=== PATIENT | female | born 1955 | race Caucasian/White ===

== ENCOUNTER 2022-12-17 10:10 | Outpatient (OUT) | payer MEDICARE, SELFPAY ==
--- NOTE | 2022-12-17 | XR_ITS ---
The [address] [address] Patient Name: KHURRAM DE LA O MRN: [id number] date: 1955 Sex: F Assigned Patient Location: [facility] Current Patient Location: RAD Accession/Order Number: [id number] Exam Date: 12/17/2022 10:30 Report Date: 12/17/2022 16:51 At the request of: JOELLEN BRIGHT Procedure: XR abdomen 1V PROCEDURE: XR abdomen 1V DATE: 12/17/2022 9:30 AM CDT COMPARISONS: CT abdomen pelvis 02/04/2022. KUB 02/17/2022 CLINICAL INDICATION: 67 years Female KIDNEY STONES FINDINGS: The bowel gas pattern is within normal limits. There is scattered mild to moderate stool and gas throughout the colon. Surgical clips overlie the right upper quadrant, stable. There may be a few calcifications overlying the right kidney and nonobstructing position, stable from CT of 02/04/2022. There are a few phleboliths of the pelvis. These are stable. The visualized osseous structures show no significant abnormalities. IMPRESSION: Few nonobstructing calculi of the right kidney. Calcifications of the abdomen and pelvis could be obscured by stool and gas Electronically authenticated by: JEB NEW Date: 12/17/2022 16:51
== END 2022-12-17 10:11 ==
LOC: RAD 10:10
PROVIDERS: PCP Family Medicine; Visit Provider Urology
DX: N20.0 Calculus of kidney (principal)
CPT/HCPCS: 74018

== ENCOUNTER 2023-04-21 09:35 | Outpatient (OUT) | payer MEDICARE, SELFPAY ==
--- NOTE | 2023-04-21 10:55 | CA_ITS ---
Patient: KHURRAM DE LA O Exam Date: 04/21/2023 : 1955 Gender:F Ordering : JANNIE PERKINS Admission #: [id number] Family : Order #: [id number] CLICK HERE TO VIEW EXAM ECHOCARDIOGRAM REPORT PROCEDURE: CA ECHO DOPPLER COMPLETE INDICATIONS: Ventricular tachycardia, AICD, hypertension COMPARISON: None. DESCRIPTION: COMPLETE ECHOCARDIOGRAM Real-time transthoracic echocardiography with 2D, M-mode, spectral and color flow Doppler performed. QUALITY: Technical quality was good. LEFT VENTRICLE: Normal chamber size. Normal left ventricular wall thickness. LV EF: Global left ventricular systolic function is normal; visually estimated ejection fraction is 55 to 60%. No obvious wall motion abnormalities. DIASTOLIC: Normal diastolic function. ATRIAL SEPTUM: Visually appears intact. LEFT ATRIUM: Normal chamber size. RIGHT ATRIUM: Normal chamber size. RIGHT VENTRICLE: Normal chamber size. Normal systolic function. Pacer wire present. TRICUSPID VALVE: Normal mobility and thickness. No stenosis with trivial regurgitation. Doppler studies reveal mildly (35-45) elevated right sided pressures. RVSP 37 mmHg MITRAL VALVE: Normal mobility and thickness. No evidence of mitral valve stenosis. Mild mitral annular calcification. Trivial mitral regurgitation. AORTIC VALVE: Normal trileaflet appearance. No visible sclerosis. Normal leaflet mobility. No evidence of aortic valve stenosis. Trivial aortic regurgitation. AORTIC ROOT: Normal diameter and appearance. PULMONIC VALVE: Normal thickness and mobility. No stenosis. No regurgitation. PERICARDIUM: No evidence of pericardial effusion. IVC: Collapses with inspirations. IVC is normal in size. CONCLUSION: 1. Global left ventricular systolic function is normal; visually estimated ejection fraction is 55 to 60% 2. Right ventricle is normal in size and systolic function 3. Normal diastolic function 4. Mildly elevated right ventricular systolic pressure; RVSP 37 mmHg 5. No significant valvular abnormalities Adult Echocardiography Procedure Report Left Ventricle LVEDD (3.7 - 5.6 cm): 5.36 cm LVESD (2.2 - 4.0 cm): 3.23 cm LVIVS thickness (0.6 - 1.2 cm): 0.92 cm LVPW thickness (0.5 - 1.0 cm): 0.98 cm e': 0.15 m/s E - e': 4.53 LVOT Max Gradient: 4.09 mm[Hg] LVOT Area (cm2): 1.01 m/s Peak Velocity (LVOT): 1.01 m/s LVOT Diameter 2.31 cm Left Atrium LA Volume Index (2D A2C): 32.69 ml/m2 Left Atrium Systolic Dimension: 2.95 cm Mitral Valve MV E to A Ratio: 1.52 Mitral Valve A-Wave Peak Velocity: 0.45 m/s Mitral Valve E-Wave Peak Velocity: 0.69 m/s Right Ventricle Aorta AO Root Diam: 2.99 cm Ascending Ao Diam: 2.89 cm Aortic Valve AoV Area (Peak Jones): 3.53 cm2, 3.53 cm2 Peak Velocity(Antegrade Flow): 1.20 m/s Peak Gradient(Antegrade Flow): 5.77 mm[Hg] Tricuspid Valve Peak Velocity (Regurgitant Flow): 2.93 m/s Pulmonic Valve Peak Velocity: 0.83 m/s Peak Gradient: 3.06 mm[Hg], 2.50 mm[Hg] Right Atrium Right Atrium Systolic Pressure: 40.12 ml, 40.12 ml Dictated by: Bambi Garay M.D. on 04/21/2023 at 12:33 Approved by: Babmi Garay M.D. on 04/21/2023 at 12:38
== END 2023-04-21 09:36 | disposition home or self-care (01) ==
LOC: CARD 09:37
PROVIDERS: PCP Family Medicine; Visit Provider Internal Medicine Cardiovascular Disease
DX: I47.20 Ventricular tachycardia, unspecified (principal); I47.29 Other ventricular tachycardia
CPT/HCPCS: 93306

== ENCOUNTER 2023-06-11 18:42 | Inpatient (IN) | payer MEDICARE, SELFPAY ==
[2023-06-11 18:42] VITALS: BP 167/93; PULSE 70; RESP 18; TEMP 36.8; O2SAT 98; BMI 45.2
--- NOTE | 2023-06-11 19:18 | ED.ABDPAIN1 ---
HPI - Abdominal Pain General Chief Complaint: Abdominal Pain Stated Complaint: Vomiting Time Seen by Provider: 06/11/23 18:46 Source: patient Mode of arrival: Wheelchair Limitations: no limitations History of Present Illness HPI narrative: This 67-year-old female with a history of diverticulosis and possibly irritable bowel syndrome presents for evaluation of nausea and vomiting. The patient states sshe last ate a ham sandwich with macaroni and cheese and green beans and started becoming nauseated and has been vomiting since that time. She states that she has been vomiting for the past 2 hours. She has a history of chronic diarrhea. She recently had an endoscopy and colonoscopy with Dr. Dukes at [facility]. The results of the endoscopy showed a normal esophagus with moderate erythema in the antrum with random biopsies being taken to rule out H. pylori. There are multiple inflammatory polyps in the antrum which are also biopsied. Normal duodenum was noted. The results of the colonoscopy was moderate internal hemorrhoids. Severe sigmoid diverticulosis. Random biopsies were taken from the colon to rule out microscopic colitis. There was a 4 mm sessile polyp in the cecum removal with cold snare completely and retrieved and a 7 mm sessile polyp in the hepatic flexure resected with cold snare completely and retrieved. There was a normal terminal ileum. Pathology reports are pending at this time. The patient's son is with her and states he ate the same food and did not get sick. She is status post colonoscopy several years ago at this facility. She denies any coffee-ground emesis or bloody diarrhea. She has not had a fever or chills. She denies any chest pain or shortness of breath.She has generalized abdominal pain and points to the entire abdomen as area of greatest pain. She states that she has chronic diarrhea which is why she had a colonoscopy done. This is unchanged today. Related Data Home Medications Medication Instructions Recorded Confirmed albuterol sulfate 90 mcg/actuation 2 puff inhalation Q8H PRN 06/11/23 06/11/23 aerosol inhaler shortness of breath or wheezing alendronate 70 mg tablet 70 mg PO .weekly 06/11/23 06/11/23 amlodipine 5 mg tablet 5 mg PO DAILY 06/11/23 06/11/23 aspirin 81 mg capsule 81 mg PO DAILY 06/11/23 06/11/23 calcium citrate 200 mg 1 tab PO DAILY 06/11/23 06/11/23 calcium-vitamin D3 3.125 mcg (125 unit) tablet herbal complex no.239 (Whole Body 3 cap PO DAILY 06/11/23 06/11/23 Joint Support capsule) levothyroxine 50 mcg tablet 50 mcg PO DAILY 06/11/23 06/11/23 lisinopril 10 mg tablet 10 mg PO DAILY 06/11/23 06/11/23 naproxen sodium 220 mg capsule 220 mg PO Q8H 06/11/23 06/11/23 (Aleve) potassium chloride 10 mEq 10 meq PO DAILY 06/11/23 06/11/23 tablet,extended release sotalol 80 mg tablet 80 mg PO Q12H 06/11/23 06/11/23 Allergies Allergy/AdvReac Type Severity Reaction Status Date / Time ceftriaxone [From Rocephin] Allergy Intermediate Verified 06/11/23 18:48 oxaprozin [From Daypro] Allergy Intermediate Verified 06/11/23 18:48 Review of Systems ROS Status of ROS 10 or more systems reviewed and unremarkable except as noted in history and below PFSH PFSH Family History (Updated 06/11/23 @ 23:32 by Sally Delacruz) Mother Family history of cancer Father Family history of cancer Aunt Family history of hypertension Social History (Updated 06/11/23 @ 23:33 by Sally Delacruz) Within the past year, how often did you have a drink containing alcohol: never Score interpretation: A score less than 3 is consistent with normal alcohol consumption. Smoking status: Never smoker Non-prescribed substance use: denies use Previous occupational history: retired Highest level of school completed/degree received: some college, no degree Are you now , , , , never or living with a partner: In a typical week, how many times do you talk on the telephone with family, friends, or neighbors: 3 or more times per week How often do you get together with friends or relatives: 3 or more times per week How often do you attend episcopalian or bahai services: never Do you belong to any clubs or organizations such as episcopalian groups unions, fraternal or athletic groups, or school groups: no Total score: 1 Score interpretation: A score of less than or equal to 1 indicates the most socially isolated. Little interest or pleasure in doing things: not at all Feeling down, depressed, or hopeless: not at all Feel stressed/tense/nervous/anxious/difficulty sleeping: not at all Due to disability, difficulty making decisions: No Do you think of yourself as: straight/heterosexual Exam Narrative Exam Narrative: Nurses note and vital signs reviewed and patient is not hypoxic. General: Alert, moderately overweight female resting comfortably on the stretcher, she has an emesis basin in her lap after an episode of emesis. No active bleeding noted Skin: Warm, dry, no pallor noted. There is no rash noted. Head: Normocephalic, atraumatic Eye: Normal conjunctiva, no drainage, EOMI. PERRL. No scleral icterus. Ears, Nose, Mouth, and Throat: oral mucosa is moist. Cardiovascular: Regular Rate and [id number], no murmurs, rubs or gallops, pulses are brisk and equal bilaterally Respiratory: Patient is in no distress, no accessory muscle use, lungs are clear to auscultation, no wheezing, rales or rhonchi Back: non-tender, no CVA tenderness bilaterally to percussion. GI: Obese, soft, diffusely tender, no rebound, guarding or rigidity, bowel sounds are mildly increased Musculoskeletal: The patient has no evidence of calf tenderness, no pitting edema, symmetrical pulses noted bilaterally Neurological: A&O x4, normal speech Psychiatric: Cooperative Constitutional Vital Signs, click to edit/add: Last Vital Signs Temp 98.2 F 06/11/23 23:32 Pulse 69 06/11/23 23:32 Resp 18 06/11/23 23:32 BP 122/69 06/11/23 23:32 Pulse Ox 95 06/11/23 23:32 O2 Del Method Room Air 06/11/23 23:32 Course Vital Signs Vital signs: Vital Signs Temperature 98.3 F 06/11/23 18:42 Pulse Rate 70 06/11/23 18:42 Respiratory Rate 18 06/11/23 18:42 Blood Pressure 167/93 H 06/11/23 18:42 Pulse Oximetry 98 06/11/23 18:42 Oxygen Delivery Method Room Air 06/11/23 18:42 Temperature 98.2 F 06/11/23 23:32 Pulse Rate 69 06/11/23 23:32 Respiratory Rate 18 06/11/23 23:32 Blood Pressure 122/69 06/11/23 23:32 Pulse Oximetry 95 06/11/23 23:32 Oxygen Delivery Method Room Air 06/11/23 23:32 MDM - Abdominal Pain MDM Narrative Medical decision making narrative: 67-year-old female with a history of irritable bowel syndrome, chronic diarrhea recently had an endoscopy and colonoscopy due to her diarrhea presents for evaluation of nausea vomiting and generalized abdominal pain that started almost immediately after having dinner. She had 2 hours of vomiting prior to arrival and was still having some mild vomiting and dry heaving after getting to the emergency department. She has not had a fever. She denies any chest pain or shortness of breath. An IV is placed and she was medicated with IV fluids, Zofran Pepcid and 2 mg of morphine. She has no elevated white count at 16. Hemoglobin is normal. Her electrolytes are normal with the exception of a potassium at 6 that was repeated. Repeat potassium is normal at 4.4. Lactic acid is normal at 1.1. She has a normal BUN/Cr. CT scan of the abdomen/pelvis was ordered and Shows a focal area of thickening with a masslike appearance of the gastric antrum which could reflect a mass or tumor with recommendation for direct visualization which she recently did have done during her endoscopy. It also shows dilation of the small bowel focal transition point in the mid abdomen which could be seen in early obstruction. The patient states her pain is under control that she is still having some mild nausea. She will be re-medicated with IV Reglan. The case was discussed with Dr. Meyer who is on-call for general surgery [facility] but states that he is going off service at 8 AM and will be unavailable to consult on her. He suggests admission to the hospitalist service with an x-ray in the morning to monitor the progression of the possible early small bowel obstruction. Case was discussed with the hospitalist and she is accepted for admission. On re-evaluation, she is persistantly nauseated and has had additional vomiting in the ER. She agreed to passage of an NG tube if I give her some mild sedation. She agreed to 2mg IV versed for placement of the tube and signed consent. NGT was placed after administration of 2mg IV Versed and connected to low wall suction with return of a large volume of yellow fluid. Pt tolerated procedure well. Follow up abdominal xray shows the tube in place in the stomach. Medical Records Medical records narrative: 67-year-old female with a history of irritable bowel syndrome, chronic diarrhea recently had an endoscopy and colonoscopy due to her diarrhea presents for evaluation of nausea vomiting and generalized abdominal pain that started almost immediately after having dinner. She had 2 hours of vomiting prior to arrival and was still having some mild vomiting and dry heaving after getting to the emergency department. She has not had a fever. She denies any chest pain or shortness of breath. An IV is placed and she was medicated with IV fluids, Zofran Pepcid and 2 mg of morphine. She has no elevated white count at 16. Hemoglobin is normal. Her electrolytes are normal with the exception of a potassium at 6 that was repeated. She has a normal BUN/Cr. CT scan of the abdomen/pelvis was ordered and The [address] [address] [address] Scan Report Signed Patient: KHURRAM DE LA O MR#: [id number] : 1955 Acct:[id number] Age/Sex: 67 / F ADM Date: 06/11/23 Loc: ER Attending Dr: Ordering Physician: Sophie Masters Date of Service: 06/11/23 Procedure(s): CT abdomen pelvis w con Accession Number(s): [id number] cc: ROSANGELA SAEZ ~ The [address] [address] Patient Name: KHURRAM DE LA O MRN: [id number] date: 1955 Sex: F Assigned Patient Location: ER Current Patient Location: ER Accession/Order Number: [id number] Exam Date: 06/11/2023 20:30 Report Date: 06/11/2023 21:05 At the request of: SOPHIE MASTERS Procedure: CT abdomen pelvis w con EXAM: CT abdomen pelvis w con HISTORY: vomiting, abd pain, hx diverticulosis COMPARISON: CT abdomen and pelvis 02/04/2022, outside study TECHNIQUE: Intravenous contrast-enhanced axial CT of the abdomen and pelvis was performed with coronal and sagittal reformats provided. FINDINGS: Lung bases: Atelectasis or scarring at the left lung base. Partially imaged solid nodule at the left lung base measures 6 mm. Cardiac defibrillator lead seen in the right ventricle. ABDOMEN: Liver: Normal. Gallbladder/biliary: Status post cholecystectomy. Pancreas: Normal. Spleen: Normal. Adrenals: Normal. Kidneys, ureters and urinary bladder: Multiple nonobstructing nephroliths of the right kidney measures 4 mm. Subcentimeter hypodensities of the kidneys are too small to further characterize but are favored to represent cysts. The ureters and urinary bladder are unremarkable. Pelvis: Status post hysterectomy. No adnexal masses. Vasculature: Minimal calcific atherosclerosis of the abdominal aorta which is normal caliber. Major venous structures of the abdomen are patent. Hollow viscera/retroperitoneum: Normal appearance of the gastroesophageal junction. There is thickening at the gastric antrum with focal nodular area which could reflect a mass axial image 38. Small bowel is fluid-filled and dilated to 3.4 cm in diameter. Focal transition point in the mid abdomen and axial image 75. The appendix is normal. No focal colonic wall thickening. Few colonic diverticula are incidentally noted. No mesenteric or pelvic lymphadenopathy. No intra-abdominal free fluid or free air. Musculoskeletal/soft tissues: Soft tissues are within normal limits. No acute or aggressive osseous abnormality. CT/CT abdomen pelvis w con IMPRESSION: Focal area of thickening with masslike appearance of the gastric antrum could reflect a mass or ulcer. Consider direct visualization. There is dilatation of the small bowel with focal transition point in the mid abdomen which could be seen with early obstruction. Colonic diverticulosis without evidence of acute diverticulitis. Nonobstructing nephrolithiasis of the right kidney. Electronically authenticated by: ARIA NICHOLAS Date: 06/11/2023 21:05 Lab Data Labs: Lab Results 06/11/23 06/11/23 Range/Units 18:50 20:53 WBC 16.7 H (4.0-11.0) 10^3/uL RBC 5.12 (4.20-5.40) 10^6/uL Hgb 16.5 H (12.0-16.0) g/dL Hct 51.2 H (36.0-48.0) % MCV 100.0 H (81.0-99.0) fL MCH 32.2 (26.7-34.0) pg MCHC 32.2 (29.9-35.2) g/dL RDW 14.0 (11.0-15.0) % Plt Count 254 (150-450) 10^3/uL MPV 12.0 (9.5-13.5) fL Neut % (Auto) 79.8 H (43.0-75.0) % Lymph % (Auto) 7.2 L (20.5-60.0) % [place] % (Auto) 10.6 (1.7-12.0) % Eos % (Auto) 1.6 (0.9-7.0) % Baso % (Auto) 0.4 (0.2-2.0) % Neut # (Auto) 13.4 H (1.4-6.5) 10^3/uL Lymph # (Auto) 1.2 (1.2-3.8) 10^3/uL [place] # (Auto) 1.8 H (0.3-0.8) 10^3/uL Eos # (Auto) 0.3 (0.0-0.7) 10^3/uL Baso # (Auto) 0.1 (0.0-0.1) 10^3/uL Abs Immat Gran (auto) 0.06 H (0.00-0.03) 10^3/uL Imm/Tot Granulo (auto) 0.4 (0.0-0.5) % Sodium 138 (136-145) mmol/L Potassium 6.0 H 4.4 (3.5-5.1) mmol/L Chloride 105 (98-107) mmol/L Carbon Dioxide 24.1 (21.0-32.0) mmol/L Anion Gap 14.9 BUN 17.0 (7.0-18.0) mg/dL Creatinine 0.79 (0.55-1.02) mg/dL Est GFR ( Amer) >60 (>=60) Est GFR (Non-Af Amer) >60 (>=60) BUN/Creatinine Ratio 21.5 Glucose 96 (74-106) mg/dL Lactate 1.1 (0.4-2.0) mmol/L Calcium 9.5 (8.5-10.1) mg/dL Total Bilirubin 1.1 H (0.2-1.0) mg/dL AST 56 H (15-37) U/L ALT 26 (14-59) U/L Alkaline Phosphatase 96 (46-116) U/L Total Protein 8.5 H (6.4-8.2) g/dL Albumin 3.9 (3.4-5.0) g/dL Globulin 4.6 g/dL Albumin/Globulin Ratio 0.8 Lipase 41.0 (16.0-77.0) U/L ECG Data Attestation: I personally reviewed and interpreted this ECG as follows: (Sinus rtythm at 69 beats for minute, normal axis, nonspecific ST changes, no acute ST segment elevation or T-wave inversion) Critical Care Time Critical Care Time Critical Care Time: Yes Total Critical Care Time: 35 Attestation: i was present for the procedural sedation and NG tube placement on this patient. Discharge Plan Discharge Chief Complaint: Abdominal Pain Clinical Impression: Small bowel obstruction Patient Disposition: Admitted as Observation Time of Disposition Decision: 21:45 Condition: Fair Discharge Date/Time: 06/11/23 23:17
[2023-06-11] MEDS: FAMOTIDINE/PF 20 MG/2 ML VIAL 40 MG IV (19:32)
[2023-06-11] MEDS: ONDANSETRON PF 4 MG/2 ML VIAL IV (19:32)
[2023-06-11] MEDS: 0.9 % SODIUM CHLORIDE 1,000 ML 1000 ML IV (19:32)
[2023-06-11 19:47] LABS: Basophils Absolute Auto 0.1 10^3/uL (0.0-0.1); Basophils Percent Auto 0.4 % (0.2-2.0); Eosinophils Absolute Auto 0.3 10^3/uL (0.0-0.7); Eosinophils Percent Auto 1.6 % (0.9-7.0); Hematocrit 51.2 % (36.0-48.0); Hemoglobin 16.5 g/dL (12.0-16.0); Immature Granulocytes Abs Auto 0.06 10^3/uL (0.00-0.03); Immature Granulocytes Pct Auto 0.4 % (0.0-0.5); Lymphocytes Absolute Auto 1.2 10^3/uL (1.2-3.8); Lymphocytes Percent Auto 7.2 % (20.5-60.0); Mean Corpuscular HGB Conc 32.2 g/dL (29.9-35.2); Mean Corpuscular Hemoglobin 32.2 pg (26.7-34.0); Monocytes Absolute Auto 1.8 10^3/uL (0.3-0.8); Monocytes Percent Auto 10.6 % (1.7-12.0); Neutrophils Absolute Auto 13.4 10^3/uL (1.4-6.5); Neutrophils Percent Auto 79.8 % (43.0-75.0); Platelet Count 254 10^3/uL (150-450); Red Blood Count 5.12 10^6/uL (4.20-5.40); White Blood Count 16.7 10^3/uL (4.0-11.0)
--- NOTE | 2023-06-11 19:49 | CT_ITS ---
[address] [address] Patient Name: KHURRAM DE LA O MRN: [id number] date: 1955 Sex: F Assigned Patient Location: ER Current Patient Location: ER Accession/Order Number: [id number] Exam Date: 06/11/2023 20:30 Report Date: 06/11/2023 21:05 At the request of: FELIX MARKER Procedure: CT abdomen pelvis w con EXAM: CT abdomen pelvis w con HISTORY: vomiting, abd pain, hx diverticulosis COMPARISON: CT abdomen and pelvis 02/04/2022, outside study TECHNIQUE: Intravenous contrast-enhanced axial CT of the abdomen and pelvis was performed with coronal and sagittal reformats provided. FINDINGS: Lung bases: Atelectasis or scarring at the left lung base. Partially imaged solid nodule at the left lung base measures 6 mm. Cardiac defibrillator lead seen in the right ventricle. ABDOMEN: Liver: Normal. Gallbladder/biliary: Status post cholecystectomy. Pancreas: Normal. Spleen: Normal. Adrenals: Normal. Kidneys, ureters and urinary bladder: Multiple nonobstructing nephroliths of the right kidney measures 4 mm. Subcentimeter hypodensities of the kidneys are too small to further characterize but are favored to represent cysts. The ureters and urinary bladder are unremarkable. Pelvis: Status post hysterectomy. No adnexal masses. Vasculature: Minimal calcific atherosclerosis of the abdominal aorta which is normal caliber. Major venous structures of the abdomen are patent. Hollow viscera/retroperitoneum: Normal appearance of the gastroesophageal junction. There is thickening at the gastric antrum with focal nodular area which could reflect a mass axial image 38. Small bowel is fluid-filled and dilated to 3.4 cm in diameter. Focal transition point in the mid abdomen and axial image 75. The appendix is normal. No focal colonic wall thickening. Few colonic diverticula are incidentally noted. No mesenteric or pelvic lymphadenopathy. No intra-abdominal free fluid or free air. Musculoskeletal/soft tissues: Soft tissues are within normal limits. No acute or aggressive osseous abnormality. CT/CT abdomen pelvis w con IMPRESSION: Focal area of thickening with masslike appearance of the gastric antrum could reflect a mass or ulcer. Consider direct visualization. There is dilatation of the small bowel with focal transition point in the mid abdomen which could be seen with early obstruction. Colonic diverticulosis without evidence of acute diverticulitis. Nonobstructing nephrolithiasis of the right kidney. Electronically authenticated by: ARIA NICHOLAS Date: 06/11/2023 21:05
[2023-06-11 19:59] LABS: Alanine Aminotransferase 26 U/L (14-59); Albumin Globulin Ratio 0.8; Albumin Level 3.9 g/dL (3.4-5.0); Alkaline Phosphatase 96 U/L (46-116); Anion Gap 14.9; Aspartate Amino Transferase 56 U/L (15-37); BUN Creatinine Ratio 21.5; Bilirubin Total 1.1 mg/dL (0.2-1.0); Calcium 9.5 mg/dL (8.5-10.1); Carbon Dioxide 24.1 mmol/L (21.0-32.0); Chloride 105 mmol/L (98-107); Estimated GFR (African America >60 (>=60); Estimated GFR (Non-African Ame >60 (>=60); Globulin 4.6 g/dL; Glucose 96 mg/dL (74-106); Sodium 138 mmol/L (136-145); Total Protein 8.5 g/dL (6.4-8.2)
[2023-06-11 20:03] VITALS: BP 126/84; PULSE 67; RESP 20; O2SAT 95
--- NOTE | 2023-06-11 21:42 | ECG_ITS ---
The [facility] Test Date: 2023-06-11 Pat Name: KHURRAM DE LA O Department: Room: - Gender: Female Rn Trauma: : 1955 Requested By: ROSANGELA SAEZ Order Number: [id number] Reading MD: CLARENCE MALDONADO Measurements Intervals [place] Rate: 69 P: 56 [place]: 138 QRS: 76 QRSD: 80 T: 61 QT: 390 QTc: 409 Interpretive Statements 1100 Sinus rhythm [address] depression 9130 borderline ECG No previous ECG available for comparison Electronically Signed On 06-12-2023 7:04:45 EST by CLARENCE MALDONADO
[2023-06-11] MEDS: METOCLOPRAMIDE HCL 10 MG/2 ML VIAL IVP (21:43)
[2023-06-11 21:45] LABS: Potassium 4.4 mmol/L (3.5-5.1)
[2023-06-11 22:14] VITALS: BP 112/84; PULSE 80; RESP 16; O2SAT 96
[2023-06-11 22:17] LABS: Lactate/Lactic Acid 1.1 mmol/L (0.4-2.0)
--- NOTE | 2023-06-11 22:35 | RESP.RT ---
RT called down for conscious sedation while nursing placed NG tube
[2023-06-11] MEDS: 0.9 % SODIUM CHLORIDE 1,000 ML 125 ML IV (22:47)
[2023-06-11] MEDS: MIDAZOLAM HCL 2 MG/2 ML VIAL IV (22:49)
--- NOTE | 2023-06-11 22:49 | XR_ITS ---
The [address] [address] Patient Name: KHURRAM DE LA O MRN: [id number] date: 1955 Sex: F Assigned Patient Location: ER Current Patient Location: MS Accession/Order Number: [id number] Exam Date: 06/11/2023 23:00 Report Date: 06/11/2023 23:28 At the request of: FELIX MARKER Procedure: XR abdomen 1V EXAM: XR abdomen 1V HISTORY: NGT placement COMPARISON: Abdominal series 12/17/2022 TECHNIQUE: Single AP radiograph of the abdomen FINDINGS: Endotracheal tube with tip and side-port project over expected location of the gastric fundus. Lung bases are clear. Contrast is seen within the renal collecting systems bilaterally. XR/XR abdomen 1V IMPRESSION: Endotracheal tube with tip and side-port projecting over expected location of the gastric fundus. Electronically authenticated by: ARIA NICHOLAS Date: 06/11/2023 23:28
--- NOTE | 2023-06-11 23:00 | PC.NURSE ---
2250 NG to left nare placed after 2mg of versed.
[2023-06-11 23:32] VITALS: BP 122/69; PULSE 69; RESP 18; TEMP 36.8; O2SAT 95; BMI 39.8
--- NOTE | 2023-06-12 01:17 | W.PM.TELEPN ---
Progress Note: Subjective Subjective Interval history: The patient is a 67-year-old female with a history of gastritis and diverticulosis as well as irritable bowel syndrome, who underwent an EGD and colonoscopy in May for chronic diarrhea. She had multiple biopsies taken at that time. Over the past 24 hours, the patient has had intractable nausea and biliary emesis. She denies any diarrhea, fevers or chills. She denies any new medications or any recent sick contacts. She denies any recent travel. She presented to the ED and was noted to have a early small bowel obstruction. NG tube was placed. She was started on IV fluids. She is being admitted for further evaluation. Exam Narrative Exam Narrative: General : Alert and oriented x3 HEENT : Extraocular movements intact, pupils equal round and reactive to light and accommodation Neck: Supple, no JVD Chest: Clear to auscultation bilaterally, no wheezes Heart: Regular rate and rhythm, S1 and S2 heard Abdomen: Soft nontender nondistended. Extremities: No clubbing cyanosis or edema Neurologically: Moving all 4 extremities Skin: No rashes Constitutional Vital Signs, click to edit/add: Last Vital Signs Temp 98.2 F 06/11/23 23:32 Pulse 69 06/11/23 23:32 Resp 18 06/11/23 23:32 BP 122/69 06/11/23 23:32 Pulse Ox 95 06/11/23 23:32 O2 Del Method Room Air 06/11/23 23:32 Progress Note: Objective Labs Labs: Short CBC 06/11/23 Range/Units 18:50 WBC 16.7 H (4.0-11.0) 10^3/uL Hgb 16.5 H (12.0-16.0) g/dL Hct 51.2 H (36.0-48.0) % Plt Count 254 (150-450) 10^3/uL BMP 06/11/23 06/11/23 18:50 20:53 Sodium 138 Potassium 6.0 H 4.4 Chloride 105 Carbon Dioxide 24.1 BUN 17.0 Creatinine 0.79 Glucose 96 Calcium 9.5 Liver Function 06/11/23 Range/Units 18:50 Total Bilirubin 1.1 H (0.2-1.0) mg/dL AST 56 H (15-37) U/L ALT 26 (14-59) U/L Alkaline Phosphatase 96 (46-116) U/L Albumin 3.9 (3.4-5.0) g/dL Progress Note: A&P Assessment and Plan (1) Small bowel obstruction: Plan The patient is a 67-year-old female with above medical problems, presenting with intractable nausea and vomiting, found to have small bowel obstruction. Small bowel obstruction -NG tube placed in ED -Approximately 600 mL output -Start IV fluids -Pain control - NPO -General surgery consult in a.m., Dr. Neely -IV PPI, antiemetics DVT Prophylaxis -Lovenox, SCDs Medication review -Medication reconciliation form completed Goals of care -Full code Communications -Discussed with the emergency room physician -Discussed with the bedside nurse -Patient updated of plan of care, all questions answered to their satisfaction Disposition -Home when medically stable Telemedicine clause -As the provider of this telehealth evaluation, requested by the patient's evaluating physician, I attest that I introduced myself to the patient, provided my credentials and determined that telemedicine via a real-time, two-way interactive audio and video platform is an appropriate and effective means of providing this service. -I reviewed the patient's chart and had a discussion with the member of the patient's treatment team. -The patient and I mutually agreed with continuation of this evaluation via telemedicine. The patient consented for the telemedicine evaluation. -This virtual encounter was taken place from [place], [place]. The encounter was approximately 35 minutes. The nurse was present during the entire time of the encounter and was able to remove the stethoscope and appropriate directions. The patient was evaluated at [facility] Telemedicine Attestation Telemedicine Attestation I conducted this encounter from [] via secure live, [id number] video conference with the patient, located at [facility] with []. Prior to the interview, the risks and benefits of telemedicine were discussed with the patient and verbal consent was obtained.
[2023-06-12] MEDS: SODIUM CHLORIDE 0.45 % 1,000 ML 75 ML IV ×2 (02:05→16:09)
[2023-06-12] MEDS: PANTOPRAZOLE SODIUM 40 MG VIAL IV ×2 (02:22→12:41)
[2023-06-12 03:56] VITALS: BP 125/79; PULSE 68; RESP 16; TEMP 37.3; O2SAT 92
[2023-06-12 07:57] VITALS: BP 115/60; PULSE 60; RESP 18; TEMP 36.9; O2SAT 96
[2023-06-12] MEDS: SOTALOL HCL 80 MG TABLET PO ×2 (08:47→22:04)
[2023-06-12] MEDS: AMLODIPINE BESYLATE 5 MG TABLET PO (08:47)
[2023-06-12] MEDS: LISINOPRIL 10 MG TABLET PO (08:47)
[2023-06-12] MEDS: ASPIRIN 81 MG TABLET.DR PO (08:48)
[2023-06-12] MEDS: ENOXAPARIN SODIUM 40 MG/0.4 ML SYRINGE SUBQ (08:48)
[2023-06-12] MEDS: LEVOTHYROXINE SODIUM 25 MCG TABLET 50 MCG PO (08:51)
--- NOTE | 2023-06-12 08:53 | PM.HP ---
H&P: HPI History of Present Illness Chief complaint: Vomiting SM BOWEL OBSTRUCTION Narrative: patient is a 67-year-old female with past medical history of hypertension, chronic diarrhea/irritable bowel syndrome,osteoporosis, chronic obstructive pulmonary disease, hypothyroidism. Patient presented to the Emergency Room last night after having some emesis after eating dinner. She also notes that she was having significant abdominal pain. She had a colonoscopy and EGD performed at [facility] on 05/24/[address] Dukes. The EGD showed inflammation possible H pylori and polyps. Colonoscopy was also positive for two positive polyps, diverticulosis in the sigmoid. She reports that she was also to be taking Flagyl which she has not taken that was prescribed by this gastrointestinal doctor. She was to have a follow-up with him this for reviewing biopsy results. She states since the colonoscopy she has been having some normal bowel movements and eating normally and it was not until yesterday when she developed this significant abdominal pain and vomiting. She denies having any other prior abdominal surgeries in the past and she denies having any small bowel obstructions in the past. This morning there is an NG tube in place and she reports she feels much better this morning after the NG. She has been passing some gas but no bowel movements yet. She denies any fevers chills nausea vomiting chest pain or shortness of breath. Review of Systems ROS Narrative ROS: a complete review of systems were reviewed with patient and are positive as below or listed in History of Chief Complaint. General: no fever, chills, night sweats Head: no headache, trauma, visual changes, nausea or vomiting Skin: no reported rashes, itching or sores Eyes: no blurriness of vision Ears: no reported hearing loss, vertigo, earache, or tinnitus Throat: no sore throat, hoarseness, swelling of neck, or tongue pain Heart: no chest pain Lungs: no shortness of breath or cough GI: diarrhea and vomiting/nausea Urinary: no urinary urgency, frequency or pain Neuro: no numbness or tingling HEM: no bleeding issues or bruising ENDO: thyroid problems Psych: no anxiety or depression [facility] Medical History (Updated 06/12/23 @ 14:20 by uSzie Bains DO) 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 - Other cardiomyopathies (ICD-10) High blood pressure ?I10 - Essential (primary) hypertension (ICD-10) Pacemaker ?Z95.0 - Presence of cardiac pacemaker (ICD-10) Kidney stones ?N20.0 - Calculus of kidney (ICD-10) Hip pain, right ?M25.551 - Pain in right hip (ICD-10) Lactose intolerance ?E73.9 - Lactose intolerance, unspecified (ICD-10) Acute hemorrhoid ?K64.9 - Unspecified hemorrhoids (ICD-10) Diarrhea ?R19.7 - Diarrhea, unspecified (ICD-10) Surgical History AICD (automatic cardioverter/defibrillator) present ?Z95.810 - Presence of automatic (implantable) cardiac defibrillator (ICD-10) H/O: hysterectomy ?Z90.710 - Acquired absence of both cervix and uterus (ICD-10) Abnormal colonoscopy ?R93.3 - Abnormal findings on diagnostic imaging of other parts of digestive tract (ICD-10) History of esophagogastroduodenoscopy (EGD) ?Z98.890 - Other specified postprocedural states (ICD-10) Family History Mother Family history of cancer Father Family history of cancer Aunt Family history of hypertension Social History Within the past year, how often did you have a drink containing alcohol: never Score interpretation: A score less than 3 is consistent with normal alcohol consumption. Smoking status: Never smoker Non-prescribed substance use: denies use Previous occupational history: retired Highest level of school completed/degree received: some college, no degree Are you now , , , , never or living with a partner: In a typical week, how many times do you talk on the telephone with family, friends, or neighbors: 3 or more times per week How often do you get together with friends or relatives: 3 or more times per week How often do you attend christianity or worship services: never Do you belong to any clubs or organizations such as christianity groups unions, [employer] or athletic groups, or school groups: no Total score: 1 Score interpretation: A score of less than or equal to 1 indicates the most socially isolated. Little interest or pleasure in doing things: not at all Feeling down, depressed, or hopeless: not at all Feel stressed/tense/nervous/anxious/difficulty sleeping: not at all Due to disability, difficulty making decisions: No Do you think of yourself as: straight/heterosexual Gender Identity: female Meds Home Medications and Allergies Home Medications Medication Instructions Recorded Confirmed Type albuterol sulfate 90 mcg/actuation 2 puff inhalation Q8H PRN 06/11/23 06/11/23 History aerosol inhaler shortness of breath or wheezing alendronate 70 mg tablet 70 mg PO .weekly 06/11/23 06/11/23 History amlodipine 5 mg tablet 5 mg PO DAILY 06/11/23 06/11/23 History aspirin 81 mg capsule 81 mg PO DAILY 06/11/23 06/11/23 History calcium citrate 200 mg 1 tab PO DAILY 06/11/23 06/11/23 History calcium-vitamin D3 3.125 mcg (125 unit) tablet herbal complex no.239 (Whole Body 3 cap PO DAILY 06/11/23 06/11/23 History Joint Support capsule) levothyroxine 50 mcg tablet 50 mcg PO DAILY 06/11/23 06/11/23 History lisinopril 10 mg tablet 10 mg PO BID 06/11/23 06/12/23 History naproxen sodium 220 mg capsule 220 mg PO Q8H 06/11/23 06/11/23 History (Aleve) potassium chloride 10 mEq 10 meq PO DAILY 06/11/23 06/11/23 History tablet,extended release sotalol 80 mg tablet 80 mg PO Q12H 06/11/23 06/11/23 History Allergies Allergy/AdvReac Type Severity Reaction Status Date / Time ceftriaxone [From Rocephin] Allergy Intermediate Verified 06/11/23 18:48 oxaprozin [From Daypro] Allergy Intermediate Verified 06/11/23 18:48 Exam Narrative Exam Narrative: General: Patient is alert, and oriented to person, place and time with normal affect, proper hygiene Skin: no visible rashes, or ulcers Head: atraumatic, acephalic Eyes: PERRLA, no nystagmus present, conjunctiva clear, no scleral icterus Ears: normal gross auditory acuity Nose: NG tube in place Heart: Normal rate and rhythm, no murmurs/rubs/gallops Lungs: no audible wheezes, crackles and normal breath sounds all lung montero Abdomen: no audible bowel sounds, mild distension, No palpable masses, no organomegaly, no rebound/guarding/ or rigidity Musculoskeletal: no swelling bilateral lower extremities Vascular: Normal carotid, radial, femoral, posterior tibial, and dorsalis pedis pulses Lymph: no supraclavicular, axillary, or anterior/posterior cervical adenopathy Neuro: CN II-X grossly intact, normal sensation upper and lower extremities Constitutional Vital Signs, click to edit/add: Last Vital Signs Temp 98.5 F 06/12/23 07:57 Pulse 60 06/12/23 07:57 Resp 18 06/12/23 07:57 BP 115/60 06/12/23 07:57 Pulse Ox 96 06/12/23 07:57 O2 Del Method Room Air 06/12/23 07:57 Results Labs Labs: Short CBC 06/11/23 Range/Units 18:50 WBC 16.7 H (4.0-11.0) 10^3/uL Hgb 16.5 H (12.0-16.0) g/dL Hct 51.2 H (36.0-48.0) % Plt Count 254 (150-450) 10^3/uL BMP 06/11/23 06/11/23 18:50 20:53 Sodium 138 Potassium 6.0 H 4.4 Chloride 105 Carbon Dioxide 24.1 BUN 17.0 Creatinine 0.79 Glucose 96 Calcium 9.5 Liver Function 06/11/23 Range/Units 18:50 Total Bilirubin 1.1 H (0.2-1.0) mg/dL AST 56 H (15-37) U/L ALT 26 (14-59) U/L Alkaline Phosphatase 96 (46-116) U/L Albumin 3.9 (3.4-5.0) g/dL Assessment and Plan Assessment and Plan (1) Small bowel obstruction: Assessment and Plan: Continue NG, NPO status, IVF. Gen Surg consult. CT of abdomen and pelvis consistent with SBO which showed dilation 3.4 cm (2) Colitis: Assessment and Plan: will place on cipro IV, diverculitos seen on CT and on colonoscopy that was reviewed. (3) Ulcer of antrum of stomach: Assessment and Plan: i reviewed EGD op report, biopsy pending, continue IV protonix Qualifiers: Gastric ulcer chronicity: unspecified ulcer chronicity Qualified Code(s): K25.9 - Gastric ulcer, unspecified as acute or chronic, without hemorrhage or perforation (4) High blood pressure: Assessment and Plan: continue home medications Qualifiers: Hypertension type: primary hypertension Qualified Code(s): I10 - Essential (primary) hypertension (5) Hypothyroidism: Assessment and Plan: continue home medications Qualifiers: Hypothyroidism type: acquired Qualified Code(s): E03.9 - Hypothyroidism, unspecified Plan patient is full code lovenox for DVT prophylaxis patient made inpatient status due to SBO and colitis symptoms and need for NG.
--- NOTE | 2023-06-12 10:18 | CM.NOTE ---
Rounding with Dr. Bains. Pt. sitting up in chair. NG conncting to suction at this time. Pt. discussed with Dr. Bains having a EGD and Colonoscopy done at [facility] on 05/[address] Bains has results and reviewing with patient at this time. Pt. discussed that she has a follow up with the GI doctor from [facility] later this week. No anticipated discharge needs and no anticipated discharge today.
--- NOTE | 2023-06-12 11:50 | PM.GSCN ---
History of Present Illness Consult details Consult date: 06/12/23 Reason for consult: abdominal pain Narrative: 67 yo F presents with abd pain that started last night after dinner. Associated with cramps and emesis. Denies any hematemesis or blood per rectum. Pt has never experienced this before. Pt has previous hysterectomy but no other abd surgeries. Recently saw GI for EGD and c-scope due to chronic diarrhea. Pt has f/u with GI soon. Pt feeling much better today after NGT placement. Pt admits to passing gas. No BMs. Plan for continued NGT to suction with possible clamp trial later this evening vs tomorrow am. 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 - Other cardiomyopathies (ICD-10) High blood pressure ?I10 - Essential (primary) hypertension (ICD-10) Pacemaker ?Z95.0 - Presence of cardiac pacemaker (ICD-10) Kidney stones ?N20.0 - Calculus of kidney (ICD-10) Hip pain, right ?M25.551 - Pain in right hip (ICD-10) Lactose intolerance ?E73.9 - Lactose intolerance, unspecified (ICD-10) Acute hemorrhoid ?K64.9 - Unspecified hemorrhoids (ICD-10) Diarrhea ?R19.7 - Diarrhea, unspecified (ICD-10) Surgical History (Updated 06/12/23 @ 00:16 by Sally Delacruz) AICD (automatic cardioverter/defibrillator) present ?Z95.810 - Presence of automatic (implantable) cardiac defibrillator (ICD-10) H/O: hysterectomy ?Z90.710 - Acquired absence of both cervix and uterus (ICD-10) Abnormal colonoscopy ?R93.3 - Abnormal findings on diagnostic imaging of other parts of digestive tract (ICD-10) History of esophagogastroduodenoscopy (EGD) ?Z98.890 - Other specified postprocedural states (ICD-10) Family History (Updated 06/11/23 @ 23:32 by Sally Delacruz) Mother Family history of cancer Father Family history of cancer Aunt Family history of hypertension Social History (Updated 06/11/23 @ 23:33 by Sally Delacruz) Within the past year, how often did you have a drink containing alcohol: never Score interpretation: A score less than 3 is consistent with normal alcohol consumption. Smoking status: Never smoker Non-prescribed substance use: denies use Previous occupational history: retired Highest level of school completed/degree received: some college, no degree Are you now , , , , never or living with a partner: In a typical week, how many times do you talk on the telephone with family, friends, or neighbors: 3 or more times per week How often do you get together with friends or relatives: 3 or more times per week How often do you attend congregational or yazdanism services: never Do you belong to any clubs or organizations such as congregational groups unions, [employer] or athletic groups, or school groups: no Total score: 1 Score interpretation: A score of less than or equal to 1 indicates the most socially isolated. Little interest or pleasure in doing things: not at all Feeling down, depressed, or hopeless: not at all Feel stressed/tense/nervous/anxious/difficulty sleeping: not at all Due to disability, difficulty making decisions: No Do you think of yourself as: straight/heterosexual Gender Identity: female Meds Home Medications and Allergies Home Medications Medication Instructions Recorded Confirmed Type albuterol sulfate 90 mcg/actuation 2 puff inhalation Q8H PRN 06/11/23 06/11/23 History aerosol inhaler shortness of breath or wheezing alendronate 70 mg tablet 70 mg PO .weekly 06/11/23 06/11/23 History amlodipine 5 mg tablet 5 mg PO DAILY 06/11/23 06/11/23 History aspirin 81 mg capsule 81 mg PO DAILY 06/11/23 06/11/23 History calcium citrate 200 mg 1 tab PO DAILY 06/11/23 06/11/23 History calcium-vitamin D3 3.125 mcg (125 unit) tablet herbal complex no.239 (Whole Body 3 cap PO DAILY 06/11/23 06/11/23 History Joint Support capsule) levothyroxine 50 mcg tablet 50 mcg PO DAILY 06/11/23 06/11/23 History lisinopril 10 mg tablet 10 mg PO BID 06/11/23 06/12/23 History naproxen sodium 220 mg capsule 220 mg PO Q8H 06/11/23 06/11/23 History (Aleve) potassium chloride 10 mEq 10 meq PO DAILY 06/11/23 06/11/23 History tablet,extended release sotalol 80 mg tablet 80 mg PO Q12H 06/11/23 06/11/23 History Allergies Allergy/AdvReac Type Severity Reaction Status Date / Time ceftriaxone [From Rocephin] Allergy Intermediate Verified 06/11/23 18:48 oxaprozin [From Daypro] Allergy Intermediate Verified 06/11/23 18:48 Exam Constitutional Vital Signs, click to edit/add: Last Vital Signs Temp 98.5 F 06/12/23 07:57 Pulse 60 06/12/23 07:57 Resp 18 06/12/23 07:57 BP 115/60 06/12/23 07:57 Pulse Ox 96 06/12/23 07:57 O2 Del Method Room Air 06/12/23 07:57 Common normals: no apparent distress and oriented x3 HENMT Common normals: normocephalic and hearing grossly normal bilaterally Nose: external nose normal Tympanic membrane: TMs normal bilaterally Eye Common normals: PERRL and EOMs intact bilaterally Respiratory Common normals: normal respiratory effort Cardio Rate: regular rate Rhythm: regular rhythm GI Common normals: Normal to inspection, nondistended, normoactive bowel sounds present and non-tender Extremity Common normals: normal to inspection Neuro Common normals: oriented x3 Psych Judgement: judgment good Results Labs Labs: Abnormal lab results 06/11/23 Range/Units 18:50 WBC 16.7 H (4.0-11.0) 10^3/uL Hgb 16.5 H (12.0-16.0) g/dL Hct 51.2 H (36.0-48.0) % MCV 100.0 H (81.0-99.0) fL Neut % (Auto) 79.8 H (43.0-75.0) % Lymph % (Auto) 7.2 L (20.5-60.0) % Neut # (Auto) 13.4 H (1.4-6.5) 10^3/uL [place] # (Auto) 1.8 H (0.3-0.8) 10^3/uL Abs Immat Gran (auto) 0.06 H (0.00-0.03) 10^3/uL Potassium 6.0 H (3.5-5.1) mmol/L Total Bilirubin 1.1 H (0.2-1.0) mg/dL AST 56 H (15-37) U/L Total Protein 8.5 H (6.4-8.2) g/dL Diabetes panel 06/11/23 06/11/23 Range/Units 18:50 20:53 Sodium 138 (136-145) mmol/L Potassium 6.0 H 4.4 (3.5-5.1) mmol/L Chloride 105 (98-107) mmol/L Carbon Dioxide 24.1 (21.0-32.0) mmol/L BUN 17.0 (7.0-18.0) mg/dL Creatinine 0.79 (0.55-1.02) mg/dL Glucose 96 (74-106) mg/dL Calcium 9.5 (8.5-10.1) mg/dL AST 56 H (15-37) U/L ALT 26 (14-59) U/L Alkaline Phosphatase 96 (46-116) U/L Total Protein 8.5 H (6.4-8.2) g/dL Albumin 3.9 (3.4-5.0) g/dL Calcium panel 06/11/23 Range/Units 18:50 Calcium 9.5 (8.5-10.1) mg/dL Albumin 3.9 (3.4-5.0) g/dL Pituitary panel 06/11/23 06/11/23 Range/Units 18:50 20:53 Sodium 138 (136-145) mmol/L Potassium 6.0 H 4.4 (3.5-5.1) mmol/L Chloride 105 (98-107) mmol/L Carbon Dioxide 24.1 (21.0-32.0) mmol/L BUN 17.0 (7.0-18.0) mg/dL Creatinine 0.79 (0.55-1.02) mg/dL Glucose 96 (74-106) mg/dL Calcium 9.5 (8.5-10.1) mg/dL Adrenal panel 06/11/23 06/11/23 Range/Units 18:50 20:53 Sodium 138 (136-145) mmol/L Potassium 6.0 H 4.4 (3.5-5.1) mmol/L Chloride 105 (98-107) mmol/L Carbon Dioxide 24.1 (21.0-32.0) mmol/L BUN 17.0 (7.0-18.0) mg/dL Creatinine 0.79 (0.55-1.02) mg/dL Glucose 96 (74-106) mg/dL Calcium 9.5 (8.5-10.1) mg/dL Total Bilirubin 1.1 H (0.2-1.0) mg/dL AST 56 H (15-37) U/L ALT 26 (14-59) U/L Alkaline Phosphatase 96 (46-116) U/L Total Protein 8.5 H (6.4-8.2) g/dL Albumin 3.9 (3.4-5.0) g/dL All other labs normal. Imaging Abdomen CT scan report/results: report reviewed and image reviewed Assessment and Plan Assessment and Plan (1) Small bowel obstruction: Plan 1. Cont NGT to suction, possible clamp trial later today vs in am 2. Encourage ambulation, ok for sips with meds, ok for chewing gum 3. Rest of management per primary, ok for dvt PPX from gen surg stance 4. AM KUB Discussed with primary provider and nurse Thank you, Savanna Neely
[2023-06-12] MEDS: CIPROFLOXACIN IN 5 % DEXTROSE 400 MG/200 ML PIGGYBACK 200 MG IV (13:07)
--- NOTE | 2023-06-12 13:43 | CM.NOTE ---
Important Message From medicare discussed with pt, pt verbalizes understanding and signs paper. Original given to pt and copy placed on pt's chart.
[2023-06-12 14:00] VITALS: BP 120/72; PULSE 52; RESP 20; TEMP 36.6; O2SAT 96
[2023-06-12 19:03] VITALS: O2SAT 97
--- NOTE | 2023-06-12 19:03 | RESP.RT ---
No PRN breathing tx given. Pt denies need. No respiratory distress noted.
[2023-06-12 20:00] VITALS: PULSE 60; RESP 20
[2023-06-12 21:21] VITALS: BP 101/58; PULSE 57; RESP 18; TEMP 36.8; O2SAT 92
[2023-06-13] MEDS: PANTOPRAZOLE SODIUM 40 MG VIAL IV ×2 (01:22→12:45)
[2023-06-13 05:23] VITALS: BP 129/68; PULSE 58; RESP 18; TEMP 36.6; O2SAT 90
[2023-06-13 05:26] LABS: Basophils Percent Auto 0.5 % (0.2-2.0); Eosinophils Absolute Auto 0.4 10^3/uL (0.0-0.7); Eosinophils Percent Auto 5.1 % (0.9-7.0); Hemoglobin 13.1 g/dL (12.0-16.0); Immature Granulocytes Abs Auto 0.04 10^3/uL (0.00-0.03); Immature Granulocytes Pct Auto 0.5 % (0.0-0.5); Lymphocytes Absolute Auto 1.2 10^3/uL (1.2-3.8); Lymphocytes Percent Auto 15.9 % (20.5-60.0); Mean Corpuscular HGB Conc 31.2 g/dL (29.9-35.2); Mean Corpuscular Hemoglobin 31.9 pg (26.7-34.0); Mean Corpuscular Volume 102.2 fL (81.0-99.0); Mean Platelet Volume 10.1 fL (9.5-13.5); Monocytes Absolute Auto 1.4 10^3/uL (0.3-0.8); Monocytes Percent Auto 17.8 % (1.7-12.0); Neutrophils Absolute Auto 4.6 10^3/uL (1.4-6.5); Neutrophils Percent Auto 60.2 % (43.0-75.0); Platelet Count 220 10^3/uL (150-450); Red Blood Count 4.11 10^6/uL (4.20-5.40); Red Cell Distribution Width 13.9 % (11.0-15.0); White Blood Count 7.7 10^3/uL (4.0-11.0)
[2023-06-13 05:31] LABS: Anion Gap 11.5; BUN Creatinine Ratio 17.5; Calcium 7.9 mg/dL (8.5-10.1); Chloride 107 mmol/L (98-107); Estimated GFR (African America >60 (>=60); Estimated GFR (Non-African Ame >60 (>=60); Glucose 79 mg/dL (74-106); Potassium 3.5 mmol/L (3.5-5.1); Sodium 141 mmol/L (136-145)
[2023-06-13] MEDS: SODIUM CHLORIDE 0.45 % 1,000 ML 75 ML IV (05:35)
--- NOTE | 2023-06-13 06:00 | XR_ITS ---
The [address] [address] Patient Name: KHURRAM DE LA O MRN: [id number] date: 1955 Sex: F Assigned Patient Location: [place] Current Patient Location: [place] Accession/Order Number: [id number] Exam Date: 06/13/2023 06:15 Report Date: 06/13/2023 07:34 At the request of: LANCE ALVARADO Procedure: XR abdomen 1V EXAM: XR abdomen 1V HISTORY: ileus COMPARISON: Single view abdomen study dated 06/11/2023 TECHNIQUE: AP supine view of the abdomen was obtained. FINDINGS: There is air seen in large and small bowel loops. No evidence of bowel obstruction. Retained feces in the colon without significantly increased fecal load. Grossly nonspecific bowel gas pattern. Previously noted oral/nasogastric tube no longer identified. A few calcifications overlying the pelvis compatible with phleboliths. Postoperative clips on the right superiorly. Mild degenerative changes in the dorsal spine with mild to moderate degenerative changes in the lumbar spine. 2 small calcifications measuring up to 0.3 cm overlying the right kidney compatible with calculi when correlated with the CT study. XR/XR abdomen 1V IMPRESSION: Grossly nonspecific abdomen. Findings compatible with 2 small calcified right renal calculi when correlated with the CT study. Electronically authenticated by: AYAH ATWOOD Date: 06/13/2023 07:34
[2023-06-13] MEDS: LEVOTHYROXINE SODIUM 25 MCG TABLET 50 MCG PO (06:35)
[2023-06-13 08:30] VITALS: BP 134/61
[2023-06-13] MEDS: AMLODIPINE BESYLATE 5 MG TABLET PO (08:30)
[2023-06-13] MEDS: ENOXAPARIN SODIUM 40 MG/0.4 ML SYRINGE SUBQ (08:30)
[2023-06-13] MEDS: LISINOPRIL 10 MG TABLET PO (08:30)
[2023-06-13] MEDS: SOTALOL HCL 80 MG TABLET PO ×2 (08:30→20:20)
[2023-06-13] MEDS: ASPIRIN 81 MG TABLET.DR PO (08:30)
--- NOTE | 2023-06-13 09:53 | P.PN_ITS ---
<Statement entered by Suzie Bains DO - 06/13/23 13:31> This documentation has been reviewed and approved. I have also seen and evaluated patient, reviewed notes and chart. I agree with the above findings. Progress Note: Subjective Subjective Interval history: 06/13/23 0830 The patient is sitting up in a bedside chair at the time of my exam. NG tube remains in her right nare but is currently clamped per Dr. Neely's recommendations. Nursing will monitor her response to the clamped NG for few hours and then advance her to clear liquids per Dr. Neely if she is tolerating the clamped NGT well. She denies abdominal pain, nausea or vomiting overnight. She is producing flatus and has positive bowel sounds but no bowel movement to date. We defer to general surgery for further management of her small bowel obstruction. Exam Constitutional Vital Signs, click to edit/add: Last Vital Signs Temp 97.8 F 06/13/23 05:23 Pulse 58 L 06/13/23 05:23 Resp 18 06/13/23 05:23 BP 134/61 06/13/23 08:30 Pulse Ox 90 L 06/13/23 05:23 O2 Del Method Room Air 06/13/23 05:23 Common normals: no apparent distress, oriented x3 and alert General appearance: cooperative Orientation/consciousness: Yes awake HENOR Common normals: normocephalic, head/scalp atraumatic and hearing grossly normal bilaterally Eye Common normals: PERRL, EOMs intact bilaterally, conjunctivae normal and no scleral icterus General eye: normal appearance of both eyes Chest Common normals: inspection of chest normal Chest: symmetrical chest wall rise Respiratory Common normals: normal respiratory effort, no use of accessory muscles and clear to auscultation bilaterally Effort & inspection: able to speak in complete sentences Cardio Common normals: regular rate, regular rhythm, S1 normal heart sound, S2 normal heart sound, no murmurs and peripheral pulses 2+ throughout GI Common normals: Normal to inspection, nondistended, normoactive bowel sounds present, soft to palpation, non-tender and no hepatosplenomegaly Bladder/kidney exam: bladder normal to palpation Extremity Common normals: normal to inspection and no calf tenderness General: no clubbing, no cyanosis and no edema Neuro Common normals: CN's II-XII intact bilaterally, moves all extremities, no focal motor deficits and no sensory deficits noted Psych Common normals: mental status grossly normal Progress Note: Objective Labs Labs: Short CBC 06/13/23 Range/Units 04:41 WBC 7.7 (4.0-11.0) 10^3/uL Hgb 13.1 (12.0-16.0) g/dL Hct 42.0 (36.0-48.0) % Plt Count 220 (150-450) 10^3/uL BMP 06/13/23 04:41 Sodium 141 Potassium 3.5 Chloride 107 Carbon Dioxide 26.0 BUN 14.0 Creatinine 0.80 Glucose 79 Calcium 7.9 L Progress Note: A&P Assessment and Plan (1) Small bowel obstruction: Assessment and Plan: ACUTE * Improving * Abd XR improved today w/o definitive SBO * Abd pain, N/V resolved * General surgery consult - we appreciate Dr Neely's assistance with this pt's care * Defer NGT management and diet advancement to GS * Continue NG - currently clamped * NPO for now - plan to advance per Dr Neely if tolerates NGT clamped * Continue IVF NS at 125/hr * Positive flatus/BS, no BM since admission * CBC, CMP daily (2) Colitis: Assessment and Plan: ACUTE * Noted on CT abdomen imaging and on OP colonoscopy findings * Continue cipro IV * Add Flagyl IV * Pt remained afebrile overnight (3) 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 * Per EGD op report - biopsy pending * Continue IV protonix Qualifiers: Gastric ulcer chronicity: unspecified ulcer chronicity Qualified Code(s): K25.9 - Gastric ulcer, unspecified as acute or chronic, without hemorrhage or perforation (4) High blood pressure: Assessment and Plan: CHRONIC * continue home amlodipine, lisinopril, Sotalol * PRN Hydralazine Qualifiers: Hypertension type: primary hypertension Qualified Code(s): I10 - Essential (primary) hypertension (5) Hypothyroidism: Assessment and Plan: CHRONIC continue home levothyroxine Qualifiers: Hypothyroidism type: acquired Qualified Code(s): E03.9 - Hypothyroidism, unspecified
[2023-06-13] MEDS: METRONIDAZOLE/SODIUM CHLORIDE 500 MG/100 ML PREMIX 100 MG IV ×2 (10:38→20:20)
--- NOTE | 2023-06-13 11:40 | CM.NOTE ---
Rounds made with Dr. Bains, pt now taking clear liquids and tolerating well. No discharge today.
--- NOTE | 2023-06-13 11:42 | PM.GSPN ---
Progress Note: A&P Assessment and Plan (1) Small bowel obstruction: Assessment and Plan: pSBO (2) Colitis: (3) Ulcer of antrum of stomach: Qualifiers: Gastric ulcer chronicity: unspecified ulcer chronicity Qualified Code(s): K25.9 - Gastric ulcer, unspecified as acute or chronic, without hemorrhage or perforation (4) High blood pressure: Qualifiers: Hypertension type: primary hypertension Qualified Code(s): I10 - Essential (primary) hypertension (5) Hypothyroidism: Qualifiers: Hypothyroidism type: acquired Qualified Code(s): E03.9 - Hypothyroidism, unspecified Plan 1. NGT removed. Ok for CLD and adv to FLD at dinner time if doing well. 2. Cont to encourage ambulation and IS use 3. Rest of care per primary 4. Ok for d/c once tolerating diet Subjective Subjective Patient reports: no new complaints, feels better, tolerating liquids well, flatus and no bowel movement Interval history: Doing well this am. NGT removed at bedside. Plan for FLD tonight. Exam Constitutional Vital Signs, click to edit/add: Last Vital Signs Temp 97.8 F 06/13/23 05:23 Pulse 58 L 06/13/23 05:23 Resp 18 06/13/23 05:23 BP 134/61 06/13/23 08:30 Pulse Ox 90 L 06/13/23 05:23 O2 Del Method Room Air 06/13/23 05:23 Common normals: no apparent distress and oriented x3 General appearance: cooperative HENPR Common normals: normocephalic Head and scalp: normal to inspection Cardio Common normals: regular rate and regular rhythm GI Common normals: Normal to inspection, nondistended, normoactive bowel sounds present Neuro Common normals: oriented x3
[2023-06-13] MEDS: CIPROFLOXACIN IN 5 % DEXTROSE 400 MG/200 ML PIGGYBACK 200 MG IV (13:01)
[2023-06-13 13:39] VITALS: BP 120/73; PULSE 55; RESP 20; TEMP 36.6; O2SAT 93
[2023-06-13] MEDS: POTASSIUM CHLORIDE 10 MEQ ER TABLET PO (13:54)
[2023-06-13 19:19] VITALS: O2SAT 94
--- NOTE | 2023-06-13 19:19 | RESP.RT ---
No PRN breathing tx given. Pt denies need. No respiratory distress noted.
[2023-06-13 20:24] VITALS: BP 132/70; PULSE 59; RESP 20; TEMP 36.6; O2SAT 94
[2023-06-14] MEDS: PANTOPRAZOLE SODIUM 40 MG VIAL IV (01:08)
[2023-06-14] MEDS: SODIUM CHLORIDE 0.45 % 1,000 ML 75 ML IV (01:08)
[2023-06-14] MEDS: METRONIDAZOLE/SODIUM CHLORIDE 500 MG/100 ML PREMIX 100 MG IV (04:09)
[2023-06-14 04:46] LABS: Basophils Absolute Auto 0.1 10^3/uL (0.0-0.1); Basophils Percent Auto 0.7 % (0.2-2.0); Eosinophils Absolute Auto 0.3 10^3/uL (0.0-0.7); Eosinophils Percent Auto 4.2 % (0.9-7.0); Hematocrit 41.2 % (36.0-48.0); Hemoglobin 13.1 g/dL (12.0-16.0); Immature Granulocytes Abs Auto 0.03 10^3/uL (0.00-0.03); Immature Granulocytes Pct Auto 0.4 % (0.0-0.5); Lymphocytes Absolute Auto 1.1 10^3/uL (1.2-3.8); Lymphocytes Percent Auto 14.8 % (20.5-60.0); Mean Corpuscular HGB Conc 31.8 g/dL (29.9-35.2); Mean Corpuscular Hemoglobin 32.3 pg (26.7-34.0); Mean Corpuscular Volume 101.5 fL (81.0-99.0); Monocytes Absolute Auto 1.3 10^3/uL (0.3-0.8); Monocytes Percent Auto 17.1 % (1.7-12.0); Neutrophils Absolute Auto 4.8 10^3/uL (1.4-6.5); Neutrophils Percent Auto 62.8 % (43.0-75.0); Platelet Count 209 10^3/uL (150-450); Red Blood Count 4.06 10^6/uL (4.20-5.40); Red Cell Distribution Width 13.2 % (11.0-15.0); White Blood Count 7.6 10^3/uL (4.0-11.0)
[2023-06-14 04:57] LABS: Anion Gap 10.3; BUN Creatinine Ratio 11.4; Carbon Dioxide 25.5 mmol/L (21.0-32.0); Chloride 108 mmol/L (98-107); Estimated GFR (African America >60 (>=60); Estimated GFR (Non-African Ame >60 (>=60); Glucose 87 mg/dL (74-106); Potassium 3.8 mmol/L (3.5-5.1); Sodium 140 mmol/L (136-145)
[2023-06-14 05:02] VITALS: BP 106/67; PULSE 53; RESP 16; TEMP 36.7; O2SAT 94
[2023-06-14] MEDS: LEVOTHYROXINE SODIUM 25 MCG TABLET 50 MCG PO (05:37)
[2023-06-14 08:00] VITALS: PULSE 60; RESP 16
--- NOTE | 2023-06-14 09:00 | CM.NOTE ---
2nd Important Messaage From Medicare discussed with pt, pt denies any questions or concerns.
--- NOTE | 2023-06-14 09:43 | P.DS_ITS ---
<Statement entered by Suzie Bains DO - 06/14/23 13:43> This documentation has been reviewed and approved.I also seen and evaluated patient at discharge. I agree with the above findings and plan at discharge. DS: Providers Provider Date of admission: 06/12/23 12:03 Primary care physician: ROSANGELA SAEZ Consults: 06/12/23 01:12 Consult to General Surgeon Routine Consulting Provider: Phu Neely Reason for consultation: sbo Discharging clinician: Zofia Forrester DS: Diagnosis Discharge Diagnosis (1) Small bowel obstruction: (2) Colitis: (3) Ulcer of antrum of stomach: Qualifiers: Gastric ulcer chronicity: unspecified ulcer chronicity Qualified Code(s): K25.9 - Gastric ulcer, unspecified as acute or chronic, without hemorrhage or perforation (4) High blood pressure: Qualifiers: Hypertension type: primary hypertension Qualified Code(s): I10 - Essential (primary) hypertension (5) Hypothyroidism: Qualifiers: Hypothyroidism type: acquired Qualified Code(s): E03.9 - Hypothyroidism, unspecified DS: Summary Hospital Course Hospital Course: The patient was admitted with an acute early SBO noted on CT imaging, symptomatic with abdominal pain and vomiting. She had also just recently had an EGD and colonoscopy which revealed an antrum gastric ulcer and colitis. An NG tube was placed to [facility] and general surgery was consulted for management. She was also treated with Cipro and Flagyl for her colitis and IVP PPI for her ulcer. Her abdominal pain and nausea completely resolved and the NG tube was able to be removed without recurrence of symptoms. Her diet was slowly advanced and she remains symptom-free at the time of discharge. She is being discharged home in stable condition. She should follow-up with her PCP in 5 to 7 days and with her mold breaker as previously scheduled tomorrow. She is prescribed a further 7 days of PO Cipro/Flagyl to complete a 10 day course. She is also prescribed a PPI for her ulcer pending follow up with her GI provider. Time Spent with Patient Time attestation: Total time spent providing and/or coordinating discharge services: Time spent: greater than 30 minutes Specific discharge activities: Physical exam, discussion of discharge plan, questions answered. Exam Constitutional Vital Signs, click to edit/add: Last Vital Signs Temp 98.1 F 06/14/23 05:02 Pulse 60 06/14/23 08:00 Resp 16 06/14/23 08:00 BP 106/67 06/14/23 05:02 Pulse Ox 94 L 06/14/23 05:02 O2 Del Method Room Air 06/14/23 05:02 Common normals: no apparent distress, oriented x3 and alert General appearance: cooperative Orientation/consciousness: Yes awake HENMT Common normals: normocephalic and head/scalp atraumatic Eye Common normals: PERRL, EOMs intact bilaterally, conjunctivae normal and no scleral icterus Neck & C-Spine Common normals: no JVD Respiratory Common normals: normal respiratory effort and no use of accessory muscles Effort & inspection: able to speak in complete sentences and symmetric chest movement Auscultation: wheezes (Faint, scattered EE wheeze) Cardio Common normals: no JVD, regular rate, regular rhythm, S1 normal heart sound, S2 normal heart sound, no murmurs and peripheral pulses 2+ throughout GI Common normals: Normal to inspection, nondistended, normoactive bowel sounds present, soft to palpation and non-tender Bladder/kidney exam: bladder normal to palpation Extremity Common normals: normal to inspection, full ROM, normal capillary refill and no pedal edema General: no clubbing and no cyanosis Neuro Common normals: moves all extremities, no focal motor deficits and no sensory deficits noted Speech: speech normal Psych Common normals: mental status grossly normal and activity/motor behavior normal DS: Data Data Completed and Pending Labs on day of discharge: Labs from last 24 hours 06/14/23 04:32 WBC 7.6 RBC 4.06 L Hgb 13.1 Hct 41.2 MCV 101.5 H MCH 32.3 MCHC 31.8 RDW 13.2 Plt Count 209 MPV 10.0 Neut % (Auto) 62.8 Lymph % (Auto) 14.8 L Tate % (Auto) 17.1 H Eos % (Auto) 4.2 Baso % (Auto) 0.7 Neut # (Auto) 4.8 Lymph # (Auto) 1.1 L Tate # (Auto) 1.3 H Eos # (Auto) 0.3 Baso # (Auto) 0.1 Abs Immat Gran (auto) 0.03 Imm/Tot Granulo (auto) 0.4 Sodium 140 Potassium 3.8 Chloride 108 H Carbon Dioxide 25.5 Anion Gap 10.3 BUN 9.0 Creatinine 0.79 Est GFR ( Amer) >60 Est GFR (Non-Af Amer) >60 BUN/Creatinine Ratio 11.4 Glucose 87 Calcium 8[address] scan - abdomen: Radiologist's impression: 06/11/23 IMPRESSION: Focal area of thickening with masslike appearance of the gastric antrum could reflect a mass or ulcer. Consider direct visualization. There is dilatation of the small bowel with focal transition point in the mid abdomen which could be seen with early obstruction. Colonic diverticulosis without evidence of acute diverticulitis. Nonobstructing nephrolithiasis of the right kidney. Abdominal x-ray: Radiologist's impression: 06/11/23 IMPRESSION: Endotracheal tube with tip and side-port projecting over expected location of the gastric fundus. 06/13/23 IMPRESSION: Grossly nonspecific abdomen. Findings compatible with 2 small calcified right renal calculi when correlated with the CT study. Discharge Plan Discharge Disposition: Home, Self-Care Condition: Fair Discharge Medications: New pantoprazole [Protonix] 40 mg tablet,delayed release (DR/EC) 40 mg PO BID 14 Days Qty: 28 0RF pantoprazole [Protonix] 40 mg tablet,delayed release (DR/EC) 40 mg PO DAILY 28 Days Qty: 28 0RF Rx Instructions: Begin after twice daily course is completed ciprofloxacin HCl 500 mg tablet 500 mg PO BID 7 Days Qty: 14 0RF metronidazole 500 mg tablet 500 mg PO Q8H 7 Days Qty: 21 0RF Continued albuterol sulfate 90 mcg/actuation HFA aerosol inhaler 2 puff INHALATION Q8H PRN (Reason: shortness of breath or wheezing) sotalol 80 mg tablet 80 mg PO Q12H aspirin 81 mg capsule 81 mg PO DAILY levothyroxine 50 mcg tablet 50 mcg PO DAILY potassium chloride 10 mEq tablet extended release 10 meq PO DAILY amlodipine 5 mg tablet 5 mg PO DAILY lisinopril 10 mg tablet 10 mg PO BID calcium citrate-vitamin D3 200 mg-3.125 mcg (125 unit) tablet 1 tab PO DAILY Whole Body Joint Support Capsule 3 cap PO DAILY alendronate 70 mg tablet 70 mg PO .weekly Held naproxen sodium [Aleve] 220 mg capsule 220 mg PO Q8H Hold Instructions: Hold until OK w/ GI to resume. Patient Instructions: Peptic Ulcer (DC), Bowel Obstruction (DC) Forms: Portal Instructions Follow Up Appointments: - PCP in 5-7 days - GI as previously scheduled on 06/15/23
--- NOTE | 2023-06-14 10:15 | CM.NOTE ---
Rounding with Dr. Bains. Discussed keeping follow up appointment with GI doctor tomorrow and likely discharge today. Pt. states she is tolerating food without difficulty. No anticipated discharge needs.
[2023-06-14] MEDS: POTASSIUM CHLORIDE 10 MEQ ER TABLET PO (10:30)
[2023-06-14] MEDS: LISINOPRIL 10 MG TABLET PO (10:30)
[2023-06-14] MEDS: SOTALOL HCL 80 MG TABLET PO (10:30)
[2023-06-14] MEDS: AMLODIPINE BESYLATE 5 MG TABLET PO (10:31)
[2023-06-14] MEDS: ASPIRIN 81 MG TABLET.DR PO (10:31)
--- NOTE | 2023-06-16 13:25 | CM.DCFOLLOWU ---
First attempt at discharge follow up call made, no answer. Unable to reach patient at this time.
--- NOTE | 2023-06-19 15:32 | CM.DCFOLLOWU ---
Person spoke with: patient How are you feeling? a little better How is your pain? none Did you understand your discharge instructions? yes but patient states she was not aware of her appointment with Dr. Marin today. I encouraged her to call his office [facility] to cancel if needed. Do you have any questions about your discharge instructions? see above Were you given any prescriptions at discharge? yes Were you able to get your prescriptions filled? yes Do you understand how to take your medications as ordered? yes but I am not taking any of them. There are too many side effects. Clarified with patient if she was having side effects or if she is only going by what the paper says with the medication. Pt. states no, I am not having them, just read about them and there is too many side effects and I am not going to take them. Encouraged patient to have this discussion with Dr. Marin's office when she calls them after our phone call. Pt. stated she would . Do you have any questions about your follow up appointment and do you plan to keep your follow up appointment? see above Is there anything else that you would like to discuss? no Questions/Comments/Concerns/Other:
== END 2023-06-14 11:15 | disposition home or self-care (01) | DRG 390 ==
LOC: ER 23:14 → MS 23:23
PROVIDERS: Internal Medicine; Admitting Provider Family Medicine; Emergency Provider Emergency Medicine; PCP Family Medicine; Visit Provider Family Medicine
DX: K56.609 Unspecified intestinal obstruction, unspecified as to partial versus complete obstruction (principal); K52.9 Noninfective gastroenteritis and colitis, unspecified; K25.9 Gastric ulcer, unspecified as acute or chronic, without hemorrhage or perforation; I10 Essential (primary) hypertension; E03.9 Hypothyroidism, unspecified; J44.9 Chronic obstructive pulmonary disease, unspecified; M81.0 Age-related osteoporosis without current pathological fracture; K57.30 Diverticulosis of large intestine without perforation or abscess without bleeding; E73.9 Lactose intolerance, unspecified; Z79.899 Other long term (current) drug therapy; Z79.890 Hormone replacement therapy; Z79.82 Long term (current) use of aspirin; Z95.810 Presence of automatic (implantable) cardiac defibrillator; Z90.710 Acquired absence of both cervix and uterus; Z98.890 Other specified postprocedural states; Z87.442 Personal history of urinary calculi; Z86.010 Personal history of colon polyps
CPT/HCPCS: 36415; 74018; 74177; 80048; 80053; 83605; 83690; 84132; 85025; 93005; 96361; 96365; 96366; 96367; 96372; 96375; 96376; 99285; G0378; Q3014; Q9967

== ENCOUNTER 2023-07-26 11:20 | Outpatient (OUT) | payer MEDICARE, SELFPAY ==
--- OUTSIDE RECORDS SUMMARY | 2023-07-26 11:28 | XMS_ITS | CCD ---
Author Name Unknown Address [address] [place] [address] [facility] Care Team Providers Care Management Professor Name Role Phone ADAM SANDERS Primary Care Physician BRIGHT ., DR CUENCA Admitting Unavailable SANDERS ., DR ADAM Gann Primary Care Unavailable BRIGHT ., DR CUENCA Attending Unavailable HUNTINGTON, DR BENNETT Acevedo Consulting Unavailable S[place], DR ELVIS David Consulting Unavailable BRIGHT ., DR CUENCA Admitting Unavailable BRIGHT ., DR CUENCA Consulting Unavailable SANDERS ., DR ADAM Gann Primary Care Unavailable BRIGHT ., DR CUENCA Attending Unavailable MANAS ALMENDAREZ Consulting Unavailable BRIGHT ., DR CUENCA Admitting Unavailable BRIGHT ., DR CUENCA Attending Unavailable SANDERS ., DR ADAM Gann Primary Care Unavailable BRIGHT ., DR CUENCA Attending Unavailable BRIGHT ., DR CUENCA Admitting Unavailable BRIGHT ., DR CUENCA Consulting Unavailable SANDERS ., DR ADAM Gann Primary Care Unavailable LEA RODRIGUEZ Consulting Unavailable BRIGHT ., DR CUENCA Consulting Unavailable BRIGHT ., DR CUENCA Attending Unavailable SANDERS ., DR ADAM Gann Primary Care Unavailable BRIGHT ., DR CUENCA Admitting Unavailable BRIGHT ., DR CUENCA Consulting Unavailable BRIGHT ., DR CUENCA Attending Unavailable SANDERS ., DR ADAM Gann Referring Unavailable SANDERS ., DR ADAM Gann Primary Care Unavailable BRIGHT ., DR CUENCA Admitting Unavailable ZIEBER, DR NASIMA Manrique Consulting Unavailable AGUBOSIM, ROSANGELA Consulting Unavailable KP LOPEZ Consulting Unavailable BRIGHT ., DR CUENCA Admitting Unavailable BRIGHT ., DR CUENCA Attending Unavailable SANDERS ., DR ADAM Gann Primary Care Unavailable YESSICA TORRES Attending Unavailable YESSICA TORRES Admitting Unavailable YESSICA TORRES Consulting Unavailable SANDERS ., DR ADAM Gann Primary Care Unavailable LUIS BURLESON Consulting Unavailable YESSICA TORRES Attending Unavailable YESSICA TORRES Admitting Unavailable YESSICA TORRES Consulting Unavailable SANDERS ., DR ADAM Gann Primary Care Unavailable Rosangela Marin Primary Care Physician Glenn Dukes Attending Unavaila Rosangela Small Attending Unavailable Rosangela Marin Attending Unavailable URMILA DUARTE Attending Unavailable URMILA DUARTE Attending Unavailable Glenn Dukes Admitting Unavaila ble FrancesminEdu dasilvaElizabethcherry Ramos Attending Unavaila ble Miguel Angel Dukesmad Richard Referring Unavaila Rosangela Small Admitting Unavailable Rosangela Marin Attending Unavailable Rosangela Marin Referring Unavailable Justyna, Beth A Attending Unavailable Justyna, Rosemarie A Admitting Unavailable Justyna, Rosemarie A Admitting Unavailable Rosemarie Jansen Attending Unavailable Rosangela Marin Admitting Unavailable Rosangela Marin Attending Unavailable Rosangela Marin Admitting Unavailable Glenn Dukes Attending Unavaila Rosemarie Higginbotham Attending Unavailable JANNIE PERKINS Referring Unavailable JANNIE PERKINS Attending Unavailable JANNIE PERKINS Attending Unavailable JG SUN Attending Unavailable Allergies Allergy Classification Reported Allergen(s) Allergy Type Date of Onset Reaction(s) Facility (8 sources) cefTRIAXone; Translations: [ceftriaxone] Drug Allergy 02-15-20 22 Hives, Rash [facility] (7 sources) cyclobenzaprine; Translations: [cyclobenzaprine] Drug Allergy Rapid heart beat [facility] (8 sources) oxaprozin; Translations: [oxaprozin] Drug Allergy 02-15-20 22 Hives, Rash [facility] (1 source) Acetaminophen / oxyCODONE Drug Allergy [facility] Repository (2 sources) cefTRIAXone Drug Allergy 11-27-19 13 [facility] (1 source) cyclobenzaprine Drug Allergy [facility] (1 source) Metoprolol Drug Allergy [facility] (2 sources) oxaprozin Drug Allergy 11-27-19 13 [facility] Repository (1 source) tiZANidine Drug Allergy 07-03-19 20 [facility] Repository (1 source) Muscle Rub; Translations: [Muscle Rub] Propensity to adverse reactions (disorder) [facility] Repository (1 source) Metoprolol; Translations: [METOPROLOL TARTRATE] Drug Allergy 02-15-20 [facility] Repository Medications Current Medications Medication Drug Class(es) Dates Sig (Normalized) Sig (Original) albuterol 0.83 mg/ml inhalation solution (6 sources) beta2-Adrenergic Agonist Start: 04-18-2023 take 2.5 mg by inhalation every six hours albuterol 0.083% Inh Beti 3 mL 2.5 mg, 3 mL, NEB, q6hr Shortness of breath or wheezing, 300 mL, Refill(s) 0, [facility], 169, cm, 04/18/23 13:06:00 EDT, Height/Length Dosing, 115.8, kg, 04/18/23 13:06:00 EDT, Weight Dosing Start Date: 04/18/23 Status: Ordered Start: 04-16-2020 take 2.5 mg by inhal ation every six hours albuterol 0.083% Inh Beti 3 mL 2.5 mg, 3 mL, NEB, q6hr Shortness of breath or wheezing Start Date: 04/16/20 Status: Ordered Albuterol (Eqv-ProAir HFA) 90 mcg/inh inhalation aerosol (4 sources) Start: 04-18-2023 take 180 ug by inhalation every six hours Albuterol (Eqv-ProAir HFA) 90 mcg/inh inhalation aerosol 180 mcg, 2 puff(s), Inhalation, q6hr, 18 gm, Refill(s) 0, NEEDED, [facility], 169, cm, 04/18/23 13:06:00 EDT, Height/Length Dosing, 115.8, kg, 04/18/23 13:06:00 EDT, Weight Dosing Start Date: 04/18/23 Status: Ordered alendronic acid 70 mg oral tablet (6 sources) Bisphosphonate Start: 04-15-2020 take 1 tablet by mouth every week alendronate 70 mg oral tablet 70 mg = 1 tab(s), Oral, qWeek, osteoporosis Start Date: 04/15/20 Status: Ordered amiodarone hydrochloride 200 mg oral tablet (1 source) Antiarrhythmic Start: 04-16-2020 take 1 tablet by mouth once daily amiodarone 200 mg Tab 200 mg = 1 tab(s), Oral, Daily, Irregular heartbeat Start Date: 04/16/20 Status: Ordered amLODIPine 5 mg oral tablet (5 sources) Dihydropyridine Calcium Channel Bridger Start: 12-20-2022 take 1 tablet by mouth once daily amLODIPine 5 mg Tab 5 mg = 1 tab(s), Oral, Daily, Refills(s) 0 Start Date: 12/20/22 Status: Ordered Ascorbic Acid (6 sources) Vitamin C Start: 01-28-2022 Vitamin C Daily, Refills(s) 0 Start Date: 01/28/22 Status: Ordered aspirin 81 mg oral tablet (6 sources) Platelet Aggregation Inhibitor, Nonsteroidal Anti-inflammatory Drug Start: 05-11-2020 take 1 tablet by mouth once daily aspirin 81 mg oral tablet 1 tab, Oral, Daily, Refills(s) 0 Start Date: 05/11/20 Status: Ordered sugar-free cholestyramine resin 4000 mg powder for oral suspension (4 sources) Bile Acid Sequestrant Start: 04-18-2023 cholestyramine 4 g/5 g Oral Pwdr 1 packet(s), Oral, TID, 90 EA, Refill(s) 0, [facility], 169, cm, 04/18/23 13:06:00 EDT, Height/Length Dosing, 115.8, kg, 04/18/23 13:06:00 EDT, Weight Dosing Start Date: 04/18/23 Status: Ordered Digestive Advantage Daily Probiotic (6 sources) Start: 04-16-2020 take 1 capsule by mouth once daily Digestive Advantage Daily Probiotic 1 cap(s), Oral, Daily, Prophylaxis Start Date: 04/16/20 Status: Ordered levothyroxine sodium 0.05 mg oral tablet (6 sources) l-Thyroxine Start: 04-18-2023 take 1 tablet by mouth once daily levothyroxine 50 mcg (0.05 mg) Tab 50 mcg = 1 tab(s), Oral, Daily, # 90 tab(s), Refills(s) 1, Pharmacy: [facility], 169, cm, 04/18/23 13:06:00 EDT, Height/Length Dosing, 115.8, kg, 04/18/23 13:06:00 EDT, Weight Dosing Start Date: 04/18/23 Status: Ordered Start: 04-15-2020 take 1 tablet by irasema th once daily levothyroxine 50 mcg (0.05 mg) Tab 50 microgram = 1 tab(s), Oral, Daily, Refills(s) 0, Thyroid Start Date: 04/15/20 Status: Ordered lisinopril 10 mg oral tablet (6 sources) Angiotensin Converting Enzyme Inhibitor Start: 04-15-2020 take 1 tablet by mouth twice daily lisinopril 10 mg Tab 10 mg = 1 tab(s), Oral, BID, Refills(s) 0, High blood pressure Start Date: 04/15/20 Status: Ordered Multi Vitamin+ (6 sources) Start: 04-15-2020 take 1 tablet by mouth once daily Multi Vitamin+ 1 tab, Oral, Daily, Refill(s) 0, prophylaxis Start Date: 04/15/20 Status: Ordered sotalol hydrochloride 80 mg oral tablet (5 sources) Antiarrhythmic Start: 12-20-2022 take 1 tablet by mouth twice daily sotalol 80 mg Tab 80 mg = 1 tab(s), Oral, BID, Refills(s) 0 Start Date: 12/20/22 Status: Ordered Vitamin D (2 sources) Start: 01-28-2022 Vitamin D International_Uni t, Oral, qWeek, Refills(s) 0 Start Date: 01/28/22 Status: Ordered Vitamin D3 5000 intl units (125 mcg) oral tab (4 sources) Start: 04-18-2023 take 1 tablet by mouth once daily Vitamin D3 5000 intl units (125 mcg) oral tab 125 mcg = 1 tab(s), Oral, Daily, Refills(s) 0 Start Date: 04/18/23 Status: Ordered Completed/Discontinued Medications Medication Drug Class(es) Dates Sig (Normalized) Sig (Original) potassium chloride 10 meq extended release oral capsule (6 sources) Start: 04-15-2020 take 1 capsule by mouth once daily potassium chloride 10 mEq Cap-ER 10 mEq = 1 cap(s), Oral, Daily, Refills(s) 0, Prophylaxis Start Date: 04/15/20 Status: Ordered Problems Active Problems Problem Classification Problem Date Documented Da te Episodic/Chronic Abdominal pain (7 sources) Abdominal pain; Translations: [Unspecified abdominal pain] Onset: 3 05-04-2020 Episodic Anal and rectal conditions (3 sources) Anorectal disorder; Translations: [Other specified diseases of anus and rectum] Onset: 3 Episodic Asthma (7 sources) Asthma; Translations: [Unspecified asthma, uncomplicated] Onset: 2 04-15-2020 Chronic Calculus of urinary tract (20 sources) Kidney stone; Translations: [Calculus of kidney] Onset: 2 Episodic Cardiac dysrhythmias (7 sources) Atrial fibrillation; Translations: [Unspecified atrial fibrillation] Onset: 2 04-15-2020 Chronic Chronic kidney disease (2 sources) Chronic kidney disease stage 3A 04-26-2023 Chronic Chronic obstructive pulmonary disease and bronchiectasis (4 sources) Chronic obstructive lung disease 04-06-2023 Chronic Complication of device; implant or graft (6 sources) Retained ureteric stent 05-04-2020 Episodic Conduction disorders (3 sources) Presence of automatic (implantable) cardiac defibrillator; Translations: [Encounter for checking and testing of cardiac pacemaker pulse generator [battery]] Onset: 2 Chronic Deficiency and other anemia (6 sources) Anemia 04-15-2020 Episodic Esophageal disorders (4 sources) Gastroesophageal reflux disease 04-06-2023 Chronic Genitourinary symptoms and ill-defined conditions (10 sources) Stress incontinence (female) (male); Translations: [Genuine stress incontinence] Onset: 2 Chronic Genitourinary symptoms and ill-defined conditions (20 sources) Dysuria; Translations: [Marco hematuria] 04-15-2020 Episodic Hemorrhoids (4 sources) Hemorrhoids 04-06-2023 Episodic Noninfectious gastroenteritis (5 sources) Chronic diarrhea of unknown origin ; Translations: [Noninfectious enteritis] Onset: 3 04-18-2023 Episodic Osteoarthritis (7 sources) Arthritis; Translations: [Unspecified osteoarthritis, unspecified site] Onset: 2 04-15-2020 Chronic Osteoporosis (4 sources) Osteoporosis 04-06-2023 Chronic Other aftercare (5 sources) Other terminal make up operator (current) drug therapy; Translations: [OTH COST RECOVERY TECHNICIAN CURRENT DRUG THERAPY] Onset: 2 Episodic Other gastrointestinal disorders (1 source) Swollen abdomen; Translations: [Abdominal distension (gaseous)] Onset: 3 Episodic Other gastrointestinal disorders (2 sources) Abdominal bloating 05-05-2023 Episodic Other hematologic conditions (2 sources) Erythrocytosis 04-26-2023 Episodic Other non-traumatic joint disorders (4 sources) Hip pain 04-18-2023 Episodic Other nutritional; endocrine; and metabolic disorders (6 sources) Body mass index 40+ - severely obese 01-27-2021 Chronic Other nutritional; endocrine; and metabolic disorders (2 sources) Morbid obesity 05-04-2020 Chronic Other nutritional; endocrine; and metabolic disorders (1 source) Morbid (severe) obesity due to excess calories; Translations: [MORBID SEVERE OBES D/T EXCESS KING] Onset: 2 Chronic Other nutritional; endocrine; and metabolic disorders (1 source) Body mass index (BMI) 40.0-44.9, adult; Translations: [BODY MASS INDEX BMI 40.0-44.9 ADULT] Onset: 2 Chronic Kaela-; endo-; and myocarditis; cardiomyopathy (except that caused by tuberculosis or sexually transmitted disease) (4 sources) Cardiomyopathy; Translations: [Cardiomyopathy, unspecified] 04-18-2023 Chronic Spondylosis; intervertebral disc disorders; other back problems (4 sources) Cervical radiculopathy 04-06-2023 Episodic Thyroid disorders (4 sources) Andreina thyroiditis 04-06-2023 Chronic Unclassified (6 sources) Drug therapy finding 04-15-2020 Unclassified (1 source) CONTACT W/AND (SUSP) EXPOS COVID-19; Translations: [CONTACT W/AND (SUSP) EXPOS COVID-19] Onset: 2 Unclassified (2 sources) Finding of sensation of abdomen 05-05-2023 Viral infection (4 sources) Disease caused by 2019-nCoV 04-06-2023 Past or Other Problems Problem Classification Problem Date Documented Da te Episodic/Chronic Deficiency and other anemia (1 source) Anemia, unspecified; Translations: [ANEMIA UNSPECIFIED] Onset: 02-15-2022 Episodic Other aftercare (1 source) watermaster (current) use of aspirin; Translations: [COST RECOVERY TECHNICIAN CURRENT USE OF ASPIRIN] Onset: 02-21-2022 Episodic Other aftercare (1 source) watermaster (current) use of anticoagulants; Translations: [COST RECOVERY TECHNICIAN CURRNT USE ANTICOAGULANTS] Onset: 02-15-2022 Episodic Residual codes; unclassified (1 source) Acquired absence of other specified parts of digestive tract; Translations: [ACQ ABSENCE OTH PART DIGESTV TRACT] Onset: 02-21-2022 Episodic Residual codes; unclassified (1 source) Acquired absence of both cervix and uterus; Translations: [ACQUIRED ABSENCE BOTH CERVIX AND UTERUS] Onset: 02-21-2022 Episodic Results Test Name Value Interpretation Reference Range Facility Orders Onlyon 07-24-2023 Orders Only [id number] Gail Parra 1955 F Date Provider Department Center 07/24/2023 KENNEDI MORE Javad [facility] Family History Problem Relation Age of Onset Other Mother Other Father Thyroid disease Sister Heart disease Mother's Sister Family Status - Relation Status Age at Mother Father Sister Mother's Sister Normal [facility] Outside [facility] Correspo ndenceon 06-21-2023 Outside [facility] Correspondence [id number] [facility] Outside [facility] Correspondence [id number]#1.00TIFF [facility] RAD - MISCon 06-21-2023 [facility] [id number]#1.00TIFF [facility] Provider Letteron 06-20-2023 Provider Letter June 20, 2023 KHURRAM PARRA [address] [place] [address] KHURRAM PARRA 1955 Dear Khurram, We have been trying to reach you with no success. It is important that you return our call regarding your discharge from [facility] 06/14 upon receiving this letter. Also, at the time of your call, please provide us with your current information. Thank you for your prompt attention to this matter. Sincerely, Nilesh [employer] Us[employer] [phone] [facility] Reminderson 06-16-2023 Reminders - From: Ileana Whiting To: [facility] - Reminders/Recalls; Sent: 06/16/2023 09:58:03 EST Show up: 04/02/2028 09:57:00 EDT Subject: Ambulatory Reminder Due Date/Time: 05/03/2028 09:57:00 EDT Reminder/Recall Entered by Ileana Whiting on June 16, 2023 09:28:49 EST 05/24/2028 5 year colon recall From: Roseline ALVARADO, Glenn Ramos To: Ileana Whiting; Sent: 06/15/2023 15:42:18 EST Subject: General Message Caller Name: KHURRAM PARRA; Caller Number: , colonoscopy 5 years Normal [facility] Ambulatory Visit Summaryon 1 08-16-2022 Ambulatory Visit Summary KHURRAM PARRA :1955 Visit Date:06/15/2023 Ambulatory Visit Instructions Your Diagnosis Chronic diarrhea of unknown origin Bloating Abdominal cramping BMI 38.0-38.9,adult Your Care Team Attending Physician - Roseline ALVARADO, Glenn Ramos Primary Care Physician - Rosangela Marin MD This Is Your Medications List albuterol (Albuterol (Eqv-ProAir HFA) 90 mcg/inh inhalation aerosol) albuterol (albuterol 0.083% Inh Beti 3 mL) alendronate (alendronate 70 mg oral tablet) amlodipine (amLODIPine 5 mg Tab) ascorbic acid (Vitamin C) aspirin (aspirin 81 mg oral tablet) bacillus coagulans-calcium carbonate (Digestive Advantage Daily Probiotic) bifidobacterium infantis (Align 4 mg oral capsule) cholecalciferol (Vitamin D3 5000 intl units (125 mcg) oral tab) colestipol (Colestid 1 g Tab) levothyroxine (levothyroxine 50 mcg (0.05 mg) Tab) lisinopril (lisinopril 10 mg Tab) potassium chloride (potassium chloride 10 mEq Cap-ER) sotalol (sotalol 80 mg Tab) [Image Removed: STOP]Stop taking these medications cholestyramine (cholestyramine 4 g/5 g Oral Pwdr) Procedures Performed Colonoscopy (05/24/2023), Esophagogastroduodenoscopy (05/24/2023), ESWL of kidney (02/17/2022), Cystoscopy (05/11/2020), ESWL (extracorporeal shockwave lithotripsy) of ureteric calculus (04/20/2020), Cholecystectomy, Defibrillator, Hysterectomy. Discharge Vitals Heart Rate (Peripheral) 70 Respiratory Rate 16 Blood Pressure 130/80 Height 169 cm Height 67 in Weight 113.8 kg Weight 250.36 lb BMI 39.84 What to do next Scheduled Follow-Up Appointments Monday 4:20 PM EST With: Tomas ALVARADO, Rosangela Edgar Where: [facility] [place] Normal [facility] Gastroenterology Office/Clin ic Noteon 06-15-2023 Gastroenterology Office/Clinic Note Chief Complaint chronic diarrhea with associated abdominal cramps HPI Staff Patient is a 67 year old female who presents today for a follow up to EGD & Colonoscopy on 05/24/23 w/Dr. Dukes. She would like to discuss the Flagyl that was prescribed by the ASSESSMENT EXPERT after her stool testing came back. Was in ER this past Monday - was admitted and given ATB's for infection. Diarrhea: has it every time she eats. 4-6x a day with associated abdominal cramping. Last visit 05/05/23 w/Rosemarie: 1. Chronic diarrhea of unknown origin (K52.9: Noninfective gastroenteritis and colitis, unspecified) Diarrhea x 4 years. Improved with limitation of dairy and use of Lactaid. 2. Bloating (R14.0: Abdominal distension (gaseous)) Gas/bloating daily. 3. Abdominal cramping (R10.9: Unspecified abdominal pain) Is having abdominal cramping 2 times a week. 4. Rectal pain (K62.89: Other specified diseases of anus and rectum) Rectal pain and itching- improved. EGD: 1. Normal esophagus 2. Moderate erythema in the antrum, random biopsies were taken to rule out H. pylori and for histology. Multiple inflammatory polyps in the antrum, biopsied as well 3. Normal duodenum with normal villi Colonoscopy: 1. Moderate internal hemorrhoids 2. Severe sigmoid diverticulosis. Random biopsies were taken from colon to rule out microscopic colitis 3. 4 mm sessile polyp in the cecum, removed with cold snare completely and retrieved 4. 7 mm sessile polyp in the hepatic flexure resected with cold snare completely and retrieved. 1 clip was placed at the end to prevent bleeding 5. Normal terminal ileum Pathology: A: STOMACH, BIOPSY: ? ANTRAL MUCOSA WITH MODERATE CHRONIC GASTRITIS AND FOCAL ACTIVE INFLAMMATION. ? REGENERATIVE CHANGES. ? NO INTESTINAL METAPLASIA IDENTIFIED. ? NO H. PYLORI MICROORGANISMS IDENTIFIED WITH IMMUNOSTAIN. B: ANTRAL POLYP, POLYPECTOMY: ? SUPERFICIAL GASTRIC MUCOSA WITH FOVEOLAR HYPERPLASIA. ? NO INTESTINAL METAPLASIA. C: POLYP, CECUM, POLYPECTOMY: ? TUBULAR ADENOMA. D: POLYP, HEPATIC FLEXURE, POLYPECTOMY: ? TUBULAR ADENOMA. 3: COLON, RANDOM BIOPSY: ? COLONIC MUCOSA WITHIN NORMAL LIMITS. Stool testing 05/18/23: positive WBC Lactoferrin Celiac testing 05/05/23: negative History of Present Illness has significant post-prandial BM multiple times, watery stool, 4-6 BM a day has n/v over the weekend, was admitted to [facility], had a CT abdomen that was concerning for mild small bowel obstruction with mid small bowel transition, small bowel dilated at 3.4 cm, thickening at the antrum of the stomach, she had NG tube placed and she improved gradually and then was discharged Review of Systems PHQ Score Initial Depression Screen Score: 0 SCORE Physical Exam Vitals & Measurements HR: 70(Peripheral) RR: 16 BP: 130/80 HT: 67 in HT: 169 cm WT: 113.8 kg WT: 250.36 lb BMI: 39.84 General: in Nad Abdomen: Soft, NTND Assessment/Plan 1. Chronic diarrhea of unknown origin (K52.9: Noninfective gastroenteritis and colitis, unspecified) Chronic, mostly postprandial, No history of cholecystectomy Colonoscopy with random biopsies May 24 negative for microscopic colitis Imodium works, but she does not like to take it frequently I suggest to start Colestid 2 mg daily in the morning, can increase the dose if needed, was prescribed cholestyramine in the past, but did not like the powder 2. Bloating (R14.0: Abdominal distension (gaseous)) Not much denies significant bloating 4. BMI 38.0-38.9,adult (Z68.38: Body mass index [BMI] 38.0-38.9, adult) Colon polyps couple TA's: Less than 1 cm, repeat 2027 Follow-up No qualifying data available Problem List/Past Medical History Ongoing Abdominal cramping Abdominal pain Anemia Anticoagulated Arthritis Asthma Bloating BMI 40.0-44.9, adult Cardiomyopathy Chronic diarrhea of unknown origin COPD (chronic obstructive pulmonary disease) COVID pneumonia Dysuria Frequency of urination GERD (gastroesophageal reflux disease) Gross hematuria Andreina's thyroiditis Hemorrhoids Hip pain, right Kidney stone Nocturia Osteoporosis Persistent atrial fibrillation Polycythemia Radiculopathy of cervical spine Rectal pain Retained ureteral stent Right ureteral stone Stage 3a chronic kidney disease (CKD) Stress incontinence Urgency of urination Historical No qualifying data Procedure/Surgical History Colonoscopy (05/24/2023), Esophagogastroduodenoscopy (05/24/2023), ESWL of kidney (02/17/2022), Cystoscopy (05/11/2020), ESWL (extracorporeal shockwave lithotripsy) of ureteric calculus (04/20/2020), Cholecystectomy, Defibrillator, Hysterectomy. Medications Albuterol (Eqv-ProAir HFA) 90 mcg/inh inhalation aerosol, 180 mcg= 2 puff(s), Inhalation, q6hr, Self Directed albuterol 0.083% Inh Beti 3 mL, 2.5 mg= 3 mL, NEB, q6hr, PRN, Self Directed alendronate 70 mg oral tablet, 70 mg= 1 tab(s), Oral, qWeek Align 4 mg oral capsule, 4 (more content not included)... Normal [facility] Comment on above: Result Comment: Elec tronically Signed By: Roseline ALVARADO, Glenn Ramos\.br\Date and Time Signed: 06/15/23 15:45 EST ED Note-Physicianon 06-12-20 ED Note-Physician [id number] Normal [facility] Outside [facility] Correspo ndenceon 06-12-2023 Outside [facility] Correspondence [id number] Normal [facility] RAD - CT Reporton 06-12-2023 RAD - CT Report [id number]#[id number] Normal [facility] RAD - MISCon 06-12-2023 RAD - MISC [id number] Normal [facility] Office Visiton 06-06-2023 Follow-up visit [id number] Gail Parra thy L 1955 F Date Provider Department Center 06/06/2023 JANNIE CARDENAS IRAIS [place] Family History Problem Relation Age of Onset Other Mother Other Father Thyroid disease Sister Heart disease Mother's Sister Family Status - Relation Status Age at Mother Father Sister Mother's Sister Level of Service:15717 [place] OFFICE/OUTPATIENT ESTABLISHED MOD MDM 30-39 MIN Normal [facility] Giardia, Direct, EIAon 05-31 G. lamblia Ag IA Ql (Stl) Negative Invalid Interpretation Code Negative [facility] Comment on above: Result Comment: Perf ormed at: [employer] [address] [id number] PhD Marietta Dee Performed By: #### 3 [id number], [id number], [id number], [id number], [id number] ####[facility] [address] [place] [address] IntraOperative Documentson 07-31-2022 IntraOperative Documents [id number] Normal [facility] O & P EXAM, ROUTINE, REFLEXo n 05-31-2023 Ova and parasites identified Concentration Nom (Stl) Comment Invalid Interpretation Code [facility] Comment on above: Result Comment: No o va, cysts, or parasites seen. One negative specimen does not rule out the possibility of a parasitic infection. Performed at: [facility] [address] [place], [place] [id number] PhD Marietta Dee Performed By: #### 3 [id number], [id number], [id number] ####[facility] [address] [place] [address] O & P Exam, Routineon 2022 Ova and parasites identified LM Nom (Unsp spec) Final report Invalid Interpretation Code [facility] Comment on above: Result Comment: Thes e results were obtained using wet preparation(s) and trichrome stained smear. This test does not include testing for Cryptosporidium parvum, Cyclospora, or Microsporidia. Performed at: [address] [id number] PhD Marietta Dee Performed By: #### 3 [id number], [id number], [id number] ####[facility] [address] [place] [address] Pancreatic Elastase, Fecalon 05-31-2023 Elastase.pancreatic (Stl) [Mass/Mass] 229 Invalid Interpretation Code >200 [facility] Comment on above: Result Comment: Clare re Pancreatic Insufficiency: <100 Moderate Pancreatic Insufficiency: 100 - 200 Normal: >200 Performed at: [address] [id number] MD Lebron Wheat Performed By: #### 3 [id number], [id number], [id number], [id number], [id number] ####[facility] [address] [place] [address] Progress Note-Physicianon Progress Note-Physician Patient: KHURRAM PARRA Age: 67 years Sex: Female : 1955 Associated Diagnoses: None Author: MD Rajan Ahmad F Postoperative Information Postoperative disposition: Postoperative disposition: To PACU. Optimetrix number: Optimetrix number [id number]. Anesthetic utilized: General. Health Status Allergies: Allergic Reactions (Selected) Severity Not Documented Daypro- Rash and hives. Flexeril- Rapid heart beat. Rocephin- Rash and hives. Physical Examination VS/Measurements Pain Assessment: Controlled. General: Awake, Alert, Appropriate. Respiratory: Adequate air exchange. Cardiovascular: Stable, Normal peripheral perfusion. Neurological: Normal sensory function, Normal motor function. Assessment Anesthetic outcome No anesthetic complications noted. Adequate pain relief. able to void without difficulty, able to ambulate with assist, tolerating PO intake, no N/V. Review / Management Condition: Stable. Plan Transfer/Discharge: Transfer/Discharge Discharge when meets criteria ( To home ). [facility] Comment on above: Result Comment: Elec tronically Signed By: MD Rajan Ahmad F\.br\Date and Time Signed: 05/30/23 16:22 EST Progress Note-Physician Patient: KHURRAM PARRA Age: 67 years Sex: Female : 1955 Associated Diagnoses: None Author: MD Rajan Ahmad F Preoperative Information Time patient last ate or drank:=== (npo 8 hours) Anesthesia history: Patient history: No prior anesthesia problems. Re-evaluation prior to induction: Completed, Initial evaluation reviewed. Review of Systems Respiratory: No shortness of breath. Cardiovascular: No chest pain. Hematology/Lymphatics: No bruising tendency, No bleeding tendency. Health Status Allergies: Allergic Reactions (All) Severity Not Documented Daypro- Rash and hives. Flexeril- Rapid heart beat. Rocephin- Rash and hives. Canceled/Inactive Reactions (All) Severity Not Documented Muscle Rub- Arrhythmia. and rapid heart rate. Current medications: (Selected) Prescriptions Prescribed Albuterol (Eqv-ProAir HFA) 90 mcg/inh inhalation aerosol: 180 mcg, 2 puff(s), Inhalation, q6hr, 18 gm, Refill(s) 0, NEEDED, [facility], 169, cm, 04/18/23 13:06:00 EDT, Height/Length Dosing, 115.8, kg, 04/18/23 13:06:00 EDT, Weight Dosing Align 4 mg oral capsule: 4 mg = 1 cap(s), Oral, Daily, Take after completing the Antibiotics course, X 28 day(s), # 28 cap(s), Refills(s) 0, Pharmacy: [facility]29, 169, cm, 05/05/23 9:58:00 EDT, Height/Length Dosing, 116.8, kg, 05/05/23 9:58:00 EDT, Weight Dosing albuterol 0.083% Inh Beti 3 mL: 2.5 mg, 3 mL, NEB, q6hr Shortness of breath or wheezing, 300 mL, Refill(s) 0, [facility], 169, cm, 04/18/23 13:06:00 EDT, Height/Length Dosing, 115.8, kg, 04/18/23 13:06:00 EDT, Weight Dosing cholestyramine 4 g/5 g Oral Pwdr: 1 packet(s), Oral, TID, 90 EA, Refill(s) 0, [facility], 169, cm, 04/18/23 13:06:00 EDT, Height/Length Dosing, 115.8, kg, 04/18/23 13:06:00 EDT, Weight Dosing levothyroxine 50 mcg (0.05 mg) Tab: 50 mcg = 1 tab(s), Oral, Daily, # 90 tab(s), Refills(s) 1, Pharmacy: [facility] 1429, 169, cm, 04/18/23 13:06:00 EDT, Height/Length Dosing, 115.8, kg, 04/18/23 13:06:00 EDT, Weight Dosing Documented Medications Documented Digestive Advantage Daily Probiotic: 1 cap(s), Oral, Daily, Prophylaxis Vitamin C: Daily, Refills(s) 0, Prophylaxis Vitamin D3 5000 intl units (125 mcg) oral tab: 125 mcg = 1 tab(s), Oral, Daily, Refills(s) 0, Prophylaxis alendronate 70 mg oral tablet: 70 mg = 1 tab(s), Oral, qWeek, osteoporosis amLODIPine 5 mg Tab: 5 mg = 1 tab(s), Oral, Daily, Refills(s) 0, High blood pressure aspirin 81 mg oral tablet: 1 tab, Oral, Daily, Refills(s) 0 lisinopril 10 mg Tab: 10 mg = 1 tab(s), Oral, BID, Refills(s) 0, High blood pressure potassium chloride 10 mEq Cap-ER: 10 mEq = 1 cap(s), Oral, Daily, Refills(s) 0, Prophylaxis sotalol 80 mg Tab: 80 mg = 1 tab(s), Oral, BID, Refills(s) 0, Irregular heartbeat Problem list: All Problems Anemia / SNOMED CT 733705028 / Confirmed Arthritis / SNOMED CT 2081890 / Confirmed Asthma / SNOMED CT 888940790 / Confirmed Persistent atrial fibrillation / SNOMED CT 8515319689 / Confirmed Kidney stone / SNOMED CT 435598408 / Confirmed Retained ureteral stent / SNOMED CT 6472995794 / Confirmed Stress incontinence / SNOMED CT 636823313 / Confirmed Gross hematuria / SNOMED CT 890591391 / Confirmed Dysuria / SNOMED CT 12074897 / Confirmed Frequency of urination / SNOMED CT 251030001 / Confirmed Nocturia / SNOMED CT 667928104 / Confirmed Urgency of urination / SNOMED CT 292837908 / Confirmed Anticoagulated / SNOMED CT 909107390 / Confirmed Abdominal pain / SNOMED CT 97394963 / Confirmed BMI 40.0-44.9, adult / SNOMED CT 4551021632 / Confirmed Right ureteral stone / SNOMED CT 88080360 / Confirmed Cardiomyopathy / ICD-10-CM I42.9 / Confirmed COPD (chronic obstructive pulmonary disease) / SNOMED CT 64916660 / Confirmed Radiculopathy of cervical spine / SNOMED CT 080486186 / Confirmed Andreina's thyroiditis / SNOMED CT 51602236 / Confirmed Hemorrhoids / SNOMED CT 954917219 / Confirmed Osteoporosis / SNOMED CT 881576626 / Confirmed COVID pneumonia / SNOMED CT 3235174671 / Confirmed GERD (gastroesophageal reflux disease) / SNOMED CT 077151019 / Confirmed Hip pain, right / SNOMED CT 72302555 / Confirmed Chronic diarrhea of unknown origin / SNOMED CT 62479727 / Confirmed Stage 3a chronic kidney disease (CKD) / SNOMED CT 3571397373 / Confirmed Polycythemia / SNOMED CT 741627 / Confirmed Bloating / SNOMED CT 719546881 / Confirmed Abdominal cramping / SNOMED CT 016131315 / Confirmed Rectal pain / SNOMED CT 780695858 / Confirmed Canceled: Morbid obesity with body mass index (BMI) of 40.0 to 49.9 / SNOMED CT 875154646 Histories Past Medical History: No active or resolved past medical history items have been selected or recorded. Family History: Hypertension Mother Procedure history: Colonoscopy ([id number]) on 05/24/2023 at 67 Years. Esophagogastroduodenoscopy ([id number]) on 05/24/2023 at 67 Years. Rt ESWL ([id number] (more content not included)... Normal [facility] Comment on above: Result Comment: Elec tronically Signed By: MD Satinder, Charles Kincaid\.br\Date and Time Signed: 05/30/23 16:20 EST Consenton 05-26-2023 Consent [id number]#1.00TIFF [facility] Discharge Instructionson Discharge Instructions [id number]#1.00TIFF [facility] Main OR Intraoperative Recor don 05-26-2023 Main OR Intraoperative Record IntraOp Document Type FT Summary Primary Physician: Glenn Dukes MD Finalized Date/Time: 05/26/23 14:17:06 Pt. Name: KHURRAM PARRA/Sex: 1955 Female Med Rec #: [id number] Physician: Glenn Dukes MD Financial #: [id number] Pt. Type: O Room/Bed: / Admit/Disch: 05/24/23 12:51:53 - 05/24/23 23:59:59 Institution: Case Times FT Entry 1 Patient Times In Room 05/24/23 14:06:00 Out Room 05/24/23 14:55:00 Procedure Times Start 05/24/23 14:12:00 Stop 05/24/23 14:51:00 Anesthesia Times Start 05/24/23 14:06:00 Stop 05/24/23 14:55:00 Time at [facility] 05/24/23 14:23:00 Last Modified By: Mandy BEST, Анна Lockwood 05/24/23 14:55:55 General Comments: 1416 EGD completed/KS,RN 1420 Colonoscopy began/KS,RN 05/26/23 chart opened for charge review per Lynsey Mark RN. [place] Case Attendance FT Entry 1 Entry 2 Entry 3 Case Attendee Angel Luis EUBANKS, Francesco Galvan RN, Анна Contreras F[employer] SERVICE VENDING DRIVER, Anusha Vegas Role Performed Anesthesiologist Electrician Front - Primary Scrub - Primary Rehanger Time In 05/24/23 14:06:00 05/24/23 14:06:00 05/24/23 14:06:00 Time Out 05/24/23 14:55:00 05/24/23 14:55:00 05/24/23 14:55:00 Procedure EGD AND COLONOSCOPY(.) EGD AND COLONOSCOPY(.) EGD AND COLONOSCOPY(.) Comments Dr. Ley supervising procedure. Last Modified By: Mandy RN, Анна Galvan RN, Анна Galvan RN, Анна Lockwood 05/24/23 14:55:56 05/24/23 14:55:56 05/24/23 14:55:56 Entry 4 Case Attendee Glenn Dukes MD Role Performed Surgeon - Primary Time In 05/24/23 14:06:00 Time Out 05/24/23 14:55:00 Procedure EGD AND COLONOSCOPY(.) Comments Last Modified By: Анна Galvan RN 05/24/23 14:55:56 Perioperative Protocols FT Pre-Care Text: Implements protective measures prior to operative or invasive procedure, confirms identity before the operative or invasive procedure, verifies operative procedure, surgical site, and laterality Entry 1 Procedure(s) EGD AND COLONOSCOPY(.) Patient Identity Birthday, ID Band Verified (select at Check, Patient least 2): Participation Consents / H and P Anesthesia Consent, Operative Site N/A Verified HandP, Surgery/Procedure Marking Verified Consent Surgical Site No Laterality Verified n/a Verified Procedure Verified Yes Correct Patient Yes Position Verified Availability Equipment, Medication Prep Dry n/a Verified (If Applicable) PreOp Antibiotic No Time Out [place] CAA, Francesco C., Given Participants Анна Galvan RN, Roseline ALVARADO, Ben De CST, Anusha Vegas Time Out Complete 05/24/23 14:08:00 Outcomes Met? Yes Last Modified By: Анна Galvan RN 05/24/23 14:09:37 Post-Care Text: The patient is free from signs and symptoms of injury caused by extraneous objects Allergy Information FT Pre-Care Text: Verifies allergies Entry 1 Allergies Reviewed? Yes Allergies Reviewed Self/Patient With Outcomes Met? Yes Last Modified By: Анна Galvan RN 05/24/23 14:09:44 Post-Care Text: The patient received appropriate medication(s) safely administered during the perioperative period Surgical Procedures FT Entry 1 Procedure Description Procedure EGD AND COLONOSCOPY Modifiers . Surgeon Description EGD with antrum polyps biopsy and gastric biopsy.Colonoscopy with cecal polypectomy, hepatic flexure polypectomy with hemoclip x1, random colon biopsy. Primary Procedure Yes Primary Surgeon Roseline ALVARADO, Glenn Ramos Start 05/24/23 14:12:00 Stop 05/24/23 14:51:00 Anesthesia Type General Surgical Service Gastroenterology Wound Class 2 - Clean-Contaminated Last Modified By: Анна Galvan RN 05/24/23 14:51:45 General Case Data FT Pre-Care Text: Classifies surgical wound, implements aseptic technique, initiates traffic control Entry 1 Case Information OR ENDO 1 FT Case Level Level 2 Wound Class 2 - Clean-Contaminated Specialty Gastroenterology ASA Class 3 Preop Diagnosis BLOATING, ABDOMINAL Postop Same As Preop No CRAMPING, RECTAL PAIN, CHRONIC DIARRHEA Postop Diagnosis EGD- gastritis, antrum Outcomes Met? Yes polyps. Colonoscopy- cecal polyp, hepatic flexure polyp, diverticulosis and internal hemorrhoids. Last Modified By: Анна Galvan RN 05/24/23 14:51:59 Post-Care Text: The patient is free from signs and symptoms of infection Skin Assessment (Pre Procedure) FT Pre-Care Text: Implements protective measures to prevent skin/ tissue injury due to thermal or mechanical sources Evaluates for signs and symptoms of physical injury to skin and tissue Entry 1 Skin Integrity Intact, [place], Warm, and Skin Abnormality No Dry Outcomes Met? Yes Last Modified By: Анна Galvan RN 05/24/23 14:10:22 Post-Care Text: The patient is free from signs and symptoms of injury caused by extraneous objects Patient Positioning FT Pre-Care Text: Identifies physical alterations that require additional precautions for proc (more content not included)... [facility] Postoperative Documentson Postoperative Documents [id number]#[id number] [facility] Consent for Treatmenton 05-04 Consent for Treatment [id number]#1.00TIFF [facility] Discharge Instructionson Discharge Instructions KHURRAM PARRA Levi :1955 Visit Date:05/24/2023 Inpatient Discharge Instructions Your Care Team Admitting Physician - Glenn Dukes MD Referring Physician - Glenn Dukes MD Reason for Your Visit BLOATING, ABDOMINAL CRAMPING, RECTAL PAIN, CHRONIC DIARRHEA OF UNKNOWN ORIGIN Your Diagnosis Chronic diarrhea Tests Performed Pathology Tissue Exam -- Results Pending -- Please visit your patient portal for your results or contact your primary care physician. This Is Your Medications List albuterol (Albuterol (Eqv-ProAir HFA) 90 mcg/inh inhalation aerosol) albuterol (albuterol 0.083% Inh Beti 3 mL) alendronate (alendronate 70 mg oral tablet) amlodipine (amLODIPine 5 mg Tab) ascorbic acid (Vitamin C) aspirin (aspirin 81 mg oral tablet) bacillus coagulans-calcium carbonate (Digestive Advantage Daily Probiotic) bifidobacterium infantis (Align 4 mg oral capsule) cholecalciferol (Vitamin D3 5000 intl units (125 mcg) oral tab) cholestyramine (cholestyramine 4 g/5 g Oral Pwdr) levothyroxine (levothyroxine 50 mcg (0.05 mg) Tab) lisinopril (lisinopril 10 mg Tab) metronidazole (Flagyl 250 mg Tab) potassium chloride (potassium chloride 10 mEq Cap-ER) sotalol (sotalol 80 mg Tab) [Image Removed: STOP]Stop taking these medications multivitamin (Multi Vitamin+) Procedure History Colonoscopy (05/24/2023), Esophagogastroduodenoscopy (05/24/2023), ESWL of kidney (02/17/2022), Cystoscopy (05/11/2020), ESWL (extracorporeal shockwave lithotripsy) of ureteric calculus (04/20/2020), Cholecystectomy, Defibrillator, Hysterectomy. What to do next Instructions From Your Doctor Event Name Event Result Discharge Activity Resume normal activities in 24 hours Discharge Restrictions No driving for 24 hrs Discharge Diet(s) Regular Call Your Doctor For Persistent or heavy bleeding Pharmacy Information Other: [facility] Discharge Instructions Discharge Instructions New Follow Up Appointments after Discharge Follow Up with Roseline ALVARADO, SISI De, ANAY When: Comments: Call for any problems. Office will call to schedule follow up appointment Where: Medications What How Much When Why Instructions Next Dose Unchanged albuterol (Albuterol (Eqv-ProAir HFA) 90 mcg/ inh inhalation aerosol) 2 Puffs Inhalation Every 6 hours NEEDED Unchanged albuterol (albuterol 0.083% Inh Beti 3 mL) 3 Milliliter Nebulized inhalation (aerosol) Every 6 hours as needed for Shortness of breath or wheezing Unchanged alendronate (alendronate 70 mg oral tablet) 1 Tablets By Mouth Every week osteoporosis Unchanged amlodipine (amLODIPine 5 mg Tab) 1 Tablets By Mouth Every day Unchanged ascorbic acid (Vitamin C) Every day Unchanged aspirin (aspirin 81 mg oral tablet) 1 tab By Mouth Every day Unchanged bacillus coagulans-calcium carbonate (Digestive Advantage Daily Probiotic) 1 Capsules By Mouth Every day Unchanged bifidobacterium infantis (Align 4 mg oral capsule) 1 Capsules By Mouth Every day Abnormal stool test Duration: 28 Days Take after completing the Antibiotics course Unchanged cholecalciferol (Vitamin D3 5000 intl units (125 mcg) oral tab) 1 Tablets By Mouth Every day Unchanged cholestyramine (cholestyramine 4 g/ 5 g Oral Pwdr) 1 Packets By Mouth 3 times a day Unchanged levothyroxine (levothyroxine 50 mcg (0.05 mg) Tab) 1 Tablets By Mouth Every day Unchanged lisinopril (lisinopril 10 mg Tab) 1 Tablets By Mouth 2 times a day Unchanged metronidazole (Flagyl 250 mg Tab) 1 Tablets By Mouth 3 times a day Abnormal stool test Duration: 7 Days do not drink alcohol may take with food to minimize abdominal discomfort Unchanged potassium chloride (potassium chloride 10 mEq Cap-ER) 1 Capsules By Mouth Every day Unchanged sotalol (sotalol 80 mg Tab) 1 Tablets By Mouth 2 times a day What How Much When Comments Stop Taking multivitamin (Multi Vitamin+) 1 tab By Mouth Every day prophylaxis Test Results No qualifying data available. Allergies Daypro (Hives, Rash) Flexeril (Rapid heart beat) Rocephin (Hives, Rash) Problems Ongoing - Any problem that you are currently receiving treatment for. Abdominal cramping Abdominal pain Anemia Anticoagulated Arthritis Asthma Bloating BMI 40.0-44.9, adult Cardiomyopathy Chronic diarrhea of unknown origin COPD (chronic obstructive pulmonary disease) COVID pneumonia Dysuria Frequency of urination GERD (gastroesophageal reflux disease) Gross hematuria Andreina's thyroiditis Hemorrhoids Hip pain, right Kidney stone Nocturia Osteoporosis Persistent atrial fibrillation Polycythemia Radiculopathy of cervical spine Rectal pain Retained ureteral stent Right ureteral stone Stage 3a chronic kidney disease (CKD) Stress incontinence Urgency of urination Education Materials Gastritis, Adult Gastritis is irritation and swelling (inflammation) of (more content not included)... Normal [facility] Comment on above: Result Comment: Elec tronically Signed By: Yamile Bey I\.br\Date and Time Signed: 05/24/23 15:07 EST Endoscopic Procedure Report - Otheron 05-24-2023 Endoscopic Procedure Report - Other Patient: KHURRAM PARRA Age: 67 years Sex: Female : 1955 Associated Diagnoses: None Author: Glenn Dukes MD Pre-Procedure Procedure Date 05/24/2023 14:52:00 . Procedure Type: Colonoscopy with removal of tumor(s), polyp(s), or other lesion(s) by cold snare technique, biopsy. Procedure provider Performed by Glenn Dukes MD. Current history and physical Documented on chart. Colorectal neoplasm risk assessment Average risk. Informed Consent After discussing the rationale, risks and benefits, and alternatives to this procedure, the patient provided signed consent for the procedure. Pre-procedure diagnosis: Diarrhea, clinically significant. Medications Anticoagulant/antiplatelet None. ASA Classification: Class II. . Monitoring: See anesthesia record. . Procedure The procedure was performed in the hospital. See anesthesia record for sedation given during procedure. The patient was positioned starting in the left lateral decubitus position. Endoscope type used was an adult-size. The endoscope was lubricated then introduced through the anus. The scope was advanced to the terminal ileum. No difficulties encountered during the procedure. The bowel preparation quality was adequate (see polyps greater than or equal to 6 millimeters). The patient tolerated the procedure well. Time to cecum: 3 minutes Withdrawal time 29 minutes Findings 1. Moderate internal hemorrhoids 2. Severe sigmoid diverticulosis. Random biopsies were taken from colon to rule out microscopic colitis 3. 4 mm sessile polyp in the cecum, removed with cold snare completely and retrieved 4. 7 mm sessile polyp in the hepatic flexure resected with cold snare completely and retrieved. 1 clip was placed at the end to prevent bleeding 5. Normal terminal ileum Images Procedure images: [id number]__[id number].jpg [id number]_video__[id number].jpg [id number]__[id number].jpg [id number]_hd_video__4_ [id number].jpg [id number]_hd_video__4_ [id number].jpg [id number]_hd_video__[id number]_ [id number].jpg [id number]_hd_video__T14_ [id number].jpg . Post-Procedure Complications: none. Estimated blood loss: Minimal. Specimens: sent to pathology. Devices/ implants: none left in place. Impression and Plan 1. Moderate internal hemorrhoids 2. Severe sigmoid diverticulosis. Random biopsies were taken from colon to rule out microscopic colitis 3. 4 mm sessile polyp in the cecum, removed with cold snare completely and retrieved 4. 7 mm sessile polyp in the hepatic flexure resected with cold snare completely and retrieved. 1 clip was placed at the end to prevent bleeding 5. Normal terminal ileum Recommendations: Repeat colonoscopy:: In 5 years. Follow-up:: Follow up in clinic in 1-2 weeks after pathology results are available . Diet:: Previous. Medication resumption:: Continue current medications, Avoid NSAIDs. Return to activities:: After 24 hours. Education and Follow-up: Counseled: Patient, Family. Normal [facility] Comment on above: Result Comment: Elec tronically Signed By: Glenn Dukes MD\.br\Date and Time Signed: 05/24/23 14:55 EST Other Comment: Brittany love Attachment - attachment storage system not supported [id number] Can be viewed in source systemMissing Attachment - attachment storage system not supported [id number] Can be viewed in source systemMissNewvem Attachment - attachment storage system not supported [id number] Can be viewed in source systemMissNewvem Attachment - attachment storage system not supported [id number] Can be viewed in source systemMissing Attachment - attachment storage system not supported [id number] Can be viewed in source systemMissing Attachment - attachment storage system not supported [id number] Can be viewed in source systemMissing Attachment - attachment storage system not supported [id number] Can be viewed in source system Endoscopic Procedure Report - Other Patient: KHURRAM PARRA Age: 67 years Sex: Female : 1955 Associated Diagnoses: None Author: Glenn Dukes MD Pre-Procedure Procedure Date 05/24/2023 14:17:00 . Procedure Type: Esophagogastroduodenoscopy with biopsy. Procedure provider Performed by Glenn Dukes MD. Current history and physical Documented on chart. Informed Consent After discussing the rationale, risks and benefits, and alternatives to this procedure, the patient provided signed consent for the procedure. Pre-procedure diagnosis: Diarrhea. ASA Classification: Class II. . Monitoring: See anesthesia record. . Use of blood thinners: none Procedure The procedure was performed in the hospital. See anesthesia record for sedation given during procedure. The patient was positioned starting in the left lateral decubitus position and with safety measures. Endoscope type used was an adult-size, introduced orally, advanced to the 3rd portion of the duodenum. No difficulty was encountered during the procedure. Views were excellent. The patient tolerated the procedure well. Extent reached: Duodenum third portion Findings 1. Normal esophagus 2. Moderate erythema in the antrum, random biopsies were taken to rule out H. pylori and for histology. Multiple inflammatory polyps in the antrum, biopsied as well 3. Normal duodenum with normal villi Post-Procedure Complications: none. Estimated blood loss: minimal. Specimens: sent to pathology. Devices/ implants: none left in place. Impression and Plan 1. Normal esophagus 2. Moderate erythema in the antrum, random biopsies were taken to rule out H. pylori and for histology. Multiple inflammatory polyps in the antrum, biopsied as well 3. Normal duodenum with normal villi Recommendations: -Resume previous diet -Resume home medications, suggest Imodium 2 to 4 mg 4 times daily before meals -Await pathology results, follow in GI clinic in 1-2 after discharge -Avoid NSAIDs Normal [facility] Comment on above: Result Comment: Elec tronically Signed By: Glenn Dukes MD\.br\Date and Time Signed: 05/24/23 14:19 EST Inpatient Patient Summaryon 05-24-2023 Inpatient Patient Summary [place] [address] [facility] Clinical Discharge Instructions PERSON INFORMATION Name: KHURRAM PARRA PHYSICIANS Admitting Physician: Glenn Dukes MD Attending Physician: Glenn Dukes MD PCP: Rosangela Marin MD Discharge Diagnosis: Chronic diarrhea Comment: PATIENT EDUCATION INFORMATION Instructions: Medication Leaflets: Follow up: MEDICATION LIST Medications to Continue with No Changes Other Medications albuterol (Albuterol (Eqv-ProAir HFA) 90 mcg/inh inhalation aerosol) 2 Puffs Inhalation every 6 hours. NEEDED. Refills: 0. albuterol (albuterol 0.083% Inh Beti 3 mL) 3 Milliliter Nebulized inhalation (aerosol) every 6 hours as needed Shortness of breath or wheezing. Refills: 0. alendronate (alendronate 70 mg oral tablet) 1 Tablets By Mouth every week. osteoporosis. amlodipine (amLODIPine 5 mg Tab) 1 Tablets By Mouth every day. ascorbic acid (Vitamin C) every day. aspirin (aspirin 81 mg oral tablet) 1 tab By Mouth every day. bacillus coagulans-calcium carbonate (Digestive Advantage Daily Probiotic) 1 Capsules By Mouth every day. bifidobacterium infantis (Align 4 mg oral capsule) 1 Capsules By Mouth every day for 28 Days. Take after completing the Antibiotics course. Refills: 0. cholecalciferol (Vitamin D3 5000 intl units (125 mcg) oral tab) 1 Tablets By Mouth every day. cholestyramine (cholestyramine 4 g/5 g Oral Pwdr) 1 Packets By Mouth 3 times a day. Refills: 0. levothyroxine (levothyroxine 50 mcg (0.05 mg) Tab) 1 Tablets By Mouth every day. Refills: 1. lisinopril (lisinopril 10 mg Tab) 1 Tablets By Mouth 2 times a day. metronidazole (Flagyl 250 mg Tab) 1 Tablets By Mouth 3 times a day for 7 Days. do not drink alcohol may take with food to minimize abdominal discomfort. Refills: 0. potassium chloride (potassium chloride 10 mEq Cap-ER) 1 Capsules By Mouth every day. sotalol (sotalol 80 mg Tab) 1 Tablets By Mouth 2 times a day. No Longer Take the Following Medications multivitamin (Multi Vitamin+) 1 tab By Mouth every day. prophylaxis. Comment: Normal [facility] Main OR PACU I Recordon 05-04 Main OR PACU I Record PACU Phase I Document Type FT Summary Primary Physician: Glenn Dukes MD Finalized Date/Time: 05/24/23 15:55:52 Pt. Name: KHURRAM PARRA/Sex: 1955 Female Med Rec #: [id number] Physician: Glenn Dukes MD Financial #: [id number] Pt. Type: O Room/Bed: / Admit/Disch: 05/24/23 12:51:53 - Institution: Case Times PACU I FT Pre-Care Text: Identifies barriers to communication and implements measures to provide psychological support Develops individualized plan of care, and ensures continuity of care Maintains patient's dignity and privacy, and maintains patient confidentiality Identifies and reports philosophical, cultural, and spiritual beliefs and values Identifies individual values and wishes concerning care Implements aseptic technique, and administers prescribed antibiotic therapy and immunizing agents as ordered Evaluates postoperative tissue perfusion Implements thermoregulation measures, and monitors body temperature Evaluates postoperative respiratory status Evaluates postoperative cardiac status Evaluates postoperative neurological status Assesses pain control, collaborated in initiating patient-controlled analgesia and implements alternative methods of pain control Verifies allergies, administers prescribed medications and solutions, evaluates response to medications Entry 1 In PACU I 05/24/23 14:56:00 Discharge from PACU 05/24/23 15:26:00 I Outcomes Met? Yes Last Modified By: Yamile Bey I 05/24/23 15:55:35 Post-Care Text: The patient demonstrates knowledge of the expected response to the operative or invasive procedure The patient's care is consistent with the individualized perioperative plan of care The patient's right to privacy is maintained The patient's value system, lifestyle, ethnicity, and culture are considered, respected, and incorporated into the perioperative plan of care The patient participates in decisions affecting his or her perioperative plan of care The patient is free from signs and symptoms of infection The patient has wound/tissue perfusion consistent with or improved from baseline levels established preoperatively The patient is at or returning to normothermia at the conclusion of the immediate postoperative period The patient's respiratory function is consistent with or improved from baseline levels established preoperatively The patient's cardiovascular status is consistent with or improved from baseline levels established preoperatively The patient's cardiovascular status is consistent with or improved from baseline levels established preoperatively The patient demonstrates and/or reports adequate pain control throughout the perioperative period The patient received appropriate medication(s), safely administered during the perioperative period Acuity Level PACU I FT Entry 1 Start Time 05/24/23 14:56:00 Stop Time 05/24/23 15:26:00 Acuity Level Acuity Level I Last Modified By: Yamile Bey I 05/24/23 15:55:47 Finalized By: Yamiel Bey I Document Signatures Signed By: Yamile eBy I 05/24/23 15:55 [facility] Main OR Preoperative Recordo n 05-24-2023 Main OR Preoperative Record Holding Area Document Type FT Summary Primary Physician: Glenn Dukes MD Finalized Date/Time: 05/24/23 13:44:12 Pt. Name: KHURRAM PARRA Levi Win/Sex: 1955 Female Med Rec #: [id number] Physician: Glenn Dukes MD Financial #: [id number] Pt. Type: O Room/Bed: / Admit/Disch: 05/24/23 12:51:53 - Institution: Case Times Holding FT Pre-Care Text: Verifies consent for planned procedure, identifies individual values and wishes concerning care, includes family members in perioperative teaching Secures patient's records' belongings, and valuables, maintains patient's dignity and privacy, and maintains patient confidentiality Entry 1 In Holding 05/24/23 13:35:00 Outcomes Met? Yes Last Modified By: Juan Zurita RN 05/24/23 13:42:22 Post-Care Text: The patient participates in decisions affecting his or her perioperative plan of care The patient's right to privacy is maintained Surgery Checklist FT Entry 1 Patient Birthday, ID Band Procedure History and Physical, Identification: Check, Patient Verification: Surgical Consent, With Participation Patient NPO after Midnight: No Date/Time: 05/24/23 09:00:00 Results Reviewed clear- yellow liquid Personal Items: Defibrilator, Dentures, Comments: bowel results Glasses, Pacemaker Personal Items glasses, clothing, Limitations: none Comment: shoes, upper/lower dentures, pacemaker/defibrilator Complaints of Pain: No Pain Comment: denies pain at this time Operative Site n/a Marked By: n/a Marking: Location: n/a Availability Equipment Verified: Patient states Yes Comment - Adult Ramon- in waiting room postop adult Supervision supervision available Case Cancelled in No Holding Area see comments below for reason Last Modified By: Juan Zurita RN 05/24/23 13:44:10 General Comments: pt finished bowel prep at 0900, per patient nothing to eat or drink since MSRN Finalized By: Juan Zurita RN Document Signatures Signed By: Juan Zurita RN 05/24/23 13:44 Normal [facility] Monitor Recordon 05-24-2023 Monitor Record [id number] Normal [facility] Monitor Record [id number] Normal [facility] Outpatient Surgery Discharge Instructionon 05-24-2023 Outpatient Surgery Discharge Instruction [place] [id number] Patient Discharge Instructions PERSON INFORMATION Name: KHURRAM PARRA Date of : 1955 Current Date: 05/24/2023 14:57:18 PHYSICIANS Admitting Physician: Roseline ALVARADO, Glenn Ramos Discharge Diagnosis: Chronic diarrhea KHURRAM PARRA has been given the following list of follow-up instructions, prescriptions, and patient education materials: PATIENT FOLLOW-UP INFORMATION Diet: Regular Discharge Activity: Resume normal activities in 24 hours Discharge Restrictions: No driving for 24 hrs Call Your Doctor For: Persistent or heavy bleeding IF UNABLE TO CONTACT YOUR PHYSICIAN AND YOU FEEL IT IS AN EMERGENCY, GO TO THE NEAREST EMERGENCY ROOM OR CALL 911 IJAIRON CATHY L, have received the attached patient education materials/instructions and have verbalized understanding: May we do a follow up call? Yes No I was present when discharge instructions were given __ Patient Signature Date Clinican/Nurse Signature Date Follow up: Pharmacy Information: Other: Tracy You may receive a survey from [employer] asking you to rate your care experience. Your feedback is important and will help us understand what we do well and how we can improve the quality of care we provide to you, your loved ones and our community. It?s an honor to serve you. Thank you for choosing [facility] HERE ARE THE MEDICATION CHANGES THAT OCCURRED DURING YOUR HOSPITAL STAY Medications to Continue with No Changes Other Medications albuterol (Albuterol (Eqv-ProAir HFA) 90 mcg/inh inhalation aerosol) 2 Puffs Inhalation every 6 hours. NEEDED. Refills: 0. albuterol (albuterol 0.083% Inh Beti 3 mL) 3 Milliliter Nebulized inhalation (aerosol) every 6 hours as needed Shortness of breath or wheezing. Refills: 0. alendronate (alendronate 70 mg oral tablet) 1 Tablets By Mouth every week. osteoporosis. amlodipine (amLODIPine 5 mg Tab) 1 Tablets By Mouth every day. ascorbic acid (Vitamin C) every day. aspirin (aspirin 81 mg oral tablet) 1 tab By Mouth every day. bacillus coagulans-calcium carbonate (Digestive Advantage Daily Probiotic) 1 Capsules By Mouth every day. bifidobacterium infantis (Align 4 mg oral capsule) 1 Capsules By Mouth every day for 28 Days. Take after completing the Antibiotics course. Refills: 0. cholecalciferol (Vitamin D3 5000 intl units (125 mcg) oral tab) 1 Tablets By Mouth every day. cholestyramine (cholestyramine 4 g/5 g Oral Pwdr) 1 Packets By Mouth 3 times a day. Refills: 0. levothyroxine (levothyroxine 50 mcg (0.05 mg) Tab) 1 Tablets By Mouth every day. Refills: 1. lisinopril (lisinopril 10 mg Tab) 1 Tablets By Mouth 2 times a day. metronidazole (Flagyl 250 mg Tab) 1 Tablets By Mouth 3 times a day for 7 Days. do not drink alcohol may take with food to minimize abdominal discomfort. Refills: 0. potassium chloride (potassium chloride 10 mEq Cap-ER) 1 Capsules By Mouth every day. sotalol (sotalol 80 mg Tab) 1 Tablets By Mouth 2 times a day. No Longer Take the Following Medications multivitamin (Multi Vitamin+) 1 tab By Mouth every day. prophylaxis. PATIENT EDUCATION INFORMATION Instructions: Medication Leaflets: [facility] Progress Note-Physicianon Progress Note-Physician Patient: KHURRAM PARRA Age: 67 years Sex: Female : 1955 Associated Diagnoses: None Author: Rex Flores DO Preoperative Information Anesthesia history: Patient history: None. Family history+: None. Anesthesia results Informed consent: Signed by patient. Including risks, benefits, and alternatives related to the: Anesthetic plan, Postoperative pain management plan. Re-evaluation prior to induction: Rex Flores DO. Health Status Allergies: Allergic Reactions (Selected) Severity Not Documented Daypro- Rash and hives. Flexeril- Rapid heart beat. Rocephin- Rash and hives., Allergies (3) Active Reaction Daypro Rash Flexeril Rapid heart beat Rocephin Rash Current medications: (Selected) Inpatient Medications Ordered Sodium Chloride 0.9% IV Beti 1000 mL 1,000 mL: 1,000 mL, IV, 20 mL/hr, Routine, Start date 05/24/23 6:35:00 EST, 50 hour(s), Total volume (mL): 1,000, 116.8 kg, 2.34, m2 Prescriptions Prescribed Albuterol (Eqv-ProAir HFA) 90 mcg/inh inhalation aerosol: 180 mcg, 2 puff(s), Inhalation, q6hr, 18 gm, Refill(s) 0, NEEDED, [facility], 169, cm, 04/18/23 13:06:00 EDT, Height/Length Dosing, 115.8, kg, 04/18/23 13:06:00 EDT, Weight Dosing Align 4 mg oral capsule: 4 mg = 1 cap(s), Oral, Daily, Take after completing the Antibiotics course, X 28 day(s), # 28 cap(s), Refills(s) 0, Pharmacy: [facility], 169, cm, 05/05/23 9:58:00 EDT, Height/Length Dosing, 116.8, kg, 05/05/23 9:58:00 EDT, Weight Dosing Flagyl 250 mg Tab: 250 mg = 1 tab(s), Oral, TID, do not drink alcohol may take with food to minimize abdominal discomfort, X 7 day(s), # 21 tab(s), Refills(s) 0, Pharmacy: [facility], 169, cm, 05/05/23 9:58:00 EDT, Height/Length Dosing, 116.8, kg, 05/05/23... albuterol 0.083% Inh Beti 3 mL: 2.5 mg, 3 mL, NEB, q6hr Shortness of breath or wheezing, 300 mL, Refill(s) 0, [facility], 169, cm, 04/18/23 13:06:00 EDT, Height/Length Dosing, 115.8, kg, 04/18/23 13:06:00 EDT, Weight Dosing cholestyramine 4 g/5 g Oral Pwdr: 1 packet(s), Oral, TID, 90 EA, Refill(s) 0, [facility], 169, cm, 04/18/23 13:06:00 EDT, Height/Length Dosing, 115.8, kg, 04/18/23 13:06:00 EDT, Weight Dosing levothyroxine 50 mcg (0.05 mg) Tab: 50 mcg = 1 tab(s), Oral, Daily, # 90 tab(s), Refills(s) 1, Pharmacy: [facility], 169, cm, 04/18/23 13:06:00 EDT, Height/Length Dosing, 115.8, kg, 04/18/23 13:06:00 EDT, Weight Dosing Documented Medications Documented Digestive Advantage Daily Probiotic: 1 cap(s), Oral, Daily, Prophylaxis Multi Vitamin+: 1 tab, Oral, Daily, Refill(s) 0, prophylaxis Vitamin C: Daily, Refills(s) 0, Prophylaxis Vitamin D3 5000 intl units (125 mcg) oral tab: 125 mcg = 1 tab(s), Oral, Daily, Refills(s) 0, Prophylaxis alendronate 70 mg oral tablet: 70 mg = 1 tab(s), Oral, qWeek, osteoporosis amLODIPine 5 mg Tab: 5 mg = 1 tab(s), Oral, Daily, Refills(s) 0, High blood pressure aspirin 81 mg oral tablet: 1 tab, Oral, Daily, Refills(s) 0 lisinopril 10 mg Tab: 10 mg = 1 tab(s), Oral, BID, Refills(s) 0, High blood pressure potassium chloride 10 mEq Cap-ER: 10 mEq = 1 cap(s), Oral, Daily, Refills(s) 0, Prophylaxis sotalol 80 mg Tab: 80 mg = 1 tab(s), Oral, BID, Refills(s) 0, Irregular heartbeat, Home Medications (16) Active Albuterol (Eqv-ProAir HFA) 90 mcg/inh inhalation aerosol 180 mcg = 2 puff(s), Inhalation, q6hr albuterol 0.083% Inh Beti 3 mL 2.5 mg = 3 mL, PRN, NEB, q6hr alendronate 70 mg oral tablet 70 mg = 1 tab(s), Oral, qWeek Align 4 mg oral capsule 4 mg = 1 cap(s), Oral, Daily amLODIPine 5 mg Tab 5 mg = 1 tab(s), Oral, Daily aspirin 81 mg oral tablet 1 tab, Oral, Daily cholestyramine 4 g/5 g Oral Pwdr 1 packet(s), Oral, TID Digestive Advantage Daily Probiotic 1 cap(s), Oral, Daily Flagyl 250 mg Tab 250 mg = 1 tab(s), Oral, TID levothyroxine 50 mcg (0.05 mg) Tab 50 mcg = 1 tab(s), Oral, Daily lisinopril 10 mg Tab 10 mg = 1 tab(s), Oral, BID Multi Vitamin+ 1 tab, Oral, Daily potassium chloride 10 mEq Cap-ER 10 mEq = 1 cap(s), Oral, Daily sotalol 80 mg Tab 80 mg = 1 tab(s), Oral, BID Vitamin C , Daily Vitamin D3 5000 intl units (125 mcg) oral tab 125 mcg = 1 tab(s), Oral, Daily , Medications (1) Active Scheduled: (0) Continuous: (1) Sodium Chloride 0.9% 1,000 mL 1,000 mL, IV, 20 mL/hr PRN: (0) Problem list: All Problems Abdominal cramping / SNOMED CT 869114472 / Confirmed Abdominal pain / SNOMED CT 62943673 / Confirmed Anemia / SNOMED CT 149583327 / Confirmed Anticoagulated / SNOMED CT 349788825 / Confirmed Arthritis / SNOMED CT 0881958 / Confirmed Asthma / SNOMED CT 270246619 / Confirmed Bloating / SNOMED CT 231905123 / Confirmed BMI 40.0-44.9, adult / SNOMED CT 3653594213 / Confirmed Cardiomyopathy / ICD-10-CM I42.9 / Confirmed Chronic diarrhea of unknown origin / SNOMED CT 90319612 / Confirmed COPD (chronic obstructive pulmonary disease) / SNOMED CT (more content not included)... Normal [facility] Comment on above: Result Comment: Elec tronically Signed By: Rex Flores DO\.br\Date and Time Signed: 05/24/23 13:17 EST C. diff by PCRon 05-20-2023 C. diff by PCR Specimen Negative fo r toxigenic C. difficile by DNA amplification. Duplicate specimens will not be accepted on this patient for the next 7 days. Published data on the sensitivity of molecular assays suggest there is no diagnostic value in repeat testing of samples in close time sequence. Normal Negative [facility] Comment on above: Result Comment: This test result should be correlated with clinical presentations and medical history by a healthcare provider to determine its clinical significance.\.br\.br\ Other Comment: Order added by Discern Expert. Clostridium difficile by PCR Negative Normal Negative [facility] Comment on above: Order Comment: Order added by Discern Expert. Result Comment: This test result should be correlated with clinical presentations and medical history by a healthcare provider to determine its clinical significance. Performed By: #### 3 [id number], [id number], [id number], [id number], [id number], [id number], [id number], [id number] ####[facility] [address] [place] [address] CDiff PCRon 05-20-2023 CDiff PCR Specimen has been fo und to be acceptable for C. difficile testing. Normal [facility] Cdiff Specimen Acceptable Acceptable Normal [facility] Comment on above: Performed By: #### 3 [id number], [id number], [id number], [id number], [id number], [id number], [id number], [id number] ####[facility] [address] [place] [address] Order Cancelled No, PCR to follow Normal [facility] Comment on above: Performed By: #### 3 [id number], [id number], [id number], [id number], [id number], [id number], [id number], [id number] ####[facility] [address] [place] [address] Enteric Panel by PCRon 05-20 C. coli+jejuni+upsalie nsis DNA TOM+non-probe Ql (Stl) Not detected Normal [facility] Comment on above: Result Comment: Test ing was performed utilizing reverse client support associate (RT), polymerase chain reaction (PCR), and array hybridization to detect specific gastrointestinal microbial nucleic acid gene sequences associated with the following pathogenic bacteria and viruses:Campylobacter Group (composed of C. coli, C. jejuni, and C. saurav), Salmonella species, Shigella species (including S. dysenteriae, S. boydii, S. sonnei and S. flexneri), Vibrio Group (composed of V. cholera and V. parahaemolyticus), Yersinia enterocolitica, Norovirus GI/GII, and Rotavirus A. In addition, EPdetects Shiga toxin 1 gene and Shiga toxin 2 gene virulence markers. Shiga toxin producing E. coli (STEC) typically harbor one or both genes that encode for Shiga toxins 1 and 2. Campylobacter group, Salmonella species, Shigella species, Vibrio group, Rotavirus A, Shiga Toxin 1, Shiga Toxin 2, Norovirus GI/GII, and Yersinia enterocolitica were tested by Verigene nulcleic acid test. Performed By: #### 3 [id number], [id number], [id number], [id number], [id number], [id number], [id number], [id number] ####[facility] [address] [place] [address] E. coli stx1+stx2 genes TOM+non-probe Ql (Stl) Negative Normal [facility] Comment on above: Performed By: #### 3 [id number], [id number], [id number], [id number], [id number], [id number], [id number], [id number] ####[facility] [address] [place] [id number] Enteric Panel by PCR Negative Normal [facility] Enteric Panel Intrl QC Pass Normal [facility] Comment on above: Result Comment: Test ing was performed utilizing reverse client support associate (RT), polymerase chain reaction (PCR), and array hybridization to detect specific gastrointestinal microbial nucleic acid gene sequences associated with the following pathogenic bacteria and viruses:Campylobacter Group (composed of C. coli, C. jejuni, and C. saurav), Salmonella species, Shigella species (including S. dysenteriae, S. boydii, S. sonnei and S. flexneri), Vibrio Group (composed of V. cholera and V. parahaemolyticus), Yersinia enterocolitica, Norovirus GI/GII, and Rotavirus A. In addition, EPdetects Shiga toxin 1 gene and Shiga toxin 2 gene virulence markers. Shiga toxin producing E. coli (STEC) typically harbor one or both genes that encode for Shiga toxins 1 and 2. Performed By: #### 3 [id number], [id number], [id number], [id number], [id number], [id number], [id number], [id number] ####[facility] [address] [place] [address] Norovirus genogroup I+II RNA TOM+non-probe Ql (Stl) Not detected Normal [facility] Comment on above: Performed By: #### 3 [id number], [id number], [id number], [id number], [id number], [id number], [id number], [id number] ####[facility] [address] [place] [address] Rotavirus A RNA TOM+non-probe Ql (Stl) Not detected Normal [facility] Comment on above: Performed By: #### 3 [id number], [id number], [id number], [id number], [id number], [id number], [id number], [id number] ####[facility] [address] [place] [address] S. enterica+bongori DNA TOM+non-probe Ql (Stl) Not detected Normal [facility] Comment on above: Result Comment: This test result should be correlated with clinical presentations and medical history by a healthcare provider to determine its clinical significance. Performed By: #### 3 [id number], [id number], [id number], [id number], [id number], [id number], [id number], [id number] ####[facility] [address] [place] [address] Shigella species+EIEC invasion plasmid antigen H ipaH gene TOM+non-probe Ql (Stl) Not detected Normal [facility] Comment on above: Performed By: #### 3 [id number], [id number], [id number], [id number], [id number], [id number], [id number], [id number] ####[facility] [address] [place] [address] V. cholerae+parahaemol yticus+vulnificus DNA TOM+non-probe Ql (Stl) Not detected Normal [facility] Comment on above: Performed By: #### 3 [id number], [id number], [id number], [id number], [id number], [id number], [id number], [id number] ####[facility] [address] [place] [address] Y. enterocolitica DNA TOM+non-probe Ql (Stl) Not detected Normal [facility] Comment on above: Performed By: #### 3 [id number], [id number], [id number], [id number], [id number], [id number], [id number], [id number] ####[facility] [address] [place] [address] Fecal WBC Lactoferrinon 05-03 Lactoferrin Ql (Stl) Positive Abnormal Negative [facility] Comment on above: Result Comment: The semi-quantitative detection of elevated levels of fecal lactoferrin is a marker for fecal leukocytes and an indication of intestinal inflammation. Performed By: #### 3 [id number], [id number], [id number], [id number], [id number], [id number], [id number], [id number] ####[facility] [address] [place] [address] Consultation Noteon 05-09-20 Consultation Note [id number] Normal [facility] Insurance Correspondenceon 07-09-2022 Insurance Correspondence [id number] Normal [facility] Celiac Disease Comprehensive on 05-08-2023 Endomysium IgA Ql (S) Negative Invalid Interpretation Code Negative [facility] Comment on above: Performed By: #### 1 [id number] ####[facility] [id number] [place] [address] Gliadin peptide IgA Qn (S) 4 unit(s) Invalid Interpretation Code 0 [facility] Comment on above: Result Comment: Nega tive 0 - 19 Weak Positive 20 - 30 Moderate to Strong Positive >30 Performed By: #### 1 [id number] ####[facility] [id number] [place] [address] Gliadin peptide IgG Qn (S) 3 unit(s) Invalid Interpretation Code 0- [facility] Comment on above: Result Comment: Nega tive 0 - 19 Weak Positive 20 - 30 Moderate to Strong Positive >30 Performed By: #### 1 [id number] ####[facility] [id number] [place] [address] IgA [Mass/Vol] 213 mg/dL Invalid Interpretation Code 87-352 [facility] Comment on above: Result Comment: Perf ormed at: CB [facility] [id number] [place], [place] [id number] PhD Mari[place] Dee Performed By: #### 1 [id number] ####[facility] [id number] [place] [address] tTG IgA Qn (S) <2 Invalid Interpretation Code 0-3 [facility] Comment on above: Result Comment: Nega tive 0 - 3 Weak Positive 4 - 10 Positive >10 Tissue Transglutaminase (tTG) has been identified as the endomysial antigen. Studies have demonstr- ated that endomysial IgA antibodies have over 99% specificity for gluten sensitive enteropathy. Performed By: #### 1 [id number] ####[facility] [id number] [place] [address] tTG IgG Qn (S) <2 Invalid Interpretation Code 0-5 [facility] Comment on above: Result Comment: Nega tive 0 - 5 Weak Positive 6 - 9 Positive >9 Performed By: #### 1 [id number] ####[facility] [id number] [place] [address] Consent for Procedure/Surger yon 05-08-2023 Consent for Procedure/Surgery [id number] Normal [facility] Ambulatory Visit Summaryon 1 07-05-2022 Ambulatory Visit Summary CARLEENJES ZHANGEvangelina Sims :1955 Visit Date:05/05/2023 Ambulatory Visit Instructions Your Diagnosis Chronic diarrhea of unknown origin Bloating Abdominal cramping Rectal pain Your Care Team Attending Physician - Justyna HAY, Rosemarie A Primary Care Physician - Rosangela Marin MD This Is Your Medications List Contact prescribing physician if questions or concerns albuterol (Albuterol (Eqv-ProAir HFA) 90 mcg/inh inhalation aerosol) albuterol (albuterol 0.083% Inh Beti 3 mL) alendronate (alendronate 70 mg oral tablet) amlodipine (amLODIPine 5 mg Tab) ascorbic acid (Vitamin C) aspirin (aspirin 81 mg oral tablet) bacillus coagulans-calcium carbonate (Digestive Advantage Daily Probiotic) cholecalciferol (Vitamin D3 5000 intl units (125 mcg) oral tab) cholestyramine (cholestyramine 4 g/5 g Oral Pwdr) levothyroxine (levothyroxine 50 mcg (0.05 mg) Tab) lisinopril (lisinopril 10 mg Tab) multivitamin (Multi Vitamin+) potassium chloride (potassium chloride 10 mEq Cap-ER) sotalol (sotalol 80 mg Tab) Procedures Performed ESWL of kidney (02/17/2022), Cystoscopy (05/11/2020), ESWL (extracorporeal shockwave lithotripsy) of ureteric calculus (04/20/2020), Cholecystectomy, Defibrillator, Hysterectomy. Discharge Vitals Temperature (Temporal Artery) 36.4 ?C Heart Rate (Peripheral) 52 Blood Pressure 123/84 Height 169 cm Height 67 in Weight 116.8 kg Weight 256.96 lb BMI 40.89 What to do next You Need to Schedule the Following Appointments Follow Up with Rosemarie Jansen CNP When: Within 1 to 2 weeks Comments: Following colonoscopy. Where: You Need to Complete the Following Celiac Disease Comprehensive, Blood, Routine collect, 05/05/23, Order for future visit, Lab Collect, Chronic diarrhea of unknown origin, Not Required, Print Label By Order Location Clostridium Difficile PCR, Stool, Routine collect, 05/05/23, Order for future visit, Nurse collect, Chronic diarrhea of unknown origin, Print Label By Order Location Enteric Panel by PCR, Stool, Routine collect, 05/05/23, Order for future visit, Nurse collect, Chronic diarrhea of unknown origin, Required & Missing, Print Label By Order Location Fecal WBC Lactoferrin, Stool, Routine collect, 05/05/23, Order for future visit, Nurse collect, Chronic diarrhea of unknown origin, Not Required, Print Label By Order Location Giardia lamblia, Direct Detection EIA, Stool, Routine collect, 05/05/23, Order for future visit, Nurse collect, Chronic diarrhea of unknown origin, Not Required, Print Label By Order Location O & P Exam, Routine, Stool, Routine collect, 05/05/23, Order for future visit, Nurse collect, Chronic diarrhea of unknown origin, Not Required, Print Label By Order Location Pancreatic Elastase, Fecal, Stool, Routine collect, 05/05/23, Order for future visit, Nurse collect, Chronic diarrhea of unknown origin Normal [facility] Consent for Treatmenton 11-0 Consent for Treatment [id number] Normal [facility] Gastroenterology Office/Clin ic Noteon 05-05-2023 Gastroenterology Office/Clinic Note Chief Complaint Diarrhea, cramping, gas and bloating. HPI Staff Patient is a 67 year old female who was referred by Dr Marin for chronic diarrhea, cramping, gas and bloating x 4 years. Patient states that the last 3 months she has limited dairy and symptoms improved. History of Present Illness Patient is a 67-year-old female who presents for referral from her PCP?Dr. Marin for chronic diarrhea. Patient was previously evaluated by her PCP 04/18/2023 and note indicated she had never had colonoscopy before and was started on trial of Questran. PMH of Atrial fibrillation, HTN, Hypothyroidism- managed by patient's PCP. Patient with hx. cardiac pacemaker and defibrillator 10-12 years ago. Family history of colon cancer: Denies. Family history of colon polyps: Denies. Personal history of colon cancer: Denies. Personal history of colon polyps: Denies. Takes aspirin daily. During today's visit, patient reports she has been having lower abdominal cramping, bloating/gas, and diarrhea over the last 4 years. She explains she noticed she was having diarrhea, gas/bloating with dairy and has been limiting dairy over the last 2-3 months. Reports improved symptoms with limitation of lactose and is taking Lactaid. She explains when she was having diarrhea previously, she was having hemorrhoids that have improved. Explains hemorrhoids were itchy and painful in rectum over the last 4 years- improved. Denies rectal bleeding. Her stools are more formed in consistency currently. Is currently having 2-3 BMs daily that are primarily formed. Is still having gas/bloating daily. Has abdominal cramping 2 times a week. Abdominal cramping improves after having a BM. Is taking imodium as needed. Has not taken Questran and does not want to take Questran. Denies black/bloody stools, nausea/vomiting, fevers/chills, and denies unintentional weight loss. Review of Systems PHQ Score Initial Depression Screen Score: 0 ROS - Provider Constitutional: no fever, no chills. Skin: no Jaundice. ENMT: Denies dysphagia and heartburn. Respiratory: no shortness of breath. Cardiovascular: no chest pain. Gastrointestinal: no nausea, no vomiting, yes diarrhea, no GI bleeding. Physical Exam Vitals & Measurements T: 36.4 ?C(Temporal Artery) HR: 52(Peripheral) BP: 123/84 HT: 67 in HT: 169 cm WT: 116.8 kg WT: 256.96 lb BMI: 40.89 General: Well developed, well nourished, in no acute distress Head: Normocephalic/atraumatic Lungs: Normal respiratory effort and clear to auscultation Cardio: Regular rate and rhythm, normal S1 and S2, no murmur, no rub Abdomen: Soft, non-distended, non-tender. Normoactive bowel sounds present in all 4 abdominal quadrants, bilaterally. Mental Status: Alert and oriented x3. Normal mood and affect Assessment/Plan 1. Chronic diarrhea of unknown origin (K52.9: Noninfective gastroenteritis and colitis, unspecified) Diarrhea x 4 years. Improved with limitation of dairy and use of Lactaid. Labs 04/2023 revealed normal Hgb., slightly elevated Hct., normal BUN, creatinine, and LFTs. Possibly lactose intolerance. Ordered stool testing to evaluate for infectious process and pancreatic insufficiency- instructed on how to complete. Ordered Colonoscopy. Educated regarding fiber supplementation daily. Limit lactose given improved symptoms with limitation of dairy. Ordered celiac serology. Ordered: Celiac Disease Comprehensive Clostridium Difficile PCR Colonoscopy (Hospital Procedure) Enteric Panel by PCR Fecal WBC Lactoferrin Giardia lamblia, Direct Detection EIA O & P Exam, Routine Pancreatic Elastase, Fecal 2. Bloating (R14.0: Abdominal distension (gaseous)) Gas/bloating daily. Labs 04/2023 revealed normal Hgb., slightly elevated Hct., normal BUN, creatinine, and LFTs. Ordered EGD to evaluate for celiac/Colonoscopy. Ordered celiac serology. Ordered: Colonoscopy (Hospital Procedure) EGD Endoscopy (Hospital Procedure) Pancreatic Elastase, Fecal 3. Abdominal cramping (R10.9: Unspecified abdominal pain) Is having abdominal cramping 2 times a week. Labs 04/2023 revealed normal Hgb., slightly elevated Hct., normal BUN, creatinine, and LFTs. Possibly lactose intolerance. Ordered stool testing to evaluate for infectious process and pancreatic insufficiency- instructed on how to complete. Ordered Colonoscopy. Ordered: Colonoscopy (Hospital Procedure) 4. Rectal pain (K62.89: Other specified diseases of anus and rectum) Rectal pain and itching- improved. Patient to have rectal exam while under deep sedation for colonoscopy. Ordered Colonoscopy. Takes aspirin daily. Ordered: Colonoscopy (Hospital Procedure) Educated regarding miralax colon prep. Follow-up With When Contact Information Rosemarie Jansen CNP Within 1 to 2 weeks Additional Instructions: Following colonoscopy. Patient Education Diarrhea, Adult Problem List/Past Medical History Ongoing Abdominal cramping Abdominal pain (more content not included)... Normal [facility] Comment on above: Result Comment: Elec tronically Signed By: Rosemarie Jansen CNP\.br\Date and Time Signed: 05/05/23 10:22 EDT Patient Educationon 05-05-20 Patient Education Infectious Disease Diarrhea, Adult Diarrhea is frequent loose and watery bowel movements. Diarrhea can make you feel weak and cause you to become dehydrated. Dehydration can make you tired and thirsty, cause you to have a dry mouth, and decrease how often you urinate. Diarrhea typically lasts 2?3 days. However, it can last longer if it is a sign of something more serious. It is important to treat your diarrhea as told by your health care provider. Follow these instructions at home: Eating and drinking Follow these recommendations as told by your health care provider: ? Take an oral rehydration solution (ORS). This is an xaoi-ojd-vcsxfsk medicine that helps return your body to its normal balance of nutrients and water. It is found at pharmacies and retail stores. ? Drink plenty of fluids, such as water, ice chips, diluted fruit juice, and low-calorie sports drinks. You can drink milk also, if desired. ? Avoid drinking fluids that contain a lot of sugar or caffeine, such as energy drinks, sports drinks, and soda. ? Eat bland, iikd-wm-ztvvlm foods in small amounts as you are able. These foods include bananas, applesauce, rice, lean meats, toast, and crackers. ? Avoid alcohol. ? Avoid spicy or fatty foods. Medicines ? Take nhmb-add-hplkdtd and prescription medicines only as told by your health care provider. ? If you were prescribed an antibiotic medicine, take it as told by your health care provider. Do not stop using the antibiotic even if you start to feel better. General instructions ? Wash your hands often using soap and water. If soap and water are not available, use a hand fish bait processing supervisor. Others in the household should wash their hands as well. Hands should be washed: ? After using the toilet or changing a diaper. ? Before preparing, cooking, or serving food. ? While caring for a sick person or while visiting someone in a hospital. ? Drink enough fluid to keep your urine pale yellow. ? Rest at home while you recover. ? Watch your condition for any changes. ? Take a warm bath to relieve any burning or pain from frequent diarrhea episodes. ? Keep all follow-up visits as told by your health care provider. This is important. Contact a health care provider if: ? You have a fever. ? Your diarrhea gets worse. ? You have new symptoms. ? You cannot keep fluids down. ? You feel light-headed or dizzy. ? You have a headache. ? You have muscle cramps. Get help right away if: ? You have chest pain. ? You feel extremely weak or you faint. ? You have bloody or black stools or stools that look like tar. ? You have severe pain, cramping, or bloating in your abdomen. ? You have trouble breathing or you are breathing very quickly. ? Your heart is beating very quickly. ? Your skin feels cold and clammy. ? You feel confused. ? You have signs of dehydration, such as: ? Dark urine, very little urine, or no urine. ? Cracked lips. ? Dry mouth. ? Sunken eyes. ? Sleepiness. ? Weakness. Summary ? Diarrhea is frequent loose and sometimes watery bowel movements. Diarrhea can make you feel weak and cause you to become dehydrated. ? Drink enough fluids to keep your urine pale yellow. ? Make sure that you wash your hands after using the toilet. If soap and water are not available, use hand fish bait processing supervisor. ? Contact a health care provider if your diarrhea gets worse or you have new symptoms. ? Get help right away if you have signs of dehydration. This information is not intended to replace advice given to you by your health care provider. Make sure you discuss any questions you have with your health care provider. Document Revised: 12/29/2021 Document Reviewed: 12/29/2021 [employer] Patient Education ? 2022 [employer] Ernesto [facility] BD Bone Density DEXAon 04-29 BD Bone Density DEXA Exam Date/Time: 04/28/2023 10:06 EDT Reason for Exam: M81.0;Osteoporosis Report IMPRESSION: OSTEOPOROSIS. The NOF/ISD guideline recommend FRAX for postmenopausal patients (not on treatment) if the lowest T-score for Spine(L1-L4), Femur Neck or Femur Total indicates low bone density (T score -1.0 to -2.5, osteopenia). EXAM: BD Bone Density DEXA DATE: 04/28/2023 9:39 AM CLINICAL HISTORY: Osteoporosis, M81.0. COMPARISON: None available. COMMENTS: The lumbar spine and both hips were scanned. The mean bone mineral density from L1 to L4 is 1.246 g/cm2 and this value is 0.5 standard of deviation above the standard reference value for a young adult. Bone mineral density of the left femoral neck is 0.685 g/cm2 and this value is -2.5 standard of deviation below the standard reference value. Bone mineral density of the right femoral neck is 0.780 g/cm2 and this value is -1.9 standard of deviation below the standard reference value. These values meet WHO criteria for osteoporosis. RECOMMENDATIONS: 1. All patients should optimize her calcium and vitamin D intake. 2. Consider FDA-approved medical therapies in postmenopausal women and minimal age 50 years and older, based on the following: - hip or vertebral (clinical or morphometric) fracture. - T-score less than or equal to -2.5 at the femoral neck or spine after the appropriate evaluation to exclude secondary causes. - Low bone density (T score between -1.0 and -2.5 at the femoral neck or spine) and a 10 year probability of hip fracture greater than or equal to 3% or a 10-year probability of a major osteoporosis-related fracture greater than or equal to 20% based on FRAX calculation. - Clinician judgment and/or patient preferences may indicate treatment for palpable attenuation fracture probability is above or below these levels. - Further guidance on treatment can be found at the National Osteoporosis Foundation's website: bonesource.org Report 3. Patients with diagnosis of osteoporosis or high risk for fracture. There are irregular bone mineral density tests. For patients eligible for Medicare, routine testing is allowed once every 2 years. Testing frequency can be increased to 1 year for patient's history of rapidly progressing disease, those who are receiving or discontinuing medical therapy to restore bone mass or have additional risk factors. Ordering Provider: Rosangela Marin FINAL REPORT Dictated: 04/29/2023 10:19 am Raul Stoner MD Signed (Electronic Signature): 04/29/2023 10:19 am Signed by: Raul Stoner MD Transcribed by: SUNNI Technologist: MARTA [facility] Consent for Treatmenton 04-03 Consent for Treatment [id number] [facility] XR Hip 2-3 Views Righton XR Hip 2-3 Views Right Exam Date/Time: 04/28/2023 09:52 EDT Reason for Exam: Pain in right hip;Hip pain Report IMPRESSION: NEGATIVE RIGHT HIP. CLINICAL HISTORY: Hip pain, Pain in right hip COMPARISONS: NONE AVAILABLE FINDINGS: AP and lateral view of the right hip were obtained. There is no hip fracture or dislocation. The right hip joint space is well preserved. There are no bone erosions or bone lesions involving the right hip. Ordering Provider: Rosangela Marin FINAL REPORT Dictated: 04/28/2023 3:48 pm Jaciel Villalba MD Signed (Electronic Signature): 04/28/2023 3:48 pm Signed by: Jaciel Villalba MD Transcribed by: SUNNI Technologist: MARTA Technical Comments Radiation Dose: Ka,r in mGy = na DAP = na [facility] Ambulatory Visit Summaryon 1 Ambulatory Visit Summary KHURRAM PARRA Levi :1955 Visit Date:04/25/2023 Ambulatory Visit Instructions Your Diagnosis Kidney stone Stress incontinence Your Care Team Attending Physician - URMILA DUARTE PA-C Primary Care Physician - Rosangela Marin MD. This Is Your Medications List Contact prescribing physician if questions or concerns albuterol (Albuterol (Eqv-ProAir HFA) 90 mcg/inh inhalation aerosol) albuterol (albuterol 0.083% Inh Beti 3 mL) alendronate (alendronate 70 mg oral tablet) amlodipine (amLODIPine 5 mg Tab) ascorbic acid (Vitamin C) aspirin (aspirin 81 mg oral tablet) bacillus coagulans-calcium carbonate (Digestive Advantage Daily Probiotic) cholecalciferol (Vitamin D3 5000 intl units (125 mcg) oral tab) cholestyramine (cholestyramine 4 g/5 g Oral Pwdr) levothyroxine (levothyroxine 50 mcg (0.05 mg) Tab) lisinopril (lisinopril 10 mg Tab) multivitamin (Multi Vitamin+) potassium chloride (potassium chloride 10 mEq Cap-ER) sotalol (sotalol 80 mg Tab) Procedures Performed ESWL of kidney (02/17/2022), Cystoscopy (05/11/2020), ESWL (extracorporeal shockwave lithotripsy) of ureteric calculus (04/20/2020), Cholecystectomy, Defibrillator, Hysterectomy. Discharge Vitals Height 169 cm Height 67 in Weight 116 kg Weight 255.2 lb BMI 40.61 What to do next Scheduled Follow-Up Appointments Monday 10:00 AM EDT With: Where: [facility] Monday 10:30 AM EDT With: Where: [facility] General Diagnostic Monday 10:00 AM EDT With: Rosemarie Jansen CNP Where: [facility] Formson 04-25-2023 Forms [id number] [facility] Patient Educationon 04-25-20 23 Patient Education Nephrology Dietary Guidelines to Help Prevent Kidney Stones Kidney stones are deposits of minerals and salts that form inside your kidneys. Your risk of developing kidney stones may be greater depending on your diet, your lifestyle, the medicines you take, and whether you have certain medical conditions. Most people can lower their chances of developing kidney stones by following the instructions below. Your dietitian may give you more specific instructions depending on your overall health and the type of kidney stones you tend to develop. What are tips for following this plan? Reading food labels ? Choose foods with no salt added or low-salt labels. Limit your salt (sodium) intake to less than 1,500 mg a day. ? Choose foods with calcium for each meal and snack. Try to eat about 300 mg of calcium at each meal. Foods that contain 200?500 mg of calcium a serving include: ? 8 oz (237 mL) of milk, noeplym-ifeyskuwmqos-qtafb milk, and calcium-fortifiedfruit juice. Calcium-fortified means that calcium has been added to these drinks. ? 8 oz (237 mL) of kefir, yogurt, and soy yogurt. ? 4 oz (114 g) of tofu. ? 1 oz (28 g) of cheese. ? 1 cup (150 g) of dried figs. ? 1 cup (91 g) of cooked broccoli. ? One 3 oz (85 g) can of sardines or mackerel. Most people need 1,000?1,500 mg of calcium a day. Talk to your dietitian about how much calcium is recommended for you. Shopping ? Buy plenty of fresh fruits and vegetables. Most people do not need to avoid fruits and vegetables, even if these foods contain nutrients that may contribute to kidney stones. ? When shopping for convenience foods, choose: ? Whole pieces of fruit. ? Pre-made salads with dressing on the side. ? Low-fat fruit and yogurt smoothies. ? Avoid buying frozen meals or prepared deli foods. These can be high in sodium. ? Look for foods with live cultures, such as yogurt and kefir. ? Choose high-fiber grains, such as whole-wheat breads, oat bran, and wheat cereals. Cooking ? Do not add salt to food when cooking. Place a salt shaker on the table and allow each person to add his or her own salt to taste. ? Use vegetable protein, such as beans, textured vegetable protein (TVP), or tofu, instead of meat in pasta, casseroles, and soups. Meal planning ? Eat less salt, if told by your dietitian. To do this: ? Avoid eating processed or pre-made food. ? Avoid eating fast food. ? Eat less animal protein, including cheese, meat, poultry, or fish, if told by your dietitian. To do this: ? Limit the number of times you have meat, poultry, fish, or cheese each week. Eat a diet free of meat at least 2 days a week. ? Eat only one serving each day of meat, poultry, fish, or seafood. ? When you prepare animal protein, cut pieces into small portion sizes. For most meat and fish, one serving is about the size of the palm of your hand. ? Eat at least five servings of fresh fruits and vegetables each day. To do this: ? Keep fruits and vegetables on hand for snacks. ? Eat one piece of fruit or a handful of berries with breakfast. ? Have a salad and fruit at lunch. ? Have two kinds of vegetables at dinner. ? Limit foods that are high in a substance called oxalate. These include: ? Spinach (cooked), rhubarb, beets, sweet potatoes, and Nepalese chard. ? Peanuts. ? Potato chips, czech fries, and baked potatoes with skin on. ? Nuts and nut products. ? Chocolate. ? If you regularly take a diuretic medicine, make sure to eat at least 1 or 2 servings of fruits or vegetables that are high in potassium each day. These include: ? Avocado. ? Banana. ? Mcdonough, prune, carrot, or tomato juice. ? Baked potato. ? Cabbage. ? Beans and split peas. Lifestyle ? Drink enough fluid to keep your urine pale yellow. This is the most important thing you can do. Spread your fluid intake throughout the day. ? If you drink alcohol: ? Limit how much you use to: ? 0?1 drink a day for women who are not . ? 0?2 drinks a day for men. ? Be aware of how much alcohol is in your drink. In the [place] one drink equals one 12 oz bottle of beer (355 mL), one 5 oz glass of wine (148 mL), or one 1? oz glass of hard liquor (44 mL). ? Lose weight if told by your health care provider. Work with your dietitian to find an eating plan and weight loss strategies that work best for you. General information ? Talk to your health care provider and dietitian about taking daily supplements. You may be told the following depending on your health and the cause of your kidney stones: ? Not to take supplements with vitamin C. ? To take a calcium supplement. ? To take a daily probiotic supplement. ? To take other supplements such as magnesium, fish oil, or vitamin B6. ? Take urap-gle-cccfwsr and prescription medicines only as told by your health care provider. These include supplements. What foods should I limit? Limit your in (more content not included)... Normal [facility] Urology Office/Clinic Noteon 04-25-2023 Urology Office/Clinic Note Chief Complaint F/U HPI Staff PRW pt. Pt. not able to give a urine sample today. 3 mos f/u w/ metabolic work up Previous Dx: kidney stone, stress incontinence. *No Urology Meds Litholink done 01/04/23. Labs (PCP) 04/18/23 - Crea 1.2, Calcium 9.3, Sodium 142, Potassium 4.4, eGFR 49 Dysuria: no Incomplete bladder emptying: no Hematuria: no Frequency: Pt. states every 3-4 hours Urgency: Pt. stares once in a while but not every often Nocturia: 1x Stream: good stream Post void dripping: no Wearing pads/ Depends: no Urge incontinence: Pt. states rarely Stress incontinence: yes Incontinence without Sensory Awareness: no Abdominal pain: no Flank pain: no History of Present Illness staff HPI reviewed and agree. Review of Systems PHQ Score Initial Depression Screen Score: 0 no fever, chills, malaise, myalgia. no rash/lesions. no chest pain, palpitations, or SOB. no abdominal pain, nausea, vomiting. no unilateral calf swelling, redness, pain Physical Exam Vitals & Measurements HT: 67 in HT: 169 cm WT: 116 kg WT: 255.2 lb BMI: 40.61 General: nontoxic, NAD Mouth: moist mucosa Lungs: normal respiratory effort Cardio: regular rate, good distal perfusion Abdomen: nondistended, no suprapubic distention or tenderness, no CVA tenderness Neurologic: Grossly normal Skin: No rashes or suspicious lesions Assessment/Plan 1. Kidney stone (N20.0: Calculus of kidney) S/p ESWL Apr 2020 and Jan 2022 KUB 12/17/22 shows several small calcs R kidney, <4mm by my measurements/independent review (radiologist did not provide measurements) Litholink 01/04/2023 - total volume 770ml. high calcium oxalate saturation 11.46, low urine citrate 192, low calcium phosphate saturation .31, low urine pH 5.4, high uric acid saturation 3, low phosphorus 484, low urine urea nitrogen 5.85, low protein catabolic rate 0.5 All labs WNL, besides eGFR 49. Patient states the amount of fluid she drank was about half of what she usually drinks in a typical day. -Increase amount of fluids to around 90oz per day. -Repeat Litholink at patient's convenience to assess the need for possible treatments/medications. -Pt to call office when Litholink completed to schedule follow up appointment. 2. Stress incontinence (N39.3: Stress incontinence (female) (male)) BBS 7 mild, not bothersome enough to warrant treatment per pt. Follow-up With When Contact Information KEVIN LOPES, URMILA Gann, [address] [place] [address] Additional Instructions: after Litholink completed Patient Education Dietary Guidelines to Help Prevent Kidney Stones Documentation recorded by the nicci Arteaga accurately reflects the services(s) I performed and decisions made by me. Authenticated by Urmila Duarte PA-C on 04/25/2023 11:32:32. I, Felisha Arteaga, personally scribed for Urmila Duarte PA-C on 04/25/2023 11:21:21. . Problem List/Past Medical History Ongoing Abdominal pain Anemia Anticoagulated Arthritis Asthma BMI 40.0-44.9, adult Cardiomyopathy Chronic diarrhea of unknown origin COPD (chronic obstructive pulmonary disease) COVID pneumonia Dysuria Frequency of urination GERD (gastroesophageal reflux disease) Gross hematuria Andreina's thyroiditis Hemorrhoids Hip pain, right Kidney stone Nocturia Osteoporosis Persistent atrial fibrillation Radiculopathy of cervical spine Retained ureteral stent Right ureteral stone Stress incontinence Urgency of urination Historical No qualifying data Procedure/Surgical History ESWL of kidney (02/17/2022), Cystoscopy (05/11/2020), ESWL (extracorporeal shockwave lithotripsy) of ureteric calculus (04/20/2020), Cholecystectomy, Defibrillator, Hysterectomy. Medications Albuterol (Eqv-ProAir HFA) 90 mcg/inh inhalation aerosol, 180 mcg= 2 puff(s), Inhalation, q6hr albuterol 0.083% Inh Beti 3 mL, 2.5 mg= 3 mL, NEB, q6hr, PRN alendronate 70 mg oral tablet, 70 mg= 1 tab(s), Oral, qWeek amLODIPine 5 mg Tab, 5 mg= 1 tab(s), Oral, Daily aspirin 81 mg oral tablet, 1 tab, Oral, Daily cholestyramine 4 g/5 g Oral Pwdr, 1 packet(s), Oral, TID Digestive Advantage Daily Probiotic, 1 cap(s), Oral, Daily levothyroxine 50 mcg (0.05 mg) Tab, 50 mcg= 1 tab(s), Oral, Daily, 1 refills lisinopril 10 mg Tab, 10 mg= 1 tab(s), Oral, BID Multi Vitamin+, 1 tab, Oral, Daily potassium chloride 10 mEq Cap-ER, 10 mEq= 1 cap(s), Oral, Daily sotalol 80 mg Tab, 80 mg= 1 tab(s), Oral, BID Vitamin C, Daily Vitamin D3 5000 intl units (125 mcg) oral tab, 125 mcg= 1 tab(s), Oral, Daily Allergies Daypro (Hives, Rash) Flexeril (Rapid heart beat) Rocephin (Hives, Rash) Social History Alcohol - Denies Alcohol Use, 04/16/2020 Substance Abuse - Denies Substance Abuse, 04/16/2020 Tobacco - Denies Tobacco Use, 04/16/2020 Never (less than 100 in lifetime) Tobacco Use:. Never Smokel (more content not included)... Normal [facility] Comment on above: Result Comment: Elec tronically Signed By: URMILA DUARTE PA-C\.br\Date and Time Signed: 04/25/23 11:33 EDT\.br\Electronically Co-Signed By: Felisha Arteaga.br\Date and Time Co-Signed: 04/25/23 11:21 EDT Physician Referralon 023 Physician Referral [id number] [facility] Ambulatory Visit Summaryon 1 0-17-2023 Ambulatory Visit Summary KHURRAM PARRA :1955 Visit Date:04/18/2023 Ambulatory Visit Instructions Your Diagnosis Hip pain, right Chronic diarrhea of unknown origin Persistent atrial fibrillation Cardiomyopathy, unspecified type COPD (chronic obstructive pulmonary disease) BMI 40.0-44.9, adult Class 3 obesity, Morbid obesity with body mass index (BMI) of 40.0 to 49.9 Osteoporosis Your Care Team Attending Physician - Rosangela Marin MD. Primary Care Physician - Rosangela Marin MD This Is Your Medications List albuterol (Albuterol (Eqv-ProAir HFA) 90 mcg/inh inhalation aerosol) albuterol (albuterol 0.083% Inh Beti 3 mL) cholestyramine (cholestyramine 4 g/5 g Oral Pwdr) levothyroxine (levothyroxine 50 mcg (0.05 mg) Tab) Contact prescribing physician if questions or concerns alendronate (alendronate 70 mg oral tablet) amlodipine (amLODIPine 5 mg Tab) ascorbic acid (Vitamin C) aspirin (aspirin 81 mg oral tablet) bacillus coagulans-calcium carbonate (Digestive Advantage Daily Probiotic) cholecalciferol (Vitamin D3 5000 intl units (125 mcg) oral tab) lisinopril (lisinopril 10 mg Tab) multivitamin (Multi Vitamin+) potassium chloride (potassium chloride 10 mEq Cap-ER) sotalol (sotalol 80 mg Tab) Procedures Performed ESWL of kidney (02/17/2022), Cystoscopy (05/11/2020), ESWL (extracorporeal shockwave lithotripsy) of ureteric calculus (04/20/2020), Cholecystectomy, Defibrillator, Hysterectomy. Discharge Vitals Temperature (Temporal Artery) 36.6 ?C Heart Rate (Peripheral) 60 Respiratory Rate 14 Blood Pressure 118/76 Height 169 cm Height 67 in Weight 115.8 kg Weight 254.76 lb BMI 40.54 What to do next Scheduled Follow-Up Appointments Monday 11:40 AM EDT With: URMILA DUARTE PA-C Where: [facility] Invalid Interpretation Code Chronic diarrhea of unknown origin [facility] Auto Diffon 04-18-2023 Basophils/100 WBC (Bld) 0.6 % Normal 0.0-2.0 [facility] Comment on above: Order Comment: Order Added by Discern Expert. Performed By: #### 2 211824, [id number], 2120341, 31284715, 6924807, 6343464 ####[address] [place] [address] Basophils/Leukocyte s Auto (Bld) [Pure # fraction] 0.1 E9/L Normal 0.0-0.2 [facility] Comment on above: Order Comment: Order Added by Discern Expert. Performed By: #### 2 629195, 20754291, 5892747, 52213237, 3531844, 5995094 ####[address] [place] [address] Eosinophils/100 WBC (Bld) 2.8 % Normal 0.0-8.0 [facility] Comment on above: Order Comment: Order Added by Discern Expert. Performed By: #### 2 999143, 12571141, 3884849, 40570735, 2029291, 2386088 ####[address] [address] Eosinophils/Leukocy mo Auto (Bld) [Pure # fraction] 0.3 E9/L Normal 0.0-0.5 [facility] Comment on above: Order Comment: Order Added by Discern Expert. Performed By: #### 2 518488, 80041420, 6878485, 53315018, 2854383, 9253384 ####[facility] [address] [place] [address] Lymphocytes/100 WBC (Bld) 9.6 % Low 14.0-50.0 [facility] Comment on above: Order Comment: Order Added by Discern Expert. Performed By: #### 2 234393, 52221930, 3853126, 07315551, 7369570, 6667068 ####[address] [place] [address] Lymphocytes/Leukocy mo Auto (Bld) [Pure # fraction] 1.0 E9/L Normal 1.0-4.0 [facility] Comment on above: Order Comment: Order Added by Discern Expert. Performed By: #### 2 940219, 03230377, 6102793, 95193518, 9888609, 5007086 ####[facility] [address] [place] [address] Monocytes/100 WBC (Bld) 11.5 % Normal 4.0-14.0 [facility] Comment on above: Order Comment: Order Added by Discern Expert. Performed By: #### 2 558171, 68751004, 9118512, 93612612, 4727553, 5316071 ####[address] [place] [address] Monocytes/Leukocyte s Auto (Bld) [Pure # fraction] 1.2 E9/L High 0.2-1.0 [facility] Comment on above: Order Comment: Order Added by Discern Expert. Performed By: #### 2 426795, 13442419, 4576330, 90594986, 7310619, 1590243 ####[facility] [address] [place] [address] Neutrophils/100 WBC (Bld) 75.5 % High 36.0-75.0 [facility] Comment on above: Order Comment: Order Added by Discern Expert. Performed By: #### 2 127614, 41550821, 2152522, 55813343, 5763630, 1507050 ####[facility] [address] [place] [address] Neutrophils/Leukocy mo Auto (Bld) [Pure # fraction] 8.0 E9/L High 2.0-7.5 [facility] Comment on above: Order Comment: Order Added by Discern Expert. Performed By: #### 2 546910, 48667038, 2044955, 70936450, 7321758, 4212357 ####[facility] [address] [place] [address] CBC w/ Auto Diffon 3 Erythrocyte distribution width (RBC) [Ratio] 14.6 % High 10.9-14.2 [facility] Comment on above: Performed By: #### 2 972735, 81981279, 6527042, 18875087, 0966208, 1629217 ####[address] [place] [address] Hematocrit (Bld) [Volume fraction] 47.7 % High 34.0-46.0 [facility] Comment on above: Performed By: #### 2 746775, 34956259, 9510216, 67039038, 3376949, 5388003 ####[address] [place] [address] Hemoglobin (Bld) [Mass/Vol] 15.8 g/dL Normal 12.0-16.0 [facility] Comment on above: Performed By: #### 2 917178, 55791538, 0305974, 94928847, 0160597, 8929687 ####[id number] MCH (RBC) [Entitic mass] 32.4 pg Normal 27.0-34.0 [facility] Comment on above: Performed By: #### 2 315348, 72963640, 0997562, 62071552, 0059031, 6046755 ####[place] [address] MCHC (RBC) [Mass/Vol] 33.1 g/dL Normal 31.4-36.0 [facility] Comment on above: Performed By: #### 2 892238, 71584664, 6557533, 85018294, 6227727, 8473082 ####[id number] MCV (RBC) [Entitic vol] 97.9 fL Normal 80.0-100.0 [facility] Comment on above: Performed By: #### 2 822624, 47878214, 2056120, 47125461, 0404882, 1103718 ####[id number] Platelet mean volume (Bld) [Entitic vol] 9.0 fL Normal 6.4-10.8 [facility] Comment on above: Performed By: #### 2 023786, 16202826, 1951338, 34041481, 9576273, 1649428 ####[facility] [address] [place] [address] Platelets (Bld) [#/Vol] 275.0 E9/L Normal 150.0-500.0 [facility] Comment on above: Performed By: #### 2 511936, 23889521, 7966960, 18384408, 1927259, 0278105 ####[facility] [address] [place] [address] RBC (Bld) [#/Vol] 4.9 E12/L Normal 4.3-5.9 [facility] Comment on above: Performed By: #### 2 180953, 20703603, 7062336, 80330396, 1474591, 2789078 ####[facility] [address] [place] [address] WBC corrected for nucl RBC Auto (Bld) [#/Vol] 10.5 E9/L Normal 4.0-11.0 [facility] Comment on above: Result Comment: Slid e reviewed by SHABANA. Performed By: #### 2 966842, 18523686, 7165213, 05926605, 1290445, 8566270 ####[facility] [address] [place] [address] CHEMISTRYOrdered By: SYSTEM SYSTEM on 04-18-2023 Albumin [Mass/Vol] 4.0 g/dL Normal 3.3 - 5.0 gm/dL [facility] Albumin/Globulin [Mass ratio] 1.2 {ratio} Normal 1.1 - 2.2 [facility] ALP [Catalytic activity/Vol] 77 [iU]/d Normal 21 - 98 Int._Unit/L [facility] ALT No additional P-5'-P [Catalytic activity/Vol] 17 [iU]/d Normal 6 - 46 Int._Unit/L [facility] Anion gap [Moles/Vol] 11 mmol/L Normal 6 - 16 mEq/L [facility] AST [Catalytic activity/Vol] 20 [iU]/d Normal 5 - 43 Int._Unit/L [facility] Bilirubin [Mass/Vol] 1.0 mg/dL Normal 0.0 - 1.1 mg/dL [facility] Calcium [Mass/Vol] 9.3 mg/dL Normal 8.9 - 11. 1 mg/dL [facility] Chloride [Moles/Vol] 108 mmol/L Normal 101 - 111 mmol/L [facility] Cholesterol [Mass/Vol] 151 mg/dL Normal 120 - 200 mg/dL [facility] Cholesterol in HDL [Mass/Vol] 57 mg/dL Invalid Interpretation Code [facility] Comment on above: Interpretive Data: H DL > or equal to 60 mg/dL: Low cardiovascular risk HDL < 40 mg/dL : High cardiovascular risk Cholesterol in LDL [Mass/Vol] 77 mg/dL Normal <=129mg/dL [facility] Cholesterol in VLDL [Mass/Vol] 15 mg/dL Normal 7 - 40 mg/dL [facility] CO2 [Moles/Vol] 27 mmol/L Normal 21 - 31 mmol/L [facility] Creatinine [Mass/Vol] 1.2 mg/dL Normal 0.5 - 1.3 mg/dL [facility] GFR/1.73 sq M.predicted among non-blacks MDRD (S/P/Bld) [Vol rate/Area] 49 mL/min/1.73 m2 Low >=59mL/min/ 1.73 m2 [facility] Comment on above: Interpretive Data: C hronic kidney disease could be indicated at eGFR's of less than 60 mL/min/1.73m2. Kidney failure is indicated at less than 15 mL/min/1.73m2. Globulin (S) [Mass/Vol] 3.4 g/dL Normal 1.4 - 4.0 gm/dL [facility] Glucose [Mass/Vol] 105 mg/dL Normal 55 - 199 mg/dL [facility] Comment on above: Interpretive Data: I f this glucose result represents a fasting glucose, interpretation should refer to the following reference range: 55-99 mg/dL Potassium [Moles/Vol] 4.4 mmol/L Normal 3.5 - 5.3 mmol/L [facility] Protein [Mass/Vol] 7.4 g/dL Normal 6.0 - 7.8 gm/dL [facility] Sodium [Moles/Vol] 142 mmol/L Normal 135 - 145 mmol/L [facility] Triglyceride [Mass/Vol] 73 mg/dL Normal <=149mg/dL [facility] TSH Qn 1.34 m[IU]/L Normal 0.34 - 5.60 mcIU/mL [facility] Urea nitrogen [Mass/Vol] 19 mg/dL Normal 5 - 21 mg/dL [facility] Urea nitrogen/Creatinine [Mass ratio] 16 mg/mg Normal 10 - 20 [facility] CMPon 04-18-2023 Albumin [Mass/Vol] 4.0 g/dL Normal 3.3-5.0 [facility] Comment on above: Performed By: #### 2 849093, 75568497, 0756705, 55019559, 0584127, 1806287 ####[facility] [address] [place] [address] Albumin/Globulin (S) [Mass conc ratio] 1.2 Normal 1.1-2.2 [facility] Comment on above: Performed By: #### 2 067563, 78667913, 5992601, 17758135, 9440663, 3889645 ####[facility] [address] [place] [address] ALP [Catalytic activity/Vol] 77 Int._Unit/L Normal 21-98 [facility] Comment on above: Performed By: #### 2 292370, 67375236, 8500646, 13513776, 1603577, 1237937 ####[facility] [address] [place] [address] ALT No additional P-5'-P [Catalytic activity/Vol] 17 Int._Unit/L Normal 6-46 [facility] Comment on above: Performed By: #### 2 203504, 87792631, 2171837, 80594040, 5798897, 0194071 ####[facility] [address] [place] [address] Anion gap [Moles/Vol] 11 mmol/L Normal 6-16 [facility] Comment on above: Performed By: #### 2 432777, 89244696, 7263815, 85315087, 2377296, 4566442 ####[facility] [address] [place] [address] AST [Catalytic activity/Vol] 20 Int._Unit/L Normal 5-43 [facility] Comment on above: Performed By: #### 2 820838, 19774028, 2219547, 64637237, 7160329, 1127096 ####[facility] [address] [place] [address] Bilirubin [Mass/Vol] 1.0 mg/dL Normal 0.0-1.1 [facility] Comment on above: Performed By: #### 2 588418, 64576150, 7393515, 75614204, 5337042, 7624654 ####[facility] [address] [place] [address] Calcium [Mass/Vol] 9.3 mg/dL Normal 8.9-11.1 [facility] Comment on above: Performed By: #### 2 665523, 50944836, 3738374, 15039576, 5331834, 4188737 ####[facility] [address] [place] [address] Chloride [Moles/Vol] 108 mmol/L Normal 101-111 [facility] Comment on above: Performed By: #### 2 092155, 77932816, 3511422, 69524261, 3538748, 1360844 ####[facility] [address] [place] [address] CO2 [Moles/Vol] 27 mmol/L Normal 21-31 [facility] Comment on above: Performed By: #### 2 461716, 95072666, 5586687, 61341370, 9009766, 2975514 ####[facility] [address] [place] [address] Creatinine [Mass/Vol] 1.2 mg/dL Normal 0.5-1.3 [facility] Comment on above: Performed By: #### 2 310259, 86948143, 5365540, 46795729, 7270275, 8978227 ####[facility] [address] [place] [address] Globulin (S) [Mass/Vol] 3.4 g/dL Normal 1.4-4.0 [facility] Comment on above: Performed By: #### 2 681949, 04491054, 6851860, 62012691, 8206218, 7864279 ####[facility] [address] [place] [address] Glucose [Mass/Vol] 105 mg/dL Normal 55-199 [facility] Comment on above: Result Comment: If t his glucose result represents a fasting glucose, interpretation should refer to the following reference range: 55-99 mg/dL Performed By: #### 2 183269, 10481335, 4994709, 43908819, 1405402, 2429496 ####[facility] [address] [place] [address] Potassium [Moles/Vol] 4.4 mmol/L Normal 3.5-5.3 [facility] Comment on above: Performed By: #### 2 585704, 20181865, 2721793, 94995448, 3856115, 9614835 ####[facility] [address] [place] [address] Protein [Mass/Vol] 7.4 g/dL Normal 6.0-7.8 [facility] Comment on above: Performed By: #### 2 845902, 70223328, 4592473, 02144513, 5183170, 0913075 ####[facility] [address] [place] [address] Sodium [Moles/Vol] 142 mmol/L Normal 135-145 [facility] Comment on above: Performed By: #### 2 950124, 72349070, 0594673, 34235573, 3614557, 2530332 ####[facility] [address] [place] [address] Urea nitrogen [Mass/Vol] 19 mg/dL Normal 5-21 [facility] Comment on above: Performed By: #### 2 445452, 62844954, 2244192, 94599477, 1571900, 8747737 ####[facility] [address] [place] [address] Urea nitrogen/Creatinine [Mass ratio] 16 No Units Normal 10-20 [facility] Comment on above: Performed By: #### 2 202672, 72821862, 9080506, 20970148, 8895348, 1121497 ####[facility] [address] [place] [address] Family Medicine Office/Clini c Noteon 04-18-2023 Family Medicine Office/Clinic Note HPI Staff Khurram is a 67 year old female presenting for acute visit Acute: right hip bothering her feels she's due for a dexascan Pain characteristics: Pain location: right hip, hard to bear weight or walk at times Intensity:01/09 Onset: over a year, really bad last few months Medication used: uses the alendronate and glucosamine ( 3 a day) aleve and it does help flu: due questions/concerns: needs refills of her albuterol inhaler, levothyroxine and alendronate ALso dealing with diarrhea, gas and bloating for 4 years now. Has used anti diarrhea medicine and gas pills but sometimes doesn't have any control over it and can't get to the bathroom fast enough. found out she's lactose intolerant, using lactaid and it has helped with it. some hemorrhoids that are giving her trouble too, Hasn't ever had a colonoscopy History of Present Illness - Pt presents to establish care. - No pain in the hip, but on the side of the hip. - Worse with walking. - Relieved with rest. Also has been having loose stools every 8 hours approximately for 4 years. Does not have a gallbladder. Review of Systems PHQ Score Initial Depression Screen Score: 0 Physical Exam Vitals & Measurements T: 36.6 ?C(Temporal Artery) HR: 60(Peripheral) RR: 14 BP: 118/76 SpO2: 97% HT: 67 in HT: 169 cm WT: 115.8 kg WT: 254.76 lb BMI: 40.54 General: alert, no acute distress ENMT: oral mucosa moist, Cardiovascular: irregularly-irregular rate and rhythm, normal peripheral perfusion Respiratory: Lungs CTA, respirations non labored Extremities: no deformity, no trauma, Antalgic gait, No Sciatica, no relief with periformis stretching. Neurological: oriented x 4, LOC appropriate for age, CN II-XII intact, motor strength equal & normal bilaterally, speech normal Abdomen: Soft, Nontender, Non-distended, + BS Assessment/Plan 1. Hip pain, right (M25.551: Pain in right hip) - Will order an Xray and have the patient see ortho for this. - Pt will need to follow up in 1 month Ordered: CBC w/ Auto Diff Comprehensive Metabolic Panel [facility] External Ambulatory Referral [facility] Internal Ambulatory Referral Lipid Panel TSH With T4fr Reflex XR Hip 2-3 Views Right 2. Chronic diarrhea of unknown origin (K52.9: Noninfective gastroenteritis and colitis, unspecified) - Will try cholestyramine - Will refer to GI in the meantime Ordered: CBC w/ Auto Diff Comprehensive Metabolic Panel [facility] External Ambulatory Referral [facility] Internal Ambulatory Referral Lipid Panel TSH With T4fr Reflex XR Hip 2-3 Views Right 3. Persistent atrial fibrillation (I48.19: Other persistent atrial fibrillation) - Sees EP Ordered: Body Mass Index (BMI) documented 3008F CBC w/ Auto Diff Comprehensive Metabolic Panel Current tobacco non-user 1036F Depression Screening Negative 3352F [facility] External Ambulatory Referral [facility] Internal Ambulatory Referral Influenza immunization administered or previously received 4274F Lipid Panel Most recent diastolic blood pressure <80 mm Hg 3078F Patient screen for fall risk: no falls in last year or 1 fall with no injury in last year 1101F Systolic BP <130 mm Hg (Most Recent) 3074F TSH With T4fr Reflex XR Hip 2-3 Views Right 4. Cardiomyopathy, unspecified type (I42.9: Cardiomyopathy, unspecified) - Needing a new echo. - Requesting results after it is done Ordered: Body Mass Index (BMI) documented 3008F CBC w/ Auto Diff Comprehensive Metabolic Panel Current tobacco non-user 1036F Depression Screening Negative 3352F [facility] External Ambulatory Referral [facility] Internal Ambulatory Referral Influenza immunization administered or previously received 4274F Lipid Panel Most recent diastolic blood pressure <80 mm Hg 3078F Patient screen for fall risk: no falls in last year or 1 fall with no injury in last year 1101F Systolic BP <130 mm Hg (Most Recent) 3074F TSH With T4fr Reflex XR Hip 2-3 Views Right 5. COPD (chronic obstructive pulmonary disease) (J44.9: Chronic obstructive pulmonary disease, unspecified) - Stable - Refill meds Ordered: CBC w/ Auto Diff Comprehensive Metabolic Panel [facility] External Ambulatory Referral [facility] Internal Ambulatory Referral Lipid Panel TSH With T4fr Reflex XR Hip 2-3 Views Right 6. BMI 40.0-44.9, adult (Z68.41: Body mass index [BMI] 40.0-44.9, adult) - BMI education given Ordered: Body Mass Index (BMI) documented 3008F CBC w/ Auto Diff Comprehensive Metabolic Panel Current tobacco non-user 1036F Depression Screening Negative 3352F Influenza immunization administered or previously received 4274F Lipid Panel Most recent diastolic blood pressure <80 mm Hg 3078F Patient screen for fall risk: no falls in last year or 1 fall with no injury in last year 1101F Systolic BP <130 mm Hg (Most Recent) 3074F TSH With T4fr Reflex XR Hip 2-3 Views Right 7. Class 3 obesity, (E66.01: Morbid (severe) obesity due to excess calories)Morbid obesity with marilee (more content not included)... Normal [facility] Comment on above: Result Comment: Elec tronically Signed By: Tomas ALVARADO, Rosangela Felix.br\Date and Time Signed: 04/18/23 13:42 EDT HEMATOLOGYOrdered By: SYSTEM SYSTEM on 04-18-2023 Basophils/100 WBC (Bld) 0.6 % Normal 0.0 - 2.0 % [facility] Basophils/Leukocyte s Auto (Bld) [Pure # fraction] 0.1 E9/L Normal 0.0 - 0.2 E9/L [facility] Eosinophils/100 WBC (Bld) 2.8 % Normal 0.0 - 8.0 % [facility] Eosinophils/Leukocy mo Auto (Bld) [Pure # fraction] 0.3 E9/L Normal 0.0 - 0.5 E9/L [facility] Lymphocytes/100 WBC (Bld) 9.6 % Low 14.0 - 50.0 % [facility] Lymphocytes/Leukocy mo Auto (Bld) [Pure # fraction] 1.0 E9/L Normal 1.0 - 4.0 E9/L [facility] Monocytes/100 WBC (Bld) 11.5 % Normal 4.0 - 14.0 % [facility] Monocytes/Leukocyte s Auto (Bld) [Pure # fraction] 1.2 E9/L High 0.2 - 1.0 E9/L [facility] Neutrophils/100 WBC (Bld) 75.5 % High 36.0 - 75.0 % [facility] Neutrophils/Leukocy mo Auto (Bld) [Pure # fraction] 8.0 E9/L High 2.0 - 7.5 E9/L [facility] HEMATOLOGYOrdered By: Sudheer Hernadez on 04-18-2023 Erythrocyte distribution width (RBC) [Ratio] 14.6 % High 10.9 - 14.2 % [facility] Hematocrit (Bld) [Volume fraction] 47.7 % High 34.0 - 46.0 % [facility] Hemoglobin (Bld) [Mass/Vol] 15.8 g/dL Normal 12.0 - 16.0 gm/dL [facility] MCH (RBC) [Entitic mass] 32.4 pg Normal 27.0 - 34.0 pg [facility] MCHC (RBC) [Mass/Vol] 33.1 g/dL Normal 31.4 - 36.0 gm/dL [facility] MCV (RBC) [Entitic vol] 97.9 fL Normal 80.0 - 100.0 fL [facility] Platelet mean volume (Bld) [Entitic vol] 9.0 fL Normal 6.4 - 10.8 fL [facility] Platelets (Bld) [#/Vol] 275.0 E9/L Normal 150.0 - 500.0 E9/L [facility] RBC (Bld) [#/Vol] 4.9 E12/L Normal 4.3 - 5.9 E12/L [facility] WBC corrected for nucl RBC Auto (Bld) [#/Vol] 10.5 E9/L Normal 4.0 - 11.0 E9/L [facility] Comment on above: Result Comment: Slid e reviewed by SHABANA. Lipid Panelon 04-18-2023 Cholesterol [Mass/Vol] 151 mg/dL Normal 120-200 [facility] Comment on above: Performed By: #### 2 [id number], [id number], [id number], [id number], [id number], [id number] ####[facility] [address] [place] [address] Cholesterol in HDL [Mass/Vol] 57 mg/dL Invalid Interpretation Code [facility] Comment on above: Result Comment: HDL > or equal to 60 mg/dL: Low cardiovascular risk HDL < 40 mg/dL : High cardiovascular risk Performed By: #### 2 [id number], [id number], [id number], [id number], [id number], [id number] ####[facility] [address] [place] [address] Cholesterol in LDL [Mass/Vol] 77 mg/dL Normal <=129 [facility] Comment on above: Performed By: #### 2 [id number], [id number], 8310004, [id number], [id number], 4604500 ####[facility] [address] [place] [address] Cholesterol in VLDL [Mass/Vol] 15 mg/dL Normal 7-40 [facility] Comment on above: Performed By: #### 2 [id number], [id number], 6620444, [id number], 1915071, 2979821 ####[facility] [address] [place] [address] Triglyceride [Mass/Vol] 73 mg/dL Normal <=149 [facility] Comment on above: Performed By: #### 2 961051, [id number], [id number], [id number], [id number], [id number] ####[facility] [address] [place] [address] TSH With T4fr Reflexon 04-18 TSH Qn 1.34 m[IU]/L Normal 0.34-5.60 [facility] Comment on above: Performed By: #### 2 919700, [id number], 6730933, [id number], 4513387, [id number] ####[facility] [address] [place] [address] eGFRon 04-18-2023 GFR/1.73 sq M.predicted among non-blacks MDRD (S/P/Bld) [Vol rate/Area] 49 mL/min/1.73 m2 Low >=59 [facility] Comment on above: Order Comment: Order added by Discern Expert. Result Comment: Nut Tightener kaye kidney disease could be indicated at eGFR's of less than 60 mL/min/1.73m2. Kidney failure is indicated at less than 15 mL/min/1.73m2. Performed By: #### 2 579044, [id number], 1061856, [id number], 0312067, 6949465 ####[facility] [address] [place] [address] Lab Reportson 02-28-2023 Lab Reports [id number]:127 Normal [facility] Office Visiton 02-14-2023 Follow-up visit [id number] Gail Parra thy L 1955 F Date Provider Department Center 02/14/2023 JANNIE CARDENAS IRAIS Henry Family History Problem Relation Age of Onset Other Mother Other Father Thyroid disease Sister Heart disease Mother's Sister Family Status - Relation Status Age at Mother Father Sister Mother's Sister Level of Service:00693 [place] OFFICE/OUTPATIENT NEW HIGH MDM 60-74 MINUTES Reason for Visit and Comments: Follow-up [153430] - 3 month follow up Normal [facility] RAD - MISCon 12-23-2022 RAD - MISC [id number]:127 Normal [facility] Formson 12-21-2022 Forms [id number]:127 Normal [facility] RAD - MISCon 12-21-2022 RAD - MISC [id number]:127 [facility] Ambulatory Visit Summaryon 0 12-20-2022 Ambulatory Visit Summary KHURRAM PARRA :1955 Visit Date:12/20/2022 Ambulatory Visit Instructions Your Care Team Attending Physician - URMILA DUARTE PA-C Primary Care Physician - Rosangela Marin MD. This Is Your Medications List albuterol (albuterol 0.083% Inh Beti 3 mL) alendronate (alendronate 70 mg oral tablet) amlodipine (amLODIPine 5 mg Tab) ascorbic acid (Vitamin C) aspirin (aspirin 81 mg oral tablet) bacillus coagulans-calcium carbonate (Digestive Advantage Daily Probiotic) ergocalciferol (Vitamin D) levothyroxine (levothyroxine 50 mcg (0.05 mg) Tab) lisinopril (lisinopril 10 mg Tab) multivitamin (Multi Vitamin+) potassium chloride (potassium chloride 10 mEq Cap-ER) sotalol (sotalol 80 mg Tab) Procedures Performed ESWL of kidney (02/17/2022), Cystoscopy (05/11/2020), ESWL (extracorporeal shockwave lithotripsy) of ureteric calculus (04/20/2020), Cholecystectomy, Defibrillator, Hysterectomy. Discharge Vitals Heart Rate (Peripheral) 68 Respiratory Rate 16 Blood Pressure 130/78 Height 169 cm Height 67 in Weight 116 kg Weight 255.2 lb BMI 40.61 What to do next Scheduled Follow-Up Appointments Monday 8:30 AM EDT With: URMILA DUARTE PA-C Where: [facility] Patient Educationon 12-21-19 23 Patient Education Urology Kidney Stones Kidney stones are rock-like masses that form inside of the kidneys. Kidneys are organs that make pee (urine). A kidney stone may move into other parts of the urinary tract, including: ? The tubes that connect the kidneys to the bladder (ureters). ? The bladder. ? The tube that carries urine out of the body (urethra). Kidney stones can cause very bad pain and can block the flow of pee. The stone usually leaves your body (passes) through your pee. You may need to have a doctor take out the stone. What are the causes? Kidney stones may be caused by: ? A condition in which certain glands make too much parathyroid hormone (primary hyperparathyroidism). ? A buildup of a type of crystals in the bladder made of a chemical called uric acid. The body makes uric acid when you eat certain foods. ? Narrowing (stricture) of one or both of the ureters. ? A kidney blockage that you were born with. ? Past surgery on the kidney or the ureters, such as gastric bypass surgery. What increases the risk? You are more likely to develop this condition if: ? You have had a kidney stone in the past. ? You have a family history of kidney stones. ? You do not drink enough water. ? You eat a diet that is high in protein, salt (sodium), or sugar. ? You are overweight or very overweight (obese). What are the signs or symptoms? Symptoms of a kidney stone may include: ? Pain in the side of the belly, right below the ribs (flank pain). Pain usually spreads (radiates) to the groin. ? Needing to pee often or right away (urgently). ? Pain when going pee (urinating). ? Blood in your pee (hematuria). ? Feeling like you may vomit (nauseous). ? Vomiting. ? Fever and chills. How is this treated? Treatment depends on the size, location, and makeup of the kidney stones. The stones will often pass out of the body through peeing. You may need to: ? Drink more fluid to help pass the stone. In some cases, you may be given fluids through an IV tube put into one of your veins at the hospital. ? Take medicine for pain. ? Make changes in your diet to help keep kidney stones from coming back. Sometimes, medical procedures are needed to remove a kidney stone. This may involve: ? A procedure to break up kidney stones using a beam of light (laser) or shock waves. ? Surgery to remove the kidney stones. Follow these instructions at home: Medicines ? Take kzxd-woz-xxykait and prescription medicines only as told by your doctor. ? Ask your doctor if the medicine prescribed to you requires you to avoid driving or using heavy machinery. Eating and drinking ? Drink enough fluid to keep your pee pale yellow. You may be told to drink at least 8?10 glasses of water each day. This will help you pass the stone. ? If told by your doctor, change your diet. This may include: ? Limiting how much salt you eat. ? Eating more fruits and vegetables. ? Limiting how much meat, poultry, fish, and eggs you eat. ? Follow instructions from your doctor about eating or drinking restrictions. General instructions ? Collect pee samples as told by your doctor. You may need to collect a pee sample: ? 24 hours after a stone comes out. ? 8?12 weeks after a stone comes out, and every 6?12 months after that. ? Strain your pee every time you pee (urinate), for as long as told. Use the strainer that your doctor recommends. ? Do not throw out the stone. Keep it so that it can be tested by your doctor. ? Keep all follow-up visits as told by your doctor. This is important. You may need follow-up tests. How is this prevented? To prevent another kidney stone: ? Drink enough fluid to keep your pee pale yellow. This is the best way to prevent kidney stones. ? Eat healthy foods. ? Avoid certain foods as told by your doctor. You may be told to eat less protein. ? Stay at a healthy weight. Where to find more information ? National Kidney Foundation (NKF): www.kidney.org ? [employer] (UCF): www.urologyhealth.org Contact a doctor if: ? You have pain that gets worse or does not get better with medicine. Get help right away if: ? You have a fever or chills. ? You get very bad pain. ? You get new pain in your belly (abdomen). ? You pass out (faint). ? You cannot pee. Summary ? Kidney stones are rock-like masses that form inside of the kidneys. ? Kidney stones can cause very bad pain and can block the flow of pee. ? The stones will often pass out of the body through peeing. ? Drink enough fluid to keep your pee pale yellow. This information is not intended to replace advice given to you by your health care provider. Make sure you discuss any questions you have with your health care provider. Document Revised: 02/21/2022 Document Reviewed: 02/21/2022 [employer] Patient Education ? 2022 Riffyn. Ernesto Rangel [facility] Urology Office/Clinic Noteon 12-20-2022 Urology Office/Clinic Note Chief Complaint S/P RT ESWL HPI Staff PRW pt S/P RT ESWL 02/17/22 Last seen in office by PRW 01/28/22 due to Kidney Stone, Stress Incontinence & Rt Ureteral Stone. *No Urology Meds KUB done @ [facility] 12/17/22. They are faxing report & sending image to PAC. Denies pain/burning and blood in urine. Denies flank pain. Minimal leaking with coughing/sneezing. Not enough to warrant wearing protection. Review of Systems PHQ Score Initial Depression Screen Score: 0 no fever, chills, malaise, myalgia. no rash/lesions. no chest pain, palpitations, or SOB. no abdominal pain, nausea, vomiting. no unilateral calf swelling, redness, pain Physical Exam Vitals & Measurements HR: 68(Peripheral) RR: 16 BP: 130/78 HT: 67 in HT: 169 cm WT: 116 kg WT: 255.2 lb BMI: 40.61 General: nontoxic, NAD Mouth: moist mucosa Lungs: normal respiratory effort Cardio: regular rate, good distal perfusion Abdomen: nondistended, no suprapubic distention or tenderness, no CVA tenderness Neurologic: Grossly normal Skin: No rashes or suspicious lesions Assessment/Plan UA completed in office today shows no microhematuria or signs of infection. 1. Kidney stone (N20.0: Calculus of kidney) sp ESWL Apr 2020 and Jan 2022 KUB 12/17/22 shows several small calcs R kidney, <4mm by my measurements/independent review (radiologist did not provide measurements) advised that these are passable size, no indication for additional lithotripsy at this time discussed metabolic w/u to assess her risk factors for stone formation. pt amenable to proceed. Litholink ordered. pt to return in 3 mos to review results. Ordered: E&M of Est. Patient Moderate 30-39 Min 01892 2. Stress incontinence (N39.3: Stress incontinence (female) (male)) mild, not bothersome enough to warrant treatment per pt. Ordered: E&M of Est. Patient Moderate 30-39 Min 57813 Follow-up With When Contact Information URMILA DUARTE PA-C, HERNAN Within 3 months [address] [place] [address] Additional Instructions: Patient Education Kidney Stones, Jtzm-ww-[id number] Problem List/Past Medical History Ongoing Abdominal pain Anemia Anticoagulated Arthritis Asthma Atrial fibrillation BMI 40.0-44.9, adult Dysuria Frequency of urination Gross hematuria Kidney stone Morbid obesity with body mass index (BMI) of 40.0 to 49.9 Nocturia Retained ureteral stent Right ureteral stone Stress incontinence Urgency of urination Historical No qualifying data Procedure/Surgical History ESWL of kidney (02/17/2022), Cystoscopy (05/11/2020), ESWL (extracorporeal shockwave lithotripsy) of ureteric calculus (04/20/2020), Cholecystectomy, Defibrillator, Hysterectomy. Medications albuterol 0.083% Inh Ebti 3 mL, 2.5 mg= 3 mL, NEB, q6hr, PRN alendronate 70 mg oral tablet, 70 mg= 1 tab(s), Oral, qWeek amLODIPine 5 mg Tab aspirin 81 mg oral tablet, 1 tab, Oral, Daily Digestive Advantage Daily Probiotic, 1 cap(s), Oral, Daily levothyroxine 50 mcg (0.05 mg) Tab, 50 mcg= 1 tab(s), Oral, Daily lisinopril 10 mg Tab, 10 mg= 1 tab(s), Oral, BID Multi Vitamin+, 1 tab, Oral, Daily potassium chloride 10 mEq Cap-ER, 10 mEq= 1 cap(s), Oral, Daily sotalol 80 mg Tab Vitamin C, Daily Vitamin D, Oral, qWeek Allergies Daypro (Hives, Rash) Flexeril (Rapid heart beat) Rocephin (Hives, Rash) Social History Alcohol - Denies Alcohol Use, 04/16/2020 Substance Abuse - Denies Substance Abuse, 04/16/2020 Tobacco - Denies Tobacco Use, 04/16/2020 Never (less than 100 in lifetime) Tobacco Use:. Never Smokeless Tobacco Use:. Household tobacco concerns: No. Yes, 12/20/2022 Family History Hypertension: Mother. Normal [facility] Comment on above: Result Comment: Elec tronically Signed By: URMILA DUARTE PA-C\Date and Time Signed: 12/20/22 13:12 EDT Documentationon 11-24-2022 Documentation [id number] Gail Parra thy L 1955 Date Provider Department Center 11/24/2022 JG MONREAL IRAIS Domingo Family History Problem Relation Age of Onset Other Mother Other Father Thyroid disease Sister Heart disease Mother's Sister Family Status - Relation Status Age at Mother Father Sister Mother's Sister Normal [facility] 36on 11-21-2022 36 Let her know I will call her today,we will need ot start something new since this is improved. Apologize for the delay, was waiting on discussion with dr. Perkins -[phone] called patient , no answer, left VM with my google voice number to discuss plan [facility] Telephoneon 11-21-2022 Telephone [id number] Gail Parra thy L 1955 Date Provider Department Center 11/21/2022 ABIDA WALKER Family History Problem Relation Age of Onset Other Mother Other Father Thyroid disease Sister Heart disease Mother's Sister Family Status - Relation Status Age at Mother Father Sister Mother's Sister Normal [facility] Office Visiton 11-17-2022 Follow-up visit [id number] Gail Parra thy L 1955 Date Provider Department Center 11/17/2022 JG MONREAL IRAIS Henry Family History Problem Relation Age of Onset Other Mother Other Father Thyroid disease Sister Heart disease Mother's Sister Family Status - Relation Status Age at Mother Father Sister Mother's Sister Level of Service:04165 [place] OFFICE/OUTPATIENT ESTABLISHED MOD MDM 30-39 MIN Reason for Visit and Comments: Follow-up [193909] Normal [facility] Orders Onlyon 11-17-2022 Orders Only [id number] Gail Parra thy L 1955 Date Provider Department Center 11/17/2022 ABIDA WALKER Family History Problem Relation Age of Onset Other Mother Other Father Thyroid disease Sister Heart disease Mother's Sister Family Status - Relation Status Age at Mother Father Sister Mother's Sister Normal [facility] FREE T4on 08-25-2022 Free T4 [Mass/Vol] 1.36 ng/dL Normal 0.76-1.46 [facility] Comment on above: Performed By: #### F T4 #### [facility] [address] [address] [address] Win Travis LIVER PROFILEon 08-25-2022 Albumin [Mass/Vol] 3.6 g/dL Normal 3.4-5.0 [facility] Comment on above: Performed By: #### L IVER #### [facility] [address] [address] [address] Win Travis Albumin/Globulin [Mass ratio] 0.9 {ratio} Normal [facility] Comment on above: Performed By: #### L IVER #### [facility] [address] [place] [address] Dr. Win Travis ALP [Catalytic activity/Vol] 109 U/L Normal 46-116 [facility] Comment on above: Performed By: #### L IVER #### [facility] [address] [place] [address] Dr. Win Travis ALT [Catalytic activity/Vol] 27 U/L Normal 14-59 [facility] Comment on above: Performed By: #### L IVER #### [facility] [address] [place] [address] Dr. Win Travis AST [Catalytic activity/Vol] 22 U/L Normal 15-37 [facility] Comment on above: Performed By: #### L IVER #### [facility] [address] [place] [address] Dr. Win Travis BILI, CONJUGATED 0.1 mg/dL Normal 0.0-0.2 [facility] Comment on above: Performed By: #### L IVER #### [facility] [address] [place] [address] Dr. Win Travis Bilirubin [Mass/Vol] 0.5 mg/dL Normal 0.2-1.0 [facility] Comment on above: Performed By: #### L IVER #### [facility] [address] [address] [address] Win Travis Globulin (S) [Mass/Vol] 4.2 g/dL Normal [facility] Comment on above: Performed By: #### L IVER #### [facility] [address] [address] [address] Win Travis Protein [Mass/Vol] 7.8 g/dL Normal 6.4-8.2 [facility] Comment on above: Performed By: #### L IVER #### [facility] [address] [address] [address] Win Travis XR CHEST 2 Von 08-25-2022 XR CHEST 2 V EXAM: XR CHEST 2 V HISTORY: Long-term current use of drug therapy COMPARISON: 08/23/2021 TECHNIQUE: Upright PA and lateral chest x-ray FINDINGS: There is been interval improvement of aeration in the lower lungs, and there is no clear evidence of a focal infiltrate, effusion or pneumothorax at this time. The heart is not enlarged and the vasculature is not distended. The left-sided pacemaker remains in place. The osseous structures are grossly intact. IMPRESSION: Interval improvement of the aeration of the lung bases. There is no clear evidence of a focal infiltrate or overt cardiac decompensation at this time. Electronically authenticated by: LUIS BURLESON Date: 2022-08-25 14:45 Normal [facility] XR KUB 1 VIEWon 02-18-2022 XR KUB 1 VIEW EXAMINATION: XR KUB 1 VIEW HISTORY: Kidney stone COMPARISON: XR KUB 01/20/2022 FINDINGS: KIDNEY/URETER - RIGHT: No visible renal or ureteral calcifications. KIDNEY/URETER - LEFT: No visible renal or ureteral calcifications. PELVIS: No visible ureteral stones. Stable low pelvic calcifications compatible with phleboliths. BOWEL: No abnormal dilation or deviation. BONES: No acute abnormality. OTHER: Negative. No abnormal gaseous collections. IMPRESSION: 1. No visible urinary tract calculi. Passage of previously seen right ureteral stone. Electronically authenticated by: NASIMA CORREA Date: 2022-02-18 06:59 Normal [facility] SARS-CoV-2 (COVID-19) RNA TOM+probe Ql (Unsp spec) Not detected Normal NOT DETECTED [facility] Comment on above: Result Comment: When diagnostic testing is negative, the possibility of a false negative should be considered in the context of a patient's recent exposures and the presence of clinical signs and symptoms consistent with SARS-CoV-2. This test is not yet approved or cleared by the [place] FDA. When there are no FDA-approved or cleared tests available, and other criteria are met, FDA can make tests available under an emergency access mechanism called an Emergency Use Authorization (EUA). The EUA for this test is supported by the [place] of Health and Human Service's declaration that circumstances exist to justify the emergency use of in vitro diagnostics for the detection and/or diagnosis of the virus that causes COVID-19. This EUA will remain in effect for the duration of the COVID-19 declaration justifying emergency of IVDs, unless it is terminated or revoked by the FDA (after which the test may no longer be used). Performed By: #### C VDTBH #### [facility] [address] [place] [address] Dr. Win Travis CBC AUTO DIFFon 02-14-2022 BASO # 0.1 103/ul Normal 0.0-0.1 [facility] Comment on above: Performed By: #### C BC #### [facility] [address] [place] [address] Dr. Win Travis Basophils/100 WBC (Bld) 0.8 % Normal 0.2-2.0 [facility] Comment on above: Performed By: #### C BC #### [facility] [address] [place] [address] Dr. Win Travis EO # 0.2 103/ul Normal 0.0-0.7 [facility] Comment on above: Performed By: #### C BC #### [facility] [address] [place] [address] Dr. Win Travis Eosinophils/100 WBC (Bld) 1.8 % Normal 0.9-7.0 [facility] Comment on above: Performed By: #### C BC #### [facility] [address] [place] [address] Dr. Win Travis Erythrocyte distribution width (RBC) [Ratio] 14.5 % Normal 11.0-15.0 [facility] Comment on above: Performed By: #### C BC #### [facility] [address] [place] [address] Dr. Win Travis Hematocrit (Bld) [Volume fraction] 45.5 % Normal 36.0-48.0 [facility] Comment on above: Performed By: #### C BC #### [facility] [address] [place] [address] Dr. Win Travis Hemoglobin (Bld) [Mass/Vol] 15.1 g/dL Normal 12.0-16.0 [facility] Comment on above: Performed By: #### C BC #### [facility] [address] [place] [address] Dr. Win Travis IG # 0.04 10e3/ul Critically high 0.00-0.03 [facility] Comment on above: Performed By: #### C BC #### [facility] [address] [place] [address] Dr. Win Travis IG % 0.5 % Normal 0.0-0.5 [facility] Comment on above: Performed By: #### C BC #### [facility] [address] [place] [address] Dr. Win Travis LYMPH # 1.1 103/ul Critically low 1.2-3.8 [facility] Comment on above: Performed By: #### C BC #### [facility] [address] [place] [address] Dr. Win Travis Lymphocytes/100 WBC (Bld) 13.1 % Critically low 20.5-60.0 [facility] Comment on above: Performed By: #### C BC #### [facility] [address] [place] [address] Dr. Win Travis MANUAL DIFF REQ NO Normal [facility] Comment on above: Performed By: #### C BC #### [facility] [address] [place] [address] Dr. Win Travis MCH (RBC) [Entitic mass] 32.9 pg Normal 26.7-34.0 [facility] Comment on above: Performed By: #### C BC #### [facility] [address] [place] [address] Dr. Win Travis MCHC (RBC) [Mass/Vol] 33.2 g/dL Normal 29.9-35.2 [facility] Comment on above: Performed By: #### C BC #### [facility] [address] [place] [address] Dr. Win Travis MCV (RBC) [Entitic vol] 99.1 fL Critically high 81.0-99.0 [facility] Comment on above: Performed By: #### C BC #### [facility] [address] [place] [address] Dr. Win Travis MONO # 1.2 103/ul Critically high 0.3-0.8 [facility] Comment on above: Performed By: #### C BC #### [facility] [address] [place] [address] Dr. Win Travis Monocytes/100 WBC (Bld) 13.9 % Critically high 1.7-12.0 [facility] Comment on above: Performed By: #### C BC #### [facility] [address] [place] [address] Dr. Win Travis NEUT # 6.1 103/ul Normal 1.4-6.5 [facility] Comment on above: Performed By: #### C BC #### [facility] [address] [place] [address] Dr. Win Travis Neutrophils/100 WBC (Bld) 69.9 % Normal 43.0-75.0 [facility] Comment on above: Performed By: #### C BC #### [facility] [address] [place] [address] Dr. Win Travis Platelet mean volume (Bld) [Entitic vol] 9.8 fL Normal 9.5-13.5 [facility] Comment on above: Performed By: #### C BC #### [facility] [address] [place] [address] Dr. Win Travis PLT 297 103/ul Normal 150-450 [facility] Comment on above: Performed By: #### C BC #### [facility] [address] [place] [address] Dr. Win Travis RBC 4.59 106/ul Normal 4.20-5.40 [facility] Comment on above: Performed By: #### C BC #### [facility] [address] [place] [address] Dr. Win Travis WBC 8.7 103/ul Normal 4.0-11.0 [facility] Comment on above: Performed By: #### C BC #### [facility] [address] [place] [address] Dr. Win Travis PROF CHEM 8 (BAS METB)on Anion gap [Moles/Vol] 10.6 mmol/L Normal [facility] Comment on above: Performed By: #### P TT, PT #### [facility] [address] [place] [address] Dr. Win Travis Calcium [Mass/Vol] 8.5 mg/dL Normal 8.5-10.1 [facility] Comment on above: Performed By: #### P TT, PT #### [facility] [address] [place] [address] Dr. Win Travis Chloride [Moles/Vol] 106 mmol/L Normal 98-107 [facility] Comment on above: Performed By: #### P TT, PT #### [facility] [address] [place] [address] Dr. Win Travis CO2 [Moles/Vol] 30.9 mmol/L Normal 21.0-32.0 [facility] Comment on above: Performed By: #### P TT, PT #### [facility] [address] [place] [address] Dr. Win Travis Creatinine [Mass/Vol] 1.02 mg/dL Normal 0.55-1.02 [facility] Comment on above: Performed By: #### P TT, PT #### [facility] [address] [place] [address] Dr. Win Travis EGFR-AF MICRONESIAN >60 Normal >=60 [facility] Comment on above: Performed By: #### P TT, PT #### [facility] [address] [address] [address] Win Travis EGFR-NON AF MICRONESIAN 54 mL/min/1.73m2 Critically low >=60 [facility] Comment on above: Performed By: #### P TT, PT #### [facility] [address] [address] [address] Win Travis Glucose [Mass/Vol] 99 mg/dL Normal 74-106 [facility] Comment on above: Performed By: #### P TT, PT #### [facility] [address] [address] [address] Win Travis Potassium [Moles/Vol] 4.5 mmol/L Normal 3.5-5.1 [facility] Comment on above: Performed By: #### P TT, PT #### [facility] [address] [address] [address] Win Travis Sodium [Moles/Vol] 143 mmol/L Normal 136-145 [facility] Comment on above: Performed By: #### P TT, PT #### [facility] [address] [address] [address] Win Travis Urea nitrogen [Mass/Vol] 15.0 mg/dL Normal 7.0-18.0 [facility] Comment on above: Performed By: #### P TT, PT #### [facility] [address] [address] [address] Win Travis Urea nitrogen/Creatinine [Mass ratio] 14.7 mg/mg Normal [facility] Comment on above: Performed By: #### P TT, PT #### [facility] [address] [address] [address] Win Travis PROTIMEon 02-14-2022 INR Coag (PPP) [Relative time] 0.97 {INR} Normal [facility] Comment on above: Performed By: #### P TT, PT #### [facility] [address] [place] [address] Dr. Win Travis INR GUIDELINES SEE BELOW Normal [facility] Comment on above: Result Comment: DARLING RED INR: 2.0 - 3.0 CONDITIONS NOT LISTED BELOW 2.5 - 3.5 FOR PROSTHETIC HEART VALVE REPLACEMENT 2.5 - 3.5 RECURRENT THROMBOSIS Performed By: #### P TT, PT #### [facility] [address] [place], [place] [address] Dr. Win Travis PT Coag (PPP) [Time] 10.5 s Normal 9.0-11.6 [facility] Comment on above: Performed By: #### P TT, PT #### [facility] [address] [place], [place] [address] Dr. Win Travis PTTon 02-14-2022 aPTT Coag (Bld) [Time] 28.3 s Normal 22.3-36.2 [facility] Comment on above: Performed By: #### P TT, PT #### [facility] [address] [place], [place] [address] ABD/PELVIS WO CONon 02-05 CT ABD/PELVIS WO CON EXAMINATION: CT ABD/PELVIS WO CON, 02/04/2022 12:45 PM EDT HISTORY: Kidney stone COMPARISON: TECHNIQUE: Unenhanced helical imaging of the abdomen and pelvis is performed. Multiplanar reconstructions are submitted. Dose reduction techniques were achieved by using: automated exposure control and/or adjustment of mA and /or kV according to patient size and/or use of iterative reconstruction technique. FINDINGS: ABDOMEN: LOWER CHEST:The imaged lung bases are clear. SOLID ORGANS: Liver morphology is normal. The liver is hyperintense, stable. The gallbladder is absent. No biliary duct dilatation. The spleen, adrenal glands, pancreas, gallbladder, biliary ducts are intact Right renal malrotation is stable. There are 3 nonobstructing right renal calculi measuring up to 0.3 cm. No ureteric stones or hydronephrosis. BOWEL: The stomach, proximal small bowel and imaged colon are normal in course and caliber. No bowel wall thickening. Normal appendix. MESENTERY AND RETROPERITONEUM: There is no free fluid, fluid collection or adenopathy. The abdominal aorta and IVC are intact. Aortic caliber is normal. Minimal atherosclerotic disease of the origin of the celiac. SOFT TISSUE AND ABDOMINAL WALL: Rectus muscle diastases and small midline periumbilical and umbilical fat-containing hernia defects. OSSEOUS STRUCTURES: No acute osseous abnormality. Lower lumbar degenerative disease most prominent at L5-S1. PELVIS: [] GENITOURINARY: Prior hysterectomy. Distal ureters, urinary bladder and vagina are normal. No distal urinary tract calculi. BOWEL: Distal small bowel loops, rectosigmoid colon, appendix are intact. No bowel wall thickening. Minimal sigmoid diverticular disease and no findings of diverticulitis. MESENTERY: There is no free fluid, fluid collection or adenopathy. SOFT TISSUE AND ABDOMINAL WALL: No acute abnormality. OSSEOUS STRUCTURES: No acute osseous abnormality. IMPRESSION: 1. No acute abdominal or pelvic inflammatory process. 2. 3 nonobstructing right renal calculi measuring up to 0.3 cm. No distal urinary tract stones or hydronephrosis. 3. Hyperdense liver, stable from prior studies. Differential diagnoses include Leopoldo's disease and other metabolic abnormalities or use of iodine containing medications such as amiodarone. Electronically authenticated by: CHANDU DVEI Date: 2022-02-05 13:03 Normal [facility] XR KUB 1 VIEWon 01-20-2022 XR KUB 1 VIEW EXAMINATION: XR KUB 1 VIEW HISTORY: Kidney stone COMPARISON: 01/25/2021 FINDINGS: KIDNEY/URETER - RIGHT: Punctate densities, nephrolithiasis favored oval 7 x 3 mm calcification right L3-L4 interspace KIDNEY/URETER - LEFT: No visible renal or ureteral calcifications. PELVIS: No visible ureteral calcifications. Any visible calcifications favor phleboliths. BOWEL: No abnormal dilation or deviation. BONES: No acute abnormality. OTHER: Negative. No abnormal gaseous collections. IMPRESSION: Right nephrolithiasis. Indeterminate calcification right L3-L4 level, consider a ureterolith Electronically authenticated by: ELVIS CARPENTER Date: 2022-01-20 16:24 Normal [facility] LIVER PROFILEon 12-02-2021 Albumin [Mass/Vol] 3.5 g/dL Normal 3.4-5.0 [facility] Comment on above: Performed By: #### P TT, PT #### [facility] [address] [place] [address] Dr. Win Travis Albumin/Globulin [Mass ratio] 0.8 {ratio} Normal [facility] Comment on above: Performed By: #### P TT, PT #### [facility] [address] [address] [address] Win Travis ALP [Catalytic activity/Vol] 93 U/L Normal 46-116 [facility] Comment on above: Performed By: #### P TT, PT #### [facility] [address] [address] [address] Win Travis ALT [Catalytic activity/Vol] 27 U/L Normal 14-59 [facility] Comment on above: Performed By: #### P TT, PT #### [facility] [address] [address] [address] Win Travis AST [Catalytic activity/Vol] 18 U/L Normal 15-37 [facility] Comment on above: Performed By: #### P TT, PT #### [facility] [address] [place] [address] Dr. Win Travis BILI, CONJUGATED 0.1 mg/dL Normal 0.0-0.2 [facility] Comment on above: Performed By: #### P TT, PT #### [facility] [address] [place] [address] Dr. Win Travis Bilirubin [Mass/Vol] 0.5 mg/dL Normal 0.2-1.0 [facility] Comment on above: Performed By: #### P TT, PT #### [facility] [address] [place] [address] Dr. Win Travis Globulin (S) [Mass/Vol] 4.0 g/dL Normal [facility] Comment on above: Performed By: #### P TT, PT #### [facility] [address] [address] [address] Win Travis Protein [Mass/Vol] 7.5 g/dL Normal 6.4-8.2 [facility] Comment on above: Performed By: #### P TT, PT #### [facility] [address] [place] [address] Dr. Win Travis TSHon 12-02-2021 TSH 1.314 uIU/mL Normal 0.358-3.740 [facility] Comment on above: Performed By: #### P TT, PT #### [facility] [address] [place], [place] [address] Dr. Win Travis TSH RANGE SEE BELOW Normal [facility] Comment on above: Result Comment: <0.3 4 UIU/ml HYPERTHYROID 0.34-5.60 UIU/ml EUTHYROID >5.60 UIU/ml HYPOTHYROID Performed By: #### P TT, PT #### [facility] [address] [address] [address] Win Travis Vital Signs Date Time Vital Sign Value Performing Clinician Facility 05-05-2023 09:54-0400 Blood Pressure Location [facility] 05-05-2023 09:54-0400 Body temperature 97.52 [degF] Rosemarie Justyna [facility] 05-05-2023 09:54-0400 Diastolic blood pressure 84 mm[Hg] Rosemarie Justyna [facility] 05-05-2023 09:54-0400 Heart rate 52 /min Rosemarie Justyna [facility] 05-05-2023 09:54-0400 Systolic blood pressure 123 mm[Hg] Rosemarie Justyna [facility] 12-20-2022 09:05-0400 Blood Pressure Location URMILA DUARTE [facility] 12-20-2022 09:05-0400 Diastolic blood pressure 78 mm[Hg] URMILA VERARY [facility] 12-20-2022 09:05-0400 Heart rate 68 /min URMILA VERARY [facility] 12-20-2022 09:05-0400 Respiratory rate 16 /min URMILA DUARTE [facility] 12-20-2022 09:05-0400 Systolic blood pressure 130 mm[Hg] URMILA DUARTE [facility] 01-28-2022 08:51-0400 Blood Pressure Location Joellen BRIGHT [facility] 01-28-2022 08:51-0400 Diastolic blood pressure 71 mm[Hg] Joellen BRIGHT [facility] 01-28-2022 08:51-0400 Heart rate 65 /min Joellen BRIGHT [facility] 01-28-2022 08:51-0400 Respiratory rate 16 /min Joellen BRIGHT [facility] 01-28-2022 08:51-0400 Systolic blood pressure 111 mm[Hg] Joellen BRIGHT [facility] Encounters Encounter Date Encounter Type Care Provider Facility Start: [facility]-14-2023 [facility] Start: 06-19-2023 End: 06-20-2023 ambulatory Rosangela Marin Facility:[facility] Start: 06-15-2023 End: 06-16-2023 ambulatory Elizabeth Talcassie Dukes Facility:[facility] Start: 06-15-2023 End: 06-27-2023 ambulatory Rosangela Marin Facility:CD:[id number] Start: 06-06-2023 End: 06-06-[address] [facility] Start: 05-24-2023 End: 05-25-2023 ambulatory Elizabeth Talal Francesmini Facility:[facility] Start: 05-18-2023 End: 05-19-2023 ambulatory Rosemarie Jansen Facility:[facility] Start: 05-15-2023 ambulatory [facility] Start: 05-05-2023 End: 05-06-2023 ambulatory Rosemarie A Justyna Facility:[facility] Start: 05-05-2023 End: 05-06-2023 ambulatory Rosemarie Millie Justyna Facility:[facility] Start: 05-05-2023 End: 05-05-2023 Patient encounter procedure Rosemarie A Justyna [facility] Start: 05-05-2023 End: 05-05-2023 Patient encounter procedure Rosemarie A Justyna [facility] Start: 04-28-2023 End: 04-29-2023 ambulatory Rosangela Marin Facility:[facility] Start: 04-25-2023 End: 04-26-2023 ambulatory URMILA DUARTE Facility:[facility] Start: 04-25-2023 End: 04-25-2023 Patient encounter procedure URMILA DUARTE [facility] Start: 04-19-2023 ambulatory Elizabeth Francesmini [facility] Start: 04-18-2023 End: 04-19-2023 ambulatory Rosangela Marin Facility:[facility] Start: 04-18-2023 End: 04-18-2023 Lab Drop off Rosangela Marin [facility] Start: 02-14-2023 End: 02-14-2023 ambulatory JANNIE [facility] Start: 12-20-2022 End: 12-21-2022 ambulatory URMILA Sanjuanita KEVIN Facility:[facility] Start: 12-20-2022 End: 12-20-2022 Patient encounter procedure URMILA DUARTE [facility] Start: 11-17-2022 End: 11-17-20[facility] Start: 11-01-2022 End: 11-01-2022 ambulatory JANNIE [facility] Start: 10-24-[address] JOELLEN BRIGHT . Fac ility:[facility] Start: 08-25-2022 End: 08-26-2022 ambulatory YESSICA TORRES Facility:[facility] Start: 03-03-[address] JOELLEN BRIGHT . Fac ility:[facility] Start: 02-17-2022 Encounter for preprocedural laboratory examination DR JOELLEN BRIGHT . [facility] Start: 02-17-2022 End: 02-17-[address] JOELLEN BRIGHT . Facility: Start: 02-16-2022 End: 02-17-[address] JOELLEN BRIGHT . Facility:[facility] Start: 02-16-2022 End: 02-17-2022 Encounter for preprocedural laboratory examination DR JOELLEN BRIGHT . Facility: Start: 02-15-2022 Encounter for preprocedural cardiovascular examination DR JOELLEN BRIGHT . [facility] Start: 02-15-2022 Encounter for preprocedural laboratory examination DR JOELLEN BRIGHT . [facility] Start: 02-14-2022 End: 02-15-[address] JOELLEN BRIGHT . Facility:[facility] Start: 02-14-2022 End: 02-15-2022 Encounter for preprocedural cardiovascular examination DR JOELLEN BRIGHT . Facility:[facility] Start: 02-04-2022 End: 02-05-[address] JOELLEN BRIGHT . Facility: Start: 01-28-2022 End: 01-28-2022 Patient encounter procedure Joellen BRIGHT [facility] Start: 01-20-2022 End: 01-21-[address] JOELLEN BRIGHT . Facility:[facility] Start: 12-02-2021 End: 12-03-2021 ambulatory YESSICA TORRES Facility:[facility] Procedures Date Procedure Procedure Detail Performing Clinician Start: 02-14-2023 Follow-up visit Follow-up JANNIE LEAHY MINOR Start: 02-17-2022 Extracorporeal shock wave lithotripsy of calculus of kidney URMILA DUARTE Start: 05-11-2020 Cystoscopy Joellen SPENCER Start: 04-20-2020 Extracorporeal shock wave lithotripsy of ureter Joellen BRIGHT Comment on above: EXTRACORPOREAL SHOCK WAVE LITHOTRIPSY Cholecystectomy Joellen CAVAZOS Defibrillator, devic e (physical object) Joellen BRIGHT Hysterectomy Joellen BRIGHT Immunizations Immunization Date Immunization Notes Care Provider Fa louie 04-01-2022 tetanus and diphtheria toxoids, adsorbed, preservative free, for adult use (2 Lf of tetanus toxoid and 2 Lf of diphtheria toxoid) Rosangela Marin [facility] Comment on above: Result Comment: Lot # [id number] Exp 04/03/22 NEGATED: Highlighted row has not occurred!05-03-2023 influenza virus vaccine, unspecified formulation Rosemarie Jansen [facility] Payers Date Payer Category Payer Medicare [id number] 1960 Self-pay [id number] 1955 Unknown [id number] 2.16.84 [id number] 1954 Unknown [id number] 2.16.84 0.1.977345.3.579.2.593 1954 Unknown [id number] 2.16.84 0.1.078122.3.579.2.593 1954 Unknown [id number] 2.16.84 0.1.847158.3.579.2.593 1954 Unknown [id number] 2.16.84 0.1.018834.3.579.2.593 1954 Unknown [id number] 2.16.84 0.1.910771.3.579.2.593 1954 Unknown [id number] 2.16.84 0.1.946947.3.579.2.593 1954 Unknown [id number] 2.16.84 0.1.497346.3.579.2.593 1954 Unknown [id number] 2.16.84 0.1.873544.3.579.2.593 1954 Unknown [id number] 2.16.8 40.1.049563.3.579.2.727 1954 Unknown [id number] 2.16.8 40.1.598521.3.579.2.727 1954 Unknown [id number] 2.16.8 40.1.298290.3.579.2.727 1954 Unknown [id number] 2.16.8 40.1.721472.3.579.2.727 1954 Unknown [id number] 2.16.8 40.1.084768.3.579.2.727 1954 Unknown [id number] 2.16.8 40.1.031495.3.579.2.727 1954 Unknown [id number] 2.16.8 40.1.362875.3.579.2.727 1954 Unknown [id number] 2.16.8 40.1.934130.3.579.2.727 1954 Unknown [id number] 2.16.8 40.1.213532.3.579.2.727 1954 Unknown [id number] 2.16.8 40.1.891661.3.579.2.727 1954 Unknown [id number] 2.16.8 40.1.536163.3.579.2.727 1954 Unknown [id number] 2.16.8 40.1.958506.3.579.2.727 Social History Date Type Detail Facility Start: 01-27-2021 End: 05-05-2023 Tobacco smoking status Never smoked tobacco (finding) [facility] Sex Assigned At Female [facility] Tobacco smoking status Never [facility] Functional Status Date Assessment Result Facility 05-05-2023 Functional Status N/A [facility] 04-25-2023 Functional Status N/A [facility] 12-20-2022 Functional Status N/A [facility] 01-28-2022 Functional Status N/A [facility] Clinical Notes 01-28-2022 to 06-21-2023 RadiologyRadiologyLaboratoryLaboratory Note Date & Type Note Facility 06-21-2023 Note [id number] [facility] 06-12-2023 Note [id number] [facility] 06-06-2023 Note [facility] Consult Note Reason for visit: ARVD s/p ICD 06/06/23 Patient is doing well and recently had a colonoscopy she was advised to take Flagyl but wanted to check with me before she started it. otherwise she is doing good. Device check done today reveals ICD at BILL Denies chest pain, SOB, and palpitations. Had an echo and labs in Apr 2023. Labs/ TSH: Alyseal. ECHO 04/21/23 Prior HPI: Khurram Parra is a 67 y.o. year old with past medical history of ARVD with AICD, hypertension, COPD, hyperlipidemia. She has been doing well since last seen. But over the last 1 to 2 years she has been developing [id number] feelings in her feet. She is not diabetic that we are aware of. But she has been on amiodarone for almost 15 years. She used to be on sotalol and then had breakthrough episodes of VT which later then led to ICD and starting amiodarone. per device checks her VT has been controlled on amiodarone with no concerns. This was stopped and she was started back on Sotalol. She denies chest pain, shortness of breath, palpitations, lightheadedness, dizziness, ever being shocked by device. device check on 11/01/2022 a single-chamber ICD with [employer] was implanted on 04/02/2009. threshold check reveals the RV thresholds to be elevated with hardly any ventricular pacing. no ICD discharge events or VT noted. BILL 1 yr ------ Device check 09/13/2021: Normal device function, lead measurements stable, 1 NSVT event consistent with VT lasting 1.35 seconds Labs 08/25/2021 CBC: Hemoglobin 12.1, platelet 122, WBC 11.6 CMP: Creatinine 0.82, BUN 38, K4.5, GFR greater than 60, ALT 32, AST 11 Echo 08/23/2021: 1. Normal ventricular systolic function 2. Aortic valve opens well 3. No pericardial effusion 4. Limited study performed with no Doppler interrogation as requested CTA chest 08/23/2021: 1. No pulmonary embolism 2. Multifocal small lower lung consolidation, which may be compatible with COVID-19 pneumonia. Superimposed bacterial process would be difficult to exclude Chest x-ray 08/23/2021: Hazy bilateral lower lung opacities, which could be consistent with 19 pneumonia Labs from 04/08/2020 BUN 15 Cr 1.14- stable Liver function normal- AST 19, ALT 36, ALP 117 PMH: Past Medical History: Diagnosis Date Alopecia 02/14/2022 Arrhythmogenic right ventricular cardiomyopathy (CMS/HCC) 02/14/2022 Automatic implantable cardioverter-defibrillator in situ 02/14/2022 Conduction disorder of the heart 02/14/2022 COPD (chronic obstructive pulmonary disease) (CMS/HCC) 02/14/2022 Paroxysmal ventricular tachycardia (CMS/HCC) 02/14/2022 Vitamin D deficiency 02/14/2022 PSH: Past Surgical History: Procedure Laterality Date CARDIAC DEFIBRILLATOR PLACEMENT 1999 SH: Social Determinants of Health Tobacco Use: Low Risk (02/14/2023) Patient History Smoking Tobacco Use: Never Smokeless Tobacco Use: Never Passive Exposure: Not on file Alcohol Use: Not on file Financial Resource Strain: Not on file Food Insecurity: Not on file Transportation Needs: Not on file Physical Activity: Not on file Stress: Not on file Social Connections: Not on file Intimate Partner Violence: Not on file Depression: Not on file Housing Stability: Not on file Allergies: Allergies Allergen Reactions Lopressor [Metoprolol Tartrate] Hives Ceftriaxone Oxaprozin Weight: 116kg Visit Vitals BP 134/69 (BP Location: Left wrist, Patient Position: Sitting) Pulse 59 Ht 1.702 m (5' 7 ) Wt 116 kg (255 lb) SpO2 95% BMI 39.94 kg/m??? Smoking Status Never BSA 2.34 m??? Meds: Current Outpatient Medications on File Prior to Visit Medication Sig Dispense Refill alendronate (Fosamax) 70 mg tablet Take 70 mg by mouth every 7 (seven) days. Take in the morning with a full glass of water, on an empty stomach, and do not take anything else by mouth or lie down for the next 30 min. amLODIPine (Norvasc) 5 mg tablet Take 1 tablet (5 mg) by mouth in the morning. 90 tablet 3 aspirin 81 mg EC tablet Take 81 mg by mouth in the morning. levothyroxine (Synthroid, Levoxyl) 50 mcg tablet Take 50 mcg by mouth before breakfast. lisinopril 10 mg tablet Take 1 tablet (10 mg) by mouth in the morning and at bedtime. 180 tablet 3 potassium chloride CR (Klor-Con M10) 10 mEq ER tablet Take 1 tablet (10 mEq) by mouth in the morning. Do not crush or chew. 90 tablet 3 sotalol (Betapace) 80 mg tablet Take 1 tablet (80 mg) by mouth in the morning and at bedtime. 60 tablet 11 No current facility-administered medications on file prior to visit. ROS: Review of Systems HENT: Positive for tinnitus. Musculoskeletal: Positive for joint pain. Neurological: Positive for numbness. All other systems reviewed and are negative. Physical Exam: Constitutional General Appearance: well-nourished, well-developed, appears stated age Level of Di (more content not included)... [facility] 05-26-2023 Note [id number] [facility] 05-24-2023 Note Endoscopy Care After Procedure Please read the instructions outlined below and refer to this sheet in the next few weeks. These discharge instructions provide you with general information on caring for yourself after you leave the hospital. Your doctor may also give you specific instructions. While your treatment has been planned according to the most current medical practices available, unavoidable complications occasionally occur. If you have any problems or questions after discharge, please call your doctor. ACTIVITY ? You may resume your regular activity but move at a slower pace for the next 24 hours. ? Take frequent rest periods for the next 24 hours. ? Walking will help expel (get rid of) the air and reduce the bloated feeling in your abdomen. ? No driving for 24 hours (because of the anesthesia (medicine) used during the test). ? You may shower. ? Do not sign any important legal documents or operate any machinery for 24 hours (because of the anesthesia used during the test). NUTRITION ? Drink plenty of fluids. ? You may resume your normal diet. ? Begin with a light meal and progress to your normal diet. ? Avoid alcoholic beverages for 24 hours or as instructed by your caregiver. MEDICATIONS ? You may resume your normal medications unless your caregiver tells you otherwise. WHAT YOU CAN EXPECT TODAY ? You may experience abdominal discomfort such as a feeling of fullness or ?gas? pains. FOLLOW-UP ? Your doctor will discuss the results of your test with you. seek immediate medical attention if any of the following occur: ? Excessive nausea (feeling sick to your stomach) and/or vomiting. ? Severe abdominal pain and distention (swelling). ? Trouble swallowing. ? Temperature over 100 F (37.8? C). ? Rectal bleeding or vomiting of blood. Document Released: 01/31/2005 Document Re-Released: 12/11/2006 ExitCare? Patient Information ?2009 [employer]. Diverticulosis Many people have small pouches in their colon called diverticulum. The diverticulum bulge outward through weak spots in the colon. You could have one or more of these pouches in the colon. The condition of having these pouches in the colon is called diverticulosis or diverticular disease. Diverticulosis is usually diagnosed by tests to evaluate something else. For example, you may have had a colonoscopy to screen for colon cancer when the diverticulosis was found. Most people with diverticulosis do not have any discomfort or problems. If symptoms develop, they may include mild cramps, bloating, and constipation. A complication of this condition is called diverticulitis. This is when the diverticulum become inflamed and infected. How to treat diverticulosis: Increasing the amount of fiber in the diet may reduce symptoms of diverticulosis and prevent complications such as diverticulitis (infected diverticuli). Fiber keeps stool soft and lowers pressure inside the colon so that bowel contents can move through easily. You should eat 20 to 35 grams of fiber each day. The table below shows the amount of fiber in some foods that you can easily add to your diet. Adding fiber slowly may decrease the bloating and fullness sometimes felt with an immediate high fiber diet. The doctor may also recommend taking a fiber product such as Citrucel or Metamucil once a day. In the past people with diverticulosis were to avoid nuts, corn, and seeds. This has not been found to be true. If you find that certain foods create cramping or bloating, avoid that food. Foods high in fiber include: Fresh fruits, fresh vegetables, legumes (beans), whole wheat bread, bran muffins or cereal, and nuts. See the table below for examples of high fiber foods. Remember, your goal is 20-35 grams per day. Amount of fiber in different foods Food Serving Grams of fiber Fruits Apple (with skin) 1 medium apple 4.4 Banana 1 medium banana 3.1 Oranges 1 orange 3.1 Prunes 1 cup, pitted 12.4 Juices Apple, unsweetened, w/added ascorbic acid 1 cup 0.5 Grapefruit, white, canned, sweetened 1 cup 0.2 Grape, unsweetened, w/added ascorbic acid 1 cup 0.5 Mcdonough 1 cup 0.7 Vegetables Cooked Green beans 1 cup 4.0 Carrots 1/2 cup sliced 2.3 Peas 1 cup 8.8 Potato (baked, with skin) 1 medium potato 3.8 Raw Gleason (with peel) 1 cucumber 1.5 Lettuce 1 cup shredded 0.5 Tomato 1 medium tomato 1.5 Spinach 1 cup 0.7 Legumes Baked beans, canned, no salt added 1 cup 13.9 Kidney beans, canned 1 cup 13.6 Rodriguez beans, canned 1 cup 11.6 Lentils, boiled 1 cup 15.6 Breads, pastas, flours Bran muffins 1 medium muffin 5.2 Oatmeal, cooked 1 cup 4.0 White bread 1 slice 0.6 Whole-wheat bread 1 slice 1.9 Pasta and rice, cooked Macaroni 1 cup 2.5 Rice, brown 1 cup 3.5 Rice, white 1 cup 0.6 Spaghetti (regular) 1 cup 2.5 Nuts Almonds 1/2 cup 8.7 Peanuts 1/2 cup 7.9 Chart from [facility] 2013. SEEK IMMEDIATE MEDICAL CARE IF: You deve (more content not included)... [facility] 05-05-2023 Hospital Discharge instructions Patient Education 05/05/2023 10:02:09 Diarrhea, Adult Diarrhea, Adult Diarrhea is frequent loose and watery bowel movements. Diarrhea can make you feel weak and cause you to become dehydrated. Dehydration can make you tired and thirsty, cause you to have a dry mouth, and decrease how often you urinate. Diarrhea typically lasts 2 3 days. However, it can last longer if it is a sign of something more serious. It is important to treat your diarrhea as told by your health care provider. Follow these instructions at home: Eating and drinking Follow these recommendations as told by your health care provider: Take an oral rehydration solution (ORS). This is an oipm-scm-xvxkxbe medicine that helps return your body to its normal balance of nutrients and water. It is found at pharmacies and retail stores. Drink plenty of fluids, such as water, ice chips, diluted fruit juice, and low-calorie sports drinks. You can drink milk also, if desired. Avoid drinking fluids that contain a lot of sugar or caffeine, such as energy drinks, sports drinks, and soda. Eat bland, uhnj-lx-aehvyc foods in small amounts as you are able. These foods include bananas, applesauce, rice, lean meats, toast, and crackers. Avoid alcohol. Avoid spicy or fatty foods. Medicines Take kyxv-dgf-qtybtuh and prescription medicines only as told by your health care provider. If you were prescribed an antibiotic medicine, take it as told by your health care provider. Do not stop using the antibiotic even if you start to feel better. General instructions Wash your hands often using soap and water. If soap and water are not available, use a hand fish bait processing supervisor. Others in the household should wash their hands as well. Hands should be washed: ?After using the toilet or changing a diaper. ?Before preparing, cooking, or serving food. ?While caring for a sick person or while visiting someone in a hospital. Drink enough fluid to keep your urine pale yellow. Rest at home while you recover. Watch your condition for any changes. Take a warm bath to relieve any burning or pain from frequent diarrhea episodes. Keep all follow-up visits as told by your health care provider. This is important. Contact a health care provider if: You have a fever. Your diarrhea gets worse. You have new symptoms. You cannot keep fluids down. You feel light-headed or dizzy. You have a headache. You have muscle cramps. Get help right away if: You have chest pain. You feel extremely weak or you faint. You have bloody or black stools or stools that look like tar. You have severe pain, cramping, or bloating in your abdomen. You have trouble breathing or you are breathing very quickly. Your heart is beating very quickly. Your skin feels cold and clammy. You feel confused. You have signs of dehydration, such as: ?Dark urine, very little urine, or no urine. ?Cracked lips. ?Dry mouth. ?Sunken eyes. ?Sleepiness. ?Weakness. Summary Diarrhea is frequent loose and sometimes watery bowel movements. Diarrhea can make you feel weak and cause you to become dehydrated. Drink enough fluids to keep your urine pale yellow. Make sure that you wash your hands after using the toilet. If soap and water are not available, use hand fish bait processing supervisor. Contact a health care provider if your diarrhea gets worse or you have new symptoms. Get help right away if you have signs of dehydration. This information is not intended to replace advice given to you by your health care provider. Make sure you discuss any questions you have with your health care provider. Document Revised: 12/29/2021 Document Reviewed: 12/29/2021 [employer] Patient Education 2022 [employer]. Follow Up Care 04/19/2023 09:52:25 With:Rosemarie Jansen CNP Address: When:1 to 2 weeks Comments:Following colonoscopy. [facility] 04-25-2023 Hospital Discharge instructions Patient Education 04/25/2023 11:09:09 Dietary Guidelines to Help Prevent Kidney Stones Dietary Guidelines to Help Prevent Kidney Stones Kidney stones are deposits of minerals and salts that form inside your kidneys. Your risk of developing kidney stones may be greater depending on your diet, your lifestyle, the medicines you take, and whether you have certain medical conditions. Most people can lower their chances of developing kidney stones by following the instructions below. Your dietitian may give you more specific instructions depending on your overall health and the type of kidney stones you tend to develop. What are tips for following this plan? Reading food labels Choose foods with no salt added or low-salt labels. Limit your salt (sodium) intake to less than 1,500 mg a day. Choose foods with calcium for each meal and snack. Try to eat about 300 mg of calcium at each meal. Foods that contain 200 500 mg of calcium a serving include: ?8 oz (237 mL) of milk, ncjqlmw-buyrmctubssp-nufre milk, and calcium-fortifiedfruit juice. Calcium-fortified means that calcium has been added to these drinks. ?8 oz (237 mL) of kefir, yogurt, and soy yogurt. ?4 oz (114 g) of tofu. ?1 oz (28 g) of cheese. ?1 cup (150 g) of dried figs. ?1 cup (91 g) of cooked broccoli. ?One 3 oz (85 g) can of sardines or mackerel. Most people need 1,000 1,500 mg of calcium a day. Talk to your dietitian about how much calcium is recommended for you. Shopping Buy plenty of fresh fruits and vegetables. Most people do not need to avoid fruits and vegetables, even if these foods contain nutrients that may contribute to kidney stones. When shopping for convenience foods, choose: ?Whole pieces of fruit. ?Pre-made salads with dressing on the side. ?Low-fat fruit and yogurt smoothies. Avoid buying frozen meals or prepared deli foods. These can be high in sodium. Look for foods with live cultures, such as yogurt and kefir. Choose high-fiber grains, such as whole-wheat breads, oat bran, and wheat cereals. Cooking Do not add salt to food when cooking. Place a salt shaker on the table and allow each person to add his or her own salt to taste. Use vegetable protein, such as beans, textured vegetable protein (TVP), or tofu, instead of meat in pasta, casseroles, and soups. Meal planning Eat less salt, if told by your dietitian. To do this: ?Avoid eating processed or pre-made food. ?Avoid eating fast food. Eat less animal protein, including cheese, meat, poultry, or fish, if told by your dietitian. To do this: ?Limit the number of times you have meat, poultry, fish, or cheese each week. Eat a diet free of meat at least 2 days a week. ?Eat only one serving each day of meat, poultry, fish, or seafood. ?When you prepare animal protein, cut pieces into small portion sizes. For most meat and fish, one serving is about the size of the palm of your hand. Eat at least five servings of fresh fruits and vegetables each day. To do this: ?Keep fruits and vegetables on hand for snacks. ?Eat one piece of fruit or a handful of berries with breakfast. ?Have a salad and fruit at lunch. ?Have two kinds of vegetables at dinner. Limit foods that are high in a substance called oxalate. These include: ?Spinach (cooked), rhubarb, beets, sweet potatoes, and Nepalese chard. ?Peanuts. ?Potato chips, czech fries, and baked potatoes with skin on. ?Nuts and nut products. ?Chocolate. If you regularly take a diuretic medicine, make sure to eat at least 1 or 2 servings of fruits or vegetables that are high in potassium each day. These include: ?Avocado. ?Banana. ?Mcdonough, prune, carrot, or tomato juice. ?Baked potato. ?Cabbage. ?Beans and split peas. Lifestyle Drink enough fluid to keep your urine pale yellow. This is the most important thing you can do. Spread your fluid intake throughout the day. If you drink alcohol: ?Limit how much you use to: ?0 1 drink a day for women who are not . ?0 2 drinks a day for men. ?Be aware of how much alcohol is in your drink. In the [place] one drink equals one 12 oz bottle of beer (355 mL), one 5 oz glass of wine (148 mL), or one 1 oz glass of hard liquor (44 mL). Lose weight if told by your health care provider. Work with your dietitian to find an eating plan and weight loss strategies that work best for you. General information Talk to your health care provider and dietitian about taking daily supplements. You may be told the following depending on your health and the cause of your kidney stones: ?Not to take supplements with vitamin C. ?To take a calcium supplement. ?To take a daily probiotic supplement. ?To take other supplements such as magnesium, fish oil, or vitamin B6. Take idvv-mrc-nrocsio and prescription medicines only as told by your health care provider. These include supplements. What foods should I limit? Limit your intake of the following foods, or eat them as told by your dietitian. Vegetables Spinach. Rhubarb. Beets. Canned vegetables. Pickles. Olives. Baked potatoes with skin. Grains Wheat bran. Baked goods. Salted crackers. Cereals high in sugar. Meats and other proteins Nuts. Nut butters. Large portions of meat, poultry, or fish. Salted, precooked, or cured meats, such as sausages, meat loaves, and hot dogs. Dairy Cheese. Beverages Regular soft drinks. Regular vegetable juice. Seasonings and condiments Seasoning blends with salt. Salad dressings. Soy sauce. Ketchup. Barbecue sauce. Other foods Canned soups. Canned pasta sauce. Casseroles. Pizza. Lasagna. Frozen meals. Potato chips. Portuguese fries. The items listed above may not be a complete list of foods and beverages you should limit. Contact a dietitian for more information. What foods should I avoid? Talk to your dietitian about specific foods you should avoid based on the type of kidney stones you have and your overall health. Fruits Grapefruit. The item listed above may not be a complete list of foods and beverages you should avoid. Contact a dietitian for more information. Summary Kidney stones are deposits of minerals and salts that form inside your kidneys. You can lower your risk of kidney stones by making changes to your diet. The most important thing you can do is drink enough fluid. Drink enough fluid to keep your urine pale yellow. Talk to your dietitian about how much calcium you should have each day, and eat less salt and animal protein as told by your dietitian. This information is not intended to replace advice given to you by your health care provider. Make sure you discuss any questions you have with your health care provider. Document Revised: 02/28/2022 Document Reviewed: 02/28/2022 [employer] Patient Education 2022 [employer]. Follow Up Care 12/20/2022 09:51:10 With:URMILA DUARTE PA-C, URL Address: [address] [facility] [place] [address] When: Unknown [facility] 04-03-2023 Evaluation + Plan note Future Appointments Appointment Date:04/28/2023 10:00:00 AM Scheduled Provider: Location:.BD Appointment Type:BD Bone Density (FT) Appointment Date:04/28/2023 10:30:00 AM Scheduled Provider: Location:FT.XRAY Appointment Type:XR Pelvis/Hip (FT) Appointment Date:05/05/2023 10:00:00 AM Scheduled Provider:Rosemarie Jansen CNP Location:[facility] Appointment Type:BAD New Patient Future Scheduled TestsXR Hip 2-3 Views Right 04/28/23BD Bone Density DEXA 04/28/23 [facility] 02-14-2023 Note [facility] Electrophysiology Consult Note Reason for visit: ARVD s/p ICD Prior HPI: Khurram Parra is a 67 y.o. year old with past medical history of ARVD with AICD, hypertension, COPD, hyperlipidemia. She has been doing well since last seen. But over the last 1 to 2 years she has been developing qslz-frw-lmicuki feelings in her feet. She is not diabetic that we are aware of. But she has been on amiodarone for almost 15 years. She used to be on sotalol and then had breakthrough episodes of VT which later then led to ICD and starting amiodarone. per device checks her VT has been controlled on amiodarone with no concerns. This was stopped and she was started back on Sotalol. She denies chest pain, shortness of breath, palpitations, lightheadedness, dizziness, ever being shocked by device. device check on a single-chamber ICD with [employer] was implanted on 04/02/2009. threshold check reveals the RV thresholds to be elevated with hardly any ventricular pacing. no ICD discharge events or VT noted. BILL 1 yr ------ Device check 09/13/2021: Normal device function, lead measurements stable, 1 NSVT event consistent with VT lasting 1.35 seconds Labs 08/25/2021 CBC: Hemoglobin 12.1, platelet 122, WBC 11.6 CMP: Creatinine 0.82, BUN 38, K4.5, GFR greater than 60, ALT 32, AST 11 Echo 08/23/2021: 1. Normal ventricular systolic function 2. Aortic valve opens well 3. No pericardial effusion 4. Limited study performed with no Doppler interrogation as requested CTA chest 08/23/2021: 1. No pulmonary embolism 2. Multifocal small lower lung consolidation, which may be compatible with COVID-19 pneumonia. Superimposed bacterial process would be difficult to exclude Chest x-ray 08/23/2021: Hazy bilateral lower lung opacities, which could be consistent with 19 pneumonia Labs from 04/08/2020 BUN 15 Cr 1.14- stable Liver function normal- AST 19, ALT 36, ALP 117 PMH: Past Medical History: Diagnosis Date Alopecia 02/14/2022 Arrhythmogenic right ventricular cardiomyopathy (CMS/HCC) 02/14/2022 Automatic implantable cardioverter-defibrillator in situ 02/14/2022 Conduction disorder of the heart 02/14/2022 COPD (chronic obstructive pulmonary disease) (CMS/HCC) 02/14/2022 Paroxysmal ventricular tachycardia (CMS/HCC) 02/14/2022 Vitamin D deficiency 02/14/2022 PSH: Past Surgical History: Procedure Laterality Date CARDIAC DEFIBRILLATOR PLACEMENT 1999 SH: Social Determinants of Health Tobacco Use: Low Risk (02/14/2023) Patient History Smoking Tobacco Use: Never Smokeless Tobacco Use: Never Passive Exposure: Not on file Alcohol Use: Not on file Financial Resource Strain: Not on file Food Insecurity: Not on file Transportation Needs: Not on file Physical Activity: Not on file Stress: Not on file Social Connections: Not on file Intimate Partner Violence: Not on file Depression: Not on file Housing Stability: Not on file Allergies: Allergies Allergen Reactions Lopressor [Metoprolol Tartrate] Hives Ceftriaxone Oxaprozin Weight: 117kg Visit Vitals BP 124/72 (BP Location: Left arm, Patient Position: Sitting, BP Cuff Size: Large adult) Pulse 54 Ht 1.702 m (5' 7 ) Wt 117 kg (257 lb 11.2 oz) SpO2 99% BMI 40.36 kg/m??? Smoking Status Never BSA 2.35 m??? Meds: Current Outpatient Medications on File Prior to Visit Medication Sig Dispense Refill alendronate (Fosamax) 70 mg tablet Take 70 mg by mouth every 7 (seven) days. Take in the morning with a full glass of water, on an empty stomach, and do not take anything else by mouth or lie down for the next 30 min. amLODIPine (Norvasc) 5 mg tablet Take 1 tablet (5 mg) by mouth in the morning. 90 tablet 3 aspirin 81 mg EC tablet Take 81 mg by mouth in the morning. levothyroxine (Synthroid, Levoxyl) 50 mcg tablet Take 50 mcg by mouth before breakfast. lisinopril 10 mg tablet Take 1 tablet (10 mg) by mouth in the morning and at bedtime. 180 tablet 3 potassium chloride CR (Klor-Con M10) 10 mEq ER tablet Take 1 tablet (10 mEq) by mouth in the morning. Do not crush or chew. 90 tablet 3 sotalol (Betapace) 80 mg tablet Take 1 tablet (80 mg) by mouth in the morning and at bedtime. 60 tablet 11 No current facility-administered medications on file prior to visit. ROS: Review of Systems Musculoskeletal: Positive for arthritis. All other systems reviewed and are negative. Physical Exam: Constitutional General Appearance: well-nourished, well-developed, appears stated age Level of Distress: comfortable Psychiatric Mental Status: alert, normal affect Orientation: oriented to time, place, and person Insight: good judgement Eyes Lids and Conjunctivae: non-injected, no xanthelasma ENMT Ears: no lesions on external ear Nose: no lesions on external nose Oropharynx: no cyanosis, no pallor Neck Neck: supple, trachea midline Carotid Ar (more content not included)... [facility] 12-20-2022 Hospital Discharge instructions Patient Education 12/20/2022 13:11:32 Kidney Stones, Eklp-gp-Lsth Kidney Stones Kidney stones are rock-like masses that form inside of the kidneys. Kidneys are organs that make pee (urine). A kidney stone may move into other parts of the urinary tract, including: The tubes that connect the kidneys to the bladder (ureters). The bladder. The tube that carries urine out of the body (urethra). Kidney stones can cause very bad pain and can block the flow of pee. The stone usually leaves your body (passes) through your pee. You may need to have a doctor take out the stone. What are the causes? Kidney stones may be caused by: A condition in which certain glands make too much parathyroid hormone (primary hyperparathyroidism). A buildup of a type of crystals in the bladder made of a chemical called uric acid. The body makes uric acid when you eat certain foods. Narrowing (stricture) of one or both of the ureters. A kidney blockage that you were born with. Past surgery on the kidney or the ureters, such as gastric bypass surgery. What increases the risk? You are more likely to develop this condition if: You have had a kidney stone in the past. You have a family history of kidney stones. You do not drink enough water. You eat a diet that is high in protein, salt (sodium), or sugar. You are overweight or very overweight (obese). What are the signs or symptoms? Symptoms of a kidney stone may include: Pain in the side of the belly, right below the ribs (flank pain). Pain usually spreads (radiates) to the groin. Needing to pee often or right away (urgently). Pain when going pee (urinating). Blood in your pee (hematuria). Feeling like you may vomit (nauseous). Vomiting. Fever and chills. How is this treated? Treatment depends on the size, location, and makeup of the kidney stones. The stones will often pass out of the body through peeing. You may need to: Drink more fluid to help pass the stone. In some cases, you may be given fluids through an IV tube put into one of your veins at the hospital. Take medicine for pain. Make changes in your diet to help keep kidney stones from coming back. Sometimes, medical procedures are needed to remove a kidney stone. This may involve: A procedure to break up kidney stones using a beam of light (laser) or shock waves. Surgery to remove the kidney stones. Follow these instructions at home: Medicines Take nzhg-xam-wbzqvat and prescription medicines only as told by your doctor. Ask your doctor if the medicine prescribed to you requires you to avoid driving or using heavy machinery. Eating and drinking Drink enough fluid to keep your pee pale yellow. You may be told to drink at least 8 10 glasses of water each day. This will help you pass the stone. If told by your doctor, change your diet. This may include: ?Limiting how much salt you eat. ?Eating more fruits and vegetables. ?Limiting how much meat, poultry, fish, and eggs you eat. Follow instructions from your doctor about eating or drinking restrictions. General instructions Collect pee samples as told by your doctor. You may need to collect a pee sample: ?24 hours after a stone comes out. ?8 12 weeks after a stone comes out, and every 6 12 months after that. Strain your pee every time you pee (urinate), for as long as told. Use the strainer that your doctor recommends. Do not throw out the stone. Keep it so that it can be tested by your doctor. Keep all follow-up visits as told by your doctor. This is important. You may need follow-up tests. How is this prevented? To prevent another kidney stone: Drink enough fluid to keep your pee pale yellow. This is the best way to prevent kidney stones. Eat healthy foods. Avoid certain foods as told by your doctor. You may be told to eat less protein. Stay at a healthy weight. Where to find more information National Kidney Foundation (NKF): www.kidney.org Urology Care Foundation (UCF): www.urologyhealth.org Contact a doctor if: You have pain that gets worse or does not get better with medicine. Get help right away if: You have a fever or chills. You get very bad pain. You get new pain in your belly (abdomen). You pass out (faint). You cannot pee. Summary Kidney stones are rock-like masses that form inside of the kidneys. Kidney stones can cause very bad pain and can block the flow of pee. The stones will often pass out of the body through peeing. Drink enough fluid to keep your pee pale yellow. This information is not intended to replace advice given to you by your health care provider. Make sure you discuss any questions you have with your health care provider. Document Revised: 02/21/2022 Document Reviewed: 02/21/2022 [employer] Patient Education 2022 [employer]yn. Follow Up Care 03/01/2022 09:37:28 With:KEVIN LOPES, URMILA Gann, URL Address: [address] [place] [address] When:3 months [facility] 12-01-2022 Note -Blood pressure stab le, continue lisinopril 10 mg twice daily and amlodipine 5 mg daily [facility] 12-01-2022 Note -Recent device check 11/01/2022 shows RV pacing less than 1%, increase in output from 3.5 V to 4 V. Otherwise device had normal function and stable lead measurements with no events reported. BILL is 1 year. -Follow-up with device clinic in 6 months [facility] 12-01-2022 Note - Considering she is developing side effects with amiodarone we will need to discontinue - we will start sotalol 80 mg twice daily have patient follow-up in 2 days with EKG and then EKG in 1 week following the to monitor for any QTc changes - this plan was discussed with Dr. Perkins [facility] 11-24-2022 Note Patient stated on on sotalol 80 mg twice daily on 11/22/2022. ECG today shows manually calculated QTc 376, sinus bradycardia. She is asymptomatic. She has hx ARVD and needed amiodarone stopped d/t side effects [facility] 11-17-2022 Note MA Electrophysiology Consult Note Reason for visit: 1 year follow-up HPI: Khurram Parra is a 67 y.o. year old with past medical history of ARVD with AICD, hypertension, COPD, hyperlipidemia. She has been doing well since last seen. But over the last 1 to 2 years she has been developing djtq-gka-nxeupeq feelings in her feet. She is not diabetic that we are aware of. But she has been on amiodarone for almost 15 years. I discussed with her the symptoms could be related to amiodarone toxicity and that we need to consider adjusting medications. She used to be on sotalol and then had breakthrough episodes of VT which later then led to ICD and starting amiodarone. per device checks her VT has been controlled on amiodarone with no concerns. She denies chest pain, shortness of breath, palpitations, lightheadedness, dizziness, ever being shocked by device. 66 yo female presents to clinic for routine f/u known h/o cardiomyopathy (ARVD) with AICD, HTN, COPD, HPL. She had COVID back in August. She was hospitalized x2 in August, once for COVID, second for post COVID complications/weakness. She states she has been improving overall since then. She has persistent BLE swelling since having COVID. Worse in the RLE. She gets occasional palpitations/fluttering in her chest, this lasts seconds and resolves on its own, nonlimting. She denies CP, dyspnea at rest or exertion, orthopnea, PND, dizziness/LH, syncope. ------ Device check 09/13/2021: Normal device function, lead measurements stable, 1 NSVT event consistent with VT lasting 1.35 seconds Labs 08/25/2021 CBC: Hemoglobin 12.1, platelet 122, WBC 11.6 CMP: Creatinine 0.82, BUN 38, K4.5, GFR greater than 60, ALT 32, AST 11 Echo 08/23/2021: 1. Normal ventricular systolic function 2. Aortic valve opens well 3. No pericardial effusion 4. Limited study performed with no Doppler interrogation as requested CTA chest 08/23/2021: 1. No pulmonary embolism 2. Multifocal small lower lung consolidation, which may be compatible with COVID-19 pneumonia. Superimposed bacterial process would be difficult to exclude Chest x-ray 08/23/2021: Hazy bilateral lower lung opacities, which could be consistent with 19 pneumonia Labs from 04/08/2020 BUN 15 Cr 1.14- stable Liver function normal- AST 19, ALT 36, ALP 117 PMH: Past Medical History: Diagnosis Date Alopecia 02/14/2022 Arrhythmogenic right ventricular cardiomyopathy (CMS/HCC) 02/14/2022 Automatic implantable cardioverter-defibrillator in situ 02/14/2022 Conduction disorder of the heart 02/14/2022 COPD (chronic obstructive pulmonary disease) (CMS/HCC) 02/14/2022 Paroxysmal ventricular tachycardia (CMS/HCC) 02/14/2022 Vitamin D deficiency 02/14/2022 PSH: Past Surgical History: Procedure Laterality Date CARDIAC DEFIBRILLATOR PLACEMENT 1999 SH: Social Determinants of Health Tobacco Use: Low Risk Smoking Tobacco Use: Never Smokeless Tobacco Use: Never Passive Exposure: Not on file Alcohol Use: Not on file Financial Resource Strain: Not on file Food Insecurity: Not on file Transportation Needs: Not on file Physical Activity: Not on file Stress: Not on file Social Connections: Not on file Intimate Partner Violence: Not on file Depression: Not on file Housing Stability: Not on file Allergies: Allergies Allergen Reactions Lopressor [Metoprolol Tartrate] Hives Ceftriaxone Oxaprozin Weight: 120kg Visit Vitals BP 116/68 (BP Location: Left arm, Patient Position: Sitting, BP Cuff Size: Large adult) Pulse 86 Ht 1.702 m (5' 7 ) Wt 120 kg (265 lb) SpO2 95% BMI 41.50 kg/m??? Smoking Status Never BSA 2.38 m??? Meds: Current Outpatient Medications on File Prior to Visit Medication Sig Dispense Refill alendronate (Fosamax) 70 mg tablet Take 70 mg by mouth every 7 (seven) days. Take in the morning with a full glass of water, on an empty stomach, and do not take anything else by mouth or lie down for the next 30 min. amiodarone (Pacerone) 200 mg tablet Take by mouth in the morning. amLODIPine (Norvasc) 5 mg tablet Take 1 tablet (5 mg) by mouth in the morning. 90 tablet 3 aspirin 81 mg EC tablet Take 81 mg by mouth in the morning. levothyroxine (Synthroid, Levoxyl) 50 mcg tablet Take 50 mcg by mouth before breakfast. lisinopril 10 mg tablet Take 1 tablet (10 mg) by mouth in the morning and at bedtime. 180 tablet 3 potassium chloride CR (Klor-Con M10) 10 mEq ER tablet Take 10 mEq by mouth in the morning. Do not crush or chew. No current facility-administered medications on file prior to visit. ROS: Cardio Basic Cardiovascular Symptoms: no lightheadedness, no leg edema, no syncope, no orthopnea, no PND, no claudication, Constitutional Constitutional: no fever, no night sweats, no significant weight gain, no significant weight (more content not included)... [facility] 11-17-2022 Note Patient is here toda y for a 1 yr follow up. Review of Systems HENT: Positive for tinnitus. Musculoskeletal: Positive for joint pain. Neurological: Positive for numbness. All other systems reviewed and are negative. [facility] 01-28-2022 Hospital Discharge instructions Patient Education 01/28/2022 09:46:54 Kidney Stones, Hsec-xz-Seij Kidney Stones Kidney stones are rock-like masses that form inside of the kidneys. Kidneys are organs that make pee (urine). A kidney stone may move into other parts of the urinary tract, including: The tubes that connect the kidneys to the bladder (ureters). The bladder. The tube that carries urine out of the body (urethra). Kidney stones can cause very bad pain and can block the flow of pee. The stone usually leaves your body (passes) through your pee. You may need to have a doctor take out the stone. What are the causes? Kidney stones may be caused by: A condition in which certain glands make too much parathyroid hormone (primary hyperparathyroidism). A buildup of a type of crystals in the bladder made of a chemical called uric acid. The body makes uric acid when you eat certain foods. Narrowing (stricture) of one or both of the ureters. A kidney blockage that you were born with. Past surgery on the kidney or the ureters, such as gastric bypass surgery. What increases the risk? You are more likely to develop this condition if: You have had a kidney stone in the past. You have a family history of kidney stones. You do not drink enough water. You eat a diet that is high in protein, salt (sodium), or sugar. You are overweight or very overweight (obese). What are the signs or symptoms? Symptoms of a kidney stone may include: Pain in the side of the belly, right below the ribs (flank pain). Pain usually spreads (radiates) to the groin. Needing to pee often or right away (urgently). Pain when going pee (urinating). Blood in your pee (hematuria). Feeling like you may vomit (nauseous). Vomiting. Fever and chills. How is this treated? Treatment depends on the size, location, and makeup of the kidney stones. The stones will often pass out of the body through peeing. You may need to: Drink more fluid to help pass the stone. In some cases, you may be given fluids through an IV tube put into one of your veins at the hospital. Take medicine for pain. Make changes in your diet to help keep kidney stones from coming back. Sometimes, medical procedures are needed to remove a kidney stone. This may involve: A procedure to break up kidney stones using a beam of light (laser) or shock waves. Surgery to remove the kidney stones. Follow these instructions at home: Medicines Take qlfy-fdu-gekoydt and prescription medicines only as told by your doctor. Ask your doctor if the medicine prescribed to you requires you to avoid driving or using heavy machinery. Eating and drinking Drink enough fluid to keep your pee pale yellow. You may be told to drink at least 8 10 glasses of water each day. This will help you pass the stone. If told by your doctor, change your diet. This may include: ?Limiting how much salt you eat. ?Eating more fruits and vegetables. ?Limiting how much meat, poultry, fish, and eggs you eat. Follow instructions from your doctor about eating or drinking restrictions. General instructions Collect pee samples as told by your doctor. You may need to collect a pee sample: ?24 hours after a stone comes out. ?8 12 weeks after a stone comes out, and every 6 12 months after that. Strain your pee every time you pee (urinate), for as long as told. Use the strainer that your doctor recommends. Do not throw out the stone. Keep it so that it can be tested by your doctor. Keep all follow-up visits as told by your doctor. This is important. You may need follow-up tests. How is this prevented? To prevent another kidney stone: Drink enough fluid to keep your pee pale yellow. This is the best way to prevent kidney stones. Eat healthy foods. Avoid certain foods as told by your doctor. You may be told to eat less protein. Stay at a healthy weight. Where to find more information National Kidney Foundation (NKF): www.kidney.org Urology Care Foundation (F): www.urologyhealth.org Contact a doctor if: You have pain that gets worse or does not get better with medicine. Get help right away if: You have a fever or chills. You get very bad pain. You get new pain in your belly (abdomen). You pass out (faint). You cannot pee. Summary Kidney stones are rock-like masses that form inside of the kidneys. Kidney stones can cause very bad pain and can block the flow of pee. The stones will often pass out of the body through peeing. Drink enough fluid to keep your pee pale yellow. This information is not intended to replace advice given to you by your health care provider. Make sure you discuss any questions you have with your health care provider. Document Released: 12/05/2008 Document Revised: 11/05/2019 Document Reviewed: 11/05/2019 [employer] Patient Education 2020 Riffyn. Follow Up Care 02/25/2021 10:27:08 With:KAILA ALVARADO, Joellen Manrique, URL Address: [facility] [address], [place] [id number]- [phone] When: Unknown Comments:schedule CT A/P w/o contrast [facility] Evaluation + Plan note No data available for this section [facility] Evaluation + Plan note Future Appointments Appointment Date:03/28/2023 08:30:00 AM Scheduled Provider:URMILA DUARTE PA-C Location:[facility] Appointment Type:URO Office Visit [facility] Evaluation + Plan note Future Appointments Appointment Date:04/25/2023 11:40:00 AM Scheduled Provider:URMILA DUARTE PA-C Location:[facility] Appointment Type:URO Office Visit Future Scheduled TestsXR Hip 2-3 Views Right 04/18/23BD Bone Density DEXA 04/18/23 [facility] Evaluation + Plan note Future Appointments Appointment Date:05/24/2023 03:15:00 PM Scheduled Provider: Location:[facility] Appointment Type:Surgery FT Future Scheduled TestsPancreatic Elastase, Fecal 05/05/23Fecal WBC Lactoferrin 05/05/23Giardia lamblia, Direct Detection EIA 05/05/23O & P Exam, Routine 05/05/23Clostridium Difficile PCR 05/05/23Enteric Panel by PCR 05/05/23 [facility] Evaluation + Plan note Future Appointments Appointment Date:05/24/2023 03:15:00 PM Scheduled Provider: Location:[facility] Appointment Type:Surgery FT Diagnostic Tests PendingCeliac Disease Comprehensive 05/05/23 Future Scheduled TestsPancreatic Elastase, Fecal 05/05/23Fecal WBC Lactoferrin 05/05/23Giardia lamblia, Direct Detection EIA 05/05/23O & P Exam, Routine 05/05/23Clostridium Difficile PCR 05/05/23Enteric Panel by PCR 05/05/23 [facility] Hospital Discharge instructions No data available for this section [facility] Progress note No data available for this section [facility] Summary Purpose Family History No Family History Records Found No data available for this section No data available for this section No data available for this section No data available for this section No Family History Records FoundNo Family History Records Found Advance Directives No Advanced Directives Records FoundNo Advanced Directives Records FoundNo Advanced Directives Records Found Additional Source Comments Care Team (unrecognized sect ion and content) Personnel Name: ADAM SANDERS MD Address: [address] [place] [address] Personnel Name: Rosangela Marin MD Address: Address: [address] [place] [address] Personnel Name: Rosangela Marin MD Address: Address: [address] [place] [address] Personnel Name: Rosangela Marin MD Address: Address: [address] [place] [address] Personnel Name: Rosangela Marin MD Address: Address: [address] [place] [address] Personnel Name: Rosangela Marin MD Address: Address: [address] [place] [address] INFORMATION SOURCE (unrecogn ized section and content) DATE CREATED AUTHOR 08/30/2022 [facility] DATE CREATED AUTHOR AUTHOR'S ORGANIZ ATION 06/29/2023 [facility] DATE CREATED AUTHOR AUTHOR'S ORGANIZ ATION 07/24/2023 [facility] FOR RECORDS PERTAINING TO PATIENTS WHO ARE OR HAVE BEEN ENROLLED IN A CHEMICAL DEPENDENCY/SUBSTANCEABUSE PROGRAM, SOME INFORMATION MAY BE OMITTED. This clinical summary was aggregated from multiple sources. Caution should be exercised in using it in the provision of clinical care. This summary normalizes information from multiple sources, and as a consequence, information in this document may materially change the coding, format and clinical context of patient data. In addition, data may be omitted in some cases. CLINICAL DECISIONS SHOULD BE BASED ON THE PRIMARY CLINICAL RECORDS. [facility]. provides no warranty or guarantee of the accuracy or completeness of information in this document.
[2023-07-26 11:58] LABS: Basophils Absolute Auto 0.1 10^3/uL (0.0-0.1); Basophils Percent Auto 1.1 % (0.2-2.0); Eosinophils Absolute Auto 0.2 10^3/uL (0.0-0.7); Eosinophils Percent Auto 2.9 % (0.9-7.0); Hemoglobin 14.5 g/dL (12.0-16.0); Immature Granulocytes Abs Auto 0.04 10^3/uL (0.00-0.03); Immature Granulocytes Pct Auto 0.5 % (0.0-0.5); Lymphocytes Absolute Auto 1.4 10^3/uL (1.2-3.8); Lymphocytes Percent Auto 17.4 % (20.5-60.0); Mean Corpuscular HGB Conc 31.5 g/dL (29.9-35.2); Mean Corpuscular Hemoglobin 32.2 pg (26.7-34.0); Mean Platelet Volume 9.9 fL (9.5-13.5); Monocytes Absolute Auto 1.1 10^3/uL (0.3-0.8); Monocytes Percent Auto 13.3 % (1.7-12.0); Neutrophils Absolute Auto 5.1 10^3/uL (1.4-6.5); Neutrophils Percent Auto 64.8 % (43.0-75.0); Platelet Count 260 10^3/uL (150-450); Red Blood Count 4.51 10^6/uL (4.20-5.40); Red Cell Distribution Width 13.3 % (11.0-15.0); White Blood Count 7.9 10^3/uL (4.0-11.0)
[2023-07-26 12:05] LABS: Anion Gap 11.1; BUN Creatinine Ratio 13.3; Calcium 8.4 mg/dL (8.5-10.1); Chloride 108 mmol/L (98-107); Estimated GFR (African America >60 (>=60); Estimated GFR (Non-African Ame 56 (>=60); Glucose 94 mg/dL (74-106); Potassium 4.1 mmol/L (3.5-5.1); Sodium 143 mmol/L (136-145)
== END 2023-07-26 11:21 | disposition home or self-care (01) ==
PROVIDERS: PCP Family Medicine; Visit Provider Internal Medicine Cardiovascular Disease
DX: Z95.810 Presence of automatic (implantable) cardiac defibrillator (principal)
CPT/HCPCS: 36415; 80048; 85025

== ENCOUNTER 2023-08-01 10:36 | Outpatient (OUT) | payer MEDICARE, SELFPAY ==
--- OUTSIDE RECORDS SUMMARY | 2023-08-01 10:44 | XMS_ITS | CCD ---
Author Name Unknown Address [address] [place] [address] Organization [facility] Care Team Providers Care Registered Nurse Midwife Name Role Phone ADAM SANDERS Primary Care Physician [phone] [address] ., DR CUENCA Admitting Unavailable SANDERS ., DR ADAM Gann Primary Care Unavailable BRIGHT ., DR CUENCA Attending Unavailable CASS[place], DR BENNETT Acevedo Consulting Unavailable TAMPA, DR ELVIS David Consulting Unavailable BRIGHT ., [...] BURLESON Consulting Unavailable YESSICA TORRES Attending Unavailable NIEVES TORRESA Admitting Unavailable BRIAN, YESSICAVAISHALI Alicea, DR ADAM Gann Primary Care Unavailable Rosangela Marin Primary Care Physician Glenn Dukes Attending Unavaila Rosangela Small Attending Unavailable Rosangela Marin Attending Unavailable URMILA DUARTE Attending Unavailable URMILA DUARTE Attending Unavailable Glenn Dukes Admitting Unavaila ble Sarmini, Elizabeth Richard Attending Unavaila ble Sarmini, Elizabeth Talal Referring Unavaila Rosangela Small Admitting Unavailable Rosangela Marin Attending Unavailable Rosangela Marin Referring Unavailable Rosemarie Jansen Attending Unavailable Justyna, Rosemarie A Admitting Unavailable Justyna, Rosemarie A Admitting Unavailable Justyna, Rosemarie Pinto Attending Unavailable Rosangela Marin Admitting Unavailable Rosangela Marin Attending Unavailable Rosangela Marin Admitting Unavailable Glenn Dukes Attending Unavaila Rosemarie Higginbotham Attending Unavailable DEVAN PERKINS Referring Unavailable GREGORIO, DEVAN Admitting Unavailable GREGORIO, DEVAN Attending Unavailable GREGORIODEVAN Referring Unavailable GREGORIO, DEVAN Attending Unavailable GREGORIO, DEVAN Attending Unavailable JG SUN Attending Unavailable Allergies Allergy Classification Reported Allergen(s) Allergy Type Date of Onset Reaction(s) Facility (8 sources) cefTRIAXone; Translations: [ceftriaxone] Drug Allergy 02-15-20 Hives, Rash [facility] (7 sources) cyclobenzaprine; Translations: [cyclobenzaprine] Drug Allergy Rapid heart beat [facility] (8 sources) oxaprozin; Translations: [oxaprozin] Drug Allergy 02-15-20 Hives, Rash [facility] (1 source) Acetaminophen / oxyCODONE Drug Allergy [facility] (2 sources) cefTRIAXone Drug Allergy 11-27-19 13 [facility] (1 source) cyclobenzaprine Drug Allergy [facility] (1 source) Metoprolol Drug Allergy [facility] (2 sources) oxaprozin Drug Allergy 11-27-19 13 [facility] (1 source) tiZANidine Drug Allergy 07-03-19 20 [facility] (1 source) Muscle Rub; Translations: [Muscle Rub] Propensity to adverse reactions (disorder) [facility] Repository (1 source) Metoprolol; Translations: [METOPROLOL TARTRATE] Drug Allergy 02-15-20 [facility] Repository Medications Current Medications Medication Drug Class(es) Dates Sig (Normalized) Sig (Original) albuterol 0.83 mg/ml inhalation solution (6 sources) beta2-Adrenergic Agonist Start: 04-18-2023 take 2.5 mg by inhalation every six hours albuterol 0.083% Inh Beti 3 mL 2.5 mg, 3 mL, NEB, q6hr Shortness of breath or wheezing, 300 mL, Refill(s) 0, [facility], 169, cm, 04/18/23 13:06:00 EDT, [...] Inhalation, q6hr, 18 gm, Refill(s) 0, NEEDED, [facility], 169, cm, 04/18/23 13:06:00 EDT, [...] packet(s), Oral, TID, 90 EA, Refill(s) 0, [facility], 169, cm, 04/18/23 13:06:00 EDT, [...] Daily, # 90 tab(s), Refills(s) 1, Pharmacy: [facility], 169, cm, 04/18/23 13:06:00 EDT, [...] Retained ureteric stent 05-04-2020 Episodic Conduction disorders (5 sources) Presence of automatic (implantable) cardiac defibrillator; Translations: [Conduction disorder, unspecified] Onset: 2 Chronic Deficiency and other anemia [...] 04-06-2023 Chronic Other aftercare (5 sources) Other technician terminal and repeater (current) drug therapy; Translations: [OTH CARE HOME CURRENT DRUG THERAPY] Onset: 2 Episodic Other [...] caused by tuberculosis or sexually transmitted disease) (6 sources) Cardiomyopathy; Translations: [Cardiomyopathy, unspecified] Onset: 3 04-18-2023 Chronic Spondylosis; intervertebral disc disorders; other [...] Onset: 02-15-2022 Episodic Other aftercare (1 source) intermediate project manager (current) use of aspirin; Translations: [CARE HOME CURRENT USE OF ASPIRIN] Onset: 02-21-2022 Episodic Other aftercare (1 source) care home (current) use of anticoagulants; Translations: [UNIT COORDINATOR CURRNT USE ANTICOAGULANTS] Onset: 02-15-2022 Episodic Residual codes; unclassified (1 source) Acquired absence of other specified parts of digestive tract; Translations: [ACQ ABSENCE OTH PART DIGESTV TRACT] Onset: 02-21-2022 Episodic Residual codes; unclassified (1 source) Acquired absence of both cervix and uterus; Translations: [ACQUIRED ABSENCE BOTH CERVIX AND UTERUS] Onset: 02-21-2022 Episodic Results Test Name Value Interpretation Reference Range Facility [facility] 07-31-2023 ANES -------- Attestation signed by Devan Perkins MD at 07/31/2023 10:34 PM By using the attestations below, the signing clinician agrees that I have read and verify that the documentation has been personally reviewed by me and ensure that the documentation accurately reflects the encounter. GC: I personally saw this patient on the day of the encounter, performed the lin portion(s) of the service and participated in the management and confirm the resident's documentation. Please note there may be an additional personal documentation from me. Patient: Khurram Parra Procedure Information Date/Time: 07/31/23 0830 Procedure: Generator change ICD BiV - AND ATRIAL LEAD Location: [facility] / [facility] (Cath) Providers: Devan Perkins MD Clinical information reviewed: Allergies Meds OB Status Physical Exam Airway Mallampati: III Cardiovascular Rhythm: regular Rate: normal Dental Pulmonary Breath sounds clear to auscultation Abdominal Anesthesia Plan ASA 3 other (Moderate sedation) Anesthetic plan and risks discussed with patient. Use of blood products discussed with patient who consented to blood products. Plan discussed with fellow and attending. Additional Equipment Requests Normal [facility] HPon 07-31-2023 HP -------- Attestation signed by Devan Perkins MD at 07/31/2023 8:42 AM By using the attestations below, the signing clinician agrees that I have read and verify that the documentation has been personally reviewed by me and ensure that the documentation accurately reflects the encounter. GC: I personally saw this patient on the day of the encounter, performed the lin portion(s) of the service and participated in the management and confirm the resident's documentation. Please note there may be an additional personal documentation from me. History Of Present Illness Khurram Parra is a 67 y.o. female presenting for ICD gen change. It is at BILL. Interrogation with <1% V-pacing. Has a h/o of ARVC. No complaints. Past Medical History She has a past medical history of Alopecia (02/14/2022), Arrhythmogenic right ventricular cardiomyopathy (CMS/HCC) (02/14/2022), Automatic implantable cardioverter-defibrillator in situ (02/14/2022), Conduction disorder of the heart (02/14/2022), COPD (chronic obstructive pulmonary disease) (CMS/HCC) (02/14/2022), Paroxysmal ventricular tachycardia (CMS/HCC) (02/14/2022), and Vitamin D deficiency (02/14/2022). Surgical History She has a past surgical history that includes Cardiac defibrillator placement. Social History She reports that she has never smoked. She has never used smokeless tobacco. She reports that she does not drink alcohol and does not use drugs. Allergies Lopressor [metoprolol tartrate], Ceftriaxone, and Oxaprozin Medications Medications Prior to Admission Medication Sig Dispense Refill Last Dose alendronate (Fosamax) 70 mg tablet Take 70 mg by mouth every 7 (seven) days. Take in the morning with a full glass of water, on an empty stomach, and do not take anything else by mouth or lie down for the next 30 min. Past Week amLODIPine (Norvasc) 5 mg tablet Take 1 tablet (5 mg) by mouth in the morning. 90 tablet 3 07/31/2023 aspirin 81 mg EC tablet Take 81 mg by mouth in the morning. 07/30/2023 levothyroxine (Synthroid, Levoxyl) 50 mcg tablet Take 50 mcg by mouth before breakfast. 07/31/2023 lisinopril 10 mg tablet Take 1 tablet (10 mg) by mouth in the morning and at bedtime. 180 tablet 3 07/31/2023 potassium chloride CR (Klor-Con M10) 10 mEq ER tablet Take 1 tablet (10 mEq) by mouth in the morning. Do not crush or chew. 90 tablet 3 07/30/2023 sotalol (Betapace) 80 mg tablet Take 1 tablet (80 mg) by mouth in the morning and at bedtime. 60 tablet 11 07/31/2023 Review of Systems All other systems reviewed and are negative. Physical Exam Vitals reviewed. HENT: Mouth/Throat: Mouth: Mucous membranes are moist. Pharynx: Oropharynx is clear. Eyes: Extraocular Movements: Extraocular movements intact. Conjunctiva/sclera: Conjunctivae normal. Cardiovascular: Rate and Rhythm: Normal rate. Pulses: Normal pulses. Pulmonary: Effort: Pulmonary effort is normal. Abdominal: General: Abdomen is flat. Musculoskeletal: General: Normal range of motion. Skin: General: Skin is warm. Capillary Refill: Capillary refill takes less than 2 seconds. Neurological: General: No focal deficit present. Mental Status: She is alert. Mental status is at baseline. Psychiatric: Mood and Affect: Mood normal. Last Recorded Vitals Blood pressure 131/64, pulse 60, resp. rate 16, SpO2 98 %. Relevant Results Reviewed Assessment/Plan Active Problems: Arrhythmogenic right ventricular cardiomyopathy (CMS/HCC) Conduction disorder of the heart Assessment and Plan: Arrhythmogenic right ventricular cardiomyopathy (CMS/HCC) On sotalol 80 mg twice daily Automatic implantable cardioverter-defibrillator in situ -Recent device check 11/01/2022 shows RV pacing less than 1%, increase in output from 3.5 V to 4 V. BILL now Will proceed with gen change and add atrial lead. Essential hypertension -Blood pressure stable, continue lisinopril 10 mg twice daily and amlodipine 5 mg daily Saud Thompson DO, MPH Service And Repair Supervisor [facility] NURSNOTEon 07-31-2023 NURSNOTE RN educated pt on d/ c instructions. RN encouraged pt to voice any questions or concerns. Pt verbalizes no questions or concerns at this time. Pt was wheeled off of unit with all of belongings. [facility] NURSNOTE CHG wipes and betadi ne nasal swabs completed. [facility] Orders Onlyon 07-31-2023 Orders Only [id number] Gail Parra thy L 1955 F Date Provider Department Center 07/31/2023 KENNEDI MORE [facility] [place] [facility] Family History Problem Relation Age of Onset Other Mother Other Father Thyroid disease Sister Heart disease Mother's Sister Family Status - Relation Status Age at Mother Father Sister Mother's Sister [facility] Orders Onlyon 07-24-2023 Orders Only [id number] Gail Parra thy L 1955 F Date Provider Department Center 07/24/2023 KENNEDI MORE [facility] [place] [facility] Family History Problem Relation Age of Onset Other Mother Other Father Thyroid disease Sister Heart disease Mother's Sister Family Status - Relation Status Age at Mother Father Sister Mother's Sister [facility] Outside Hospital Correspo ndenceon 06-21-2023 Outside [facility] Correspondence [id number]#1.00TIFF [facility] Outside [facility] Correspondence [id number]#1.00TIFF [facility] RAD - MISCon 06-21-2023 RAD - MISC [id number]#1.00TIFF [facility] Provider Letteron 06-20-2023 Provider Letter June 20, 2023 KHURRAM PARRA [address] [place] [address] KHURRAM PARRA 1955 Dear Khurram, We have been trying to reach you with no success. It is important that you return our call regarding your discharge from [facility] 06/14 upon receiving this letter. Also, at the time of your call, please provide us with your current information. Thank you for your prompt attention to this matter. Sincerely, Nilesh Jean-Baptiste Comparative Sociology Professor [phone] [facility] Reminderson 06-16-2023 Reminders - From: Ileana Whiting To: [facility] - Reminders/Recalls; Sent: 06/16/2023 09:58:03 EST Show up: 04/02/2028 09:57:00 EDT Subject: Ambulatory Reminder Due Date/Time: 05/03/2028 09:57:00 EDT Reminder/Recall Entered by Ileana Whiting on June 16, 2023 09:28:49 EST 05/24/2028 5 year colon recall From: Roseline ALVARADO, Elizabeth [facility] To: Ileana Whiting; Sent: 06/15/2023 15:42:18 EST Subject: General Message Caller Name: KHURRAM PARRA; Caller Number: H , M colonoscopy 5 years [facility] Ambulatory Visit Summaryon 1 08-16-2022 Ambulatory Visit Summary KHURRAM PARRA :1955 Visit Date:06/15/2023 Ambulatory Visit Instructions Your Diagnosis Chronic diarrhea of unknown origin Bloating Abdominal cramping BMI 38.0-38.9,adult Your Care Team Attending Physician - Glenn Dukes MD Primary Care Physician - Rosangela Marin MD [...] Follow-Up Appointments Monday 4:20 PM EST With: Rosangela Marin MD Where: [facility] Alexus Normal [facility] Gastroenterology Office/Clin ic Noteon 06-15-2023 Gastroenterology Office/Clinic Note Chief Complaint chronic diarrhea with associated abdominal cramps HPI Staff Patient is a 67 year old female who presents today for a follow up to EGD & Colonoscopy on 05/24/23 w/Dr. Dukes. She would like to discuss the Flagyl that was prescribed by the DIGITAL SERVICE ENGINEER after her stool testing came back. Was [...] n/v over the weekend, was admitted to [facility], had a CT abdomen that was [...] capsule, 4 (more content not included)... Normal [facility] Comment on above: Result Comment: Elec tronically Signed By: Roseline ALVARADO, Glenn Ramos\.br\Date and Time Signed: 06/15/23 15:45 EST ED Note-Physicianon 06-12-20 ED Note-Physician [id number]#1.00TIFF [facility] Outside Hospital Correspo ndenceon 06-12-2023 Outside [facility] Correspondence [id number]#1.00TIFF [facility] RAD - CT Reporton 06-12-2023 RAD - CT Report [id number]#1.00TIFF [facility] RAD - MISCon 06-12-2023 RAD - MISC [id number]#1.00TIFF [facility] Office Visiton 06-06-2023 Follow-up visit [id number] Gail Parra thy L 1955 F Date Provider Department Center 06/06/2023 Haylie-DEVAN PERKINS [facility] Family History Problem Relation Age of Onset Other Mother Other Father Thyroid disease Sister Heart disease Mother's Sister Family Status - Relation Status Age at Mother Father Sister Mother's Sister Level of Service:80765 [place] OFFICE/OUTPATIENT ESTABLISHED MOD MDM 30-39 MIN Normal [facility] Giardia, Direct, EIAon 05-31 G. lamblia Ag IA Ql (Stl) Negative Invalid Interpretation Code Negative [facility] Comment on above: Result Comment: Perf ormed at: [address] [id number] PhD Marietta Dee Performed By: #### 3 [id number], [id number], [id number], [id number], [id number], [id number] ####[facility] [address] [place] [address] IntraOperative Documentson 1 07-31-2022 IntraOperative Documents [id number]#1.00TIFF Normal [facility] O & P EXAM, ROUTINE, REFLEXo n 05-31-2023 Ova and parasites identified Concentration Nom (Stl) Comment Invalid Interpretation Code [facility] Comment on above: Result Comment: No o va, cysts, or parasites seen. One negative specimen does not rule out the possibility of a parasitic infection. Performed at: [address] [id number] PhD Marietta Dee Performed By: #### 3 [id number], [id number], [id number], [id number], [id number], [id number], [id number], [id number] ####[facility] [address] [place] [address] O & P Exam, Routineon 2022 Ova and parasites identified LM Nom (Unsp spec) Final report Invalid Interpretation Code [facility] Comment on above: Result Comment: Thes e results were obtained using wet preparation(s) and trichrome stained smear. This test does not include testing for Cryptosporidium parvum, Cyclospora, or Microsporidia. Performed at: [address] [id number] PhD Marietta Dee Performed By: #### 3 [id number], [id number], [id number], [id number], [id number], [id number], [id number], [id number] ####[facility] [address] [place] [address] Pancreatic Elastase, Fecalon 05-31-2023 Elastase.pancreatic (Stl) [Mass/Mass] 229 Invalid Interpretation Code >200 [facility] Comment on above: Result Comment: Clare re Pancreatic Insufficiency: <100 Moderate Pancreatic Insufficiency: 100 - 200 Normal: >200 Performed at: [facility] [id number] MD Lebron Wheat Performed By: #### 3 [id number], [id number], [id number], [id number], [id number], [id number], [id number], [id number] ####[facility] [address] [place] [address] Progress Note-Physicianon Progress Note-Physician Patient: KHURRAM PARRA Age: 67 years Sex: Female : 1955 Associated Diagnoses: None Author: MD Satinder, Charles Kincaid Postoperative Information Postoperative disposition: Postoperative disposition: To PACU. Optimetrix number: Optimetrix number [id number]. Anesthetic utilized: General. Health Status Allergies: Allergic [...] when meets criteria ( To home ). Normal [facility] Comment on above: Result Comment: Elec tronically Signed By: MD Rajan Ahmad F\.br\Date and Time Signed: 05/30/23 16:22 EST Progress Note-Physician Patient: KHURRAM PARRA Age: 67 years Sex: Female : 1955 Associated Diagnoses: None Author: MD Satinder, Charles Kincaid Preoperative Information Time patient last ate or [...] Inhalation, q6hr, 18 gm, Refill(s) 0, NEEDED, [facility], 169, cm, 04/18/23 13:06:00 EDT, Height/Length Dosing, 115.8, kg, 04/18/23 13:06:00 EDT, Weight Dosing Align 4 mg oral capsule: 4 mg = 1 cap(s), Oral, Daily, Take after completing the Antibiotics course, X 28 day(s), # 28 cap(s), Refills(s) 0, Pharmacy: [facility], 169, cm, 05/05/23 9:58:00 EDT, Height/Length Dosing, 116.8, kg, 05/05/23 9:58:00 EDT, Weight Dosing albuterol 0.083% Inh Beti 3 mL: 2.5 mg, 3 mL, NEB, q6hr Shortness of breath or wheezing, 300 mL, Refill(s) 0, [facility], 169, cm, 04/18/23 13:06:00 EDT, Height/Length Dosing, 115.8, kg, 04/18/23 13:06:00 EDT, Weight Dosing cholestyramine 4 g/5 g Oral Pwdr: 1 packet(s), Oral, TID, 90 EA, Refill(s) 0, [facility]29, 169, cm, 04/18/23 13:06:00 EDT, Height/Length Dosing, 115.8, kg, 04/18/23 13:06:00 EDT, Weight Dosing levothyroxine 50 mcg (0.05 mg) Tab: 50 mcg = 1 tab(s), Oral, Daily, # 90 tab(s), Refills(s) 1, Pharmacy: [facility], 169, cm, 04/18/23 13:06:00 EDT, [...] list: All Problems Anemia / SNOMED CT 922030212 / Confirmed Arthritis / SNOMED CT 9842664 / Confirmed Asthma / SNOMED CT 045543218 / Confirmed Persistent atrial fibrillation / SNOMED CT 6971094297 / Confirmed Kidney stone / SNOMED CT 215973350 / Confirmed Retained ureteral stent / SNOMED CT 9766338362 / Confirmed Stress incontinence / SNOMED CT 561718115 / Confirmed Gross hematuria / SNOMED CT 256343268 / Confirmed Dysuria / SNOMED CT 65753864 / Confirmed Frequency of urination / SNOMED CT 164063170 / Confirmed Nocturia / SNOMED CT 856005477 / Confirmed Urgency of urination / SNOMED CT 351761713 / Confirmed Anticoagulated / SNOMED CT 311433501 / Confirmed Abdominal pain / SNOMED CT 05990111 / Confirmed BMI 40.0-44.9, adult / SNOMED CT 4858400660 / Confirmed Right ureteral stone / SNOMED CT 52673002 / Confirmed Cardiomyopathy / ICD-10-CM I42.9 / Confirmed COPD (chronic obstructive pulmonary disease) / SNOMED CT 37398340 / Confirmed Radiculopathy of cervical spine / SNOMED CT 412460295 / Confirmed Andreina's thyroiditis / SNOMED CT 37689512 / Confirmed Hemorrhoids / SNOMED CT 218267481 / Confirmed Osteoporosis / SNOMED CT 126217900 / Confirmed COVID pneumonia / SNOMED CT 9228415731 / Confirmed GERD (gastroesophageal reflux disease) / SNOMED CT 865286818 / Confirmed Hip pain, right / SNOMED CT 41152819 / Confirmed Chronic diarrhea of unknown origin / SNOMED CT 65113163 / Confirmed Stage 3a chronic kidney disease (CKD) / SNOMED CT 5978513365 / Confirmed Polycythemia / SNOMED CT 156620 / Confirmed Bloating / SNOMED CT 270584054 / Confirmed Abdominal cramping / SNOMED CT 524509609 / Confirmed Rectal pain / SNOMED CT 403125984 / Confirmed Canceled: Morbid obesity with body mass index (BMI) of 40.0 to 49.9 / SNOMED CT 066294628 Histories Past Medical History: No active or resolved past medical history items have been selected or recorded. Family History: Hypertension Mother Procedure history: Colonoscopy ([id number]) on 05/24/2023 at 67 Years. Esophagogastroduodenoscopy ([id number]) on 05/24/2023 at 67 Years. Rt ESWL ([id number] (more content not included)... Normal [facility] Comment on above: Result Comment: Elec tronically Signed By: MD Satinder, Charles Kincaid\.br\Date and Time Signed: 05/30/23 16:20 EST Consenton 05-26-2023 Consent [id number]#1.00TIFF Normal [facility] Discharge Instructionson Discharge Instructions [id number]#1.00TIFF Normal [facility] Main OR Intraoperative Recor don 05-26-2023 Main OR Intraoperative Record IntraOp Document Type FT Summary Primary Physician: Glenn Dukes MD Finalized Date/Time: 05/26/23 14:17:06 Pt. Name: KHURRAM PARRA Levi Conley/Sex: 1955 Female Med Rec #: [id number] Physician: Glenn Dukes MD Financial #: [id number] Pt. Type: O Room/Bed: / Admit/Disch: 05/24/23 12:51:53 - 05/24/23 23:59:59 Institution: Case Times FT Entry 1 Patient Times In Room 05/24/23 14:06:00 Out Room 05/24/23 14:55:00 Procedure Times Start 05/24/23 14:12:00 Stop 05/24/23 14:51:00 Anesthesia Times Start 05/24/23 14:06:00 Stop 05/24/23 14:55:00 Time at [facility] 05/24/23 14:23:00 Last Modified By: Mandy RN, Анна Lockwood 05/24/23 14:55:55 General Comments: 1416 EGD completed/KS,RN 1420 Colonoscopy began/KS,RN 05/26/23 chart opened for charge review per Lynsey Mark RN. MN Case Attendance FT Entry 1 Entry 2 Entry 3 Case Attendee Angel Luis EUBANKS, Francesco Galvan RN, Анна Contreras OUTSIDE MACHINIST HELPERAnusha Role Performed Anesthesiologist Environmental Officer - Primary Scrub - Primary Clinical Psychology Professor Time In 05/24/23 14:06:00 05/24/23 14:06:00 05/24/23 14:06:00 Time Out 05/24/23 14:55:00 05/24/23 14:55:00 05/24/23 14:55:00 Procedure EGD AND COLONOSCOPY(.) EGD AND COLONOSCOPY(.) EGD AND COLONOSCOPY(.) Comments Dr. Ley supervising procedure. Last Modified By: Mandy RN, Анна N MandyАнна carrera RN, RN, Kara N 05/24/23 14:55:56 05/24/23 14:55:56 05/24/23 14:55:56 Entry 4 Case Attendee Glenn Dueks MD Role Performed Surgeon - Primary Time [...] (If Applicable) PreOp Antibiotic No Time Out Francesco Guardado, Given Participants Анна Galvan RN, Glenn Dukes MD, Schafer CST, Alexandria M Time Out Complete 05/24/23 14:08:00 Outcomes Met? [...] colon biopsy. Primary Procedure Yes Primary Surgeon Glenn Dukes MD Start 05/24/23 14:12:00 Stop 05/24/23 14:51:00 Anesthesia [...] and tissue Entry 1 Skin Integrity Intact, Eva, Warm, and Skin Abnormality No Dry Outcomes Met? Yes Last Modified By: Анна Galvan RN 05/24/23 14:10:22 Post-Care Text: The patient is free from signs and symptoms of injury caused by extraneous objects Patient Positioning FT Pre-Care Text: Identifies physical alterations that require additional precautions for proc (more content not included)... [facility] Postoperative Documentson Postoperative Documents [id number]#1.00TIFF [facility] Consent for Treatmenton 05-04 Consent for Treatment [id number]#1.00TIFF [facility] Discharge Instructionson Discharge Instructions KHURRAM PARRA :1955 Visit Date:05/24/2023 Inpatient Discharge Instructions Your [...] Persistent or heavy bleeding Pharmacy Information Other: [facility] Discharge Instructions Discharge Instructions New Follow Up [...] (inflammation) of (more content not included)... Normal [facility] Comment on above: Result Comment: Elec tronically Signed By: Yamile Bey.heather\Date and Time Signed: 05/24/23 15:07 EST Endoscopic [...] 5. Normal terminal ileum Images Procedure images: Rec1_hd_video__T14_ 57_00_721.jpg Rec1_hd_video__T14_ 52_08_715.jpg Rec1_hd_video___ 52_00_328.jpg Rec1_hd_video__4_ 42_31_662.jpg Rec1_hd_video__ 34_03_828.jpg Rec1_hd_video___ 31_03_075.jpg Rec1_hd_video___ 29_33_368.jpg . Post-Procedure Complications: none. Estimated blood [...] hours. Education and Follow-up: Counseled: Patient, Family. [facility] Comment on above: Result Comment: Elec tronically Signed By: Roseline ALVARADO, Glenn Ramos\.br\Date and Time Signed: 05/24/23 14:55 EST Other Comment: Brittany love Attachment - attachment storage system not supported [id number] Can be viewed in source systemMissing Attachment - attachment storage system not supported [id number] Can be viewed in source systemMissing Attachment - attachment storage system not supported [id number] Can be viewed in source systemMissing Attachment - attachment storage system not supported 1050427 Can be viewed in source systemMissing Attachment - attachment storage system not supported [id number] Can be viewed in source systemMissing Attachment - attachment storage system not supported 4994764 Can be viewed in source systemMissing Attachment - attachment storage system not supported 1081625 Can be viewed in source system Endoscopic [...] in 1-2 after discharge -Avoid NSAIDs Normal [facility] Comment on above: Result Comment: Elec tronically Signed By: Glenn Dukes MD\.br\Date and Time Signed: 05/24/23 14:19 EST Inpatient Patient Summaryon 05-24-2023 Inpatient Patient Summary [place] [address] [facility] Clinical Discharge Instructions PERSON INFORMATION Name: KHURRAM [...] tab By Mouth every day. prophylaxis. Comment: Ernesto Juan Carlos [facility] Main OR PACU I Recordon 05-04 Main OR PACU I Record PACU Phase I Document Type FT Summary Primary Physician: Glenn Dukes MD Finalized Date/Time: 05/24/23 15:55:52 Pt. Name: CARLEENVICENTEKHURRAM/Sex: 1955 Female Med Rec #: [id number] Physician: Glenn Dukes MD Financial #: [id number] Pt. Type: O Room/Bed: / Admit/Disch: 05/24/23 [...] Yamile Bey I 05/24/23 15:55:47 Finalized By: Yamile Bey I Document Signatures Signed By: Yamile Bey I 05/24/23 15:55 Normal [facility] Main OR Preoperative Recordo n 05-24-2023 Main OR Preoperative Record Holding Area Document Type FT Summary Primary Physician: Glenn Dukes MD Finalized Date/Time: 05/24/23 13:44:12 Pt. Name: KHURRAM PARRA/Sex: 1955 Female Med Rec #: [id number] Physician: Glenn Dukes MD Financial #: [id number] Pt. Type: O Room/Bed: / Admit/Disch: 05/24/23 [...] By: Juan Zurita RN 05/24/23 13:44 Normal [facility] Monitor Recordon 05-24-2023 Monitor Record [id number]#1.00TIFF Normal [facility] Monitor Record [id number]#1.00TIFF [facility] Outpatient Surgery Discharge Instructionon 05-24-2023 Outpatient Surgery Discharge Instruction [place] [id number] Patient Discharge Instructions PERSON INFORMATION Name: JES PARRAEvangelina Sims Date of : 1955 Current Date: 05/24/2023 [...] Tracy You may receive a survey from [employer] asking you to rate your care experience. Your feedback is important and will help us understand what we do well and how we can improve the quality of care we provide to you, your loved ones and our community. It?s an honor to serve you. Thank you for choosing [facility] HERE ARE THE MEDICATION CHANGES THAT OCCURRED [...] prophylaxis. PATIENT EDUCATION INFORMATION Instructions: Medication Leaflets: [facility] Progress Note-Physicianon Progress Note-Physician Patient: KHURRAM [...] Inhalation, q6hr, 18 gm, Refill(s) 0, NEEDED, [facility], 169, cm, 04/18/23 13:06:00 EDT, Height/Length Dosing, 115.8, kg, 04/18/23 13:06:00 EDT, Weight Dosing Align 4 mg oral capsule: 4 mg = 1 cap(s), Oral, Daily, Take after completing the Antibiotics course, X 28 day(s), # 28 cap(s), Refills(s) 0, Pharmacy: [facility], 169, cm, 05/05/23 9:58:00 EDT, Height/Length Dosing, 116.8, kg, 05/05/23 9:58:00 EDT, Weight Dosing Flagyl 250 mg Tab: 250 mg = 1 tab(s), Oral, TID, do not drink alcohol may take with food to minimize abdominal discomfort, X 7 day(s), # 21 tab(s), Refills(s) 0, Pharmacy: [facility], 169, cm, 05/05/23 9:58:00 EDT, Height/Length Dosing, 116.8, kg, 05/05/23... albuterol 0.083% Inh Beti 3 mL: 2.5 mg, 3 mL, NEB, q6hr Shortness of breath or wheezing, 300 mL, Refill(s) 0, [facility], 169, cm, 04/18/23 13:06:00 EDT, Height/Length Dosing, 115.8, kg, 04/18/23 13:06:00 EDT, Weight Dosing cholestyramine 4 g/5 g Oral Pwdr: 1 packet(s), Oral, TID, 90 EA, Refill(s) 0, [facility], 169, cm, 04/18/23 13:06:00 EDT, Height/Length Dosing, 115.8, kg, 04/18/23 13:06:00 EDT, Weight Dosing levothyroxine 50 mcg (0.05 mg) Tab: 50 mcg = 1 tab(s), Oral, Daily, # 90 tab(s), Refills(s) 1, Pharmacy: [facility], 169, cm, 04/18/23 13:06:00 EDT, [...] All Problems Abdominal cramping / SNOMED CT 597351007 / Confirmed Abdominal pain / SNOMED CT 68527718 / Confirmed Anemia / SNOMED CT 845591593 / Confirmed Anticoagulated / SNOMED CT 298892691 / Confirmed Arthritis / SNOMED CT 1510642 / Confirmed Asthma / SNOMED CT 773402751 / Confirmed Bloating / SNOMED CT 673390099 / Confirmed BMI 40.0-44.9, adult / SNOMED CT 6852702238 / Confirmed Cardiomyopathy / ICD-10-CM I42.9 / Confirmed Chronic diarrhea of unknown origin / SNOMED CT 38432306 / Confirmed COPD (chronic obstructive pulmonary disease) / SNOMED CT (more content not included)... Normal [facility] Comment on above: Result Comment: Elec tronically Signed By: Rex Flores DO.heather\Date and Time Signed: 05/24/23 13:17 EST C. [...] samples in close time sequence. Normal Negative [facility] Comment on above: Result Comment: This test result should be correlated with clinical presentations and medical history by a healthcare provider to determine its clinical significance.\.br\.br\ Other Comment: Order added by Discern Expert. Clostridium difficile by PCR Negative Normal Negative [facility] Comment on above: Order Comment: Order added by Discern Expert. Result Comment: This test result should be correlated with clinical presentations and medical history by a healthcare provider to determine its clinical significance. Performed By: #### 3 4554246, [id number], 917959204, 9752648942, 41744931, 0692962045, 18395969, 24567661 ####[facility] [address] [place] [address] CDiff PCRon 05-20-2023 CDiff PCR Specimen has been fo und to be acceptable for C. difficile testing. Normal [facility] Cdiff Specimen Acceptable Acceptable Normal [facility] Comment on above: Performed By: #### 3 1777369, [id number], 289246336, 0555892199, 71330996, 6820362320, 37702343, 51784023 ####[facility] [address] [place] [address] Order Cancelled No, PCR to follow Normal [facility] Comment on above: Performed By: #### 3 5485654, [id number], 787505292, 5810757466, 46595497, 4749491061, 18745861, 36606099 ####[facility] [address] [place] [address] Enteric Panel by PCRon 05-20 C. coli+jejuni+upsalie nsis DNA TOM+non-probe Ql (Stl) Not detected Normal [facility] Comment on above: Result Comment: Test ing was performed utilizing reverse roasterman (RT), polymerase chain reaction (PCR), and array [...] GI/GII, and Yersinia enterocolitica were tested by [employer] nulcleic acid test. Performed By: #### 3 7737237, [id number], 642597255, 8311254158, 84670446, 8691575897, 06528810, 55867986 ####[facility] [address] [place] [address] E. coli stx1+stx2 genes TOM+non-probe Ql (Stl) Negative [facility] Comment on above: Performed By: #### 3 1683987, 8438085836, 828092378, 6632621990, 46630595, 6580044974, 42491175, 83747392 ####[facility] [address] [place] [address] Enteric Panel by PCR Negative [facility] Enteric Panel Intrl QC Pass [facility] Comment on above: Result Comment: Test ing was performed utilizing reverse roasterman (RT), polymerase chain reaction (PCR), and array [...] 1 and 2. Performed By: #### 3 6403591, 7751306191, 806271454, 7486582103, 26981047, 7847449801, 23659278, 28273785 ####[facility] [address] [place] [address] Norovirus genogroup I+II RNA TOM+non-probe Ql (Stl) Not detected Normal [facility] Comment on above: Performed By: #### 3 4484664, 8541682298, 342455631, 3157835792, 72721171, 3124644575, 29640259, 24875506 ####[place] [address] [place] [address] Rotavirus A RNA TOM+non-probe Ql (Stl) Not detected Normal [facility] Comment on above: Performed By: #### 3 5728710, 8826757510, 576482708, 0533915745, 98484137, 0755697628, 10978373, 35109395 ####[facility] [address] [place] [address] S. enterica+bongori DNA TOM+non-probe Ql (Stl) Not detected Normal [facility] Comment on above: Result Comment: This test result should be correlated with clinical presentations and medical history by a healthcare provider to determine its clinical significance. Performed By: #### 3 1348597, 3065313385, 857423391, 0320844466, 35058959, 5806430895, 88435271, 14000133 ####[place] [address] [place] [address] Shigella species+EIEC invasion plasmid antigen H ipaH gene TOM+non-probe Ql (Stl) Not detected Normal [facility] Comment on above: Performed By: #### 3 9938410, 8897500270, 915479307, 0787881366, 90098320, 1908254373, 92376606, 89279077 ####[facility] [address] [place] [address] V. cholerae+parahaemol yticus+vulnificus DNA TOM+non-probe Ql (Stl) Not detected Normal [facility] Comment on above: Performed By: #### 3 4905115, 5153426226, 996358854, 3178779708, 35800304, 6223750269, 79638363, 65447702 ####[facility] [address] [place] [address] Y. enterocolitica DNA TOM+non-probe Ql (Stl) Not detected Normal [facility] Comment on above: Performed By: #### 3 9069166, 0430625586, 508621911, 2287473720, 96624888, 8768605334, 76108163, 37660048 ####[facility] [address] [place] [address] Fecal WBC Lactoferrinon 05-03 Lactoferrin Ql (Stl) Positive Abnormal Negative [facility] Comment on above: Result Comment: The semi-quantitative detection of elevated levels of fecal lactoferrin is a marker for fecal leukocytes and an indication of intestinal inflammation. Performed By: #### 3 9199348, 5101422550, 377939589, 1757948823, 15745317, 6602052372, 54272227, 24261356 ####[facility] [address] [place] [address] Consultation Noteon 05-09-20 Consultation Note [id number]#1.00TIFF Normal [facility] Insurance Correspondenceon 1 07-09-2022 Insurance Correspondence [id number]#1.00TIFF Normal [facility] Celiac Disease Comprehensive on 05-08-2023 Endomysium IgA Ql (S) Negative Invalid Interpretation Code Negative [facility] Comment on above: Performed By: #### 1 [id number] ####[facility] [address] [place] [address] Gliadin peptide IgA Qn (S) 4 unit(s) Invalid Interpretation Code 0-19 [facility] Comment on above: Result Comment: Nega tive 0 - 19 Weak Positive 20 - 30 Moderate to Strong Positive >30 Performed By: #### 1 [id number] ####[facility] [address] [place] [address] Gliadin peptide IgG Qn (S) 3 unit(s) Invalid Interpretation Code 0-19 [facility] Comment on above: Result Comment: Nega tive 0 - 19 Weak Positive 20 - 30 Moderate to Strong Positive >30 Performed By: #### 1 [id number] ####[facility] [address] [place] [address] IgA [Mass/Vol] 213 mg/dL Invalid Interpretation Code 87-352 [facility] Comment on above: Result Comment: Perf ormed at: [facility] [address] [id number] PhD [place] Dee Performed By: #### 1 [id number] ####[facility] [address] [place] [address] tTG IgA Qn (S) <2 Invalid Interpretation Code 0-3 [facility] Comment on above: Result Comment: Nega tive 0 - 3 Weak Positive 4 - 10 Positive >10 Tissue Transglutaminase (tTG) has been identified as the endomysial antigen. Studies have demonstr- ated that endomysial IgA antibodies have over 99% specificity for gluten sensitive enteropathy. Performed By: #### 1 [id number] ####[facility] [address] [place] [address] tTG IgG Qn (S) <2 Invalid Interpretation Code 0-5 [facility] Comment on above: Result Comment: Nega tive 0 - 5 Weak Positive 6 - 9 Positive >9 Performed By: #### 1 [id number] ####[facility] [address] [place] [address] Consent for Procedure/Surger yon 05-08-2023 Consent for Procedure/Surgery [id number]#1.00TIFF Ernesto Rangel [facility] Ambulatory Visit Summaryon 1 07-05-2022 Ambulatory Visit Summary KHURRAM PARRA :1955 Visit Date:05/05/2023 Ambulatory Visit Instructions Your Diagnosis Chronic diarrhea of unknown origin Bloating Abdominal cramping Rectal pain Your Care Team Attending Physician - Rosemarie Jansen CNP Primary Care Physician - Rosangela Marin MD [...] Nurse collect, Chronic diarrhea of unknown origin [facility] Consent for Treatmenton Consent for Treatment [id number]#1.00TIFF [facility] Gastroenterology Office/Clin ic Noteon 05-05-2023 Gastroenterology Office/Clinic [...] Abdominal pain (more content not included)... Normal [facility] Comment on above: Result Comment: Elec tronically Signed By: Rosemarie Jansen CNP\.br\Date and Time Signed: 05/05/23 10:22 EDT Patient Educationon 05-05-20 23 Patient Education Infectious Disease Diarrhea, Adult Diarrhea [...] oral rehydration solution (ORS). This is an qoxk-ycr-ltikmzj medicine that helps return your body to [...] sports drinks, and soda. ? Eat bland, qpvf-xt-kvdpec foods in small amounts as you are able. These foods include bananas, applesauce, rice, lean meats, toast, and crackers. ? Avoid alcohol. ? Avoid spicy or fatty foods. Medicines ? Take tztz-ptq-enayrvo and prescription medicines only as told by your health care provider. ? If you were prescribed an antibiotic medicine, take it as told by your health care provider. Do not stop using the antibiotic even if you start to feel better. General instructions ? Wash your hands often using soap and water. If soap and water are not available, use a hand register of wills. Others in the household should wash their [...] and water are not available, use hand register of wills. ? Contact a health care provider if your diarrhea gets worse or you have new symptoms. ? Get help right away if you have signs of dehydration. This information is not intended to replace advice given to you by your health care provider. Make sure you discuss any questions you have with your health care provider. Document Revised: 12/29/2021 Document Reviewed: 12/29/2021 [employer] Patient Education ? 2022 [employer]. [facility] BD Bone Density DEXAon 04-29 BD Bone [...] Stoner MD Transcribed by: SUNNI Technologist: MARTA [facility] Consent for Treatmenton 04-03 Consent for Treatment [id number]#1.00TIFF [facility] XR Hip 2-3 Views Righton XR [...] in mGy = na DAP = na Normal Rangel [facility] Ambulatory Visit Summaryon 1 Ambulatory Visit Summary KHURRAM PARRA :1955 Visit Date:04/25/2023 Ambulatory Visit Instructions Your [...] AM EDT With: Rosemarie Jansen CNP Where: [facility] Normal [facility] Formson 04-25-2023 Forms [id number]#1.00TIFF Normal [facility] Patient Educationon 04-25-20 23 Patient Education [...] ? 8 oz (237 mL) of milk, ivnhaif-zexkhndahfts-tfsiq milk, and calcium-fortifiedfruit juice. Calcium-fortified means that [...] Spinach (cooked), rhubarb, beets, sweet potatoes, and Albanian chard. ? Peanuts. ? Potato chips, paraguayan fries, and baked potatoes with skin on. ? Nuts and nut products. ? Chocolate. ? If you regularly take a diuretic medicine, make sure to eat at least 1 or 2 servings of fruits or vegetables that are high in potassium each day. These include: ? Avocado. ? Banana. ? Troup, prune, carrot, or tomato juice. ? Baked [...] fish oil, or vitamin B6. ? Take rlzs-dta-agpcyds and prescription medicines only as told by your health care provider. These include supplements. What foods should I limit? Limit your in (more content not included)... Normal [facility] Urology Office/Clinic Noteon 04-25-2023 Urology Office/Clinic Note [...] per pt. Follow-up With When Contact Information URMILA DUARTE PA-C, URL 1955 [place] [address] Additional Instructions: after [employer] completed Patient Education Dietary Guidelines to Help Prevent Kidney Stones Documentation recorded by the nicci Arteaga accurately reflects the services(s) I performed and decisions made by me. Authenticated by Urmila Duarte PA-C on 04/25/2023 11:32:32. Felisha Montaño, personally scribed for Urmila uDarte PA-C on 04/25/2023 11:21:21. . Problem List/Past [...] Never Smokel (more content not included)... Normal [facility] Comment on above: Result Comment: Elec tronically Signed By: URMILA DUARTE PA-C\.br\Date and Time Signed: 04/25/23 11:33 EDT\.br\Electronically Co-Signed By: Felisha Arteaga\.br\Date and Time Co-Signed: 04/25/23 11:21 EDT Physician Referralon 023 Physician Referral [id number]#1.00TIFF [facility] Ambulatory Visit Summaryon 1 Ambulatory Visit Summary KHURRAM PARRA :1955 Visit Date:04/18/2023 Ambulatory Visit Instructions Your Diagnosis Hip pain, right Chronic diarrhea of unknown origin Persistent atrial fibrillation Cardiomyopathy, unspecified type COPD (chronic obstructive pulmonary disease) BMI 40.0-44.9, adult Class 3 obesity, Morbid obesity with body mass index (BMI) of 40.0 to 49.9 Osteoporosis Your Care Team Attending Physician - Rosangela Marin MD Primary Care Physician - Rosangela Marin MD [...] URMILA DUARTE PA-C Where: [facility] Invalid Interpretation Code Chronic diarrhea of unknown origin [facility] Auto Diffon 04-18-2023 Basophils/100 WBC (Bld) 0.6 % Normal 0.0-2.0 [facility] Comment on above: Order Comment: Order Added by Discern Expert. Performed By: #### 2 053508, 48655256, 2915135, 04912902, 9907867, 6731374 ####[facility] [address] [place] [address] Basophils/Leukocyte s Auto (Bld) [Pure # fraction] 0.1 E9/L Normal 0.0-0.2 [facility] Comment on above: Order Comment: Order Added by Discern Expert. Performed By: #### 2 281533, 00350794, 2136011, 89427628, 1759545, 0379624 ####[facility] [address] [place] [address] Eosinophils/100 WBC (Bld) 2.8 % Normal 0.0-8.0 [facility] Comment on above: Order Comment: Order Added by Discern Expert. Performed By: #### 2 308597, 49721991, 3685162, 71614223, 8692357, 0453401 ####[facility] [address] [place] [address] Eosinophils/Leukocy mo Auto (Bld) [Pure # fraction] 0.3 E9/L Normal 0.0-0.5 [facility] Comment on above: Order Comment: Order Added by Discern Expert. Performed By: #### 2 802068, 84241165, 9814429, 26233199, 4817150, 2965116 ####[place] [address] [place] [address] Lymphocytes/100 WBC (Bld) 9.6 % Low 14.0-50.0 [facility] Comment on above: Order Comment: Order Added by Discern Expert. Performed By: #### 2 165540, 45974798, 2040172, 94075301, 1233759, 4783253 ####[address] [address] Lymphocytes/Leukocy mo Auto (Bld) [Pure # fraction] 1.0 E9/L Normal 1.0-4.0 [facility] Comment on above: Order Comment: Order Added by Discern Expert. Performed By: #### 2 131121, 75363622, 7558771, 26158622, 7133790, 1637438 ####[address] [address] Monocytes/100 WBC (Bld) 11.5 % Normal 4.0-14.0 [facility] Comment on above: Order Comment: Order Added by Discern Expert. Performed By: #### 2 684308, 37550290, 9315745, 31985532, 4680690, 4338900 ####[place] [address] [place] [address] Monocytes/Leukocyte s Auto (Bld) [Pure # fraction] 1.2 E9/L High 0.2-1.0 [facility] Comment on above: Order Comment: Order Added by Discern Expert. Performed By: #### 2 833089, 89809570, 6201942, 66599239, 0270913, 9811199 ####[facility] [address] [place] [address] Neutrophils/100 WBC (Bld) 75.5 % High 36.0-75.0 [facility] Comment on above: Order Comment: Order Added by Discern Expert. Performed By: #### 2 353304, 70081175, 5291483, 45615525, 8971133, 3080490 ####[facility] [address] [place] [address] Neutrophils/Leukocy mo Auto (Bld) [Pure # fraction] 8.0 E9/L High 2.0-7.5 [facility] Comment on above: Order Comment: Order Added by Discern Expert. Performed By: #### 2 665358, 75706047, 2643944, 04404355, 1423008, 6885777 ####[address] [address] CBC w/ Auto Diffon Erythrocyte distribution width (RBC) [Ratio] 14.6 % High 10.9-14.2 [facility] Comment on above: Performed By: #### 2 055416, 23636140, 7351328, 76662194, 6241444, 4674878 ####[place] [address] [place] [address] Hematocrit (Bld) [Volume fraction] 47.7 % High 34.0-46.0 [facility] Comment on above: Performed By: #### 2 633209, 01354841, 8299433, 37273104, 0568826, 8698846 ####[facility] [address] [place] [address] Hemoglobin (Bld) [Mass/Vol] 15.8 g/dL Normal 12.0-16.0 [facility] Comment on above: Performed By: #### 2 341426, 24515562, 2720151, 85822128, 0677792, 8590732 ####[place] [address] [place] [address] MCH (RBC) [Entitic mass] 32.4 pg Normal 27.0-34.0 [facility] Comment on above: Performed By: #### 2 875287, 64005859, 5058754, 46663509, 7134234, 3061877 ####[place] [address] [place] [address] MCHC (RBC) [Mass/Vol] 33.1 g/dL Normal 31.4-36.0 [facility] Comment on above: Performed By: #### 2 707274, [id number], 6843391, 94636546, 0573934, 6806300 ####[address] [address] MCV (RBC) [Entitic vol] 97.9 fL Normal 80.0-100.0 [facility] Comment on above: Performed By: #### 2 816577, 55816708, 3715897, 19567045, 6486160, 8221662 ####[place] [id number] Platelet mean volume (Bld) [Entitic vol] 9.0 fL Normal 6.4-10.8 [facility] Comment on above: Performed By: #### 2 046499, 24814485, 1918452, 32153401, 6636489, 9521780 ####[address] [address] Platelets (Bld) [#/Vol] 275.0 E9/L Normal 150.0-500.0 [facility] Comment on above: Performed By: #### 2 643651, 05402690, 5994436, 46027218, 9150467, 9257666 ####[address] [address] RBC (Bld) [#/Vol] 4.9 E12/L Normal 4.3-5.9 [facility] Comment on above: Performed By: #### 2 183917, 22877706, 3578581, 92950020, 4910854, 6212043 ####[address] [place] [address] WBC corrected for nucl RBC Auto (Bld) [#/Vol] 10.5 E9/L Normal 4.0-11.0 [facility] Comment on above: Result Comment: Shalonda gann reviewed by SHABANA. Performed By: #### 2 162890, 91053041, 5057282, 97856218, 9211550, 0297981 ####[facility] [address] [place] [address] CHEMISTRYOrdered By: SYSTEM SYSTEM on 04-18-2023 Albumin [...] 49 mL/min/1.73 m2 Low >=59mL/min/ 1.73 m2 [facility] Chem S Comment on above: Interpretive Data: [...] 4.4 mmol/L Normal 3.5 - 5.3 mmol/L [facility] Remisol Protein [Mass/Vol] 7.4 g/dL Normal 6.0 - 7.8 gm/dL [facility] Remisol Sodium [Moles/Vol] 142 mmol/L Normal 135 - 145 mmol/L [facility] Remisol Triglyceride [Mass/Vol] 73 mg/dL Normal <=149mg/dL [facility] Remisol TSH Qn 1.34 m[IU]/L Normal 0.34 - 5.60 mcIU/mL [facility] Remisol Urea nitrogen [Mass/Vol] 19 mg/dL Normal 5 - 21 mg/dL [facility] Remisol Urea nitrogen/Creatinine [Mass ratio] 16 mg/mg Normal 10 - 20 [facility] Remisol CMPon 04-18-2023 Albumin [Mass/Vol] 4.0 g/dL Normal 3.3-5.0 [facility] Comment on above: Performed By: #### 2 142009, 26019215, 4167969, 58297909, 2795035, 7193647 ####[facility] [address] [place] [address] Albumin/Globulin (S) [Mass conc ratio] 1.2 Normal 1.1-2.2 [facility] Comment on above: Performed By: #### 2 212699, 04166548, 0353303, 24759369, 8692468, 5178041 ####[facility] [address] [place] [address] ALP [Catalytic activity/Vol] 77 Int._Unit/L Normal 21-98 [facility] Comment on above: Performed By: #### 2 110373, 17226757, 9837553, 26205088, 8067770, 9729259 ####[facility] [address] [place] [address] ALT No additional P-5'-P [Catalytic activity/Vol] 17 Int._Unit/L Normal 6-46 [facility] Comment on above: Performed By: #### 2 696717, 07609184, 5861002, 17534591, 4058586, 1525608 ####[facility] [address] [place] [address] Anion gap [Moles/Vol] 11 mmol/L Normal 6-16 [facility] Comment on above: Performed By: #### 2 568362, 93297640, 2740314, 03850186, 9384761, 1163467 ####[facility] [address] [place] [address] AST [Catalytic activity/Vol] 20 Int._Unit/L Normal 5-43 [facility] Comment on above: Performed By: #### 2 224926, 14136122, 5408383, 74215574, 6016438, 5848381 ####[facility] [address] [place] [address] Bilirubin [Mass/Vol] 1.0 mg/dL Normal 0.0-1.1 [facility] Comment on above: Performed By: #### 2 106621, 96611022, 8921569, 31842243, 5130202, 2326273 ####[facility] [address] [place] [address] Calcium [Mass/Vol] 9.3 mg/dL Normal 8.9-11.1 [facility] Comment on above: Performed By: #### 2 704118, 61705334, 7245337, 82714251, 8084910, 7658667 ####[facility] [address] [place] [address] Chloride [Moles/Vol] 108 mmol/L Normal 101-111 [facility] Comment on above: Performed By: #### 2 864856, 09071754, 0008406, 02294927, 6040756, 4192988 ####[facility] [address] [place] [address] CO2 [Moles/Vol] 27 mmol/L Normal 21-31 [facility] Comment on above: Performed By: #### 2 915017, 22899775, 0257180, 27912954, 9483152, 9098588 ####[facility] [address] [place] [address] Creatinine [Mass/Vol] 1.2 mg/dL Normal 0.5-1.3 [facility] Comment on above: Performed By: #### 2 491575, 92120885, 0852562, 34724870, 6562619, 1091466 ####[facility] [address] [place] [address] Globulin (S) [Mass/Vol] 3.4 g/dL Normal 1.4-4.0 [facility] Comment on above: Performed By: #### 2 465733, 32156184, 8075000, 93361887, 6195205, 6565716 ####[facility] [address] [place] [address] Glucose [Mass/Vol] 105 mg/dL Normal 55-199 [facility] Comment on above: Result Comment: If t his glucose result represents a fasting glucose, interpretation should refer to the following reference range: 55-99 mg/dL Performed By: #### 2 413953, 55460284, 0814914, 76227473, 5361199, 9211059 ####[facility] [address] [place] [address] Potassium [Moles/Vol] 4.4 mmol/L Normal 3.5-5.3 [facility] Comment on above: Performed By: #### 2 098880, 89897794, 0791056, 79599926, 4570951, 6445506 ####[facility] [address] [place] [address] Protein [Mass/Vol] 7.4 g/dL Normal 6.0-7.8 [facility] Comment on above: Performed By: #### 2 446828, 13995973, 2021467, 13413105, 5092862, 5068183 ####[facility] [address] [place] [address] Sodium [Moles/Vol] 142 mmol/L Normal 135-145 [facility] Comment on above: Performed By: #### 2 350515, 18333082, 5825044, 95495289, 5602189, 3365213 ####[facility] [address] [place] [address] Urea nitrogen [Mass/Vol] 19 mg/dL Normal 5-21 [facility] Comment on above: Performed By: #### 2 909416, 07282599, 0644480, 62216821, 9048016, 2696749 ####[facility] [address] [place] [address] Urea nitrogen/Creatinine [Mass ratio] 16 No Units Normal 10-20 [facility] Comment on above: Performed By: #### 2 857417, 31002465, 2093067, 01215736, 4635187, 8964524 ####[facility] [address] [place] [address] Family Medicine Office/Clini c Noteon 04-18-2023 Family Medicine Office/Clinic Note HPI Staff Crawford is a 67 year old female presenting [...] CBC w/ Auto Diff Comprehensive Metabolic Panel [facility] External Ambulatory Referral [facility] Internal Ambulatory Referral Lipid Panel TSH With T4fr Reflex XR Hip 2-3 Views Right 2. Chronic diarrhea of unknown origin (K52.9: Noninfective gastroenteritis and colitis, unspecified) - Will try cholestyramine - Will refer to GI in the meantime Ordered: CBC w/ Auto Diff Comprehensive Metabolic Panel [facility] External Ambulatory Referral [facility] Internal Ambulatory Referral Lipid Panel TSH With T4fr Reflex XR Hip 2-3 Views Right 3. Persistent atrial fibrillation (I48.19: Other persistent atrial fibrillation) - Sees EP Ordered: Body Mass Index (BMI) documented 3008F CBC w/ Auto Diff Comprehensive Metabolic Panel Current tobacco non-user 1036F Depression Screening Negative 3352F [facility] External Ambulatory Referral [facility] Internal Ambulatory Referral Influenza immunization administered or [...] tobacco non-user 1036F Depression Screening Negative 3352F [facility] External Ambulatory Referral [facility] Internal Ambulatory Referral Influenza immunization administered or [...] CBC w/ Auto Diff Comprehensive Metabolic Panel [facility] External Ambulatory Referral [facility] Internal Ambulatory Referral Lipid Panel TSH With [...] with marilee (more content not included)... Normal [facility] Comment on above: Result Comment: Elec tronically Signed By: Tomas ALVARADO, Rosangela Edgar\.br\Date and Time Signed: 04/18/23 13:42 EDT HEMATOLOGYOrdered [...] 10.5 E9/L Normal 4.0 - 11.0 E9/L [facility]eAutoSS Comment on above: Result Comment: Slid e reviewed by SHABANA. Lipid Panelon 04-18-2023 Cholesterol [Mass/Vol] 151 mg/dL Normal 120-200 [facility] Comment on above: Performed By: #### 2 964836, 96518220, 3636615, 40287844, 2048892, 8292206 ####[facility] [address] [place] [address] Cholesterol in HDL [Mass/Vol] 57 mg/dL Invalid Interpretation Code [facility] Comment on above: Result Comment: HDL > or equal to 60 mg/dL: Low cardiovascular risk HDL < 40 mg/dL : High cardiovascular risk Performed By: #### 2 255436, 57827888, 6213377, 68496690, 4678248, 3101659 ####[facility] [address] [place] [address] Cholesterol in LDL [Mass/Vol] 77 mg/dL Normal <=129 [facility] Comment on above: Performed By: #### 2 791467, 00442246, 3357382, 19415640, 9355743, 7975288 ####[facility] [address] [place] [address] Cholesterol in VLDL [Mass/Vol] 15 mg/dL Normal 7-40 [facility] Comment on above: Performed By: #### 2 033503, 08709658, 5775893, 65960327, 5898181, 4344484 ####[facility] [address] [place] [address] Triglyceride [Mass/Vol] 73 mg/dL Normal <=149 [facility] Comment on above: Performed By: #### 2 227760, 29731922, 3722368, 37470335, 0037797, 8573919 ####[facility] [address] [place] [address] TSH With T4fr Reflexon 04-18 TSH Qn 1.34 m[IU]/L Normal 0.34-5.60 [facility] Comment on above: Performed By: #### 2 771163, 29616652, 8970534, 64625036, 3257310, 7001924 ####[facility] [address] [place] [address] eGFRon 04-18-2023 GFR/1.73 sq M.predicted among non-blacks MDRD (S/P/Bld) [Vol rate/Area] 49 mL/min/1.73 m2 Low >=59 [facility] Comment on above: Order Comment: Order added by Discern Expert. Result Comment: Supervisor Audit Clerks kaye kidney disease could be indicated at eGFR's of less than 60 mL/min/1.73m2. Kidney failure is indicated at less than 15 mL/min/1.73m2. Performed By: #### 2 717146, 64549653, 5173138, 50534509, 7915773, 5078509 ####[facility] [address] [place] [address] Lab Reportson 02-28-2023 Lab Reports [id number]:127 Normal [facility] Office Visiton 02-14-2023 Follow-up visit [id number] Gail Parra 1955 F Date Provider Department Center 02/14/2023 [facility]DEVAN PERKINS IRAIS [place] Family History Problem Relation Age of Onset Other Mother Other Father Thyroid disease Sister Heart disease Mother's Sister Family Status - Relation Status Age at Mother Father Sister Mother's Sister Level of Service:25156 [place] OFFICE/OUTPATIENT [facility] 60-74 MINUTES Reason for Visit and Comments: Follow-up [874190] - 3 month follow up Normal [facility] RAD - MISCon 12-23-2022 RAD - MISC [id number]#[id number]:127 Normal [facility] Formson 12-21-2022 Forms [id number]#1.00CD:127 [facility] RAD - MISCon 12-21-2022 RAD - MISC [id number]#[id number]:127 [facility] Ambulatory Visit Summaryon 0 12-20-2022 Ambulatory [...] URMILA DUARTE PA-C Where: [facility] Patient Educationon 12-21-19 Patient Education Urology Kidney Stones Kidney stones [...] these instructions at home: Medicines ? Take asry-lse-pidfwpk and prescription medicines only as told by [...] provider. Document Revised: 02/21/2022 Document Reviewed: 02/21/2022 [employer] Patient Education ? 2022 [employer]. [facility] Urology Office/Clinic Noteon 12-20-2022 Urology Office/Clinic Note Chief Complaint S/P RT ESWL HPI Staff PRW pt S/P RT ESWL 02/17/22 Last seen in office by PRW 01/28/22 due to Kidney Stone, Stress Incontinence & Rt Ureteral Stone. *No Urology Meds KUB done @ [facility] 12/17/22. They are faxing report & sending [...] E&M of Est. Patient Moderate 30-39 Min 59710 2. Stress incontinence (N39.3: Stress incontinence (female) (male)) mild, not bothersome enough to warrant treatment per pt. Ordered: E&M of Est. Patient Moderate 30-39 Min [address] Follow-up With When Contact Information KEVIN LOPES, URMILA Gann, URL Within 3 months [address] [place] [address] Additional Instructions: Patient Education Kidney Stones, Wlvg-hf-Rmko Problem List/Past Medical History Ongoing Abdominal pain [...] Cholecystectomy, Defibrillator, Hysterectomy. Medications albuterol 0.083% Inh Beti 3 mL, 2.5 [...] No. Yes, 12/20/2022 Family History Hypertension: Mother. [facility] Comment on above: Result Comment: Elec tronically Signed By: URMILA DUARTE PA-C\.br\Date and Time Signed: 12/20/22 13:12 EDT Documentationon 11-24-2022 Documentation [id number] Gail Parra thy L 1955 F Date Provider Department Center 11/24/2022 JG MONREAL [facility] Family History Problem Relation Age of Onset Other Mother Other Father Thyroid disease Sister Heart disease Mother's Sister Family Status - Relation Status Age at Mother Father Sister Mother's Sister [facility] 36on 11-21-2022 35 Let her know I will call her today,we will need ot start something new since this is improved. Apologize for the delay, was waiting on discussion with dr. Perkins -[phone] called patient , no answer, left VM with my google voice number to discuss plan [facility] Telephoneon 11-21-2022 Telephone [id number] Gail Parra thy L 1955 F Date Provider Department Center 11/21/2022 Elsi-ABIDA ALLEN [facility] Family History Problem Relation Age of Onset Other Mother Other Father Thyroid disease Sister Heart disease Mother's Sister Family Status - Relation Status Age at Mother Father Sister Mother's Sister Normal [facility] Office Visiton 11-17-2022 Follow-up visit [id number] Gail Parra thy L 1955 Provider Department Center 11/17/2022 JG MONREAL IRAIS [facility] Family History Problem Relation Age of Onset Other Mother Other Father Thyroid disease Sister Heart disease Mother's Sister Family Status - Relation Status Age at Mother Father Sister Mother's Sister Level of Service:76782 [place] OFFICE/OUTPATIENT ESTABLISHED MOD MDM 30-39 MIN Reason for Visit and Comments: Follow-up [753278] Normal [facility] Orders Onlyon 11-17-2022 Orders Only [id number] Gail Parra thy L 1955 Provider Department Center 11/17/2022 ABIDA WALKER IRAIS [facility] Family History Problem Relation Age of Onset Other Mother Other Father Thyroid disease Sister Heart disease Mother's Sister Family Status - Relation Status Age at Mother Father Sister Mother's Sister Normal [facility] FREE T4on 08-25-2022 Free T4 [Mass/Vol] 1.36 ng/dL Normal 0.76-1.46 [facility] Comment on above: Performed By: #### F T4 #### [facility] [address] [place] [address] Dr. Win Travis LIVER PROFILEon 08-25-2022 Albumin [Mass/Vol] 3.6 g/dL Normal 3.4-5.0 [facility] Comment on above: Performed By: #### L IVER #### [facility] [address] [place] [address] Dr. Win Travis Albumin/Globulin [Mass ratio] 0.9 {ratio} Normal [facility] Comment on above: Performed By: #### L IVER #### [facility] [address] [place] [address] Dr. Win Travis ALP [Catalytic activity/Vol] 109 U/L Normal 46-116 [facility] Comment on above: Performed By: #### L IVER #### [facility] [address] [address] [address] Win Travis ALT [Catalytic activity/Vol] 27 U/L Normal 14-59 [facility] Comment on above: Performed By: #### L IVER #### [facility] [address] [place] [address] Dr. Win Travis AST [Catalytic activity/Vol] 22 U/L Normal 15-37 [facility] Comment on above: Performed By: #### L IVER #### [facility] [address] [place] [address] Dr. Win Travis BILI, CONJUGATED 0.1 mg/dL Normal 0.0-0.2 [facility] Comment on above: Performed By: #### L IVER #### [facility] [address] [place] [address] Dr. Win Travis Bilirubin [Mass/Vol] 0.5 mg/dL Normal 0.2-1.0 [facility] Comment on above: Performed By: #### L IVER #### [facility] [address] [place] [address] Dr. Win Travis Globulin (S) [Mass/Vol] 4.2 g/dL Normal [facility] Comment on above: Performed By: #### L IVER #### [facility] [address] [place] [address] Dr. Win Travis Protein [Mass/Vol] 7.8 g/dL Normal 6.4-8.2 [facility] Comment on above: Performed By: #### L IVER #### [facility] [address] [place] [address] Dr. Win Travis XR CHEST 2 Von [...] LUIS BURLESON Date: 2022-08-25 14:45 Normal [facility] XR KUB 1 VIEWon 02-18-2022 XR [...] NASIMA CORREA Date: 2022-02-18 06:59 Normal [facility] Covid-19 PCR ([facility])on 01-31 SARS-CoV-2 (COVID-19) RNA TOM+probe Ql (Unsp spec) Not detected Normal NOT DETECTED [facility] Comment on above: Result Comment: When [...] for this test is supported by the [place] of Health and Human Service's declaration that [...] longer be used). Performed By: #### C VDTB #### [facility] [address] [address] [address] Win Travis CBC AUTO DIFFon 02-14-2022 BASO # 0.1 103/ul Normal 0.0-0.1 [facility] Comment on above: Performed By: #### C BC #### [facility] [address] [place] [address] Dr. Win Travis Basophils/100 WBC (Bld) 0.8 % Normal 0.2-2.0 [facility] Comment on above: Performed By: #### C BC #### [facility] [address] [place] [address] Dr. Win Travis EO # 0.2 103/ul Normal 0.0-0.7 [facility] Comment on above: Performed By: #### C BC #### [facility] [address] [place] [address] Dr. Win Travis Eosinophils/100 WBC (Bld) 1.8 % Normal 0.9-7.0 [facility] Comment on above: Performed By: #### C BC #### [facility] [address] [place] [address] Dr. Win Travis Erythrocyte distribution width (RBC) [Ratio] 14.5 % Normal 11.0-15.0 [facility] Comment on above: Performed By: #### C BC #### [facility] [address] [place] [address] Dr. Win Travis Hematocrit (Bld) [Volume fraction] 45.5 % Normal 36.0-48.0 [facility] Comment on above: Performed By: #### C BC #### [facility] [address] [place] [address] Dr. Win Travis Hemoglobin (Bld) [Mass/Vol] 15.1 g/dL Normal 12.0-16.0 [facility] Comment on above: Performed By: #### C BC #### [facility] [address] [place] [address] Dr. Win Travis IG # 0.04 10e3/ul Critically high 0.00-0.03 [facility] Comment on above: Performed By: #### C BC #### [facility] [address] [place] [address] Dr. Win Travis IG % 0.5 % Normal 0.0-0.5 [facility] Comment on above: Performed By: #### C BC #### [facility] [address] [place] [address] Dr. Win Travis LYMPH # 1.1 103/ul Critically low 1.2-3.8 [facility] Comment on above: Performed By: #### C BC #### [facility] [address] [place] [address] Dr. Win Travis Lymphocytes/100 WBC (Bld) 13.1 % Critically low 20.5-60.0 [facility] Comment on above: Performed By: #### C BC #### [facility] [address] [place] [address] Dr. Win Travis MANUAL DIFF REQ NO Normal [facility] Comment on above: Performed By: #### C BC #### [facility] [address] [place] [address] Dr. Win Travis MCH (RBC) [Entitic mass] 32.9 pg Normal 26.7-34.0 [facility] Comment on above: Performed By: #### C BC #### [facility] [address] [place] [address] Dr. Win Travis MCHC (RBC) [Mass/Vol] 33.2 g/dL Normal 29.9-35.2 [facility] Comment on above: Performed By: #### C BC #### [facility] [address] [place] [address] Dr. Win Travis MCV (RBC) [Entitic vol] 99.1 fL Critically high 81.0-99.0 [facility] Comment on above: Performed By: #### C BC #### [facility] [address] [place] [address] Dr. Win Travis MONO # 1.2 103/ul Critically high 0.3-0.8 [facility] Comment on above: Performed By: #### C BC #### [facility] [address] [place] [address] Dr. Win Travis Monocytes/100 WBC (Bld) 13.9 % Critically high 1.7-12.0 [facility] Comment on above: Performed By: #### C BC #### [facility] [address] [address] [address] Win Travis NEUT # 6.1 103/ul Normal 1.4-6.5 [facility] Comment on above: Performed By: #### C BC #### [facility] [address] [place] [address] Dr. Win Travis Neutrophils/100 WBC (Bld) 69.9 % Normal 43.0-75.0 [facility] Comment on above: Performed By: #### C BC #### [facility] [address] [place] [address] Dr. Win Travis Platelet mean volume (Bld) [Entitic vol] 9.8 fL Normal 9.5-13.5 [facility] Comment on above: Performed By: #### C BC #### [facility] [address] [place] [address] Dr. Win Travis PLT 297 103/ul Normal 150-450 [facility] Comment on above: Performed By: #### C BC #### [facility] [address] [place] [address] Dr. Win Travis RBC 4.59 106/ul Normal 4.20-5.40 [facility] Comment on above: Performed By: #### C BC #### [facility] [address] [place] [address] Dr. Win Travis WBC 8.7 103/ul Normal 4.0-11.0 [facility] Comment on above: Performed By: #### C BC #### [facility] [address] [place] [address] Dr. Win Travis PROF CHEM 8 (BAS METB)on Anion gap [Moles/Vol] 10.6 mmol/L Normal [facility] Comment on above: Performed By: #### P TT, PT #### [facility] [address] [place] [address] Dr. Win Travis Calcium [Mass/Vol] 8.5 mg/dL Normal 8.5-10.1 [facility] Comment on above: Performed By: #### P TT, PT #### [facility] [address] [address] [address] Win Travis Chloride [Moles/Vol] 106 mmol/L Normal 98-107 [facility] Comment on above: Performed By: #### P TT, PT #### [facility] [address] [address] [address] Win Travis CO2 [Moles/Vol] 30.9 mmol/L Normal 21.0-32.0 [facility] Comment on above: Performed By: #### P TT, PT #### [facility] [address] [address] [address] iWn Travis Creatinine [Mass/Vol] 1.02 mg/dL Normal 0.55-1.02 [facility] Comment on above: Performed By: #### P TT, PT #### [facility] [address] [address] [address] Win Travis EGFR-AF [place]ING[place]OREAN >60 Normal >=60 [facility] Comment on above: Performed By: #### P TT, PT #### [facility] [address] [address] [address] Win Travis EGFR-NON AF [place]AN 54 mL/min/1.73m2 Critically low >=60 [facility] Comment on above: Performed By: #### P TT, PT #### [facility] [address] [address] [address] Win Travis Glucose [Mass/Vol] 99 mg/dL Normal 74-106 [facility] Comment on above: Performed By: #### P TT, PT #### [facility] [address] [address] [address] Win Travis Potassium [Moles/Vol] 4.5 mmol/L Normal 3.5-5.1 [facility] Comment on above: Performed By: #### P TT, PT #### [facility] [address] [address] [address] Win Travis Sodium [Moles/Vol] 143 mmol/L Normal 136-145 [facility] Comment on above: Performed By: #### P TT, PT #### [facility] [address] [place] [address] Dr. Win Travis Urea nitrogen [Mass/Vol] 15.0 mg/dL Normal 7.0-18.0 [facility] Comment on above: Performed By: #### P TT, PT #### [facility] [address] [place] [address] Dr. iWn Travis Urea nitrogen/Creatinine [Mass ratio] 14.7 mg/mg Normal [facility] Comment on above: Performed By: #### P TT, PT #### [facility] [address] [place] [address] Dr. Win Travis PROTIMEon 02-14-2022 INR Coag (PPP) [Relative time] 0.97 {INR} Normal [facility] Comment on above: Performed By: #### P TT, PT #### [facility] [address] [place] [address] Dr. Win Travis INR GUIDELINES SEE BELOW Normal [facility] Comment on above: Result Comment: DARLING RED INR: 2.0 - 3.0 CONDITIONS NOT LISTED BELOW 2.5 - 3.5 FOR PROSTHETIC HEART VALVE REPLACEMENT 2.5 - 3.5 RECURRENT THROMBOSIS Performed By: #### P TT, PT #### [facility] [address] [place] [address] Dr. Win Travis PT Coag (PPP) [Time] 10.5 s Normal 9.0-11.6 [facility] Comment on above: Performed By: #### P TT, PT #### [facility] [address] [place] [address] Dr. Win Travis PTTon 02-14-2022 aPTT Coag (Bld) [Time] 28.3 s Normal 22.3-36.2 [facility] Comment on above: Performed By: #### P TT, PT #### [facility] [address] [place] [address] ABD/PELVIS WO CONon [...] such as amiodarone. Electronically authenticated by: CHANDU DEVI Date: 2022-02-05 13:03 Normal [facility] XR KUB 1 VIEWon 01-20-2022 XR KUB [...] by: ELVIS CARPENTER Date: 2022-01-20 16:24 Normal [facility] LIVER PROFILEon 12-02-2021 Albumin [Mass/Vol] 3.5 g/dL Normal 3.4-5.0 [facility] Comment on above: Performed By: #### P TT, PT #### [facility] [address] [place] [address] Dr. Win Travis Albumin/Globulin [Mass ratio] 0.8 {ratio} Normal [facility] Comment on above: Performed By: #### P TT, PT #### [facility] [address] [place] [address] Dr. Win Travis ALP [Catalytic activity/Vol] 93 U/L Normal 46-116 [facility] Comment on above: Performed By: #### P TT, PT #### [facility] [address] [place] [address] Dr. Win Travis ALT [Catalytic activity/Vol] 27 U/L Normal 14-59 [facility] Comment on above: Performed By: #### P TT, PT #### [facility] [address] [address] [address] Win Travis AST [Catalytic activity/Vol] 18 U/L Normal 15-37 [facility] Comment on above: Performed By: #### P TT, PT #### [facility] [address] [address] [address] Win Travis BILI, CONJUGATED 0.1 mg/dL Normal 0.0-0.2 [facility] Comment on above: Performed By: #### P TT, PT #### [facility] [address] [place] [address] Dr. Win Travis Bilirubin [Mass/Vol] 0.5 mg/dL Normal 0.2-1.0 [facility] Comment on above: Performed By: #### P TT, PT #### [facility] [address] [place] [address] Dr. Win Travis Globulin (S) [Mass/Vol] 4.0 g/dL Normal [facility] Comment on above: Performed By: #### P TT, PT #### [facility] [address] [place] [address] Dr. Win Travis Protein [Mass/Vol] 7.5 g/dL Normal 6.4-8.2 [facility] Comment on above: Performed By: #### P TT, PT #### [facility] [address] [place] [address] Dr. Win Travis TSHon 12-02-2021 TSH 1.314 uIU/mL Normal 0.358-3.740 [facility] Comment on above: Performed By: #### P TT, PT #### [facility] [address] [place] [address] Dr. Win Travis TSH RANGE SEE BELOW Normal [facility] Comment on above: Result Comment: <0.3 4 UIU/ml HYPERTHYROID 0.34-5.60 UIU/ml EUTHYROID >5.60 UIU/ml HYPOTHYROID Performed By: #### P TT, PT #### [facility] [address] [place] [address] Dr. Win Travis Vital Signs Date Time Vital Sign Value Performing Clinician Facility 05-05-2023 09:54-0400 Blood Pressure Location Rosemarie Jansen [facility] 05-05-2023 09:54-0400 Body temperature 97.52 [degF] Rosemarie Jansen [facility] 05-05-2023 09:54-0400 Diastolic blood pressure 84 mm[Hg] Rosemarie Jansen [facility] 05-05-2023 09:54-0400 Heart rate 52 /min Rosemarie Jansen [facility] 05-05-2023 09:54-0400 Systolic blood pressure 123 mm[Hg] Rosemarie Jansen [facility] 12-20-2022 09:05-0400 Blood Pressure Location URMILA DUARTE [facility] 12-20-2022 09:05-0400 Diastolic blood pressure 78 mm[Hg] URMILA KEVIN [facility] 12-20-2022 09:05-0400 Heart rate 68 /min URMILA KEVIN [facility] 12-20-2022 09:05-0400 Respiratory rate 16 /min URMILA VERARY [facility] 12-20-2022 09:05-0400 Systolic blood pressure 130 mm[Hg] URMILA KEVIN [facility] 01-28-2022 08:51-0400 Blood Pressure Location Joellen BRIGHT [facility] 01-28-2022 08:51-0400 Diastolic blood pressure 71 mm[Hg] Joellen BRIGHT [facility] 01-28-2022 08:51-0400 Heart rate 65 /min Joellen BRIGHT [facility] 01-28-2022 08:51-0400 Respiratory rate 16 /min Joellen BRIGHT [facility] 01-28-2022 08:51-0400 Systolic blood pressure 111 mm[Hg] Joellen KAILA [facility] Encounters Encounter Date Encounter Type Care Provider Facility Start: 12-14-2023 [facility] Start: 07-31-2023 ambulatory [facility] Start: 07-31-2023 End: 07-31-2023 ambulatory [facility] Start: 06-19-2023 End: 06-20-2023 ambulatory Rosangela Marin Facility:[facility] Start: 06-15-2023 End: 06-16-2023 ambulatory [facility] Start: 06-15-2023 End: 06-27-2023 ambulatory Rosangela Marin Facility:CD:[id number] Start: 06-06-2023 End: 06-06-2023 ambulatory [facility] Start: 05-24-2023 End: 05-25-2023 ambulatory Elizabeth Talal Sarmini Facility:[facility] Start: 05-18-2023 End: 05-19-2023 ambulatory Rosemarie Jansen Facility:[facility] Start: 05-15-2023 ambulatory Elizabeth Sarmini Facili ty:[facility] Start: 05-05-2023 End: 05-06-2023 ambulatory Rosemarie A Justyna Facility:[facility] Start: 05-05-2023 End: 05-06-2023 ambulatory Rosemarie Jansen Facility:[facility] Start: 05-05-2023 End: 05-05-2023 Patient encounter procedure Rosemarie Jansen [facility] Start: 05-05-2023 End: 05-05-2023 Patient encounter procedure Rosemarie Jansen [facility] Start: 04-28-2023 End: 04-29-2023 ambulatory Rosangela Marin Facility:[facility] Start: 04-25-2023 End: 04-26-2023 ambulatory URMILA DUARTE Facility:[facility] Start: 04-25-2023 End: 04-25-2023 Patient encounter procedure URMILA Sanjuanita DUARTE [facility] Start: 04-19-2023 ambulatory Glenn Ariza ty:[facility] Start: 04-18-2023 End: 04-19-2023 ambulatory Rosangela Marin Facility:[facility] Start: 04-18-2023 End: 04-18-2023 Lab Drop off Rosangela Marin [facility] Start: 02-14-2023 End: 02-14-2023 ambulatory [facility] Start: 12-20-2022 End: 12-21-2022 ambulatory [facility] Start: 12-20-2022 End: 12-20-2022 Patient encounter procedure URMILA E KEVIN [facility] Start: 11-17-2022 End: 11-17-2022 ambulatory [facility] Start: 11-01-2022 End: 11-01-2022 ambulatory DEV[facility] Start: 10-24-[address] JOELLEN BRIGHT . Fac ility:[facility] Start: 08-25-2022 End: 08-26-2022 ambulatory YESSICA TORRES Facility:[facility] Start: 03-03-[address] JOELLEN BRIGHT . Fac ility:[facility] Start: 02-17-2022 Encounter for preprocedural laboratory examination DR JOELLEN BRIGHT . [facility] Start: 02-17-2022 End: 02-17-[address] JOELLEN BRIGHT . Facility:[facility] Start: 02-16-2022 End: 02-17-[address] JOELLEN BRIGHT . Facility:[facility] Start: 02-16-2022 End: 02-17-2022 Encounter for preprocedural laboratory examination DR JOELLEN BRIGHT . Facility:[facility] Start: 02-15-2022 Encounter for preprocedural cardiovascular examination DR JOELLEN BRIGHT . [facility] Start: 02-15-2022 Encounter for preprocedural laboratory examination DR JOELLEN BRIGHT . [facility] Start: 02-14-2022 End: 02-15-[address] JOELLEN BRIGHT . Facility:[facility] Start: 02-14-2022 End: 02-15-2022 Encounter for preprocedural cardiovascular examination DR JOELLEN BRIGHT . Facility:[facility] Start: 02-04-2022 End: 02-05-[address] JOELLEN BRIHGT . Facility:[facility] Start: 01-28-2022 End: 01-28-2022 Patient encounter procedure Joellen BRIGHT [facility] Start: 01-20-2022 End: 01-21-[address] JOELLEN BRIGHT . Facility:[facility] Start: 12-02-2021 End: 12-03-2021 ambulatory YESSICA BRIAN Facility:[facility] Procedures Date Procedure Procedure Detail Performing Clinician Start: 02-14-2023 Follow-up visit Follow-up DEVAN GAXIOLA Start: 02-17-2022 Extracorporeal shock wave lithotripsy of calculus of kidney URMILA DUARTE Start: 05-11-2020 Cystoscopy Joellen SPENCER Start: 04-20-2020 Extracorporeal shock wave lithotripsy of ureter Joellen BRIGHT Comment on above: EXTRACORPOREAL SHOCK WAVE LITHOTRIPSY Cholecystectomy Joellen CAVAZOS Defibrillator, devic e (physical object) Joellen BRIGHT Hysterectomy Joellen BRIGHT Immunizations Immunization Date Immunization Notes Care Provider Jerrod palma 04-01-2022 tetanus and diphtheria toxoids, adsorbed, preservative free, for adult use (2 Lf of tetanus toxoid and 2 Lf of diphtheria toxoid) Rosangela Marin [facility] Comment on above: Result Comment: Lot # [id number] Exp 04/03/22 NEGATED: Highlighted row has not occurred!05-03-2023 influenza virus vaccine, unspecified formulation Rosemarie Jansen [facility] Payers Date Payer Category Payer Medicare [id number] 1960 Self-pay [id number] 1955 Unknown [id number] 2.16.84 0.1.693974.3.579.2.593 1954 Unknown [id number] 2.16.84 0.1.705939.3.579.2.593 1954 Unknown [id number] 2.16.84 0.1.551962.3.579.2.593 1954 Unknown [id number] 2.16.84 0.1.615228.3.579.2.593 1954 Unknown [id number] 2.16.84 0.1.441016.3.579.2.593 1954 Unknown [id number] 2.16.84 0.1.797983.3.579.2.593 1954 Unknown [id number] 2.16.84 0.1.634896.3.579.2.593 1954 Unknown [id number] 2.16.84 0.1.365046.3.579.2.593 1954 Unknown [id number] 2.16.84 0.1.105926.3.579.2.593 1954 Unknown [id number] 2.16.8 40.1.101748.3.579.2.727 1954 Unknown [id number] 2.16.8 40.1.244782.3.579.2.727 1954 Unknown [id number] 2.16.8 40.1.780294.3.579.2.727 1954 Unknown [id number] 2.16.8 40.1.161463.3.579.2.727 1954 Unknown [id number] 2.16.8 40.1.389642.3.579.2.727 1954 Unknown [id number] 2.16.8 40.1.024987.3.579.2.727 1954 Unknown [id number] 2.16.8 40.1.469726.3.579.2.727 1954 Unknown [id number] 2.16.8 40.1.108506.3.579.2.727 1954 Unknown [id number] 2.16.8 40.1.676413.3.579.2.727 1954 Unknown [id number] 2.16.8 40.1.865695.3.579.2.727 1954 Unknown [id number] 2.16.8 40.1.402014.3.579.2.727 1954 Unknown [id number] 2.16.8 40.1.873437.3.579.2.727 Social History Date Type Detail Facility Start: 01-27-2021 End: 05-05-2023 Tobacco smoking status Never smoked tobacco (finding) [facility] Sex Assigned At Female [facility] Tobacco smoking status Never [facility] Functional Status Date Assessment Result Facility 05-05-2023 Functional Status N/A [facility] 04-25-2023 Functional Status N/A [facility] 12-20-2022 Functional Status N/A [facility] 01-28-2022 Functional Status N/A [facility] Clinical Notes 01-28-2022 to 07-31-2023 RadiologyRadiologyLaboratoryLaboratory Note Date & Type Note Facility 07-31-2023 Note DUAL CHAMBER ICD [employer] RADE PROCEDURE NOTE DATE OF PROCEDURE: 07/31/2023 PERFORMING PHYSICIAN: Dr. Devan Perkins CASINO CASHIER: Dr Saud Zimmer CONSENT: Patient LOCATION: EP Lab PROCEDURE PERFORMED: 1. Implantation of new RA lead ([employer]). 2. Upgrade from single chamber ICD to dual chamber ICD ([employer]). INDICATIONS: 1. Device at EOL. PROCEDURAL SEDATION: Versed and Fentanyl. Moderate sedation was administered by the sedation nurse under my supervision and noted in the CVL log. Intraprocedural face to face sedation time: 87min. Monitoring: Cardiac telemetry, Blood pressure, continuous pulse oxymetry. FLUOROSCOPY TIME:2.3min/ 12mGy EBL: 25cc SPECIMEN REMOVED: None PREPARATION: 67 year old with past medical history of ARVD with AICD, hypertension, COPD, hyperlipidemia used to be on sotalol and then had breakthrough episodes of VT which later then led to ICD and starting amiodarone. Per device checks her VT has been controlled on amiodarone with no concerns. This was stopped and she was started back on Sotalol. Device check on 11/01/2022 a single-chamber ICD with [employer] was implanted on 04/02/2009. threshold check reveals the RV thresholds to be elevated with hardly any ventricular pacing with no ICD discharge events or VT noted and device reached BILL. Decision was made to upgrade to dual chamber ICD at the time of generator change. Patient was brought to the EP lab in the post absorptive state. A procedural pause was performed identifying the patient, the procedure to be performed and the site ofimplant. The left chest was prepped and draped in the usual sterile fashion. Preoperative antibiotics IV Ancef was administered. PROCEDURAL DETAILS: Patient was placed in trendelenberg position and local infiltration of 1% Lidocaine was performed, and an incision was created in the left upper chest. Dissection was then performed using cautery down to the fascial plane to identify the capsule. Capsulotomy was performed and the device was freed and the leads were freed form the underlying capsule. Capsulectomy was performed so as to open and exteriorize the device. Under ultrasound guidance venous access was procured with 5F micropuncture needle and then switched to 0.34 wire. 6F sheath was placed and RA lead was advanced to the RA appendage. A site where good thresholds and injury current was noted was taken. The sheath was split and lead secured with three 1-0 Silk. Old leads were then removed and connected to a new [employer] dual chamber ICD in sequence. Once both leads were attached, pacing thresholds, sensing and impedance were checked and noted to be stable as prior to procedure. Pocket hemostasis was secured, and it was then copiously and vigorously irrigated with antibiotic solution. The leads were wrapped under the device and the device was tacked to underlying muscle and placed in the pocket. The pocket was closed in layers: subcutaneous layer using 2-0 Vicryl and skin using 3-0 absorbable monofilament suture. Glue was applied and Tegaderm dressing was placed on top. Lead parameters were then rechecked through the device as noted below. The patient was returned to the short stay room for post procedural observation. No immediate procedural complications were noted. POST PROCEDURE EXAM: Patient was hemodynamically stable. COMPLICATIONS: None. IMPRESSION: 1. Successful upgrade to dual chamber ICD with excellent pacing and sensing parameters. RECOMMENDATIONS: 1. Occlusive dressing to be removed after 2 weeks. 2. Do not wet the incision for 7 days. 3. No lifting heavy weights using arm on the same side x 3weeks 4. Do not lift elbow above the shoulder on the same side for 4-6 weeks. 5. No driving for 1 month. 6. F/u in device clinic 1 week from discharge or sooner for any concerns. 7. Doxycycline 100mg bid x 2 weeks Devan Perkins MD Cardiac Electrophysiology [facility] 06-21-2023 Note [id number] [facility] 06-12-2023 Note [id number]#[id number] [facility] 06-06-2023 Note [place] Electrophysiology Consult Note Reason for visit: ARVD [...] and labs in Apr 2023. Labs/ TSH: [facility]. ECHO 04/21/23 Prior HPI: Khurram Parra is a 67 y.o. year old with past medical history of ARVD with AICD, hypertension, COPD, hyperlipidemia. She has been doing well since last seen. But over the last 1 to 2 years she has been developing bqlv-xbr-brnnznx feelings in her feet. She is not [...] check on 11/01/2022 a single-chamber ICD with [employer] was implanted on 04/02/2009. threshold check [...] Level of Di (more content not included)... [facility] 05-26-2023 Note [id number] [facility] 05-24-2023 Note Endoscopy Care After Procedure Please [...] blood. Document Released: 01/31/2005 Document Re-Released: 12/11/2006 Carbonated ContentCare? Patient Information ?2009 9Cookies. Diverticulosis Many people have small pouches in [...] unsweetened, w/added ascorbic acid 1 cup 0.5 Troup 1 cup 0.7 Vegetables Cooked Green beans 1 cup 4.0 Carrots 1/2 cup sliced 2.3 Peas 1 cup 8.8 Potato (baked, with skin) 1 medium potato 3.8 Raw Pinola (with peel) 1 cucumber 1.5 Lettuce 1 [...] 8.7 Peanuts 1/2 cup 7.9 Chart from UpDate 2013. SEEK IMMEDIATE MEDICAL CARE IF: You deve (more content not included)... [facility] 05-05-2023 Hospital Discharge instructions Patient Education 05/05/2023 [...] oral rehydration solution (ORS). This is an cldd-exo-kddxweu medicine that helps return your body to [...] drinks, sports drinks, and soda. Eat bland, ccpu-lz-jzyxkl foods in small amounts as you are able. These foods include bananas, applesauce, rice, lean meats, toast, and crackers. Avoid alcohol. Avoid spicy or fatty foods. Medicines Take ferp-xzt-ntkchba and prescription medicines only as told by your health care provider. If you were prescribed an antibiotic medicine, take it as told by your health care provider. Do not stop using the antibiotic even if you start to feel better. General instructions Wash your hands often using soap and water. If soap and water are not available, use a hand register of wills. Others in the household should wash their [...] and water are not available, use hand register of wills. Contact a health care provider if your diarrhea gets worse or you have new symptoms. Get help right away if you have signs of dehydration. This information is not intended to replace advice given to you by your health care provider. Make sure you discuss any questions you have with your health care provider. Document Revised: 12/29/2021 Document Reviewed: 12/29/2021 [employer] Patient Education 2022 [employer]. Follow Up Care 04/19/2023 09:52:25 With:Rosemarie Jansen CNP Address: When:1 to 2 weeks Comments:Following colonoscopy. [facility] 04-25-2023 Hospital Discharge instructions Patient [...] include: ?8 oz (237 mL) of milk, ggesgfl-fewvvwcknteo-oofnk milk, and calcium-fortifiedfruit juice. Calcium-fortified means that [...] ?Spinach (cooked), rhubarb, beets, sweet potatoes, and Albanian chard. ?Peanuts. ?Potato chips, paraguayan fries, and baked potatoes with skin on. ?Nuts and nut products. ?Chocolate. If you regularly take a diuretic medicine, make sure to eat at least 1 or 2 servings of fruits or vegetables that are high in potassium each day. These include: ?Avocado. ?Banana. ?Troup, prune, carrot, or tomato juice. ?Baked potato. [...] magnesium, fish oil, or vitamin B6. Take wltt-huf-dyjoqjk and prescription medicines only as told by [...] Casseroles. Pizza. Lasagna. Frozen meals. Potato chips. Surinamese fries. The items listed above may not [...] provider. Document Revised: 02/28/2022 Document Reviewed: 02/28/2022 [employer] Patient Education 2022 Generic Media. Follow Up Care 12/20/2022 09:51:10 With:URMILA DUARTE PA-C, URL Address: [address] [place] [address] When: Unknown [facility] Evaluation + Plan note Future Appointments Appointment Date:04/28/2023 10:00:00 AM Scheduled Provider: Location:.BD Appointment Type:BD Bone Density () Appointment Date:04/28/2023 10:30:00 AM Scheduled Provider: Location:.XRAY Appointment Type:XR Pelvis/Hip () Appointment Date:05/05/2023 10:00:00 AM Scheduled Provider:Rosemarie Jansen CNP Location:[facility] Appointment Type:BADH New Patient Future Scheduled TestsXR Hip 2-3 Views Right 04/28/23BD Bone Density DEXA 04/28/23 [facility] 02-14-2023 Note [place] Electrophysiology Consult Note Reason for visit: ARVD s/p ICD Prior HPI: Khurram Parra is a 67 y.o. year old with past medical history of ARVD with AICD, hypertension, COPD, hyperlipidemia. She has been doing well since last seen. But over the last 1 to 2 years she has been developing mqrt-usg-eawhzse feelings in her feet. She is not [...] device check on a single-chamber ICD with [employer] was implanted on 04/02/2009. threshold check [...] midline Carotid Ar (more content not included)... [facility] 12-20-2022 Hospital Discharge instructions Patient Education 12/20/2022 13:11:32 Kidney Stones, Kuhy-ok-Bznx Kidney Stones Kidney stones are rock-like masses [...] Follow these instructions at home: Medicines Take fhci-col-qgfwglp and prescription medicines only as told by [...] provider. Document Revised: 02/21/2022 Document Reviewed: 02/21/2022 [employer] Patient Education 2022 [employer] Follow Up Care 03/01/2022 09:37:28 With:URMILA DUARTE PA-C, URL Address: [address] [place] [address] When:3 months [facility] 12-01-2022 Note -Blood pressure stab le, continue lisinopril 10 mg twice daily and amlodipine 5 mg daily [facility] 12-01-2022 Note -Recent device check 11/01/2022 shows RV pacing less than 1%, increase in output from 3.5 V to 4 V. Otherwise device had normal function and stable lead measurements with no events reported. BILL is 1 year. -Follow-up with device clinic in 6 months [facility] 12-01-2022 Note - Considering she is developing side effects with amiodarone we will need to discontinue - we will start sotalol 80 mg twice daily have patient follow-up in 2 days with EKG and then EKG in 1 week following the to monitor for any QTc changes - this plan was discussed with Dr. Perkins [facility] 11-24-2022 Note Patient stated on on sotalol 80 mg twice daily on 11/22/2022. ECG today shows manually calculated QTc 376, sinus bradycardia. She is asymptomatic. She has hx ARVD and needed amiodarone stopped d/t side effects [facility] [facility] 11-17-2022 Note [facility] Electrophysiology Consult Note Reason for visit: 1 year follow-up HPI: Khurram Parra is a 67 y.o. year old with past medical history of ARVD with AICD, hypertension, COPD, hyperlipidemia. She has been doing well since last seen. But over the last 1 to 2 years she has been developing znif-vva-uknbnsk feelings in her feet. She is not [...] heart 02/14/2022 COPD (chronic obstructive pulmonary disease) ([facility]/HCC) 02/14/2022 Paroxysmal ventricular tachycardia ([facility]/HCC) 02/14/2022 Vitamin D deficiency 02/14/2022 PSH: Past [...] no significant weight (more content not included)... [facility] 11-17-2022 Note Patient is here toda y for a 1 yr follow up. Review of Systems HENT: Positive for tinnitus. Musculoskeletal: Positive for joint pain. Neurological: Positive for numbness. All other systems reviewed and are negative. [facility] 01-28-2022 Hospital Discharge instructions Patient Education 01/28/2022 09:46:54 Kidney Stones, Nbhy-ef-Wnem Kidney Stones Kidney stones are rock-like masses [...] Follow these instructions at home: Medicines Take sywx-wgd-hlvcqnh and prescription medicines only as told by [...] 12/05/2008 Document Revised: 11/05/2019 Document Reviewed: 11/05/2019 [employer] Patient Education 2019 [employer]. Follow Up Care 02/25/2021 10:27:08 With:KAILA ALVARADO, Joellen Manrique, URL Address: [facility] [address], [place] [phone] When: Unknown Comments:schedule CT A/P w/o contrast [facility] Evaluation + Plan note No data available for this section [facility] Evaluation + Plan note Future Appointments Appointment Date:03/28/2023 08:30:00 AM Scheduled Provider:URMILA DUARTE PA-C Location:[facility] Appointment Type:URO Office Visit [facility] Evaluation + Plan note Future Appointments Appointment Date:04/25/2023 11:40:00 AM Scheduled Provider:URMILA DUARTE PA-C Location:[facility] Appointment Type:URO Office Visit Future Scheduled TestsXR Hip 2-3 Views Right 04/18/23BD Bone Density DEXA 04/18/23 [facility] Evaluation + Plan note Future Appointments Appointment Date:05/24/2023 03:15:00 PM Scheduled Provider: Location:[facility] Appointment Type:Surgery FT Future Scheduled TestsPancreatic Elastase, Fecal 05/05/23Fecal WBC Lactoferrin 05/05/23Giardia lamblia, Direct Detection EIA 05/05/23O & P Exam, Routine 05/05/23Clostridium Difficile PCR 05/05/23Enteric Panel by PCR 05/05/23 [facility] Evaluation + Plan note Future Appointments Appointment Date:05/24/2023 03:15:00 PM Scheduled Provider: Location:[facility] Services Appointment Type:Surgery FT Diagnostic Tests PendingCeliac Disease Comprehensive 05/05/23 Future Scheduled TestsPancreatic Elastase, Fecal 05/05/23Fecal WBC Lactoferrin 05/05/23Giardia lamblia, Direct Detection EIA 05/05/23O & P Exam, Routine 05/05/23Clostridium Difficile PCR 05/05/23Enteric Panel by PCR 05/05/23 [facility] Discharge instructions No data available for this section [facility] note No data available for this section [facility] Summary Purpose Family History No Family History [...] content) Personnel Name: ADAM SANDERS MD Address: [address] [place] [address] Personnel Name: Rosangela Marin MD Address: Address: [address] [place] [address] Personnel Name: Rosangela Marin MD Address: Address: [address] [place] [address] Personnel Name: Rosangela Marin MD Address: Address: [address] [place] [address] Personnel Name: Rosangela Marin MD Address: Address: [address] [place] [address] Personnel Name: Rosangela Marin MD Address: Address: [address] [place] [address] INFORMATION SOURCE (unrecogn ized section and content) DATE CREATED AUTHOR 08/30/2022 [facility] DATE CREATED AUTHOR AUTHOR'S ORGANIZ ATION 06/29/2023 [facility] DATE CREATED AUTHOR AUTHOR'S ORGANIZ ATION 08/01/2023 [facility] FOR RECORDS PERTAINING TO PATIENTS WHO ARE [...] BE BASED ON THE PRIMARY CLINICAL RECORDS. [employer] provides no warranty or guarantee of the accuracy or completeness of information in this document.
--- NOTE | 2023-08-01 10:49 | XR_ITS ---
The [address] [address] Patient Name: KHURRAM DE LA O MRN: [id number] date: 1955 Sex: F Assigned Patient Location: [facility] Current Patient Location: RAD Accession/Order Number: [id number] Exam Date: 08/01/2023 10:54 Report Date: 08/01/2023 11:41 At the request of: JANNIE PERKINS Procedure: XR chest 2V EXAMINATION: XR chest 2V HISTORY: Arrhythmogenic Right Ventricular Cardiomyopathy I42.8 COMPARISON: 08/25/2022 TECHNIQUE: PA and lateral FINDINGS: LUNGS: The right lung is clear. Mild left basilar infiltrate obscuring the mid left hemidiaphragm and heart border VASCULATURE: No increased pulmonary vasculature. PLEURA: No pneumothorax, effusion, or pleural thickening. CARDIAC: Mild stable cardiomegaly. MEDIASTINUM: No visible mass or adenopathy. Left pacemaker with one lead projected over the right atrium second likely in the right ventricle BONES: No fracture or visible bone lesion. OTHER: Negative. XR/XR chest 2V IMPRESSION: Left basilar infiltrate, atelectasis favored Electronically authenticated by: ELVIS CARPENTER Date: 08/01/2023 11:41
== END 2023-08-01 10:37 | disposition home or self-care (01) ==
PROVIDERS: PCP Family Medicine; Visit Provider Internal Medicine Cardiovascular Disease
DX: I42.8 Other cardiomyopathies (principal)
CPT/HCPCS: 71046

== ENCOUNTER 2024-10-24 10:48 | Outpatient (OUT) | payer MEDICARE, SELFPAY | END 2024-10-24 10:49 | disposition home or self-care (01) | LOC: US 10:50 | PROVIDERS: PCP Family Medicine; Visit Provider Nurse Practitioner Family | DX: R60.0 Localized edema (principal) | CPT/HCPCS: 93971 ==

== ENCOUNTER 2024-12-30 08:58 | Outpatient (OUT) | payer MEDICARE, SELFPAY ==
--- OUTSIDE RECORDS SUMMARY | 2024-12-30 09:05 | XMS_ITS | Clinical Summary ---
Author Organization [facility] Healthcare Address [address] [place] [address] Care Team Providers Care Candle Molder Name Role Phone Navarro Marin MD Primary Care Provider [phone] Allergies Active Allergy Reactions Criticality Noted Date Comments Ceftriaxone Unknown 06/20/2014 Metoprolol Hives,Unknown Medium 06/20/2014 Oxaprozin Unknown 06/20/2014 Medications albuterol HFA 90 mcg/act inhaler Inhale 2 puffs every 6 (six) hours if needed. 04/18/2023 Active alendronate (Fosamax) 70 MG tablet Take 70 mg by mouth once a week. Active amLODIPine (Norvasc) 5 MG tablet Take 5 mg by mouth 1 (one) time each day at the same time. Active aspirin 81 MG EC tablet Take 81 mg by mouth in the morning. Active cholestyramine (Questran) 4 g packet Take 1 packet by mouth in the morning and 1 packet at noon and 1 packet in the evening. Take with meals. 04/18/2023 Active levothyroxine (Synthroid, Levoxyl) 50 MCG tablet Take 50 mcg by mouth in the morning. Take before meals. Active lisinopril 10 MG tablet Take 10 mg by mouth in the morning. Active potassium chloride CR (Klor-Con M10) 10 MEQ ER tablet Take 10 mEq by mouth in the morning. Active Probiotic Product (Digestive Advantage) capsule as directed Orally Active sotalol (Betapace) 80 MG tablet Take 80 mg by mouth in the morning and 80 mg before bedtime. Active Active Problems No known active problems Social History Tobacco Use Types Packs/Day Years Used Date Smoking Tobacco: Former Cigarettes Q uit: 04/16/2020 Smokeless Tobacco: Never Comments Unknown Sex and Gender Information Value Date Recorded Sex Assigned at Not on file Legal Sex Female 7:19 PM EDT Gender Identity Not on file Sexual Orientation Not on file Last Filed Vital Signs Vital Sign Reading Time Taken Comments Blood Pressure - - Pulse - - Temperature 36.6 C (97.9 F) 05/02/2023 9:58 AM EDT Respiratory Rate - - Oxygen Saturation - - Inhaled Oxygen Concentration - - Weight 116 kg (254 lb 12.2 oz) 05/02/2023 9:58 A M EDT Height 170.2 cm (5' 7 ) 05/02/2023 9:58 AM EDT Body Mass Index 39.9 05/02/2023 9:58 AM EDT Plan of Treatment Not on file Insurance [employer] MED[employer]ARE [employer]VANTAGE Care Teams Candle Molder Relationship Specialty Start Date End Date Navarro Marin MD [address] [place] [address] PCP - General Family Medicine 05/02/23
--- OUTSIDE RECORDS SUMMARY | 2024-12-30 09:05 | XMS_ITS | Clinical Summary ---
Author Organization [email or web address] Address [id number] [address] [place] [address] Care Team Providers Care White Mixing Operator Name Role Phone Monie Miranda MD Primary Care Provider [phone] Social History Tobacco Use Types Packs/Day Years Used Date Smoking Tobacco: Never Assessed Childcare Answer Date Recorded Childcare Unknown 12/12/2018 Employment Answer Date Recorded Employment Unknown 12/12/2018 Purpose - Life Answer Date Recorded Purpose and direction in life Unknown Comments Unknown Sex and Gender Information Value Date Recorded Sex Assigned at Not on file Legal Sex Female 11:56 AM EDT Gender Identity Not on file Sexual Orientation Not on file Plan of Treatment Health Maintenance Due Date Last Done Comments Depression Screening 1966 Tobacco Screening 1966 Adult BMI Screening 1972 DTaP,Tdap and Td Vaccines (1 - Tdap) 1973 Zoster (Shingles) Vaccine (1 of 2) 2004 Fall Risk Screening 10/29/2019 Influenza Vaccine 03/03/2025 Medical Devices Not on file Insurance [employer] MED[employer]ARE Care Teams White Mixing Operator Relationship Specialty Start Date End Date Monie Miranda MD PCP - General Family Medicine 02/11/20
[2024-12-30 09:40] LABS: Estimated Average Glucose 111 mg/dL; Glycohemoglobin A1C 5.5 % (4.5-6.2)
[2024-12-30 10:13] LABS: Alanine Aminotransferase 39 U/L (14-59); Albumin Globulin Ratio 0.6; Albumin Level 2.9 g/dL (3.4-5.0); Alkaline Phosphatase 108 U/L (46-116); Anion Gap 12.8; Aspartate Amino Transferase 26 U/L (15-37); BUN Creatinine Ratio 21.4; Bilirubin Total 0.5 mg/dL (0.2-1.0); Calcium 9.1 mg/dL (8.5-10.1); Carbon Dioxide 27.3 mmol/L (21.0-32.0); Chloride 106 mmol/L (98-107); Chol HDL Ratio 2.5; Cholesterol 122 mg/dL (<=200); Estimated GFR (African America >60 (>=60 mL/min/1.73m^2); Estimated GFR (Non-African Ame >60 (>=60 mL/min/1.73m^2); Free T3 3.55 pg/mL (2.18-3.98); Globulin 4.7 g/dL; Glucose 92 mg/dL (74-106); HDL Cholesterol 48 mg/dL (40-60); Potassium 4.1 mmol/L (3.5-5.1); Sodium 142 mmol/L (136-145); Total Protein 7.6 g/dL (6.4-8.2); Triglycerides 135 mg/dL (<=150)
[2024-12-30 10:25] LABS: Hematocrit 43.4 % (36.0-48.0); Hemoglobin 13.7 g/dL (12.0-16.0); Mean Corpuscular HGB Conc 31.6 g/dL (29.9-35.2); Mean Corpuscular Hemoglobin 30.6 pg (26.7-34.0); Mean Corpuscular Volume 96.9 fL (81.0-99.0); Mean Platelet Volume 9.9 fL (9.5-13.5); Platelet Count 369 10^3/uL (150-450); Red Blood Count 4.48 10^6/uL (4.20-5.40); Red Cell Distribution Width 12.6 % (11.0-15.0); White Blood Count 10.6 10^3/uL (4.0-11.0)
[2024-12-30 12:19] LABS: Band Neutrophils Absolute 0.1 10^3/uL (0.0-0.3); Segmented Neut Absolute Manual 5.93 10^3/uL (1.4-6.5)
[2024-12-30 12:20] LABS: Eosinophils Absolute Manual 0.21 10^3/uL (0.00-0.70); Lymphocytes Absolute Manual 2.96 10^3/uL (1.20-3.80); Monocytes Absolute Manual 1.37 10^3/uL (0.30-0.80)
== END 2024-12-30 08:59 | disposition home or self-care (01) ==
LOC: LAB 09:01
PROVIDERS: PCP Family Medicine; Visit Provider Family Medicine
DX: K58.9 Irritable bowel syndrome, unspecified (principal); I10 Essential (primary) hypertension; I42.8 Other cardiomyopathies; E03.9 Hypothyroidism, unspecified; E78.5 Hyperlipidemia, unspecified; R73.09 Other abnormal glucose; D64.9 Anemia, unspecified; E55.9 Vitamin D deficiency, unspecified
CPT/HCPCS: 36415; 80053; 80061; 82306; 83036; 83540; 84436; 84443; 84481; 85007; 85027

== ENCOUNTER 2025-02-12 08:45 | Outpatient (OUT) | payer MEDICARE, SELFPAY ==
--- OUTSIDE RECORDS SUMMARY | 2024-12-10 04:30 | XMS_ITS ---
Author Organization [facility] [place] Address [address] [place] [address] Care Team Providers Care Experimental Welder Name Role Phone Cooper Resendez Primary Care Provider Allergies Allergen (clinical drug ingredient) Drug/Non Drug Allergy documented on EMR Reaction Allergy Type Onset Date Status oxaprozin Daypro hives Drug Allergy Active REASON FOR VISIT NEW PATIENT- transfer from Dr Marin, Last 1-2 weeks- around 4-6PM at night starts with fever, headache, cough and fatigue- throat feels swollen and sore- better in AM, worse at night Medications Medication SIG (Take, Route, Frequency, Duration) Notes Start Date End Date Status Hyoscyamine Sulfate 0.125 MG 1-2 tabs SL SL every 4 hrs PRN abd pain 12/10/2024 Active Vitamin D3 Active Albuterol Sulfate HFA 108 (90 Base) MCG/ACT 2 puff as needed Inhalation as needed 12/10/2024 Active Synthroid 50 MCG Oral for 90 Days Active Sotalol HCl 80 MG TAKE 1 TABLET IN THE MORNING AND AT BEDTIME Oral for 90 Days Active Calcium 600 MG 1 tablet with meals Orally once a day 12/10/2024 Active Lisinopril 10 MG Oral for 90 Days Active Klor-Con M10 10 MEQ Oral for 90 Days Active amLODIPine Besylate 5 MG Oral for 90 Days Active Aspirin 81 81 MG 1 tablet Orally Once a day 12/10/2024 Active Imodium A-D Active Amoxicillin-Pot Clavulanate 875-125 MG 1 tablet Orally every 12 hrs for 10 days 12/10/2024 Active AZO Bladder Control/Go-Less Active Social History Tobacco Use: Social History Observation Description Date Details (start date - stop date) Never Smoker NA - NA Tobacco Control (Standard) Question Answer Notes Tobacco use: Nonsmoker AUDIT-C (Standard) Question Answer Notes Did you have a drink containing alcohol in the p ast year? 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 Problem Hypertension (28384768) Hypertension (I10) Active confirmed Problem Irritable bowel syndrome (54654434) IBS (irritable bowel syndrome) (K58.9) Active confirmed Problem Asthma (111873363) Asthma (J45.909) Active conf irmed Problem Coronary heart disease (47930653) Coronary heart disease (I25.10) Active confirmed Problem Gastroesophageal reflux disease (866663216) GERD (gastroesophageal reflux disease) (K21.9) Active confirmed Problem Kidney stone (69460637) Kidney stone (N20.0) Active confirmed Problem Osteoporosis (20906839) Osteoporosis (M81.0) Active confirmed Vital Signs Weight 250.0 lbs 12/10/2024 Height 67 in 12/10/2024 Blood pressure systolic 138 mm Hg 12/11/19 25 Blood pressure diastolic 88 mm Hg 025 BMI 39.15 kg/m2 12/10/2024 Encounters Encounter Location Date Provider Diagnosis [facility] [address] [place] [address] 12/10/2024 Cooper Resendez IBS (irritable bowel syndrome) K58.9 ; Hypertension I10 ; Arrhythmogenic right ventricular cardiomyopathy I42.8 and Hypothyroid E03.9 Assessments Encounter Date Diagnosis (ICD Code) Assessment Notes Treatment Notes Treatment Clinical Notes Section Notes 12/10/2024 IBS (irritable bowel syndrome) (ICD-10 - K58.9) 12/10/2024 Hypertension (ICD-10 - I10) 12/10/2024 Arrhythmogenic right ventricular cardiomyopathy (ICD-10 - I42.8) 12/10/2024 Hypothyroid (ICD-10 - E03.9) Plan Of Treatment Medication Medication Name Sig Start Date Stop Date Notes Hyoscyamine Sulfate 0.125 MG 1-2 tabs SL SL every 4 hrs PRN abd pain 12/10/2024 Amoxicillin-Pot Clavulanate 875-125 MG 1 tablet Orally every 12 hrs for 10 days 12/10/2024 Pending Test Test Name Order Date HEMOGLOBIN A1C (GLYCO) 12/10/2024 IRON, TOTAL 12/10/2024 LIPID PANEL (CHOL/TRIG/HDL/LDL) 12/11/19 25 VITAMIN D, 25 LEVEL (TOTAL) 12/10/2024 THYROID PANEL (T4/TSH/FREE T3) 5 MM screening mammo BI 12/10/2024 CMP (COMP MET ADAMS) w/eGFR CKD-EPI 2024 CBC WITH DIFF 12/10/2024 Progress Notes * KHURRAM DE LA O LDOB: [birth year] (69 yo F)Acc No.[id number]:12/10/2024 New Patient Patient: KHURRAM GARCIA Provider: Ashley Resendez ([facility])MD :1955 A ge:69 Y S ex:Female Date:12/10/2024 Address:[address] [place] [address], [place] [address] Check In:08:06 AM ESTCheck O ut:08:56 AM EST Subjective: * Chief Complaints: * N EW PATIENT- transfer from Dr Jordan 1-2 weeks- around 4-6PM at night starts with fever, headache, cough and fatigue- throat feels swollen and sore- better in AM, worse at night * HPI: G eneral: cough - no allergy sympotioms - dry cough - - mostly dry no cp with activity ARVD - has defibrillator - Was seeing Dr Olivo - now with Dr Craig - some arm swelling - had u/s arm and was fine still needs and echo - hx colitis but not inflammatry hx diverticulitis neees some levsin. D epression Screening: PHQ-2 (2015 Edition) L ittle interest or pleasure in doing things??Not at all F eeling down, depressed, or hopeless? N ot at all T otal Score 0 * ROS: E ENT: hearing changes d enies. v isual changes d enies.?non-healing mouth sores d enies. s wollen glands or neck lumps d enies. h oarseness d enies. s ore throat d enies. d ifficulty swallowing d enies. n ose bleeds d enies. n jensen congestion d enies. e ar ache d enies. e ar discharge?denies. r inging in ears d enies. l ight sensitivity d enies. e ye pain d enies. b lurring d enies. e ye irritation d enies. d ouble vision d enies.?vision loss d enies. G eneral/Constitutional: Sweats: D enies. F atigue d enies. S leep problems d enies. A norexia d enies. M alaise d enies. W eight loss d enies.?Fatigue or Weakness d enies. F ever or Chills d enies. C ardiovascular: Shortness of Breath w/lying flat d enies. L ightheadedness/dizziness d enies. C hest tightness/ heavy pressure d enies. S welling of legs, ankles, or feet d enies. W aking up with shortness of breath d enies. C hest pain denies. P alpitations d enies. W eight gain d enies. R espiratory: Chronic or frequent cough d enies. C oughing up blood?denies. D ifficulty breathing d enies. P roductive cough d enies. S noring?denies. S hortness of breath that awakens from sleep (PND) d enies. C hest pain d enies. S putum production d enies. W heezing d enies. M usculoskeletal: Joint pain d enies. J oint Fluid d enies. B ack pain d enies. K nee pain d enies. N kailee pain d enies. J oint Stiffness d enies. M uscle cramps d enies. W eakness of muscles d enies. A rthritis d enies. M uscle aches d enies. P ain in shoulder(s) d enies. S wollen joints d enies. * Active Problem List I10 Hypertension Modified On:12/10/2024 Status:confirmed J45.909 Asthma Modified On:12/10/2024 Status:confirmed K21.9 GERD (gastroesophage al reflux disease) Modified On:12/10/2024 Status:confirmed K58.9 IBS (irritable bowel syndrome) Modified On:12/10/2024 Status:confirmed N20.0 Kidney stone Modified On:12/10/2024 Status:confirmed M81.0 Osteoporosis Modified On:12/10/2024 Status:confirmed I25.10 Coronary heart disea se Modified On:12/10/2024 Status:confirmed I42.8 Arrhythmogenic right ventricular cardiomyopathy Modified On:12/10/2024 Status:confirmed K25.9 Stomach ulcer Modified On:09/04/2023 Status:confirmed I10 HTN (hypertension) Modified On:07/24/2023 Status:confirmed E03.9 Hypothyroid Modified On:07/24/2023 Status:confirmed E03.9 Acquired hypothyroid ism Modified On:09/04/2023 Status:confirmed I10 Chronic hypertension Modified On:09/04/2023 Status:confirmed * Medical History: * Surgical History: D efibrillator gallbladder total hysterectomy carpal tunnel * Hospitalization/Major Diagno stic Procedure: D enies Past Hospitalization * Family History: M other: , osteoporosis. * Social History: T obacco Use: T obacco Control (Standard) T obacco use: N onsmoker D rug/Alcohol: A HEMANTH-C (Standard) D id you have a drink containing alcohol in the past year? N o P oints 0 I nterpretation N egative * Medications: T akingAlbuterol Sulfate HFA 108 (90 Base) MCG/ACT Aerosol Solution 2 puff as needed Inhalation as needed amLODIPine Besylate 5 MG Tablet Oral Aspirin 81(Aspirin) 81 MG Tablet Delayed Release 1 tablet Orally Once a day AZO Bladder Control/Go-Less Calcium 600 MG Tablet 1 tablet with meals Orally once a day Imodium A-D Klor-Con M10(Potassium Chloride Zamzam ER) 10 MEQ Tablet Extended Release Oral Lisinopril 10 MG Tablet Oral Sotalol HCl 80 MG Tablet TAKE 1 TABLET IN THE MORNING AND AT BEDTIME Oral Synthroid(Levothyroxine Sodium) 50 MCG Tablet Oral Vitamin D3 Medication List reviewed and reconciled with the patientTaking Albuterol Sulfate HFA 108 (90 Base) MCG/ACT Aerosol Solution 2 puff as needed Inhalation as needed Taking amLODIPine Besylate 5 MG Tablet Oral Taking Aspirin 81(Aspirin) 81 MG Tablet Delayed Release 1 tablet Orally Once a day Taking AZO Bladder Control/Go-Less Taking Calcium 600 MG Tablet 1 tablet with meals Orally once a day Taking Imodium A-D Taking Klor-Con M10(Potassium Chloride Zamzam ER) 10 MEQ Tablet Extended Release Oral Taking Lisinopril 10 MG Tablet Oral Taking Sotalol HCl 80 MG Tablet TAKE 1 TABLET IN THE MORNING AND AT BEDTIME Oral Taking Synthroid(Levothyroxine Sodium) 50 MCG Tablet Oral Taking Vitamin D3 Medication List reviewed and reconciled with the patient * Allergies: D aypro: julito[Allergies Verified] Objective: * Vitals: W t:250.0lbs, Ht: 67 in, BP:138/88mm Hg, BMI:39.15Index, Ht-cm: 170.18 cm, Wt-k.4 kg. * Examination: P hysical Exam: GENERAL: w ell developed, well nourished, in no acute distress. HEAD: n ormocephalic/atraumatic. EYES: p upils equal, round and reactive to light, conjunctivae and sclerae normal. EARS: n o deformity or lesion of external ear, canals and TM appear normal bilaterally, TM's intact, not inflamed with normal light reflex, hearing grossly normal to conversational speech. NOSE: n o deformity, discharge, inflammation, or lesions.? MOUTH: m ucous membranes moist, normal oropharynx and posterior pharynx without lesions or exudates, tongue normal, dentition normal. NECK: n kailee supple, no masses or palpable cervical nodes, trachea midline, thyroid without nodules, masses, tenderness, or enlargement. CHEST: n o chest wall deformity, no chest wall tenderness.? LUNGS: n ormal respiratory effort and clear to auscultation, no wheezes, rales, or rhonchi, good air exchange. CARDIO: r egular rate and rhythm, normal S1 and S2, nor murmur, rub, or gallop. PULSES: n ormal capillary refill. ABDOMEN: s oft, non-distended, non-tender, no masses. MUSCULOSKELETAL: n o deformity or scoliosis noted, normal range of motion, joints normal, no erythema, edema, effusion, or ecchymosis. EXTREMITY: n o clubbing, cyanosis, edema, or deformity with normal ROM in both upper and lower bilateral extremities. NEUROLOGIC: g rossly normal. SKIN: n o rashes, ulcerations, or suspicious lesions. LYMPH NODES: n o cervical adenopathy, nodes normal. MENTAL STATUS: a lert and oriented x3, normal mood and affect. Assessment: * Assessment: 1. I BS (irritable bowel syndrome) - K58.9 (Primary) 2 . H ypertension - I10 3 . A rrhythmogenic right ventricular cardiomyopathy - I42.8 4 . H ypothyroid - E03.9 Plan: * Treatment: 2. H ypertension L AB: HEMOGLOBIN A1C (GLYCO) L AB: IRON, TOTAL L AB: LIPID PANEL (CHOL/TRIG/HDL/LDL) L AB: VITAMIN D, 25 LEVEL (TOTAL) L AB: THYROID PANEL (T4/TSH/FREE T3) L AB: CMP (COMP MET ADAMS) w/eGFR CKD-EPI L AB: CBC WITH DIFF 3. A rrhythmogenic right ventricular cardiomyopathy L AB: HEMOGLOBIN A1C (GLYCO) L AB: IRON, TOTAL L AB: LIPID PANEL (CHOL/TRIG/HDL/LDL) L AB: VITAMIN D, 25 LEVEL (TOTAL) L AB: THYROID PANEL (T4/TSH/FREE T3) L AB: CMP (COMP MET ADAMS) w/eGFR CKD-EPI L AB: CBC WITH DIFF 4. H ypothyroid L AB: HEMOGLOBIN A1C (GLYCO) L AB: IRON, TOTAL L AB: LIPID PANEL (CHOL/TRIG/HDL/LDL) L AB: VITAMIN D, 25 LEVEL (TOTAL) L AB: THYROID PANEL (T4/TSH/FREE T3) L AB: CMP (COMP MET ADAMS) w/eGFR CKD-EPI L AB: CBC WITH DIFF * Procedure Codes: * * Sign off status: Completed Visit Status: Javad HANSON (Check Out) true * Provider: Ashley Resendez ([facility])MD Date: 0 12/10/2024 Generated for Printi ng/Faxing/eTransmitting on: 0 02/12/2025 08:48 AM EDT History and Physical Notes * HPI (History of Present Illness) Category Sub-Category Detail Notes Category Not es General cough - no allergy sympotioms - dry cough - - mostly dry no cp with activity ARVD - has defibrillator - Was seeing Dr Olivo - now with Dr Craig - some arm swelling - had u/s arm and was fine still needs and echo - hx colitis but not inflammatry hx diverticulitis neees some levsin Depression Screening PHQ-2 (2015 Edition) Little interest or pleasure in doing things?: Not at all Feeling down, depressed, or hopeless?: N ot at all Total Score: 0 Examination Category Sub-Category Detail Notes Category Not es Physical Exam GENERAL: well developed, well nourished, in no acute distress HEAD: normocephalic/atraum atic EYES: pupils equal, round and reactive to light, conjunctivae and sclerae normal EARS: no deformity or lesi on of external ear, canals and TM appear normal bilaterally, TM's intact, not inflamed with normal light reflex, hearing grossly normal to conversational speech NOSE: no deformity, discha rge, inflammation, or lesions MOUTH: mucous membranes jonathon st, normal oropharynx and posterior pharynx without lesions or exudates, tongue normal, dentition normal NECK: neck supple, no mass es or palpable cervical nodes, trachea midline, thyroid without nodules, masses, tenderness, or enlargement CHEST: no chest wall deform ity, no chest wall tenderness LUNGS: normal respiratory e ffort and clear to auscultation, no wheezes, rales, or rhonchi, good air exchange CARDIO: regular rate and rhy thm, normal S1 and S2, nor murmur, rub, or gallop PULSES: normal capillary ref ill ABDOMEN: soft, non-distended, non-tender, no masses RECTAL: MUSCULOSKELETAL: no deformity or scol iosis noted, normal range of motion, joints normal, no erythema, edema, effusion, or ecchymosis EXTREMITY: no clubbing, cyanosi s, edema, or deformity with normal ROM in both upper and lower bilateral extremities NEUROLOGIC: grossly normal SKIN: no rashes, ulceratio ns, or suspicious lesions LYMPH NODES: no cervical adenopat hy, nodes normal MENTAL STATUS: alert and oriented x 3, normal mood and affect
--- OUTSIDE RECORDS SUMMARY | 2024-12-30 17:19 | XMS_ITS ---
Author Organization [facility] in [place] Address [address] [place] [address] Care Team Providers Care Filter Machine Operator Name Role Phone Cooper Resendez Primary Care Provider REASON FOR VISIT Lab Results Encounters Encounter Location Date Provider Diagnosis [facility] [address] [place] [address] 12/30/2024 Cooper Resendez Plan Of Treatment No Information Progress Notes * KHURRAM DE LA O LDOB: [birth year] (69 yo F)Acc No.[id number]:12/30/2024 Patient: Shasta AMOS KHURRAM Sims :1955 A ge:69 Y S ex:Female Address:[facility] [place] [address] * true * Date: Generated for Bhavyai ivan/Fachiara/eTransmitting on: 0 02/12/2025 08:48 AM EDT
--- OUTSIDE RECORDS SUMMARY | 2025-01-22 06:59 | XMS_ITS ---
Author Organization [facility] in [place] Address [address] [place] [address] Care Team Providers Care Reforestation Worker Name Role Phone Cooper Resendez Primary Care Provider REASON FOR VISIT Dexa Scan Encounters Encounter Location Date Provider Diagnosis [facility] [address] [place] [address] 01/22/2025 Cooper Resendez Osteoporosis M81.0 Assessments Encounter Date Diagnosis (ICD Code) Assessment Notes Treatment Notes Treatment Clinical Notes Section Notes 01/22/2025 Osteoporosis (ICD-10 - M81.0) Plan Of Treatment Pending Test Test Name Order Date DEXA BONE DENSITY 01/22/2025 Progress Notes * FABYJES THOMPSONY LDOB: [birth year] (69 yo F)Acc No.[id number]:01/22/2025 Patient: KHURRAM GARCIA :1955 A ge:69 Y S ex:Female Address:[address] [place] [id number] Subjective: * Chief Complaints: * D exa Scan * Medical History: * Surgical History: * Hospitalization/Major Diagno stic Procedure: * Medications: Objective: * Vitals: * Physical Examination: Assessment: * Assessment: 1. O steoporosis - M81.0 (Primary) Plan: * Treatment: * Procedure Codes: * true * Date: Generated for Printi ng/Faxing/eTransmitting on: 0 02/12/2025 08:48 AM EDT
--- OUTSIDE RECORDS SUMMARY | 2025-02-12 08:47 | XMS_ITS | Encounter Summary ---
Author Organization [facility] Address [address] [place] [address] Care Team Providers Care Police Communications Dispatcher Name Role Phone Navarro Marin MD Primary Care Provider [phone] Encounter Details Date Type Department Care Team (Late st Contact Info) Description 10/13/2024 Orders Only [facility] [address] [place] [address] Devan Craig MD [address] [place] [address] Social History Tobacco Use Types Packs/Day Years Used Date Smoking Tobacco: Never Smokeless Tobacco: Never Alcohol Use Standard Drinks/Week Comments Never 0 (1 standard drink = 0.6 oz pur e alcohol) [place] Safety & Environment Answer Date Rec orded Fear of Current or Ex-Partner Not on file Emotionally Abused Not on file 08/24/2023 Physically Abused Not on file 08/24/2023 Sexually Abused Not on file 08/24/2023 Physically or Sexually Abused Not on file Comments Unknown Sex and Gender Information Value Date Recorded Sex Assigned at Not on file Legal Sex Female 9:46 PM EDT Gender Identity Not on file Sexual Orientation Not on file documented as of this encounter Plan of Treatment Upcoming Encounters Date Type Department Care Team (Late st Contact Info) Description 02/17/2025 10:00 AM EDT Office Visit [facility] [address] [place] [address] Koby Beach MD [address] [facility] [address] [facility] [place] [id number] documented as of this encounter Procedures Procedure Name Priority Date/Time Associated Diagnosis Comments CARDIAC DEVICE CHECK - REMOTE - ICD Routine 10/13/2024 12:00 AM EDT documented in this encounter Results * Cardiac device check - Remote ICD (10/13/2024 12:00 AM EDT) Anatomical Region Laterality Modality Other 10/13/2024 us Devan Craig MD CV IMPLANTABLE CARDIAC DEVICE NM OCEDURES Final Result documented in this encounter Visit Diagnoses Not on filedocumented in this encounter Care Teams Police Communications Dispatcher Relationship Specialty Start Date End Date Navarro Marin MD [address] [place] [address] PCP - General Family Medicine 02/24/23 documented as of this encounter
--- OUTSIDE RECORDS SUMMARY | 2025-02-12 08:48 | XMS_ITS | Patient Health Record ---
Author Organization [facility] in [place] Address [address] [place] [address] Care Team Providers Care Hospitality Recruiter Name Role Phone Cooper Resendez Primary Care Provider [phone] Allergies Allergen (clinical drug ingredient) Drug/Non Drug Allergy documented on EMR Reaction Allergy Type Onset Date Status oxaprozin Daypro hives Drug Allergy Active Results Component Value Reference Range Notes CBC AUTO DIFF Reviewed date:12/30/2024 09:19:52 PM Interpretation: Performing Lab: Notes/Report: [facility] , White Blood Count 10.6 4.0-11.0 10 3/uL Red Blood Count 4.48 4.20-5.40 10 6/uL Hemoglobin 13.7 12.0-16.0 g/dL Hematocrit 43.4 36.0-48.0 % Mean Corpuscular Volume 96.9 81.0-99.0 fL Mean Corpuscular Hemoglobin 30.6 26.7-34.0 pg Mean Corpuscular HGB Conc 31.6 29.9-35.2 g/dL Red Cell Distribution Width 12.6 11.0-15.0 % Platelet Count 369 150-450 10 3/uL Mean Platelet Volume 9.9 9.5-13.5 fL Performing Lab: see note ML - [facility] LB FREE T3 Reviewed date:12/30/2024 09:19:52 PM Interpretation: Performing Lab: Notes/Report: [facility] , Free T3 3.55 2.18-3.98 pg/mL Performing Lab: see note ML - [facility] LB IRON Reviewed date:12/30/2024 09:19:52 PM Interpretation: Performing Lab: Notes/Report: [facility] , Iron 66.0 50.0-170.0 ug/dL Performing Lab: see note ML - [facility] LB LIPID PROFILE Reviewed date:12/30/2024 09:19:52 PM Interpretation: Performing Lab: Notes/Report: [facility] , Triglycerides 135 <=150 mg/dL Cholesterol 122 <=200 mg/dL HDL Cholesterol 48 40-60 mg/dL > or =60 mg/dl - LOW CARDIOVASCULAR RISK <40 mg/dl - HIGH CARDIOVASCULAR RISK LDL Cholesterol Calculated 47.0 <100 mg/dl OPTIMAL 160-189 mg/dl HIGH >190 mg/dl VERY HIGH 100-129 mg/dl NEAR OR ABOVE OPTIMAL 130-159 mg/dl BORDERLINE HIGH VLDL CHOLESTEROL 27.0 Chol HDL Ratio 2.5 7.1 - 11.0 MODERATE RISK 4.4 - 7.1 AVERAGE RISK 3.3 - 4.4 LOW RISK >11.0 HIGH RISK Performing Lab: see note ML - [facility] LB PROF 14(COMP METB) Reviewed date:12/30/2024 09:19:52 PM Interpretation: Performing Lab: Notes/Report: [facility] , Sodium 142 136-145 mmol/L Potassium 4.1 3.5-5.1 mmol/L Chloride 106 98-107 mmol/L Carbon Dioxide 27.3 21.0-32.0 mmol/L Anion Gap 12.8 Glucose 92 74-106 mg/dL Blood Urea Nitrogen 15.0 7.0-18.0 mg/dL Creatinine 0.70 0.55-1.02 mg/dL Estimated GFR ( Trina >60 >=60 mL/min/1.73m 2 Estimated GFR (Non- Albertina >60 >=60 mL/min/1.73m 2 BUN Creatinine Ratio 21.4 Calcium 9.1 8.5-10.1 mg/dL Bilirubin Total 0.5 0.2-1.0 mg/dL Aspartate Amino Transferase 26 15-37 U/L Alanine Aminotransferase 39 14-59 U/L Alkaline Phosphatase 108 46-116 U/L Total Protein 7.6 6.4-8.2 g/dL Albumin Level 2.9 3.4-5.0 g/dL Globulin 4.7 Albumin Globulin Ratio 0.6 Performing Lab: see note ML - [facility] LB T4 Reviewed date:12/30/2024 09:19:52 PM Interpretation: Performing Lab: Notes/Report: [facility] , T4 Thyroxine 5.40 4.80-13.90 ug/dL Performing Lab: see note - [facility] LB TSH Reviewed date:12/30/2024 09:19:52 PM Interpretation: Performing Lab: Notes/Report: [facility] , Thyroid Stimulating Hormone 0.330 0.358-3.740 u IU/mL Performing Lab: see note - [facility] LB VITAMIN D 25 [place] Reviewed date:12/30/2024 09:19:52 PM Interpretation: Performing Lab: Notes/Report: [facility] , Vitamin D 43.1 <20 ng/mL Vit D deficient 30-100 ng/mL Vit D sufficient 20-<30 ng/mL Vit D insufficient >100 ng/mL Potential Toxicity Performing Lab: see note - [facility] LB Manual Differential Reviewed date:12/30/2024 09:19:52 PM Interpretation: Performing Lab: Notes/Report: [facility] , Segmented Neutrophils % Manual 56.0 43.0-75.0 Band Neutrophils % 1.0 0-5 % Lymphocytes Percent Manual 28.0 20.5-60.0 % Monocytes Percent Manual 13.0 1.7-12.0 % Eosinophils Percent Manual 2.0 0.9-7.0 % Basophils Percent Manual 0.0 0.2-2.0 % Segmented Neut Absolute Manual 5.93 1.4-6.5 10 3/uL Band Neutrophils Absolute 0.1 0.0-0.3 10 3/uL Lymphocytes Absolute Manual 2.96 1.20-3.80 10 3/uL Monocytes Absolute Manual 1.37 0.30-0.80 10 3/ uL Eosinophils Absolute Manual 0.21 0.00-0.70 10 3/uL Basophils Abs Manual 0.00 0.00-0.10 10 3/uL Performing Lab: see note ML - [facility] LB GLYCOHEMOGLOBIN A1C Reviewed date:12/30/2024 09:19:52 PM Interpretation: Performing Lab: Notes/Report: [facility] , Glycohemoglobin A1C 5.5 4.5-6.2 % ADA THERAPEUTIC TARGET < 7.0 ACTION SUGGESTED ADA RECOMMENDED LIMIT 4.0 - 6.0 > 7.0 Estimated Average Glucose 111 Performing Lab: see note ML - [facility] LB Reason For Referral No Information Medications Medication SIG (Take, Route, Frequency, Duration) Notes Start Date End Date Status Imodium A-D Active AZO Bladder Control/Go-Less Active Calcium 600 MG 1 tablet with meals Orally once a day 12/10/2024 Active Hyoscyamine Sulfate 0.125 MG 1-2 tabs SL SL every 4 hrs PRN abd pain 12/10/2024 Active Amoxicillin-Pot Clavulanate 875-125 MG 1 tablet Orally every 12 hrs for 10 days 12/10/2024 Active Vitamin D3 Active Albuterol Sulfate HFA 108 (90 Base) MCG/ACT 2 puff as needed Inhalation as needed 12/10/2024 Active Synthroid 50 MCG Oral for 90 Days Active Sotalol HCl 80 MG TAKE 1 TABLET IN THE MORNING AND AT BEDTIME Oral for 90 Days Active Lisinopril 10 MG Oral for 90 Days Active Klor-Con M10 10 MEQ Oral for 90 Days Active amLODIPine Besylate 5 MG Oral for 90 Days Active Aspirin 81 81 MG 1 tablet Orally Once a day 12/10/2024 Active Social History Tobacco Use: Social History [...] Problem Status W/U Status Risk Notes Problem Hypertension (98947524) Hypertension (I10) Active confirmed Problem Asthma (092302704) Asthma (J45.909) Active conf irmed Problem Gastroesophageal reflux disease (951731636) GERD (gastroesophageal reflux disease) (K21.9) Active confirmed Problem Hypertension (01621699) HTN (hypertension) (I10) Active confirmed Problem Hypothyroid (21928545) Hypothyroid (E03.9) Active confirmed Problem Irritable bowel syndrome (29080806) IBS (irritable bowel syndrome) (K58.9) Active confirmed Problem Kidney stone (14736305) Kidney stone (N20.0) Active confirmed Problem Osteoporosis (06782259) Osteoporosis (M81.0) Active confirmed Problem Stomach ulcer (995651912) Stomach ulcer (K25.9) Active confirmed Problem Acquired hypothyroidism (834787740) Acquired hypothyroidism (E03.9) Active confirmed Problem Coronary heart disease (09255414) Coronary heart disease (I25.10) Active confirmed Problem Hypertensive disorder (69360703) Chronic hypertension (I10) Active confirmed Problem Arrhythmogenic right ventricular cardiomyopathy (145788051) 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 Vital Signs Blood pressure diastolic 88 mm Hg 12/10/2024 Height 67 in 12/10/2024 Blood pressure systolic 138 mm Hg 12/10/2024 Weight 250.0 lbs 12/10/2024 BMI 39.15 kg/m2 12/10/2024 Encounters Encounter Location Date Provider Diagnosis [address] [address] 12/10/2024 Cooper Greenwoody IBS (irritable bowel syndrome) K58.9 ; Hypertension I10 ; Arrhythmogenic right ventricular cardiomyopathy I42.8 and Hypothyroid E03[address] [address] 12/30/2024 Cooper Hoy [address] [address] 01/22/2025 Cooper Resendez Osteoporosis M81.0 Assessments Encounter Date Diagnosis (ICD Code) Assessment Notes Treatment Notes Treatment Clinical Notes Section Notes 12/10/2024 IBS (irritable bowel syndrome) (ICD-10 - K58.9) 12/10/2024 Hypertension (ICD-10 - I10) 01/22/2025 Osteoporosis (ICD-10 - M81.0) 12/10/2024 Arrhythmogenic right ventricular cardiomyopathy (ICD-10 - I42.8) 12/10/2024 Hypothyroid (ICD-10 - E03.9) Plan Of Treatment Pending Test Test Name Order Date HEMOGLOBIN A1C (GLYCO) 12/10/2024 IRON, TOTAL 12/10/2024 LIPID PANEL (CHOL/TRIG/HDL/LDL) 12/11/19 25 VITAMIN D, 25 LEVEL (TOTAL) 12/10/2024 THYROID PANEL (T4/TSH/FREE T3) 5 MM screening mammo BI 12/10/2024 DEXA BONE DENSITY 01/22/2025 CMP (COMP MET ADAMS) w/eGFR CKD-EPI 2024 CBC WITH DIFF 12/10/2024 Insurance Providers Payer Name Payer Address Payer Phone Subscriber Number Group Number Insured Name Patient Relationship to Insured Coverage Start Date Coverage End Date [employer] [address] [place] [address] [id number] KHURRAM DE LA O Self - patient is the insured 3 Medical (General) History Medical History History ICD Code Arrhythmogenic right ventricular cardiom yopathy I42.8 Hypothyroid E03.9 Hypertension I10 Tendonitis M77.9 IBS (irritable bowel syndrome) K58.9 Asthma J45.909 Coronary heart disease I25.10 GERD (gastroesophageal reflux disease) K 21.9 Kidney stone N20.0 Osteoporosis M81.0 Surgical History Surgery Date(Month/Year) Defibrillator gallbladder total hysterectomy carpal tunnel dexa study 03/25/2020
--- OUTSIDE RECORDS SUMMARY | 2025-02-12 08:48 | XMS_ITS | Encounter Summary ---
Author Organization [facility] Address [address] [place] [address] Care Team Providers Care Grinder Needle Tip Name Role Phone Navarro Marin MD Primary Care Provider [phone] Encounter Details Date Type Department Care Team (Late st Contact Info) Description 12/25/2024 Orders Only [facility] [address] [place] [address] Devan Craig MD [address] [place] [address] Social History Tobacco Use Types [...] Description 02/17/2025 10:00 AM EDT Office Visit [facility] [address] [place] [address] Koby Beach MD [address] [facility] [address] [facility] [place] [address] documented as of this encounter Procedures Procedure Name Priority Date/Time Associated Diagnosis Comments CARDIAC DEVICE CHECK - REMOTE - ICD Routine 12/25/2024 12:00 AM EDT documented in this encounter Results * Cardiac device check - Remote ICD (12/25/2024 12:00 AM EDT) Anatomical Region Laterality Modality Other 12/25/2024 us Devan Craig MD CV IMPLANTABLE CARDIAC DEVICE DC OCEDURES Final Result documented in this encounter Visit Diagnoses Not on filedocumented in this encounter Care Teams Grinder Needle Tip Relationship Specialty Start Date End Date Navarro Marin MD [address] [place] [address] PCP - General Family Medicine 02/24/23 documented as of this encounter
--- OUTSIDE RECORDS SUMMARY | 2025-02-12 08:48 | XMS_ITS | Clinical Summary ---
Author Organization [facility] Address [address] [place] [address] Care Team Providers Care Territory Manager General Sales Name Role Phone Navarro Marin MD Primary Care Provider [phone] Allergies Active Allergy Reactions Criticality Noted Date Comments Ceftriaxone 02/14/2022 Cyclobenzaprine Palpitations Low 10/11/2024 Metoprolol Tartrate Hives Medium 02/14/2022 Oxaprozin 02/14/2022 Medications aspirin 81 mg EC tablet Take 81 mg by mouth in the morning. Active alendronate (Fosamax) 70 mg tablet Take 70 mg by mouth every 7 (seven) days. Take in the morning with a full glass of water, on an empty stomach, and do not take anything else by mouth or lie down for the next 30 min. Active levothyroxine (Synthroid, Levoxyl) 50 mcg tablet Take 50 mcg by mouth before breakfast. Active amLODIPine (Norvasc) 5 mg tabletIndication s:Essential hypertension Take 1 tablet (5 mg) by mouth once daily as directed. 90 tablet 3 08/12/19 25 Active lisinopril 10 mg tabletIndication s:Essential hypertension Take 1 tablet (10 mg) by mouth two times daily. 180 tablet 3 09/25/19 25 Active potassium chloride CR (Klor-Con M10) 10 mEq ER tabletIndication s:Edema, unspecified type Take 1 tablet (10 mEq) by mouth once daily as directed. Do not crush or chew. 90 tablet 3 09/25/19 25 026 Active albuterol 2.5 mg /3 mL (0.083 %) nebulizer solution Take 2.5 mg by nebulization every 4 (four) hours if needed. 10/17/20 23 Active calcium gluconate 60 mg calcium (650 mg) tablet Take 1,300 mg by mouth. 04/29/20 Active cholestyramine (Questran) 4 gram packet Take 1 packet by mouth with breakfast and with evening meal. 04/18/20 Active colestipol (Colestid) 1 gram tablet 1 g in the morning. 06/15/20 Active sotalol (Betapace) 80 mg tabletIndication s:Arrhythmogenic right ventricular dysplasia (CMS/HCC) Take 1 tablet (80 mg) by mouth two times daily. 180 tablet 3 02/04/20 25 026 Active sotalol (Betapace) 80 mg tabletIndication s:Arrhythmogenic right ventricular dysplasia (CMS/HCC) Take 1 tablet (80 mg) by mouth in the morning and at bedtime. 180 tablet 3 11/15/19 24 025 Discontin ued(Reord er) Active Problems Problem Noted Date Diagnosed Date Anemia 10/11/2024 Anticoagulated 10/11/2024 Arthritis 10/11/2024 Asthma 10/11/2024 Abdominal cramping 10/11/2024 Chronic diarrhea of unknown origin 10/11/2024 Dysuria 10/11/2024 Frequency of urination 10/11/2024 GERD (gastroesophageal reflux disease) Gross hematuria 10/11/2024 Andreina's thyroiditis 10/11/2024 Hemorrhoids 10/11/2024 Nocturia 10/11/2024 Osteoporosis 10/11/2024 Persistent atrial fibrillation 10/11/2024 Polycythemia 10/11/2024 Radiculopathy of cervical spine 10/11/2024 Retained ureteral stent 10/11/2024 Right ureteral stone 10/11/2024 Stage 3 chronic kidney disease 10/11/2024 Overview (10/11/2024): linked HTN with CKD per OP CDI policy. Stress incontinence 10/11/2024 Urgency of urination 10/11/2024 Implantable cardioverter-def ibrillator (ICD) generator end of life 06/06/2023 Essential hypertension 12/01/2022 Assessment & Plan (12/01/2022 9:03 AM EDT): -Blood pressure stable, continue lisinopril 10 mg twice daily and amlodipine 5 mg daily Alopecia 02/14/2022 Arrhythmogenic right ventricular cardiomyopathy 02/14/2022 Assessment & Plan (12/01/2022 9:01 AM EDT): - Considering she is developing side effects with amiodarone we will need to discontinue - we will start sotalol 80 mg twice daily have patient follow-up in 2 days with EKG and then EKG in 1 week following the to monitor for any QTc changes - this plan was discussed with Dr. Craig ICD (implantable cardioverter-defibrillator), jeremiah matthews, in situ 02/14/2022 Assessment & Plan (12/01/2022 9:02 AM EDT): -Recent device check 11/01/2022 shows RV pacing less than 1%, increase in output from 3.5 V to 4 V. Otherwise device had normal function and stable lead measurements with no events reported. BILL is 1 year. -Follow-up with device clinic in 6 months COPD (chronic obstructive pulmonary disease) Conduction disorder of the heart 02/14/2022 Kidney stone 02/14/2022 Obesity 02/14/2022 VT (ventricular tachycardia) 02/14/2022 Pure hyperglyceridemia 02/14/2022 Vitamin D deficiency 02/14/2022 Disorder of lung 01/07/2013 02/14/2023 Pneumonia 06/14/2011 02/14/2023 Encounters Date Type Department Care Team Description 02/03/2025 Refill [facility] [address] [place] [phone] Romi Choi MA Arrhythmogenic right ventricular dysplasia (CMS/HCC) 01/24/2025 9:45 AM EDT Ancillary Procedure [facility] [facility] [address] [place] [address] Pre-operative cardiovascular examination, ICD in place 01/24/2025 Orders Only [facility] [address] [place] [address] Devan Craig MD 01/20/2025 9:05 AM EDT Ancillary Procedure [facility] [address] [place] [address] Pre-operative cardiovascular examination, ICD in place 01/19/2025 Orders Only [facility] [address] [place] [address] Devan Craig MD 12/25/2024 Orders Only [facility] [address] [facility] [place] [address] Devan Craig MD 12/24/2024 12:40 AM EDT Ancillary Procedure [facility] [address] [place] [address] Pre-operative cardiovascular examination, ICD in place 11/27/2024 11:30 AM EDT Ancillary Procedure [facility] [address] [place] [address] Pre-operative cardiovascular examination, ICD in place 11/20/2024 Orders Only [facility] [address] [place] [address] Devan Craig MD from Last 3 Months Family History Medical History Relation Name Comments MALIGNANT TUMOR OF LUNG Father MALIGNANT NEOPLASM OF SKIN Mother Heart disease Mother's Sister Thyroid disease Sister Relation Name Status Comments Father Mother Mother's Sister Sister Social History Tobacco Use Types Packs/Day Years [...] Sign Reading Time Taken Comments Blood Pressure 148/78 10/24/2024 9:52 AM EDT Pulse 64 10/24/2024 9:52 AM EDT Temperature - - Respiratory Rate 17 07/31/2023 12:34 PM EST Oxygen Saturation 95% 10/24/2024 9:52 AM EDT Inhaled Oxygen Concentration - - Weight 119 kg (263 lb) 10/24/2024 9:52 AM EDT Height 170.2 cm (5' 7 ) 10/24/2024 9:52 AM EDT Body Mass Index 41.19 10/24/2024 9:52 AM EDT Plan of Treatment Upcoming Encounters Date Type Department Care Team (Late st Contact Info) Description 02/17/2025 10:00 AM EDT Office Visit [facility] [address] [place] [address] Koby Beach MD [address] [facility] [address] [facility] [place] [address] Health Maintenance Due Date Last Done Comments CT Colonography 1954 FIT-DNA 1954 FIT 1954 FOBT 1954 Medicare Annual Wellness (AWV) 1954 Sigmoidoscopy 1954 Depression Screening 1966 Pneumococcal Vaccine: 50+ Ye ars (1 of 2 - PCV) 1973 Mammogram 1994 Zoster Vaccines (1 of 2) 2004 Fall Risk Screening 10/29/2019 COVID-19 Vaccine ( - 2023-2 5 season) 2024 Influenza Vaccine (#1) 2025 Adult Tetanus 04/01/2032 04/01/2022 Colonoscopy 05/24/2033 05/24/2023 Colorectal Cancer Screening 05/24/2033 HIB Vaccines Aged Out No longer eligi ble based on patient's age to complete this topic HPV Vaccines Aged Out No longer eligi ble based on patient's age to complete this topic IPV Vaccines Aged Out No longer eligi ble based on patient's age to complete this topic Meningococcal B Vaccine Aged Out No l onger eligible based on patient's age to complete this topic Meningococcal Vaccine Aged Out No kel ava eligible based on patient's age to complete this topic Rotavirus Vaccines Aged Out No longer eligible based on patient's age to complete this topic Medical Devices Implanted Type Area Marketing Analytics Specialist Device Identifier Shelf Expiration Date Model / Serial / Lot Moment[employer] El Icd Is-1/Df-1 - Dr Implanted:Qty: 1 on 07/31/2023 by Devan Craig MD at [facility] ICD [employer] [id number] 03/29/2025 [id number] / Ingevity+ Is-1 Bi Positive Fix Ra/Rv 52cm Implanted:Qty: 1 on 07/31/2023 by Devan Craig MD at [facility] Lead [employer] [id number] 07/09/2025 [id number] / Procedures Procedure Name Priority Date/Time Associated Diagnosis Comments CARDIAC DEVICE CHECK CHECK - REMOTE Routine 02/03/2025 5:41 PM EDT Pre-operative cardiovascular examination, ICD in place CARDIAC DEVICE CHECK CHECK - REMOTE Routine 01/31/2025 9:35 AM EDT Pre-operative cardiovascular examination, ICD in place CARDIAC DEVICE CHECK - REMOTE - ICD Routine 01/24/2025 12:00 AM EDT CARDIAC DEVICE CHECK CHECK - REMOTE Routine 01/22/2025 2:28 PM EDT Pre-operative cardiovascular examination, ICD in place CARDIAC DEVICE CHECK - REMOTE - ICD Routine 01/19/2025 12:00 AM EDT CARDIAC DEVICE CHECK - REMOTE - ICD Routine 12/25/2024 12:00 AM EDT CARDIAC DEVICE CHECK CHECK - REMOTE Routine 12/02/2024 3:36 PM EDT Pre-operative cardiovascular examination, ICD in place CARDIAC DEVICE CHECK - REMOTE - ICD Routine 11/20/2024 12:00 AM EDT from Last 3 Months Results * CARDIAC DEVICE CHECK - REMOTE - ICD (02/03/2025 5:41 PM EDT) Only the most recent of4 resultswithin the time period is included. us Luis Alberto Sanderson MD CV IMPLANTABLE CARDIAC DEVICE [place] OCEDURES Final Result CPACS * Cardiac device check - Remote ICD (01/24/2025 12:00 AM EDT) Only the most recent of4 resultswithin the time period is included. Anatomical Region Laterality Modality Other 01/24/2025 us Devan Craig MD CV IMPLANTABLE CARDIAC DEVICE [place] OCEDURES Final Result from Last 3 Months Insurance [employer] MED[employer]ARE [employer]VANTAGE Care Teams Territory Manager General Sales Relationship Specialty Start Date End Date Navarro Marin MD [address] [place] [address] PCP - General Family Medicine 02/24/23
--- OUTSIDE RECORDS SUMMARY | 2025-02-12 08:48 | XMS_ITS | Encounter Summary ---
Author Organization [facility] Address [address] [place] [address] Care Team Providers Care Aircraft Maintenance Manager Name Role Phone Monie Miranda MD Primary Care Provider [phone] Navarro Marin MD Primary Care Provider [phone] Reason for Visit * Reason Comments Med Refill Encounter Details Date Type Department Care Team (Late st Contact Info) Description 09/26/2022 Refill [facility] Cardiology [address] [place] [address] Sophie Orozco, CIRCULATION ASSISTANT [address] [place] [phone] Essential hypertension Social History Tobacco Use Types Packs/Day Years Used Date Smoking Tobacco: Never Smokeless Tobacco: Never Alcohol Use Standard Drinks/Week Comments Never 0 (1 standard drink = 0.6 oz pur e alcohol) Comments Unknown Sex and Gender Information Value Date Recorded Sex Assigned at Not on file Legal Sex Female 9:46 PM EDT Gender Identity Not on file Sexual Orientation Not on file documented as of this encounter Plan of Treatment Upcoming Encounters Date Type Department Care Team (Late st Contact Info) Description 02/17/2025 10:00 AM EDT Office Visit [place] [address] [place] [address] Koby Beach MD [address] [facility] [place] [address] documented as of this encounter Visit Diagnoses Diagnosis Essential hypertension Unspecified essential hypertension documented in this encounter Care Teams Aircraft Maintenance Manager Relationship Specialty Start Date End Date Monie Miranda MD [address] [facility] PCP - General 02/18/22 02/23/23 Navarro Marin MD [address] [place] [address] PCP - General Family Medicine 02/24/23 documented as of this encounter
--- OUTSIDE RECORDS SUMMARY | 2025-02-12 08:48 | XMS_ITS | Clinical Summary ---
Author Organization [facility] Address [id number] [address] [place] [address] Care Team Providers Care Insulation Board Back Tender Name Role Phone Monie Miranda MD Primary Care Provider [phone] Social History Tobacco Use Types Packs/Day Years [...] on file Insurance [employer] MEDICARE Care Teams Insulation Board Back Tender Relationship Specialty Start Date End Date Monie Miranda MD PCP - General Family Medicine 02/11/20
--- OUTSIDE RECORDS SUMMARY | 2025-02-12 08:48 | XMS_ITS | Clinical Summary ---
Author Organization [facility] Address [address] [facility] [place] [address] Care Team Providers Care Supervisor Grips Name Role Phone Navarro Marin MD Primary Care Provider [phone] Allergies Active Allergy Reactions Criticality Noted Date [...] file Insurance [employer] MED[employer]ARE ADVANTAGE Care Teams Supervisor Grips Relationship Specialty Start Date End Date Navarro Marin MD [address] [place] [address] PCP - General Family Medicine 05/02/23
--- OUTSIDE RECORDS SUMMARY | 2025-02-12 08:48 | XMS_ITS | Encounter Summary ---
Author Organization [facility] Address [address] [place] [address] Care Team Providers Care Pricing Consultant Name Role Phone Navarro Marin MD Primary Care Provider [phone] Encounter Details Date Type Department Care Team (Late st Contact Info) Description 11/20/2024 Orders Only [facility] [address] [place] [address] Devan Craig MD [address] [place] [address] Social History Tobacco Use Types [...] Description 02/17/2025 10:00 AM EDT Office Visit [facility] [address] [place] [address] Koby Beach MD [address] [facility] [address] [place] [address] documented as of this encounter Procedures Procedure Name Priority Date/Time Associated Diagnosis Comments CARDIAC DEVICE CHECK - REMOTE - ICD Routine 11/20/2024 12:00 AM EDT documented in this encounter Results * Cardiac device check - Remote ICD (11/20/2024 12:00 AM EDT) Anatomical Region Laterality Modality Other 11/20/2024 us Devan Craig MD CV IMPLANTABLE CARDIAC DEVICE [place] OCEDURES Final Result documented in this encounter Visit Diagnoses Not on filedocumented in this encounter Care Teams Pricing Consultant Relationship Specialty Start Date End Date Navarro Marin MD [address] [place] [address] PCP - General Family Medicine 02/24/23 documented as of this encounter
--- OUTSIDE RECORDS SUMMARY | 2025-02-12 08:48 | XMS_ITS | Encounter Summary ---
Author Organization [facility] Address [address] [place] [address] Care Team Providers Care Environmental Science Technician Name Role Phone Navarro Marin MD Primary Care Provider [phone] Encounter Details Date Type Department Care Team (Late st Contact Info) Description 01/24/2025 Orders Only [facility] [address] [place] [address] Devan Craig MD [address] [place] [address] Social History Tobacco Use Types [...] Description 02/17/2025 10:00 AM EDT Office Visit [facility] [address] [place] [address] Koby Beach MD [address] [facility] [address] [facility] [place] [phone] documented as of this encounter Procedures Procedure Name Priority Date/Time Associated Diagnosis Comments CARDIAC DEVICE CHECK - REMOTE - ICD Routine 01/24/2025 12:00 AM EDT documented in this encounter Results * Cardiac device check - Remote ICD (01/24/2025 12:00 AM EDT) Anatomical Region Laterality Modality Other 01/24/2025 us Devan Craig MD CV IMPLANTABLE CARDIAC DEVICE [place] OCEDURES Final Result documented in this encounter Visit Diagnoses Not on filedocumented in this encounter Care Teams Environmental Science Technician Relationship Specialty Start Date End Date Navarro Marin MD [address] [place] [address] PCP - General Family Medicine 02/24/23 documented as of this encounter
--- OUTSIDE RECORDS SUMMARY | 2025-02-12 08:48 | XMS_ITS | Encounter Summary ---
Author Organization [facility] Address [address] [place] [address] Care Team Providers Care Golf Club Repairer Name Role Phone Navarro Marin MD Primary Care Provider [phone] Reason for Visit * Reason Onset Date Comments Med Refill 02/03/2025 Encounter Details Date Type Department Care Team (Late st Contact Info) Description 02/03/2025 Refill [place] [facility] [address] [place] [address] Romi Choi MA Arrhythmogenic right ventricular dysplasia (CMS/HCC) Social History Tobacco Use Types Packs/Day Years [...] 02/17/2025 10:00 AM EDT Office Visit 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
--- OUTSIDE RECORDS SUMMARY | 2025-02-12 08:48 | XMS_ITS | Encounter Summary ---
Author Organization [facility] Address [address] [place] [address] Care Team Providers Care Ultrasound Spec Name Role Phone Navarro Marin MD Primary Care Provider [phone] Encounter Details Date Type Department Care Team (Late st Contact Info) Description 10/23/2024 Orders Only [facility] Clinic [address] [place] [address] Jesse Parker MD [address] [place] [address] Social History Tobacco Use Types [...] Description 02/17/2025 10:00 AM EDT Office Visit [facility] [address] [place] [address] Koby Beach MD [address] [facility] [address] [facility] [place] [phone] documented as of this encounter Procedures Procedure Name Priority Date/Time Associated Diagnosis Comments CARDIAC DEVICE CHECK - REMOTE - ICD Routine 10/23/2024 12:00 AM EDT documented in this encounter Results * Cardiac device check - Remote ICD (10/23/2024 12:00 AM EDT) Anatomical Region Laterality Modality Other 10/23/2024 Jesse Parker MD CV IMPLANTABLE CARDIAC DEVICE PROCEDURES Final Result documented in this encounter Visit Diagnoses Not on filedocumented in this encounter Care Teams Ultrasound Spec Relationship Specialty Start Date End Date Navarro Marin MD [address] [place] [address] PCP - General Family Medicine 02/24/23 documented as of this encounter
--- OUTSIDE RECORDS SUMMARY | 2025-02-12 08:50 | XMS_ITS | CCD ---
Author Organization [facility] Care Team Providers Care Client Delivery Specialist Name Role Phone ADAM SANDERS Primary Care Physician [phone] BRIGHT ., DR CUENCA Admitting Unavailable SANDERS ., DR ADAM Gann Primary Care Unavailable BRIGHT ., DR CUENCA Attending Unavailable GARY, DR BENNETT Acevedo Consulting Unavailable COVINGTON, DR ELVIS David Consulting Unavailable BRIGHT ., [...] Unavailable BRIGHT ., DR CUENCA Admitting Unavailable MADELINE, DR NASIMA Manrique Consulting Unavailable ROSANGELA CRAWLEY Consulting Unavailable KP LOPEZ Consulting Unavailable BRIGHT ., DR CUENCA Admitting Unavailable BRIGHT ., DR CUENCA Attending Unavailable SANDERS ., DR DAAM Gann Primary Care Unavailable YESSICA TORRES Attending Unavailable YESSICA TORRES Admitting Unavailable YESSICA TORRES Consulting Unavailable SANDERS ., DR ADAM Gann Primary Care Unavailable LUIS BURLESON Consulting Unavailable NIEVES TORRESA Attending Unavailable BRIAN, YESSICA Admitting Unavailable YESSICA TORRES Consulting Unavailable SANDERS ., DR ADAM Gann Primary Care Unavailable Rosangela Marin Primary Care Physician [phone] Glenn Dukes Attending Unavaila Glenn Nixon Attending Unavaila Rosangela Small Attending Unavailable Rosangela Marin Attending Unavailable Rosangela Marin Attending Unavailable Rosangela Marin Attending Unavailable Roseline, Glenn Ramos Admitting Unavaila ble Sarmini, Glenn Ramos Attending Unavaila ble Francesminvidya, Glenn Ramos Referring Unavaila Rosangela Small Admitting Unavailable Rosangela Marin Attending Unavailable Justyna, Rosemarie Pinto Admitting Unavailable Justyna, Rosemarie Pinto Attending Unavailable Justyna, Rosemarie Pinto Admitting Unavailable Justyna, Rosemarie Pinto Attending Unavailable Rosangela Marin Admitting Unavailable Justyna, Rosemarie Pinto Attending Unavailable MD Rosangela Marin Attending Unavailable MD Rosangela Marin Admitting Unavailable GREGORIO, JANNIE Referring Unavailable GREGORIO, JANNIE Referring Unavailable TUYET, JAYLEN Referring Unavailable GREGORIO, JANNIE Referring Unavailable GREGORIO, JANNIE Referring Unavailable GREGORIO, JANNIE Referring Unavailable TUYET, JAYLEN Referring Unavailable GREGORIO, JANNIE Referring Unavailable GREGORIO, JANNIE Referring Unavailable GREGORIO, JANNIE Referring Unavailable TUYET, JAYLEN Referring Unavailable GREGORIO, JANNIE Referring Unavailable BRIANYESSICA Attending Unavailable GREGORIO, JANNIE Referring Unavailable GREGORIO, JANNIE Referring Unavailable BRIANYESSICA Attending Unavailable GREGORIO, JANNIE Referring Unavailable GREGORIO, JANNIE Referring Unavailable TUYET, JAYLEN Referring Unavailable Allergies Allergy Classification Reported Allergen(s) Allergy Type Date of Onset Reaction(s) Facility (10 sources) cefTRIAXone; Translations: [ceftriaxone] Drug Allergy 02-15-20 22 Hives, Rash [facility] (10 sources) cyclobenzaprine; Translations: [cyclobenzaprine] Drug Allergy 10-12-19 25 Rapid heart beat [facility] (10 sources) oxaprozin; Translations: [oxaprozin] Drug Allergy 02-15-20 22 Hives, Rash [facility] (1 source) Acetaminophen / oxyCODONE Drug Allergy [facility] (2 sources) cefTRIAXone Drug Allergy 11-27-19 13 [facility] (1 source) cyclobenzaprine Drug Allergy [facility] (1 source) Metoprolol Drug Allergy [facility] (2 sources) oxaprozin Drug Allergy 11-27-19 13 [facility] (1 source) tiZANidine Drug Allergy 07-03-19 20 [facility] (1 source) Muscle Rub; Translations: [Muscle Rub] Propensity to adverse reactions (disorder) [facility] (1 source) Metoprolol; Translations: [METOPROLOL TARTRATE] Drug Allergy 02-15-20 [facility] Rep[facility] Medications Current Medications Medication Drug Class(es) Dates Sig (Normalized) Sig (Original) albuterol 0.83 mg/ml inhalation solution (8 sources) beta2-Adrenergic Agonist Start: 04-18-2023 take 2.5 mg by inhalation every six hours albuterol 0.083% Inh Beti 3 mL 2.5 mg, 3 mL, NEB, q6hr Shortness of breath or wheezing, 300 mL, Refill(s) 0, [facility], 169, cm, 04/18/23 13:06:00 EDT, Height/Length Dosing, 115.8, kg, 04/18/23 13:06:00 EDT, Weight Dosing Start Date: 04/18/23 Status: Ordered Start: 04-16-2020 take 2.5 mg by inhal ation every six hours albuterol 0.083% Inh Beti 3 mL 2.5 mg, 3 mL, NEB, q6hr Shortness of breath or wheezing Start Date: 04/16/20 Status: Ordered Albuterol (Eqv-ProAir HFA) 90 mcg/inh inhalation aerosol (6 sources) Start: 04-18-2023 take 180 ug by inhalation every six hours Albuterol (Eqv-ProAir HFA) 90 mcg/inh inhalation aerosol 180 mcg, 2 puff(s), Inhalation, q6hr, 18 gm, Refill(s) 0, NEEDED, [facility], 169, cm, 04/18/23 13:06:00 EDT, Height/Length Dosing, 115.8, kg, 04/18/23 13:06:00 EDT, Weight Dosing Start Date: 04/18/23 Status: Ordered alendronic acid 70 mg oral tablet (7 sources) Bisphosphonate Start: 04-15-2020 take 1 tablet [...] Status: Ordered amLODIPine 5 mg oral tablet (7 sources) Dihydropyridine Calcium Channel Bridger Start: 12-20-2022 take 1 tablet by mouth once daily amLODIPine 5 mg Tab 5 mg = 1 tab(s), Oral, Daily, Refills(s) 0, High blood pressure Start Date: 12/20/22 Status: Ordered Ascorbic Acid (7 sources) Vitamin C Start: 01-28-2022 Vitamin C Daily, Refills(s) 0, Prophylaxis Start Date: 01/28/22 Status: Ordered Start: 01-28-2022 Vitamin C Lior y, Refills(s) 0 Start Date: 01/28/22 Status: Ordered aspirin 81 mg oral tablet (8 sources) Platelet Aggregation Inhibitor, Nonsteroidal Anti-inflammatory Drug Start: 05-11-2020 take 1 tablet by mouth once daily aspirin 81 mg oral tablet 1 tab, Oral, Daily, Refills(s) 0 Start Date: 05/11/20 Status: Ordered bifidobacterium infantis 4 mg oral capsule (1 source) Start: 05-22-2023 End: 06-19-2023 take 1 capsule by mouth once daily Align 4 mg oral capsule 4 mg = 1 cap(s), Oral, Daily, Take after completing the Antibiotics course, X 28 day(s), # 28 cap(s), Refills(s) 0, Pharmacy: [facility], 169, cm, 05/05/23 9:58:00 EDT, Height/Length Dosing, 116.8, kg, 05/05/23 9:58:00 EDT, Weight Dosing Start Date: 05/22/23 Stop Date: 06/19/23 Status: Ordered calcium gluconate 650 mg oral tablet (1 source) Start: 04-29-2024 take 2 tablets by mouth twice daily calcium gluconate 650 mg oral tablet 1,300 mg = 2 tab(s), Oral, BID, Refills(s) 0 Start Date: 04/29/24 Status: Ordered sugar-free cholestyramine resin 4000 mg powder for oral suspension (4 sources) Bile Acid Sequestrant Start: 04-18-2023 cholestyramine 4 g/5 g Oral Pwdr 1 packet(s), Oral, TID, 90 EA, Refill(s) 0, [facility], 169, cm, 04/18/23 13:06:00 EDT, Height/Length Dosing, 115.8, kg, 04/18/23 13:06:00 EDT, Weight Dosing Start Date: 04/18/23 Status: Ordered colestipol hydrochloride 1000 mg oral tablet (2 sources) Bile Acid Sequestrant Start: 04-29-2024 take 2 tablets by mouth once Colestid 1 g Tab = 2 tab(s), Oral, Once, Refills(s) 0 Start Date: 04/29/24 Status: Ordered Start: 06-15-2023 take 2 tablets by mouth once C olestid 1 g Tab 2 gm = 2 tab(s), Oral, Once, with a full glass of water, # 60 tab(s), Refills(s) 3, Pharmacy: [facility], 169, cm, 06/15/23 15:21:00 EST, Height/Length Dosing, 113.8, kg, 06/15/23 15:21:00 EST, Weight Dosing Start Date: 06/15/23 Status: Ordered Digestive Advantage Daily Probiotic (7 sources) Start: 04-16-2020 take 1 capsule by mouth once daily Digestive Advantage Daily Probiotic 1 cap(s), Oral, Daily, Prophylaxis Start Date: 04/16/20 Status: Ordered levothyroxine sodium 0.05 mg oral tablet (8 sources) l-Thyroxi ne Start: 04-29-2024 take 1 tablet by mouth once daily levothyroxine 50 mcg (0.05 mg) Tab See Instructions, Take 1 tablet by mouth once daily, # 90 tab(s), Refills(s) 0, Pharmacy: [facility], 169, cm, 04/29/24 11:00:00 EDT, Height/Length Dosing, 117, kg, 04/29/24 11:00:00 EDT, Weight Dosing Start Date: 04/29/24 Status: Ordered Start: 04-18-2023 take 1 tablet by irasema th once daily levothyroxine 50 mcg (0.05 mg) Tab 50 mcg = 1 tab(s), Oral, Daily, # 90 tab(s), Refills(s) 1, Pharmacy: [facility], 169, cm, 04/18/23 13:06:00 EDT, Height/Length Dosing, 115.8, kg, 04/18/23 13:06:00 EDT, Weight Dosing Start Date: 04/18/23 Status: Ordered Start: 04-15-2020 take 1 tablet by irasema th once daily levothyroxine 50 mcg (0.05 mg) Tab 50 microgram = 1 tab(s), Oral, Daily, Refills(s) 0, Thyroid Start Date: 04/15/20 Status: Ordered lisinopril 10 mg oral tablet (8 sources) Angiotensin Converting Enzyme Inhibitor Start: 04-15-2020 [...] Ordered sotalol hydrochloride 80 mg oral tablet (7 sources) Antiarrhythmic Start: 12-20-2022 take 1 tablet by mouth twice daily sotalol 80 mg Tab 80 mg = 1 tab(s), Oral, BID, Refills(s) 0, Irregular heartbeat Start Date: 12/20/22 Status: Ordered Vitamin D (2 sources) Start: 01-28-2022 Vitamin D [employer] t, Oral, qWeek, Refills(s) 0 Start Date: 01/28/22 Status: Ordered Vitamin D3 5000 intl units (125 mcg) oral tab (6 sources) Start: 04-18-2023 take 1 tablet by mouth once daily Vitamin D3 5000 intl units (125 mcg) oral tab 125 mcg = 1 tab(s), Oral, Daily, Refills(s) 0, Prophylaxis Start Date: 04/18/23 Status: Ordered Start: 04-18-2023 take 1 tablet by irasema th once daily Vitamin D3 5000 intl units (125 mcg) oral tab 125 mcg = 1 tab(s), Oral, Daily, Refills(s) 0 Start Date: 04/18/23 Status: Ordered Completed/Discontinued Medications Medication Drug Class(es) Dates Sig (Normalized) Sig (Original) potassium chloride 10 meq extended release oral capsule (8 sources) Start: 04-15-2020 take 1 capsule by mouth once daily potassium chloride 10 mEq Cap-ER 10 mEq = 1 cap(s), Oral, Daily, Refills(s) 0, Prophylaxis Start Date: 04/15/20 Status: Ordered Problems Active Problems Problem Classification Problem Date Documented Da te Episodic/Chronic Abdominal pain (10 sources) Abdominal pain; Translations: [Unspecified abdominal pain] Onset: 3 05-04-2020 Episodic Anal and rectal conditions (5 sources) Anorectal disorder; Translations: [Other specified diseases of anus and rectum] Onset: 3 Episodic Asthma (9 sources) Asthma; Translations: [Unspecified asthma, uncomplicated] Onset: 2 04-15-2020 Chronic Calculus of urinary tract (20 sources) Kidney stone; Translations: [Calculus of kidney] Onset: 2 Episodic Cardiac dysrhythmias (9 sources) Atrial fibrillation; Translations: [Unspecified atrial fibrillation] Onset: 2 04-15-2020 Chronic Chronic kidney disease (5 sources) Chronic kidney disease stage 3A ; Translations: [Chronic kidney disease stage 3] 04-26-2023 Chronic Comment on above: linked HTN with CKD per OP CDI policy. Chronic obstructive pulmonary disease and bronchiectasis (6 sources) Chronic obstructive lung disease 04-06-2023 Chronic Complication of device; implant or graft (8 sources) Retained ureteric stent 05-04-2020 Episodic Conduction disorders (8 sources) Presence of automatic (implantable) cardiac defibrillator; Translations: [Cardiac defibrillator in situ] Onset: 2 08-08-2023 Chronic Deficiency and other anemia (8 sources) Anemia 04-15-2020 Episodic Esophageal disorders (6 sources) Gastroesophageal reflux disease 04-06-2023 Chronic Essential hypertension (1 source) Essential hypertension 04-26-2024 Chronic Comment on above: noted in 04/02/2024 Cardiology Consult Note page 7. added per OP [facility]I policy. Genitourinary symptoms and ill-defined conditions (12 sources) Stress incontinence (female) (male); Translations: [Genuine stress incontinence] Onset: 2 Chronic Genitourinary symptoms and ill-defined conditions (20 sources) Dysuria; Translations: [Marco hematuria] 04-15-2020 Episodic Hemorrhoids (6 sources) Hemorrhoids 04-06-2023 Episodic Noninfectious gastroenteritis (8 sources) Chronic diarrhea of unknown origin ; Translations: [Noninfectious enteritis] Onset: 3 04-18-2023 Episodic Osteoarthritis (9 sources) Arthritis; Translations: [Unspecified osteoarthritis, unspecified site] Onset: 2 04-15-2020 Chronic Osteoporosis (6 sources) Osteoporosis 04-06-2023 Chronic Other aftercare (5 sources) Other technician terminal and repeater (current) drug therapy; Translations: [OTH CONE RUNNER CURRENT DRUG THERAPY] Onset: 2 Episodic Other gastrointestinal disorders (4 sources) Abdominal bloating 05-05-2023 Episodic Other hematologic conditions (4 sources) Erythrocytosis 04-26-2023 Episodic Other non-traumatic joint disorders (6 sources) Hip pain 04-18-2023 Episodic Other nutritional; endocrine; and metabolic disorders (8 sources) Body mass index 40+ - severely [...] INDEX BMI 40.0-44.9 ADULT] Onset: 2 Chronic Other nutritional; endocrine; and metabolic disorders (1 source) Severe obesity 04-29-2024 Chronic Comment on above: added per 04/26/2024 query response. Other nutritional; endocrine; and metabolic disorders (1 source) Obese class II; Translations: [Body mass index (BMI) 38.0-38.9, adult] Onset: 3 Chronic Kaela-; endo-; and myocarditis; cardiomyopathy (except that caused by tuberculosis or sexually transmitted disease) (6 sources) Cardiomyopathy; Translations: [Cardiomyopathy, unspecified] 04-18-2023 Chronic Spondylosis; intervertebral disc disorders; other back problems (6 sources) Cervical radiculopathy 04-06-2023 Episodic Thyroid disorders (6 sources) Andreina thyroiditis 04-06-2023 Chronic Unclassified (8 sources) Drug therapy finding 04-15-2020 Unclassified (1 source) CONTACT W/AND (SUSP) EXPOS COVID-19; Translations: [CONTACT W/AND (SUSP) EXPOS COVID-19] Onset: 2 Unclassified (4 sources) Finding of sensation of abdomen 05-05-2023 Unclassified (1 source) Ventricular tachycardia, unspecified; Translations: [Ventricular tachycardia, unspecified] Onset: 3 Viral infection (6 sources) Disease caused by 2019-nCoV 04-06-2023 Past or Other Problems Problem Classification Problem Date Documented Da te Episodic/Chronic Deficiency and other anemia (1 source) Anemia, unspecified; Translations: [ANEMIA UNSPECIFIED] Onset: 02-15-2022 Episodic Nonspecific chest pain (2 sources) Other chest pain; Translations: [Other chest pain] Onset: 04-02-2024 Episodic Other aftercare (1 source) custodial (current) use of aspirin; Translations: [CONE RUNNER CURRENT USE OF ASPIRIN] Onset: 02-21-2022 Episodic Other aftercare (1 source) buttermaker continuous churn (current) use of anticoagulants; Translations: [CONE RUNNER CURRNT USE ANTICOAGULANTS] Onset: 02-15-2022 Episodic Other gastrointestinal disorders (2 sources) Swollen abdomen; Translations: [Abdominal distension (gaseous)] Onset: 05-05-2023 Episodic Residual codes; unclassified (1 source) Acquired absence of other specified parts of digestive tract; Translations: [ACQ ABSENCE OTH PART DIGESTV TRACT] Onset: 02-21-2022 Episodic Residual codes; unclassified (1 source) Acquired absence of both cervix and uterus; Translations: [ACQUIRED ABSENCE BOTH CERVIX AND UTERUS] Onset: 02-21-2022 Episodic Unclassified (1 source) Ventricular tachycardia, unspecified; Translations: [Ventricular tachycardia, unspecified] Onset: 10-24-2024 Results Test Name Value Interpretation Reference Range Facility Orders Onlyon 01-24-2025 Orders Only [id number] Gail Parra thy L 1955 F Date Provider Department Center 01/24/2025 JANNIE CARDENAS C CARD [facility] Family History Problem Relation Age of Onset Other Mother Other Father Thyroid disease Sister Heart disease Mother's Sister Family Status - Relation Status Age at Mother Father Sister Mother's Sister Normal [facility] Orders Onlyon 01-19-2025 Orders Only [id number] Gail Parra thy L 1955 F Date Provider Department Center 01/19/2025 241-JANNIE PERKINS C CARD [facility] Family History Problem Relation Age of Onset Other Mother Other Father Thyroid disease Sister Heart disease Mother's Sister Family Status - Relation Status Age at Mother Father Sister Mother's Sister Normal [facility] Office Visiton 10-24-2024 Follow-up visit [id number] Gail Parra thy L 1955 F Date Provider Department Center 10/24/2024 Pat-YESSICA TORRES [facility]ARD [facility] Family History Problem Relation Age of Onset Other Mother Other Father Thyroid disease Sister Heart disease Mother's Sister Family Status - Relation Status Age at Mother Father Sister Mother's Sister Level of Service:10122 MA OFFICE/OUTPATIENT ESTABLISHED MOD MDM 30 MIN Reason for Visit and Comments: ARVD s/p ICD [Other] Hypertension [885273] Hyperlipidemia [182] Normal [facility] Ambulatory Visit Summaryon 1 Ambulatory Visit Summary Ambulatory Visit Summary JES PARRAEvangelina Sims :1955 Visit Date:04/29/2024 Ambulatory Visit Instructions Your Diagnosis COPD (chronic obstructive pulmonary disease) Cardiomyopathy Persistent atrial fibrillation Stage 3a chronic kidney disease (CKD) Benign hypertension with chronic kidney disease, stage III Class 2 severe obesity with serious comorbidity in adult Anemia Hypothyroidism, unspecified Noninfective gastroenteritis and colitis, unspecified Nail disorder, unspecified BMI 40.0-44.9, adult, Body mass index [BMI] 40.0-44.9, adult Morbid obesity with body mass index (BMI) of 40.0 to 44.9 in adult, Morbid (severe) obesity due to excess calories Nonsmoker Chronic kidney disease, stage 3 unspecified Your Care Team Attending Physician - Rosangela Marin MD Primary Care Physician - Rosangela Marin MD This Is Your Medications List levothyroxine (levothyroxine 50 mcg (0.05 mg) Tab) Contact prescribing physician if questions or concerns albuterol (Albuterol (Eqv-ProAir HFA) 90 mcg/inh inhalation aerosol) albuterol (albuterol 0.083% Inh Beti 3 mL) amlodipine (amLODIPine 5 mg Tab) aspirin (aspirin 81 mg oral tablet) calcium gluconate (calcium gluconate 650 mg oral tablet) cholecalciferol (Vitamin D3 5000 intl units (125 mcg) oral tab) lisinopril (lisinopril 10 mg Tab) potassium chloride (potassium chloride 10 mEq Cap-ER) sotalol (sotalol 80 mg Tab) Procedures Performed Colonoscopy (05/24/2023), Esophagogastroduodenoscopy (05/24/2023), ESWL of kidney (02/17/2022), Cystoscopy (05/11/2020), ESWL (extracorporeal shockwave lithotripsy) of ureteric calculus (04/20/2020), Cholecystectomy, Defibrillator, Hysterectomy. Discharge Vitals Temperature (Temporal Artery) 37.0 ???C Heart Rate (Peripheral) 84 Respiratory Rate 16 Blood Pressure 132/84 Height 169 cm Height 67 in Weight 117.0 kg Weight 257.4 lb BMI 40.96 What to do next Scheduled Follow-Up Appointments Monday 9:30 AM EDT With: Where: [address] [address]- Monday 10:15 AM EDT With: Rosangela Marin MD Where: [address] [place] [address]- Medications What How Much When Instructions Changed levothyroxine (levothyroxine 50 mcg (0.05 mg) Tab) See instructions Take 1 tablet by mouth once daily Pickup at [facility] Unchanged albuterol (Albuterol (Eqv-ProAir HFA) 90 mcg/ inh inhalation aerosol) 2 Puffs Inhalation Every 6 hours NEEDED Contact prescribing physician if questions or concerns Unchanged albuterol (albuterol 0.083% Inh Beti 3 mL) 3 Milliliter Nebulized inhalation (aerosol) Every 6 hours as needed for Shortness of breath or wheezing Contact prescribing physician if questions or concerns Unchanged amlodipine (amLODIPine 5 mg Tab) 1 Tablets By Mouth Every day Contact prescribing physician if questions or concerns Unchanged aspirin (aspirin 81 mg oral tablet) 1 tab By Mouth Every day Contact prescribing physician if questions or concerns Unchanged calcium gluconate (calcium gluconate 650 mg oral tablet) 2 Tablets By Mouth 2 times a day Contact prescribing physician if questions or concerns Unchanged cholecalciferol (Vitamin D3 5000 intl units (125 mcg) oral tab) 1 Tablets By Mouth Every day Contact prescribing physician if questions or concerns Unchanged lisinopril (lisinopril 10 mg Tab) 1 Tablets By Mouth 2 times a day Contact prescribing physician if questions or concerns Unchanged potassium chloride (potassium chloride 10 mEq Cap-ER) 1 Capsules By Mouth Every day Contact prescribing physician if questions or concerns Unchanged sotalol (sotalol 80 mg Tab) 1 Tablets By Mouth 2 times a day Contact prescribing physician if questions or concerns Pharmacy Information [facility]: [address] [place], [place] [id number] [phone] Allergies Daypro (Hives, Rash) Flexeril (Rapid heart beat) Rocephin (Hives, Rash) Problems Ongoing - Any problem that you are currently receiving treatment for. Abdominal cramping Abdominal pain Anemia Anticoagulated Arthritis Asthma Benign hypertension with chronic kidney disease, stage III Bloating BMI 40.0-44.9, adult Cardiac defibrillator in place Cardiomyopathy Chronic diarrhea of unknown origin Class 2 severe obesity with serious comorbidity in adult COPD (chronic obstructive pulmonary disease) COVID pneumonia Dysuria Essential hypertension Frequency of urination GERD (gastroesophageal reflux disease) Gross hematuria Andreina's thyroiditis Hemorrhoids Hip pain, right Kidney stone Nocturia Osteoporosis Persistent atrial fibrillation Polycythemia Radiculopathy of cervical spine Rectal pain Retained ureteral stent Right ureteral stone Stage 3a chroni (more content not included)... Normal [facility] CBC w/ Auto Diffon 4 Basophils/100 WBC (Bld) 0.9 % Normal 0.0-2.0 [facility] Comment on above: Performed By: #### 2 [id number] #### [facility] [address] [place] [address] Basophils/Leukocyte s Auto (Bld) [Pure # fraction] 0.1 E9/L Normal 0.0-0.2 [facility] Comment on above: Performed By: #### 2 [id number] #### [facility] [address] [place] [address] Eosinophils (Bld) [#/Vol] 0.2 E9/L Normal 0.0-0.5 [facility] Comment on above: Performed By: #### 2 [id number] #### [facility] [address] [place] [address] Eosinophils/100 WBC (Bld) 2.9 % Normal 0.0-8.0 [facility] Comment on above: Performed By: #### 2 [id number] #### [facility] [address] [place] [address] Erythrocyte distribution width (RBC) [Ratio] 13.6 % Normal 10.9-14.2 [facility] Comment on above: Performed By: #### 2 [id number] #### [facility] [address] [place] [address] Hematocrit (Bld) [Volume fraction] 46.2 % High 34.0-46.0 [facility] Comment on above: Performed By: #### 2 [id number] #### [facility] [address] [place] [address] Hemoglobin (Bld) [Mass/Vol] 15.8 g/dL Normal 12.0-16.0 [facility] Comment on above: Performed By: #### 2 [id number] #### [facility] [address] [place] [address] Lymphocytes (Bld) [#/Vol] 1.2 E9/L Normal 1.0-4.0 [facility] Comment on above: Performed By: #### 2 [id number] #### [facility] [address] [place] [address] Lymphocytes/100 WBC (Bld) 13.8 % Low 14.0-50.0 [facility] Comment on above: Performed By: #### 2 [id number] #### [facility] [address] [place] [address] MCH (RBC) [Entitic mass] 33.3 pg Normal 27.0-34.0 [facility] Comment on above: Performed By: #### 2 [id number] #### [facility] [address] [place] [address] MCHC (RBC) [Mass/Vol] 34.1 g/dL Normal 31.4-36.0 [facility] Comment on above: Performed By: #### 2 [id number] #### [facility] [address] [place] [address] MCV (RBC) [Entitic vol] 97.8 fL Normal 80.0-100.0 [facility] Comment on above: Performed By: #### 2 [id number] #### [facility] [address] [place] [address] Monocytes (Bld) [#/Vol] 1.1 E9/L High 0.2-1.0 [facility] Comment on above: Performed By: #### 2 [id number] #### [facility] [address] [place] [address] Neutrophils (Bld) [#/Vol] 6.1 E9/L Normal 2.0-7.5 [facility] Comment on above: Performed By: #### 2 [id number] #### [facility] [address] [place] [address] Neutrophils/100 WBC (Bld) 70.2 % Normal 36.0-75.0 [facility] Comment on above: Performed By: #### 2 [id number] #### [facility] [address] [place] [address] Platelet 280.0 E9/L Normal 150.0-500.0 [facility] Comment on above: Performed By: #### 2 [id number] #### [facility] [address] [place] [address] Platelet mean volume (Bld) [Entitic vol] 8.9 fL Normal 6.4-10.8 [facility] Comment on above: Performed By: #### 2 [id number] #### [facility] [address] [place] [address] RBC (Bld) [#/Vol] 4.7 E12/L Normal 4.3-5.9 [facility] Comment on above: Performed By: #### 2 [id number] #### [facility] [address] [place] [address] WBC corrected for nucl RBC Auto (Bld) [#/Vol] 8.7 E9/L Normal 4.0-11.0 [facility] Comment on above: Performed By: #### 2 [id number] #### [facility] [address] [place] [address] CHEMISTRYOrdered By: SYSTEM SYSTEM on 04-29-2024 Albumin [Mass/Vol] 4.1 g/dL Normal 3.3 - 5.0 gm/dL [facility] Albumin/Globulin [Mass ratio] 1.4 {ratio} Normal 1.1 - 2.2 [facility] ALP [Catalytic activity/Vol] 92 [iU]/d Normal 21 - 98 Int._Unit/L [facility] ALT No additional P-5'-P [Catalytic activity/Vol] 16 [iU]/d Normal 6 - 46 Int._Unit/L [facility] Anion gap [Moles/Vol] 10 mmol/L Normal 6 - 16 mEq/L [facility] AST [Catalytic activity/Vol] 17 [iU]/d Normal 5 - 43 Int._Unit/L [facility] Bilirubin [Mass/Vol] 0.8 mg/dL Normal 0.0 - 1.1 mg/dL [facility] Calcium [Mass/Vol] 10.0 mg/dL Normal 8.9 - 11. 1 mg/dL [facility] Chloride [Moles/Vol] 105 mmol/L Normal 101 - 111 mmol/L [facility] Cholesterol [Mass/Vol] 143 mg/dL Normal 120 - 200 mg/dL [facility] Cholesterol in HDL [Mass/Vol] 48 mg/dL Invalid Interpretation Code [facility] Comment on above: Result Comment: '>= 60 LOW RISK' '<= 40 HIGH RISK' Cholesterol in LDL [Mass/Vol] 79 mg/dL Normal <=129mg/dL [facility] Cholesterol in VLDL [Mass/Vol] 24 mg/dL Normal 7 - 40 mg/dL [facility] CO2 [Moles/Vol] 30 mmol/L Normal 21 - 31 mmol/L [facility] Creatinine [Mass/Vol] 0.9 mg/dL Normal 0.5 - 1.3 mg/dL [facility] eGFR 69 mL/min/1.73 m2 Normal >=59mL/min / 1.73 m2 [facility] Globulin (S) [Mass/Vol] 2.9 g/dL Normal 1.4 - 4.0 gm/dL [facility] Glucose [Mass/Vol] 96 mg/dL Normal 55 - 199 mg/dL [facility] Potassium [Moles/Vol] 4.5 mmol/L Normal 3.5 - 5.3 mmol/L [facility] Protein [Mass/Vol] 7.0 g/dL Normal 6.0 - 7.8 gm/dL [facility] Sodium [Moles/Vol] 140 mmol/L Normal 135 - 145 mmol/L [facility] Triglyceride [Mass/Vol] 118 mg/dL Normal <=149mg/dL [facility] TSH Qn 1.17 m[IU]/L Normal 0.34 - 5.60 mcIU/mL [facility] Urea nitrogen [Mass/Vol] 15 mg/dL Normal 5 - 21 mg/dL [facility] Urea nitrogen/Creatinine [Mass ratio] 17 mg/mg Normal 10 - 20 [facility] CMPon 04-29-2024 Albumin [Mass/Vol] 4.1 g/dL Normal 3.3-5.0 [facility] Comment on above: Performed By: #### 2 [id number] #### [facility] [address] [place] [address] Albumin/Globulin (S) [Mass conc ratio] 1.4 Normal 1.1-2.2 [facility] Comment on above: Performed By: #### 2 488447 #### [facility] [address] [place] [address] ALP [Catalytic activity/Vol] 92 Int._Unit/L Normal 21-98 [facility] Comment on above: Performed By: #### 2 [id number] #### [facility] [address] [place] [address] ALT No additional P-5'-P [Catalytic activity/Vol] 16 Int._Unit/L Normal 6-46 [facility] Comment on above: Performed By: #### 2 554946 #### [facility] [address] [place] [address] Anion gap [Moles/Vol] 10 mmol/L Normal 6-16 [facility] Comment on above: Performed By: #### 2 [id number] #### [facility] [address] [place] [address] AST [Catalytic activity/Vol] 17 Int._Unit/L Normal 5-43 [facility] Comment on above: Performed By: #### 2 362783 #### [facility] [address] [place] [address] Bilirubin [Mass/Vol] 0.8 mg/dL Normal 0.0-1.1 [facility] Comment on above: Performed By: #### 2 [id number] #### [facility] [address] [place] [address] Calcium [Mass/Vol] 10.0 mg/dL Normal 8.9-11.1 [facility] Comment on above: Performed By: #### 2 690398 #### [facility] [address] [place] [address] Chloride [Moles/Vol] 105 mmol/L Normal 101-111 [facility] Comment on above: Performed By: #### 2 [id number] #### [facility] [address] [place] [address] CO2 [Moles/Vol] 30 mmol/L Normal 21-31 [facility] Comment on above: Performed By: #### 2 343877 #### [facility] [address] [place] [address] Creatinine [Mass/Vol] 0.9 mg/dL Normal 0.5-1.3 [facility] Comment on above: Performed By: #### 2 332326 #### [facility] [address] [place] [address] Globulin (S) [Mass/Vol] 2.9 g/dL Normal 1.4-4.0 [facility] Comment on above: Performed By: #### 2 808031 #### [facility] [address] [place] [address] Glucose [Mass/Vol] 96 mg/dL Normal 55-199 [facility] Comment on above: Performed By: #### 2 184472 #### [facility] [address] [place] [address] Potassium [Moles/Vol] 4.5 mmol/L Normal 3.5-5.3 [facility] Comment on above: Performed By: #### 2 781414 #### [facility] [address] [place] [address] Protein [Mass/Vol] 7.0 g/dL Normal 6.0-7.8 [facility] Comment on above: Performed By: #### 2 488614 #### [facility] [address] [place] [address] Sodium [Moles/Vol] 140 mmol/L Normal 135-145 [facility] Comment on above: Performed By: #### 2 552559 #### [facility] [address] [place] [address] Urea nitrogen [Mass/Vol] 15 mg/dL Normal 5-21 [facility] Comment on above: Performed By: #### 2 260691 #### [facility] [address] [place] [address] Urea nitrogen/Creatinine [Mass ratio] 17 No Units Normal 10-20 [facility] Comment on above: Performed By: #### 2 992563 #### [facility] [address] [place] [address] Family Medicine Office/Clini c Noteon 04-29-2024 Family Medicine Office/Clinic Note Family Medicine Office/Clinic Note Chief Complaint The patient requests a prescription renewal for levothyroxine and presents with a discolored toenail. HPI Staff Khurram is a 68 year old female presenting for follow up a fib, cardiomyopathy, copd, CKD Last seen Apr 2023, last labs Apr 2023 questions/concerns: needs a refill of her levothyroxine, also entered a diagnosis of colitis but the tonic couldn't be accepted. And tendonitis Has a toenail fungus and it's turning black needs that checked, great right toe History of Present Illness The patient is a 68-year-old female presenting with the need for a levothyroxine prescription renewal due to expiration since April 2023, which she uses for thyroid treatment. She is also concerned about the discoloration of a toenail, stating it has been long-standing fungus, recently turning black at the base and extending up the right side. There is no recollection of trauma to the toe. Due to her mother's history of melanoma, she is concerned about the possibility, but it appears more consistent with trauma. Her medical history includes anemia, benign hypertension with chronic kidney disease stage III, COPD, cardiomyopathy, stage 3a chronic kidney disease, persistent atrial fibrillation, and morbid obesity due to excess calories. For medications, she reports the use of lisinopril, aspirin, and two heart medications, alongside albuterol as needed for asthma. She also has a history of colitis, managed by a physician in [place]. Review of Systems PHQ Score Initial Depression Screen Score: 3 SCORE Detailed Depression Screen Score: 1 Total Depression Screen Score: 4 Physical Exam Vitals & Measurements T: 37.0 ???C(Temporal Artery) HR: 84(Peripheral) RR: 16 BP: 132/84 SpO2: 97% HT: 67 in HT: 169 cm WT: 117.0 kg WT: 257.4 lb BMI: 40.96 General: alert, no acute distress ENMT: oral mucosa moist Cardiovascular: Regular rate and rhythm, normal peripheral perfusion Respiratory: Lungs clear to auscultation, respirations non labored Extremities: no deformity, no trauma, right toenail with black discoloration at the base Neurological: oriented x 4, level of consciousness appropriate for age, CN II-XII intact, motor strength equal & normal bilaterally, speech normal Abdomen: Soft, Non-tender, Non-distended, + Bowel sounds Assessment/Plan 1. COPD (chronic obstructive pulmonary disease) (J44.9: Chronic obstructive pulmonary disease, unspecified) Patient reports using albuterol on an as-needed basis. Reinforce proper inhaler technique and adherence. Ordered: CBC w/ Auto Diff Comprehensive Metabolic Panel Lipid Panel TSH With T4fr Reflex 2. Cardiomyopathy (I42.9: Cardiomyopathy, unspecified) No symptoms at this time. Reviewed cardiology's notes. Ordered: CBC w/ Auto Diff Comprehensive Metabolic Panel Lipid Panel TSH With T4fr Reflex 3. Persistent atrial fibrillation (I48.19: Other persistent atrial fibrillation) Patient replaced, patient has antiarrhythmics on board. Aspirin for anticoagulation. Patient has a follow-up with her case management manager. Ordered: CBC w/ Auto Diff Comprehensive Metabolic Panel Lipid Panel TSH With T4fr Reflex 4. Stage 3a chronic kidney disease (CKD) (N18.31: Chronic kidney disease, stage 3a) Monitor renal function status, maintain current treatment plan, and ensure blood pressure control. Ordered: CBC w/ Auto Diff Comprehensive Metabolic Panel Lipid Panel TSH With T4fr Reflex 5. Benign hypertension with chronic kidney disease, stage III (I12.9: Hypertensive chronic kidney disease with stage 1 through stage 4 chronic kidney disease, or unspecified chronic kidney disease) Continue current management with lisinopril and monitor renal function. Ordered: CBC w/ Auto Diff Comprehensive Metabolic Panel Lipid Panel TSH With T4fr Reflex 6. Class 2 severe obesity with serious comorbidity in adult (E66.812: Obesity, class 2) Diet and exercise advised. Ordered: CBC w/ Auto Diff Comprehensive Metabolic Panel Lipid Panel TSH With T4fr Reflex 7. Anemia (D64.9: Anemia, unspecified) Continue monitoring hemoglobin levels and assess need for treatment adjustment as indicated. 8. Hypothyroidism, unspecified (E03.9) Prescription written for levothyroxine for thyroid management. Labs ordered. Ordered: TSH With T4fr Reflex 9. Noninfective gastroenteritis and colitis, unspecified (K52.9) Reviewed GIs notes. There is no mention of colitis. 10. Nail disorder, unspecified (L60.9) Advised to monitor for changes and discussed symptoms consistent with trauma rather than melanoma; follow-up with the kohinoor operator, Dr. Suzie Jaquez, is scheduled. Chronic kidney disease, stage 3 unspecified (N18.30: Chronic kidney disease, stage 3 unspecified) Morbid (severe) obesity due to excess calories (E66.01: Morbid (severe) obesity due to excess calories) General Science Teacher on continuing dietary modifications and lifestyle changes; reevaluate du (more content not included)... Normal [facility] Comment on above: Result Comment: Elec tronically Signed By: Tomas ALVARADO, Rosangela Edgar\.br\Date and Time Signed: 04/29/24 11:15 EDT HEMATOLOGYOrdered By: SYSTEM SYSTEM on 04-29-2024 Basophils/100 WBC (Bld) 0.9 % Normal 0.0 - 2.0 % [facility] Basophils/Leukocyte s Auto (Bld) [Pure # fraction] 0.1 E9/L Normal 0.0 - 0.2 E9/L [facility] Eosinophils (Bld) [#/Vol] 0.2 E9/L Normal 0.0 - 0.5 E9/L [facility] Eosinophils/100 WBC (Bld) 2.9 % Normal 0.0 - 8.0 % [facility] Erythrocyte distribution width (RBC) [Ratio] 13.6 % Normal 10.9 - 14.2 % [facility] Hematocrit (Bld) [Volume fraction] 46.2 % High 34.0 - 46.0 % [facility] Hemoglobin (Bld) [Mass/Vol] 15.8 g/dL Normal 12.0 - 16.0 gm/dL [facility] Lymphocytes (Bld) [#/Vol] 1.2 E9/L Normal 1.0 - 4.0 E9/L [facility] Lymphocytes/100 WBC (Bld) 13.8 % Low 14.0 - 50.0 % [facility] MCH (RBC) [Entitic mass] 33.3 pg Normal 27.0 - 34.0 pg [facility] MCHC (RBC) [Mass/Vol] 34.1 g/dL Normal 31.4 - 36.0 gm/dL [facility] MCV (RBC) [Entitic vol] 97.8 fL Normal 80.0 - 100.0 fL [facility] Monocytes (Bld) [#/Vol] 1.1 E9/L High 0.2 - 1.0 E9/L [facility] Monocytes/100 WBC (Bld) 12.2 % Normal 4.0 - 14.0 % [facility] Neutrophils (Bld) [#/Vol] 6.1 E9/L Normal 2.0 - 7.5 E9/L [facility] Neutrophils/100 WBC (Bld) 70.2 % Normal 36.0 - 75.0 % [facility] Platelet 280.0 E9/L Normal 150.0 - 500.0 E9/L [facility] Platelet mean volume (Bld) [Entitic vol] 8.9 fL Normal 6.4 - 10.8 fL [facility] RBC (Bld) [#/Vol] 4.7 E12/L Normal 4.3 - 5.9 E12/L [facility] WBC corrected for nucl RBC Auto (Bld) [#/Vol] 8.7 E9/L Normal 4.0 - 11.0 E9/L [facility] Lipid Panelon 04-29-2024 Cholesterol [Mass/Vol] 143 mg/dL Normal 120-200 [facility] Comment on above: Performed By: #### 2 [id number] #### [facility] [address] [place] [address] Cholesterol in HDL [Mass/Vol] 48 mg/dL Invalid Interpretation Code [facility] Comment on above: Result Comment: '>= 60 LOW RISK' '<= 40 HIGH RISK' Performed By: #### 2 [id number] #### [facility] [address] [place] [address] Cholesterol in LDL [Mass/Vol] 79 mg/dL Normal <=129 [facility] Comment on above: Performed By: #### 2 [id number] #### [facility] [address] [place] [address] Cholesterol in VLDL [Mass/Vol] 24 mg/dL Normal 7-40 [facility] Comment on above: Performed By: #### 2 888215 #### [facility] [address] [place] [address] Triglyceride [Mass/Vol] 118 mg/dL Normal <=149 [facility] Comment on above: Performed By: #### 2 [id number] #### [facility] [address] [place] [address] TSH With T4fr Reflexon 04-29 TSH Qn 1.17 m[IU]/L Normal 0.34-5.60 [facility] Comment on above: Performed By: #### 1 [id number] #### [facility] [address] [place] [address] eGFRon 04-29-2024 eGFR 69 mL/min/1.73 m2 Normal >=59 [facility] Comment on above: Performed By: #### 1 [id number] #### [facility] [address] [place] [address] Pre-Visit Planningon 024 Pre-Visit Planning Pre-Visit Planning From: Sophie Quevedo To: Tomas ALVARADO, Rosangela Edgar; Sent: 04/26/2024 12:24:33 EDT Subject: Pre-Visit Planning Due Date/Time: 04/26/2024 12:24:00 EDT Caller Name: KHURRAM PARRA; Caller Number: , Ia Dr. Marin. During a pre-visit planning chart review, I noted the following documentation in the medical record indicates that this patient had BMI of 39.84 on 06/15/2023 and a diagnosis of HTN and GERD noted on Current Problem List. If BMI during this current visit is greater than 35: Based on your medical judgment, can you further clarify the following? I can update the Chronic Problem List with your response if you would like. -Morbid obesity (please also include additional diagnosis to reflect current BMI) -Class 2 severe obesity with serious comorbidity in adult (please also include additional diagnosis to reflect current BMI) -Other (please specify): In responding to this request, please exercise your independent professional judgment. The fact that a question is asked does not imply that any particular answer is desired or expected. If you have any questions, please feel free to contact me per TEAMS or . Thank you! Sophie Quevedo LPN Clinical Documentation Improvement SpecialistShane Ville [id number] TEAMS or [email or web address] From: Tomas ALVARADO, Rosangela Edgar To: Sophie Quevedo; Sent: 04/27/2024 15:16:05 EDT Subject: RE: Pre-Visit Planning Caller Name: JAIRON KHURRAM L; Caller Number: Karie , M Class 2. Thanks [facility] 36on 04-23-2024 36 Lanre from [facility] called and said patient would like to hold off on scheduling stress test right now. Normal [facility] Office Visiton 04-02-2024 Follow-up visit [id number] Gail Parra thy L 1955 F Date Provider Department Center 04/02/2024 YESSICA JONES Family History Problem Relation Age of Onset Other Mother Other Father Thyroid disease Sister Heart disease Mother's Sister Family Status - Relation Status Age at Mother Father Sister Mother's Sister Level of Service:29065 MA OFFICE/OUTPATIENT ESTABLISHED MOD MDM 30 MIN Reason for Visit and Comments: Hypertension [000960] Hyperlipidemia [182] ARVD [Other] [facility] Operative Reporton Operative Report [id number]#1.00TIFF Normal [facility] RAD - MISCon 08-02-2023 RAD - MISC [id number]#1.00TIFF [facility] Outside [facility] Correspo ndenceon 06-21-2023 Outside Hospital Correspondence [id number]#1.00TIFF [facility] Outside [facility] Correspondence [id number]#1.00TIFF [facility] RAD - MISCon 06-21-2023 [facility] [id number]#1.00TIFF [facility] Provider Letteron 06-20-2023 Provider Letter June 20, 2023 KHURRAM PARRA [address] [place] [address] KHURRAM PARRA 1955 Dear Khurram, We have been trying to reach you with no success. It is important that you return our call regarding your discharge from [facility] 06/14 upon receiving this letter. Also, at the time of your call, please provide us with your current information. Thank you for your prompt attention to this matter. Sincerely, Nilesh Jean-Baptiste Fitness Instructor [phone] [facility] Reminderson 06-16-2023 Reminders - From: Ileana Whiting To: [facility] - Reminders/Recalls; Sent: 06/16/2023 09:58:03 EST Show up: 04/02/2028 09:57:00 EDT Subject: Ambulatory Reminder Due Date/Time: 05/03/2028 09:57:00 EDT Reminder/Recall Entered by Ileana Whiting on June 16, 2023 09:28:49 EST 05/24/2028 5 year colon recall From: Roseline ALVARADO, Glenn Ramos To: Ileana Whiting; Sent: 06/15/2023 15:42:18 EST Subject: General Message Caller Name: KHURRAM PARRA; Caller Number: H , M colonoscopy 5 years [facility] Ambulatory Visit Summaryon 1 08-16-2022 Ambulatory [...] PM EST With: Rosangela Marin MD Where: [facility] [place] Normal [facility] Gastroenterology Office/Clin ic Noteon 06-15-2023 Gastroenterology Office/Clinic Note Chief Complaint chronic diarrhea with associated abdominal cramps HPI Staff Patient is a 67 year old female who presents today for a follow up to EGD & Colonoscopy on 05/24/23 w/Dr. Dukes. She would like to discuss the Flagyl that was prescribed by the ORNAMENTAL BRICK INSTALLER after her stool testing came back. Was [...] n/v over the weekend, was admitted to [facility], had a CT abdomen that was [...] capsule, 4 (more content not included)... Normal [facility] Comment on above: Result Comment: Elec tronically Signed By: Roseline ALVARADO, Glenn Ramos\.br\Date and Time Signed: 06/15/23 15:45 EST ED Note-Physicianon 06-12-20 ED Note-Physician [id number]#1.00TIFF Normal [facility] Outside [facility] Correspo ndenceon 06-12-2023 Outside Hospital Correspondence [id number]#1.00TIFF Normal [facility] RAD - CT Reporton 06-12-2023 RAD - CT Report [id number]#1.00TIFF Normal [facility] RAD - MISCon 06-12-2023 RAD - MISC [id number]#1.00TIFF Normal [facility] Giardia, Direct, EIAon 05-31 G. lamblia Ag IA Ql (Stl) Negative Invalid Interpretation Code Negative [facility] Comment on above: Result Comment: Perf ormed at: [facility] [address] [id number] PhD Marietta Dee Performed By: #### 1 [id number], [id number], [id number], [id number], [id number], [id number], [id number], [id number] ####[facility] [address] [place] [address] IntraOperative Documentson 1 07-31-2022 IntraOperative Documents [id number]#1.00TIFF Normal [facility] O & P EXAM, ROUTINE, REFLEXo n 05-31-2023 Ova and parasites identified Concentration Nom (Stl) Comment Invalid Interpretation Code [facility] Comment on above: Result Comment: No o va, cysts, or parasites seen. One negative specimen does not rule out the possibility of a parasitic infection. Performed at: [address] [id number] PhD Marietta Dee Performed By: #### 1 [id number], [id number], [id number], [id number], [id number], [id number], [id number], [id number] ####[facility] [address] [place] [address] O & P Exam, Routineon 2022 Ova and parasites identified LM Nom (Unsp spec) Final report Invalid Interpretation Code [facility] Comment on above: Result Comment: Thes e results were obtained using wet preparation(s) and trichrome stained smear. This test does not include testing for Cryptosporidium parvum, Cyclospora, or Microsporidia. Performed at: [address] [id number] PhD Marietta Dee Performed By: #### 1 [id number], [id number], [id number], [id number], [id number], [id number], [id number], [id number] ####[facility] [address] [place] [address] Pancreatic Elastase, Fecalon 05-31-2023 Elastase.pancreatic (Stl) [Mass/Mass] 229 Invalid Interpretation Code >200 [facility] Comment on above: Result Comment: Clare re Pancreatic Insufficiency: <100 Moderate Pancreatic Insufficiency: 100 - 200 Normal: >200 Performed at: [address] [id number] MD Lebron Wheat Performed By: #### 1 [id number], [id number], [id number], [id number], [id number], [id number], [id number], [id number] ####[facility] [address] [place] [address] Progress Note-Physicianon Progress Note-Physician Patient: KHURRAM PARRA Age: 67 years Sex: Female : 1955 Associated Diagnoses: None Author: MD Rajan Ahmad F Postoperative Information Postoperative disposition: Postoperative disposition: To PACU. Optimetrix number: Optimetrix number [id number]. Anesthetic utilized: General. Health Status Allergies: Allergic [...] meets criteria ( To home ). Normal [facility] Comment on above: Result Comment: Elec [...] Inhalation, q6hr, 18 gm, Refill(s) 0, NEEDED, [facility], 169, cm, 04/18/23 13:06:00 EDT, Height/Length Dosing, 115.8, kg, 04/18/23 13:06:00 EDT, Weight Dosing Align 4 mg oral capsule: 4 mg = 1 cap(s), Oral, Daily, Take after completing the Antibiotics course, X 28 day(s), # 28 cap(s), Refills(s) 0, Pharmacy: [facility] 1429, 169, cm, 05/05/23 9:58:00 EDT, Height/Length Dosing, 116.8, kg, 05/05/23 9:58:00 EDT, Weight Dosing albuterol 0.083% Inh Beti 3 mL: 2.5 mg, 3 mL, NEB, q6hr Shortness of breath or wheezing, 300 mL, Refill(s) 0, [facility] 1429, 169, cm, 04/18/23 13:06:00 EDT, Height/Length Dosing, 115.8, kg, 04/18/23 13:06:00 EDT, Weight Dosing cholestyramine 4 g/5 g Oral Pwdr: 1 packet(s), Oral, TID, 90 EA, Refill(s) 0, [facility], 169, cm, 04/18/23 13:06:00 EDT, Height/Length Dosing, 115.8, kg, 04/18/23 13:06:00 EDT, Weight Dosing levothyroxine 50 mcg (0.05 mg) Tab: 50 mcg = 1 tab(s), Oral, Daily, # 90 tab(s), Refills(s) 1, Pharmacy: [facility] 1429, 169, cm, 04/18/23 13:06:00 EDT, [...] list: All Problems Anemia / SNOMED CT 383155998 / Confirmed Arthritis / SNOMED CT 4229420 / Confirmed Asthma / SNOMED CT 676301588 / Confirmed Persistent atrial fibrillation / SNOMED CT 1839434870 / Confirmed Kidney stone / SNOMED CT 075712035 / Confirmed Retained ureteral stent / SNOMED CT 8477747537 / Confirmed Stress incontinence / SNOMED CT 286052259 / Confirmed Gross hematuria / SNOMED CT 069917380 / Confirmed Dysuria / SNOMED CT 48171693 / Confirmed Frequency of urination / SNOMED CT 253780316 / Confirmed Nocturia / SNOMED CT 808508010 / Confirmed Urgency of urination / SNOMED CT 925519975 / Confirmed Anticoagulated / SNOMED CT 861930394 / Confirmed Abdominal pain / SNOMED CT 21634166 / Confirmed BMI 40.0-44.9, adult / SNOMED CT 1910517066 / Confirmed Right ureteral stone / SNOMED CT 24398232 / Confirmed Cardiomyopathy / ICD-10-CM I42.9 / Confirmed COPD (chronic obstructive pulmonary disease) / SNOMED CT 26400839 / Confirmed Radiculopathy of cervical spine / SNOMED CT 141733903 / Confirmed Andreina's thyroiditis / SNOMED CT 23487486 / Confirmed Hemorrhoids / SNOMED CT 231267920 / Confirmed Osteoporosis / SNOMED CT 391120251 / Confirmed COVID pneumonia / SNOMED CT 0213818193 / Confirmed GERD (gastroesophageal reflux disease) / SNOMED CT 313240075 / Confirmed Hip pain, right / SNOMED CT 58525798 / Confirmed Chronic diarrhea of unknown origin / SNOMED CT 60140300 / Confirmed Stage 3a chronic kidney disease (CKD) / SNOMED CT 4453163835 / Confirmed Polycythemia / SNOMED CT 566341 / Confirmed Bloating / SNOMED CT 193264238 / Confirmed Abdominal cramping / SNOMED CT 593013228 / Confirmed Rectal pain / SNOMED CT 462588903 / Confirmed Canceled: Morbid obesity with body mass index (BMI) of 40.0 to 49.9 / SNOMED CT 103435076 Histories Past Medical History: No active or resolved past medical history items have been selected or recorded. Family History: Hypertension Mother Procedure history: Colonoscopy (858478987) on 05/24/2023 at 67 Years. Esophagogastroduodenoscopy (603352849) on 05/24/2023 at 67 Years. Rt ESWL (7489842 (more content not included)... Normal [facility] Comment on above: Result Comment: Elec tronically Signed By: MD Satinder, Charles Kincaid\.br\Date and Time Signed: 05/30/23 16:20 EST Consenton 05-26-2023 Consent [id number]#1.00TIFF [facility] Discharge Instructionson Discharge Instructions [id number]#1.00TIFF [facility] Main OR Intraoperative Recor don 05-26-2023 Main OR Intraoperative Record IntraOp Document Type FT Summary Primary Physician: Glenn Dukes MD Finalized Date/Time: 05/26/23 14:17:06 Pt. Name: KHURRAM PARRAO.B./Sex: 1955 Female Med Rec #: [id number] Physician: Roseline ALVARADO, Glenn Ramos Financial #: [id number] Pt. Type: O Room/Bed: / Admit/Disch: 05/24/23 [...] Luis EUBANKS, Francesco Galvan RN, Анна Contreras STRIPE MARKER, Anusha Vegas Role Performed Anesthesiologist Construction Management Assistant - Primary Scrub - Primary Meter Readers Supervisor Time In 05/24/23 14:06:00 05/24/23 14:06:00 05/24/23 [...] EGD AND COLONOSCOPY(.) Comments Last Modified By: Mandy BEST, Анна Lockwood 05/24/23 14:55:56 Perioperative Protocols FT Pre-Care Text: [...] Francesco Guardado, Given Participants Анна Galvan RN, Roseline ALVARADO, Glenn Ramos, Ben STRIPE MARKER, Anusha Vegas Time Out Complete 05/24/23 14:08:00 [...] and tissue Entry 1 Skin Integrity Intact, [place], Warm, and Skin Abnormality No Dry Outcomes Met? Yes Last Modified By: Анна Galvan RN 05/24/23 14:10:22 Post-Care Text: The patient is free from signs and symptoms of injury caused by extraneous objects Patient Positioning FT Pre-Care Text: Identifies physical alterations that require additional precautions for proc (more content not included)... [facility] Postoperative Documentson Postoperative Documents [id number]#1.00TIFF [facility] Consent for Treatmenton 05-04 Consent for Treatment [id number]#1.00TIFF [facility] Discharge Instructionson Discharge Instructions KHURRAM PARRA [...] Persistent or heavy bleeding Pharmacy Information Other: [facility] Discharge Instructions Discharge Instructions New Follow Up Appointments after Discharge Follow Up with Roseline ALVARADO, SISI De, [facility] When: Comments: Call for any problems. Office [...] (inflammation) of (more content not included)... Normal [facility] Comment on above: Result Comment: Elec tronically Signed By: Yamile Bey I\.heather\Date and Time Signed: 05/24/23 15:07 EST Endoscopic [...] 5. Normal terminal ileum Images Procedure images: Rec_hd_video__ 57_00_721.jpg Rec1_hd_video__ 52_08_715.jpg Rec1_hd_video__ 52_00_328.jpg Rec1_hd_video__ 42_31_662.jpg Rec_hd_video__ 34_03_828.jpg Rec1_hd_video__ 31_03_075.jpg Rec1_hd_video_2022__T1_ 29_33_368.jpg . Post-Procedure Complications: none. Estimated blood [...] hours. Education and Follow-up: Counseled: Patient, Family. [facility] Comment on above: Result Comment: Elec tronically Signed By: Glenn Dukes MD\.br\Date and Time Signed: 05/24/23 14:55 EST Other Comment: Brittany love Attachment - attachment storage system not supported [id number] Can be viewed in source system Missing Attachment - attachment storage system not supported 0840626 Can be viewed in source system Missing Attachment - attachment storage system not supported [id number] Can be viewed in source system Missing Attachment - attachment storage system not supported 4499415 Can be viewed in source system Missing Attachment - attachment storage system not supported 9014850 Can be viewed in source system Missing Attachment - attachment storage system not supported 0296298 Can be viewed in source system Missing Attachment - attachment storage system not supported 0509411 Can be viewed in source system Endoscopic [...] in 1-2 after discharge -Avoid NSAIDs Normal [facility] Comment on above: Result Comment: Elec tronically Signed By: Glenn Dukes MD\.br\Date and Time Signed: 05/24/23 14:19 EST Inpatient Patient Summaryon 05-24-2023 Inpatient Patient Summary [address] [address] [facility] Clinical Discharge Instructions PERSON INFORMATION Name: KHURRAM PARRA [facility]#:[id number] PHYSICIANS Admitting Physician: Glenn Dukes MD Attending Physician: Glenn Dukes MD PCP: Rosangeal Marin MD Discharge Diagnosis: Chronic diarrhea Comment: [...] By Mouth every day. prophylaxis. Comment: Normal [facility] Main OR PACU I Recordon 05-04 Main OR PACU I Record PACU Phase I Document Type FT Summary Primary Physician: Glenn Dukes MD Finalized Date/Time: 05/24/23 15:55:52 Pt. Name: KHURRAM PARRA.O.B./Sex: 1955 Female Med Rec #: [id number] Physician: Roseline ALVARADO, Glenn Ramos Financial #: [id number] Pt. Type: O Room/Bed: / Admit/Disch: 05/24/23 [...] By: Yamile Bey I 05/24/23 15:55 Normal [facility] Main OR Preoperative Recordo n 05-24-2023 Main OR Preoperative Record Holding Area Document Type FT Summary Primary Physician: Glenn Dukes MD Finalized Date/Time: 05/24/23 13:44:12 Pt. Name: JAIRONKHURRAM /Sex: 1955 Female Med Rec #: [id number] Physician: Glenn Dukes MD Financial #: [id number] Pt. Type: O Room/Bed: / Admit/Disch: 05/24/23 [...] By: Juan Zurita RN 05/24/23 13:44 Normal [facility] Monitor Recordon 05-24-2023 Monitor Record [id number]#1.00TIFF Normal [facility] Monitor Record [id number]#1.00TIFF Normal [facility] Outpatient Surgery Discharge Instructionon 05-24-2023 Outpatient Surgery Discharge Instruction [place] [address] Patient Discharge Instructions PERSON INFORMATION Name: KHURRAM [...] THE NEAREST EMERGENCY ROOM OR CALL 911 JAIRON Montaño CATHY L, have received the attached patient education materials/instructions and have verbalized understanding: May we do a follow up call? Yes No I was present when discharge instructions were given __ Patient Signature Date Clinican/Nurse Signature Date Follow up: Pharmacy Information: Other: [facility] You may receive a survey from [employer] asking you to rate your care experience. Your feedback is important and will help us understand what we do well and how we can improve the quality of care we provide to you, your loved ones and our community. It?s an honor to serve you. Thank you for choosing [facility] HERE ARE THE MEDICATION CHANGES THAT OCCURRED [...] prophylaxis. PATIENT EDUCATION INFORMATION Instructions: Medication Leaflets: [facility] Progress Note-Physicianon Progress Note-Physician Patient: KHURRAM [...] Inhalation, q6hr, 18 gm, Refill(s) 0, NEEDED, [facility], 169, cm, 04/18/23 13:06:00 EDT, Height/Length Dosing, 115.8, kg, 04/18/23 13:06:00 EDT, Weight Dosing Align 4 mg oral capsule: 4 mg = 1 cap(s), Oral, Daily, Take after completing the Antibiotics course, X 28 day(s), # 28 cap(s), Refills(s) 0, Pharmacy: [facility], 169, cm, 05/05/23 9:58:00 EDT, Height/Length Dosing, 116.8, kg, 05/05/23 9:58:00 EDT, Weight Dosing Flagyl 250 mg Tab: 250 mg = 1 tab(s), Oral, TID, do not drink alcohol may take with food to minimize abdominal discomfort, X 7 day(s), # 21 tab(s), Refills(s) 0, Pharmacy: [facility] 1429, 169, cm, 05/05/23 9:58:00 EDT, Height/Length Dosing, 116.8, kg, 05/05/23... albuterol 0.083% Inh Beti 3 mL: 2.5 mg, 3 mL, NEB, q6hr Shortness of breath or wheezing, 300 mL, Refill(s) 0, [facility], 169, cm, 04/18/23 13:06:00 EDT, Height/Length Dosing, 115.8, kg, 04/18/23 13:06:00 EDT, Weight Dosing cholestyramine 4 g/5 g Oral Pwdr: 1 packet(s), Oral, TID, 90 EA, Refill(s) 0, [facility], 169, cm, 04/18/23 13:06:00 EDT, Height/Length Dosing, 115.8, kg, 04/18/23 13:06:00 EDT, Weight Dosing levothyroxine 50 mcg (0.05 mg) Tab: 50 mcg = 1 tab(s), Oral, Daily, # 90 tab(s), Refills(s) 1, Pharmacy: [facility] 1429, 169, cm, 04/18/23 13:06:00 EDT, [...] All Problems Abdominal cramping / SNOMED CT 550806207 / Confirmed Abdominal pain / SNOMED CT 05598899 / Confirmed Anemia / SNOMED CT 344330645 / Confirmed Anticoagulated / SNOMED CT 104581548 / Confirmed Arthritis / SNOMED CT 0005607 / Confirmed Asthma / SNOMED CT 111469772 / Confirmed Bloating / SNOMED CT 542226433 / Confirmed BMI 40.0-44.9, adult / SNOMED CT 5579541495 / Confirmed Cardiomyopathy / ICD-10-CM I42.9 / Confirmed Chronic diarrhea of unknown origin / SNOMED CT 75126700 / Confirmed COPD (chronic obstructive pulmonary disease) / SNOMED CT (more content not included)... Normal [facility] Comment on above: Result Comment: Elec [...] samples in close time sequence. Normal Negative [facility] Comment on above: Result Comment: This test result should be correlated with clinical presentations and medical history by a healthcare provider to determine its clinical significance.\.br\.br\ Other Comment: Order added by Discern Expert. Clostridium difficile by PCR Negative Normal Negative [facility] Comment on above: Order Comment: Order added by Discern Expert. Result Comment: This test result should be correlated with clinical presentations and medical history by a healthcare provider to determine its clinical significance. Performed By: #### 1 [id number], [id number], 75402350, 892987707, 19174550, 3567436437, 09559063, 83029400 ####[facility] [address] [place] [address] CDiff PCRon 05-20-2023 CDiff PCR Specimen has been fo und to be acceptable for C. difficile testing. Normal [facility] Cdiff Specimen Acceptable Acceptable Normal [facility] Comment on above: Performed By: #### 1 [id number], [id number], 86480178, 047453830, 17787667, 8270435638, 55750107, 71534595 ####[facility] [address] [place] [address] Order Cancelled No, PCR to follow Normal [facility] Comment on above: Performed By: #### 1 [id number], 1393012527, 34997408, 833248587, 88547563, 4136954609, 17197792, 44386391 ####[facility] [address] [place] [address] Enteric Panel by PCRon 05-20 C. coli+jejuni+upsalie nsis DNA TOM+non-probe Ql (Stl) Not detected Normal [facility] Comment on above: Result Comment: Test ing was performed utilizing reverse aircraft power plant assembler (RT), polymerase chain reaction (PCR), and array [...] Verigene nulcleic acid test. Performed By: #### 1 [id number], 2984461385, 84658334, 094308278, 49494949, 9637252098, 75390595, 86639908 ####[facility] [address] [place] [address] E. coli stx1+stx2 genes TOM+non-probe Ql (Stl) Negative Normal [facility] Comment on above: Performed By: #### 1 [id number], 4108654419, 78688599, 572985203, 05101046, 8877244059, 11668534, 12321822 ####[facility] [address] [place] [address] Enteric Panel by PCR Negative Normal [facility] Enteric Panel Intrl QC Pass Normal [facility] Comment on above: Result Comment: Test ing was performed utilizing reverse aircraft power plant assembler (RT), polymerase chain reaction (PCR), and array [...] toxins 1 and 2. Performed By: #### 1 101013874, 8982242398, 22544481, 118807001, 52275747, 1263342383, 98618797, 74074738 ####[facility] [address] [place] [address] Norovirus genogroup I+II RNA TOM+non-probe Ql (Stl) Not detected Normal [facility] Comment on above: Performed By: #### 1 203522470, 2101171406, 26094513, 577781417, 64132194, 6852205402, 67585164, 31048385 ####[facility] [address] [place] [address] Rotavirus A RNA TOM+non-probe Ql (Stl) Not detected Normal [facility] Comment on above: Performed By: #### 1 274345177, 7486180423, 21553245, 443718313, 14189238, 4966662303, 37739982, 19183588 ####[facility] [address] [place] [address] S. enterica+bongori DNA TOM+non-probe Ql (Stl) Not detected Normal [facility] Comment on above: Result Comment: This test result should be correlated with clinical presentations and medical history by a healthcare provider to determine its clinical significance. Performed By: #### 1 [id number], 6118480576, 49297680, 737540998, 08090803, 7641025861, 04385825, 39224501 ####[facility] [address] [place] [address] Shigella species+EIEC invasion plasmid antigen H ipaH gene TOM+non-probe Ql (Stl) Not detected Normal [facility] Comment on above: Performed By: #### 1 [id number], 3914795088, 97572632, 960317865, 15841836, 4032605597, 70565035, 58563627 ####[facility] [address] [place] [address] V. cholerae+parahaemol yticus+vulnificus DNA TOM+non-probe Ql (Stl) Not detected Normal [facility] Comment on above: Performed By: #### 1 823362286, 2970680415, 07431758, 748443127, 02648615, 8285780882, 69473294, 14103969 ####[facility] [address] [place] [address] Y. enterocolitica DNA TOM+non-probe Ql (Stl) Not detected Normal [facility] Comment on above: Performed By: #### 1 924504976, 3920807608, 55684497, 169315851, 21234064, 9335898542, 56913995, 82040016 ####[facility] [address] [place] [address] Fecal WBC Lactoferrinon 05-03 Lactoferrin Ql (Stl) Positive Abnormal Negative [facility] Comment on above: Result Comment: The semi-quantitative detection of elevated levels of fecal lactoferrin is a marker for fecal leukocytes and an indication of intestinal inflammation. Performed By: #### 1 529143774, 2727948851, 00799692, 691880169, 15694925, 4558159067, 71497547, 35647733 #### [facility] [address] [place] [address] Consultation Noteon 05-09-20 Consultation Note [id number]#1.00TIFF Normal [facility] Insurance Correspondenceon 1 07-09-2022 Insurance Correspondence [id number]#1.00TIFF Normal [facility] Celiac Disease Comprehensive on 05-08-2023 Endomysium IgA Ql (S) Negative Invalid Interpretation Code Negative [facility] Comment on above: Performed By: #### 1 [id number] ####[facility] [address] [place] [address] Gliadin peptide IgA Qn (S) 4 unit(s) Invalid Interpretation Code 0-19 [facility] Comment on above: Result Comment: Nega tive 0 - 19 Weak Positive 20 - 30 Moderate to Strong Positive >30 Performed By: #### 1 [id number] ####[facility] [address] [place] [address] Gliadin peptide IgG Qn (S) 3 unit(s) Invalid Interpretation Code 0-19 [facility] Comment on above: Result Comment: Nega tive 0 - 19 Weak Positive 20 - 30 Moderate to Strong Positive >30 Performed By: #### 1 [id number] ####[facility] [address] [place] [address] IgA [Mass/Vol] 213 mg/dL Invalid Interpretation Code 87-352 [facility] Comment on above: Result Comment: Perf ormed at: [facility] [address] [place], [place] [id number] PhD Marietta Dee Performed By: #### 1 [id number] ####[facility] [address] [place] [address] tTG IgA Qn (S) <2 Invalid Interpretation Code 0-3 [facility] Comment on above: Result Comment: Nega tive 0 - 3 Weak Positive 4 - 10 Positive >10 Tissue Transglutaminase (tTG) has been identified as the endomysial antigen. Studies have demonstr- ated that endomysial IgA antibodies have over 99% specificity for gluten sensitive enteropathy. Performed By: #### 1 [id number] ####[facility] [address] [place] [address] tTG IgG Qn (S) <2 Invalid Interpretation Code 0-5 [facility] Comment on above: Result Comment: Nega tive 0 - 5 Weak Positive 6 - 9 Positive >9 Performed By: #### 1 [id number] ####[facility] [address] [place] [address] Consent for Procedure/Surger yon 05-08-2023 Consent for Procedure/Surgery [id number]#1.00TIFF Normal [facility] Ambulatory Visit Summaryon 1 07-05-2022 Ambulatory [...] Nurse collect, Chronic diarrhea of unknown origin [facility] Consent for Treatmenton Consent for Treatment [id number]#1.00TIFF [facility] Gastroenterology Office/Clin ic Noteon 05-05-2023 Gastroenterology [...] Abdominal pain (more content not included)... Normal [facility] Comment on above: Result Comment: Elec [...] oral rehydration solution (ORS). This is an snzd-tpj-fsoeusq medicine that helps return your body to [...] sports drinks, and soda. ? Eat bland, rrms-kz-zpcmsy foods in small amounts as you are able. These foods include bananas, applesauce, rice, lean meats, toast, and crackers. ? Avoid alcohol. ? Avoid spicy or fatty foods. Medicines ? Take roaw-pwg-dsmxtrr and prescription medicines only as told by your health care provider. ? If you were prescribed an antibiotic medicine, take it as told by your health care provider. Do not stop using the antibiotic even if you start to feel better. General instructions ? Wash your hands often using soap and water. If soap and water are not available, use a hand apparatus engineering technologist. Others in the household should wash their [...] and water are not available, use hand apparatus engineering technologist. ? Contact a health care provider if your diarrhea gets worse or you have new symptoms. ? Get help right away if you have signs of dehydration. This information is not intended to replace advice given to you by your health care provider. Make sure you discuss any questions you have with your health care provider. Document Revised: 12/29/2021 Document Reviewed: 12/29/2021 [employer] Patient Education ? 2022 [employer]. Normal [facility] CHEMISTRYOrdered By: SYSTEM SYSTEM on 04-18-2023 Albumin [...] 49 mL/min/1.73 m2 Low >=59mL/min/ 1.73 m2 [facility] Comment on above: Interpretive Data: [...] 19 mg/dL Normal 5 - 21 mg/dL [facility] Remisol Urea nitrogen/Creatinine [Mass ratio] 16 mg/mg Normal 10 - 20 [facility] Remisol HEMATOLOGYOrdered By: SYSTEM SYSTEM on 04-18-2023 Basophils/100 [...] 275.0 E9/L Normal 150.0 - 500.0 E9/L [facility] HemeAutoSS RBC (Bld) [#/Vol] 4.9 E12/L Normal 4.3 - 5.9 E12/L [facility] HemeAutoSS WBC corrected for nucl RBC Auto (Bld) [#/Vol] 10.5 E9/L Normal 4.0 - 11.0 E9/L [facility] Comment on above: Result Comment: Slid e reviewed by FREE T4on 08-25-2022 Free T4 [Mass/Vol] 1.36 ng/dL Normal 0.76-1.46 [facility] Comment on above: Performed By: #### F T4 #### [facility] [address] [place] [address] Dr. Win Travis LIVER PROFILEon 08-25-2022 Albumin [Mass/Vol] 3.6 g/dL Normal 3.4-5.0 [facility] Comment on above: Performed By: #### L IVER #### [facility] [address] [place] [address] Dr. Win Travis Albumin/Globulin [Mass ratio] 0.9 {ratio} Normal [facility] Comment on above: Performed By: #### L IVER #### [facility] [address] [place] [address] Dr. Win Travis ALP [Catalytic activity/Vol] 109 U/L Normal 46-116 [facility] Comment on above: Performed By: #### L IVER #### [facility] [address] [place] [address] Dr. Win Travis ALT [Catalytic activity/Vol] 27 U/L Normal 14-59 [facility] Comment on above: Performed By: #### L IVER #### [facility] [address] [place] [address] Dr. Win Travis AST [Catalytic activity/Vol] 22 U/L Normal 15-37 [facility] Comment on above: Performed By: #### L IVER #### [facility] [address] [place] [address] Dr. Win Travis BILI, CONJUGATED 0.1 mg/dL Normal 0.0-0.2 [facility] Comment on above: Performed By: #### L IVER #### [facility] [address] [address] [address] Win Travis Bilirubin [Mass/Vol] 0.5 mg/dL Normal 0.2-1.0 [facility] Comment on above: Performed By: #### L IVER #### [facility] [address] [address] [address] Win Travis Globulin (S) [Mass/Vol] 4.2 g/dL Normal [facility] Comment on above: Performed By: #### L IVER #### [facility] [address] [address] [address] Win Travis Protein [Mass/Vol] 7.8 g/dL Normal 6.4-8.2 [facility] Comment on above: Performed By: #### L IVER #### [facility] [address] [address] [address] Win Travis XR CHEST 2 Von [...] LUIS BURLESON Date: 2022-08-25 14:45 Normal [facility] XR KUB 1 VIEWon 02-18-2022 XR [...] NASIMA CORREA Date: 2022-02-18 06:59 Normal [facility] Covid-19 PCR (CVDTB)on 01-31 SARS-CoV-2 (COVID-19) RNA TOM+probe Ql (Unsp spec) Not detected Normal NOT DETECTED [facility] Comment on above: Result Comment: When [...] for this test is supported by the Interior Design Principal of Health and Human Service's declaration that [...] used). Performed By: #### C VDTB #### [facility] [address] [address] [address] Win Travis CBC AUTO DIFFon 02-14-2022 BASO # 0.1 103/ul Normal 0.0-0.1 [facility] Comment on above: Performed By: #### C BC #### [facility] [address] [address] [address] Win Travis Basophils/100 WBC (Bld) 0.8 % Normal 0.2-2.0 [facility] Comment on above: Performed By: #### C BC #### [facility] [address] [address] [address] Win Travis EO # 0.2 103/ul Normal 0.0-0.7 [facility] Comment on above: Performed By: #### C BC #### [facility] [address] [place] [address] Dr. Win Travis Eosinophils/100 WBC (Bld) 1.8 % Normal 0.9-7.0 [facility] Comment on above: Performed By: #### C BC #### [facility] [address] [place] [address] Dr. Win Travis Erythrocyte distribution width (RBC) [Ratio] 14.5 % Normal 11.0-15.0 [facility] Comment on above: Performed By: #### C BC #### [facility] [address] [place] [address] Dr. Win Travis Hematocrit (Bld) [Volume fraction] 45.5 % Normal 36.0-48.0 [facility] Comment on above: Performed By: #### C BC #### [facility] [address] [place] [address] Dr. Win Travis Hemoglobin (Bld) [Mass/Vol] 15.1 g/dL Normal 12.0-16.0 [facility] Comment on above: Performed By: #### C BC #### [facility] [address] [place] [address] Dr. Win Travis IG # 0.04 10e3/ul Critically high 0.00-0.03 [facility] Comment on above: Performed By: #### C BC #### [facility] [address] [place] [address] Dr. Win Travis IG % 0.5 % Normal 0.0-0.5 [facility] Comment on above: Performed By: #### C BC #### [facility] [address] [place] [address] Dr. Win Travis LYMPH # 1.1 103/ul Critically low 1.2-3.8 [facility] Comment on above: Performed By: #### C BC #### [facility] [address] [place] [address] Dr. Win Travis Lymphocytes/100 WBC (Bld) 13.1 % Critically low 20.5-60.0 [facility] Comment on above: Performed By: #### C BC #### [facility] [address] [place] [address] Dr. Win Travis MANUAL DIFF REQ NO Normal [facility] Comment on above: Performed By: #### C BC #### [facility] [address] [place] [address] Dr. Win Travis MCH (RBC) [Entitic mass] 32.9 pg Normal 26.7-34.0 [facility] Comment on above: Performed By: #### C BC #### [facility] [address] [place] [address] Dr. Win Travis MCHC (RBC) [Mass/Vol] 33.2 g/dL Normal 29.9-35.2 [facility] Comment on above: Performed By: #### C BC #### [facility] [address] [place] [address] Dr. Win Travis MCV (RBC) [Entitic vol] 99.1 fL Critically high 81.0-99.0 [facility] Comment on above: Performed By: #### C BC #### [facility] [address] [place] [address] Dr. Win Travis MONO # 1.2 103/ul Critically high 0.3-0.8 [facility] Comment on above: Performed By: #### C BC #### [facility] [address] [place] [address] Dr. Win Travis Monocytes/100 WBC (Bld) 13.9 % Critically high 1.7-12.0 [facility] Comment on above: Performed By: #### C BC #### [facility] [address] [place] [address] Dr. Win Travis NEUT # 6.1 103/ul Normal 1.4-6.5 [facility] Comment on above: Performed By: #### C BC #### [facility] [address] [place] [address] Dr. Win Travis Neutrophils/100 WBC (Bld) 69.9 % Normal 43.0-75.0 [facility] Comment on above: Performed By: #### C BC #### [facility] [address] [place] [address] Dr. Win Travis Platelet mean volume (Bld) [Entitic vol] 9.8 fL Normal 9.5-13.5 [facility] Comment on above: Performed By: #### C BC #### [facility] [address] [place] [address] Dr. Win Travis PLT 297 103/ul Normal 150-450 [facility] Comment on above: Performed By: #### C BC #### [facility] [address] [place] [address] Dr. Win Travis RBC 4.59 106/ul Normal 4.20-5.40 [facility] Comment on above: Performed By: #### C BC #### [facility] [address] [place] [address] Dr. Win Travis WBC 8.7 103/ul Normal 4.0-11.0 [facility] Comment on above: Performed By: #### C BC #### [facility] [address] [place] [address] Dr. Win Travis PROF CHEM 8 (BAS METB)on Anion gap [Moles/Vol] 10.6 mmol/L Normal [facility] Comment on above: Performed By: #### P TT, PT #### [facility] [address] [place] [address] Dr. Win Travis Calcium [Mass/Vol] 8.5 mg/dL Normal 8.5-10.1 [facility] Comment on above: Performed By: #### P TT, PT #### [facility] [address] [place] [address] Dr. Win Travis Chloride [Moles/Vol] 106 mmol/L Normal 98-107 [facility] Comment on above: Performed By: #### P TT, PT #### [facility] [address] [place] [address] Dr. Win Travis CO2 [Moles/Vol] 30.9 mmol/L Normal 21.0-32.0 [facility] Comment on above: Performed By: #### P TT, PT #### [facility] [address] [address] [address] Win Travis Creatinine [Mass/Vol] 1.02 mg/dL Normal 0.55-1.02 [facility] Comment on above: Performed By: #### P TT, PT #### [facility] [address] [address] [address] Win Travis EGFR-AF BULGARIAN >60 Normal >=60 [facility] Comment on above: Performed By: #### P TT, PT #### [facility] [address] [address] [address] Win Travis EGFR-NON AF BULGARIAN 54 mL/min/1.73m2 Critically low >=60 [facility] Comment on above: Performed By: #### P TT, PT #### [facility] [address] [address] [address] Win Travis Glucose [Mass/Vol] 99 mg/dL Normal 74-106 [facility] Comment on above: Performed By: #### P TT, PT #### [facility] [address] [address] [address] Win Travis Potassium [Moles/Vol] 4.5 mmol/L Normal 3.5-5.1 [facility] Comment on above: Performed By: #### P TT, PT #### [facility] [address] [address] [address] Win Travis Sodium [Moles/Vol] 143 mmol/L Normal 136-145 [facility] Comment on above: Performed By: #### P TT, PT #### [facility] [address] [address] [address] Win Travis Urea nitrogen [Mass/Vol] 15.0 mg/dL Normal 7.0-18.0 [facility] Comment on above: Performed By: #### P TT, PT #### [facility] [address] [address] [address] Win Travis Urea nitrogen/Creatinine [Mass ratio] 14.7 mg/mg Normal [facility] Comment on above: Performed By: #### P TT, PT #### [facility] [address] [place] [address] Dr. Win Travis PROTIMEon 02-14-2022 INR Coag (PPP) [Relative time] 0.97 {INR} Normal [facility] Comment on above: Performed By: #### P TT, PT #### [facility] [address] [place] [address] Dr. Win Travis INR GUIDELINES SEE BELOW Normal [facility] Comment on above: Result Comment: DARLING RED INR: 2.0 - 3.0 CONDITIONS NOT LISTED BELOW 2.5 - 3.5 FOR PROSTHETIC HEART VALVE REPLACEMENT 2.5 - 3.5 RECURRENT THROMBOSIS Performed By: #### P TT, PT #### [facility] [address] [place] [address] Dr. Win Travis PT Coag (PPP) [Time] 10.5 s Normal 9.0-11.6 [facility] Comment on above: Performed By: #### P TT, PT #### [facility] [address] [place] [address] Dr. Win Travis PTTon 02-14-2022 aPTT Coag (Bld) [Time] 28.3 s Normal 22.3-36.2 [facility] Comment on above: Performed By: #### P TT, PT #### [facility] [address] [place] [address] ABD/PELVIS WO CONon [...] by: CHANDU DEVI Date: 2022-02-05 13:03 Normal [facility] XR KUB 1 VIEWon 01-20-2022 XR [...] ELVIS CARPENTER Date: 2022-01-20 16:24 Normal [facility] LIVER PROFILEon 12-02-2021 Albumin [Mass/Vol] 3.5 g/dL Normal 3.4-5.0 [facility] Comment on above: Performed By: #### P TT, PT #### [facility] [address] [place] [address] Dr. Win Travis Albumin/Globulin [Mass ratio] 0.8 {ratio} Normal [facility] Comment on above: Performed By: #### P TT, PT #### [facility] [address] [place] [address] Dr. Win Travis ALP [Catalytic activity/Vol] 93 U/L Normal 46-116 [facility] Comment on above: Performed By: #### P TT, PT #### [facility] [address] [place] [address] Dr. Win Travis ALT [Catalytic activity/Vol] 27 U/L Normal 14-59 [facility] Comment on above: Performed By: #### P TT, PT #### [facility] [address] [place] [address] Dr. Win Travis AST [Catalytic activity/Vol] 18 U/L Normal 15-37 [facility] Comment on above: Performed By: #### P TT, PT #### [facility] [address] [place] [address] Dr. Win Travis BILI, CONJUGATED 0.1 mg/dL Normal 0.0-0.2 [facility] Comment on above: Performed By: #### P TT, PT #### [facility] [address] [place] [address] Dr. Win Travis Bilirubin [Mass/Vol] 0.5 mg/dL Normal 0.2-1.0 [facility] Comment on above: Performed By: #### P TT, PT #### [facility] [address] [place] [address] Dr. Win Travis Globulin (S) [Mass/Vol] 4.0 g/dL Normal [facility] Comment on above: Performed By: #### P TT, PT #### [facility] [address] [place] [address] Dr. Win Travis Protein [Mass/Vol] 7.5 g/dL Normal 6.4-8.2 [facility] Comment on above: Performed By: #### P TT, PT #### [facility] [address] [address] [address] Win Travis TSHon 12-02-2021 TSH 1.314 uIU/mL Normal 0.358-3.740 [facility] Comment on above: Performed By: #### P TT, PT #### [facility] [address] [address] [address] Win Travis TSH RANGE SEE BELOW Normal [facility] Comment on above: Result Comment: <0.3 4 UIU/ml HYPERTHYROID 0.34-5.60 UIU/ml EUTHYROID >5.60 UIU/ml HYPOTHYROID Performed By: #### P TT, PT #### [facility] [address] [address] [address] Win Travis Vital Signs Date Time Vital Sign Value Performing Clinician Facility 06-15-2023 15:18-0500 Blood Pressure Location Glenn Danielsmini [facility] 06-15-2023 15:18-0500 Diastolic blood pressure 80 mm[Hg] Elizabeth Sarmini [facility] 06-15-2023 15:18-0500 Heart rate 70 /min Elizabeth Sarmini [facility] 06-15-2023 15:18-0500 Respiratory rate 16 /min Elizabeth Sarmini [facility] 06-15-2023 15:18-0500 Systolic blood pressure 130 mm[Hg] Elizabeth Sarmini [facility] 05-05-2023 09:54-0400 Blood Pressure Location Rosemarie Jansen [facility] 05-05-2023 09:54-0400 Body temperature 97.52 [degF] Rosemarie Jansen [facility] 05-05-2023 09:54-0400 Diastolic blood pressure 84 mm[Hg] Rosemarie Jansen [facility] 05-05-2023 09:54-0400 Heart rate 52 /min Rosemarie Jansen [facility] 05-05-2023 09:54-0400 Systolic blood pressure 123 mm[Hg] Rosemarie Jansen [facility] 12-20-2022 09:05-0400 Blood Pressure Location VICKI BROWN [facility] 12-20-2022 09:05-0400 Diastolic blood pressure 78 mm[Hg] VICKI KEVIN [facility] 12-20-2022 09:05-0400 Heart rate 68 /min VICKI KEVIN [facility] 12-20-2022 09:05-0400 Respiratory rate 16 /min VICKI KEVIN [facility] 12-20-2022 09:05-0400 Systolic blood pressure 130 mm[Hg] VICKI KEVIN [facility] 01-28-2022 08:51-0400 Blood Pressure Location Joellen BRIGHT [facility] 01-28-2022 08:51-0400 Diastolic blood pressure 71 mm[Hg] Joellen BRIGHT [facility] 01-28-2022 08:51-0400 Heart rate 65 /min Joellen BRIGHT [facility] 01-28-2022 08:51-0400 Respiratory rate 16 /min Joellen BRIGHT [facility] 01-28-2022 08:51-0400 Systolic blood pressure 111 mm[Hg] Joellen BRIGHT [facility] Encounters Encounter Date Encounter Type Care Provider Facility Start: 02-03-2025 ambulatory [facility] Start: 01-31-[address] [facility] Start: 01-22-2025 ambulatory [facility] Start: 12-02-[address] [facility] Start: 11-08-[address] [facility] Start: 11-08-2024 Encounter for preprocedural cardiovascular examination [facility] Start: 2024 ambulatory Rosangela Marin Facility [facility] Start: 10-24-2024 End: 10-24-2024 [facility] 09-30-2024 amb[facility] Start: 09-16-2024 End: 09-16-[address] [facility] Start: 08-23-[address] [facility] Start: 07-24-[address] [facility] Start: 05-27-[address] [facility] Start: 05-15-[address] [facility] Start: 04-29-2024 End: 04-29-2024 Lab Drop off Rosangela Marin [facility] Start: 04-29-2024 End: 04-29-2024 ambulatory Rosangela Marin Facility:[facility] Start: 04-25-2024 ambulatory [facility] Start: 04-11-[address] [facility] Start: 04-02-2024 End: 04-02-2024 ambulatory [facility] Start: 03-22-[address] [facility] Start: 03-12-2024 End: 03-12-[address] [facility] Start: 03-07-[address] [facility] Start: 12-14-2023 ambulatory Elizabeth Talal Sarmini Facility:[facility] Start: 06-19-2023 End: 06-19-2023 ambulatory Rosangela Marin Facility:[facility] Start: 06-15-2023 End: 06-15-2023 ambulatory Elizabeth Talal Sarmini Facility:[facility] Start: 06-15-2023 End: 06-15-2023 Patient encounter procedure Elizabeth Talal Sarmini [facility] Start: 06-15-2023 End: 06-27-2023 ambulatory Rosangela Marin Facility:[id number] Start: 05-24-2023 End: 05-24-2023 ambulatory Elizabeth Talal Sarmini Facility:[facility] Start: 05-18-2023 End: 05-18-2023 ambulatory Rosemarie Jansen Facility:[facility] Start: 05-15-2023 ambulatory Elizabeth Sarmini [facility] Start: 05-05-2023 End: 05-05-2023 ambulatory Rosemarie Jansen Facility:[facility] Start: 05-05-2023 End: 05-05-2023 Patient encounter procedure Rosemarie Jansen [facility] Start: 05-05-2023 End: 05-05-2023 ambulatory Rosemarie Jansen Facility:[facility] Start: 05-05-2023 End: 05-05-2023 Patient encounter procedure Rosemarie Jansen [facility] Start: 04-25-2023 End: 04-25-2023 Patient encounter procedure VICKI BROWN [facility] Start: 04-18-2023 End: 04-18-2023 Lab Drop off Rosangela Tala Marin [facility] Start: 12-20-2022 End: 12-20-2022 Patient encounter procedure VICKI BROWN [facility] Start: 10-24-[address] JOELLEN BRIGHT . Fac ility:[facility] Start: 08-25-2022 End: 08-26-2022 ambulatory YESSICA TORRES Facility:[facility] Start: 03-03-[address] JOELLEN BRIGHT . Fac ility:[facility] Start: 02-17-2022 Encounter for preprocedural laboratory examination DR JOELLEN BRIGHT . [facility] Start: 02-17-2022 End: 02-17-[address] JOELLEN BRIGHT . Facility:[facility] Start: 02-16-2022 End: 02-17-[address] JOELLEN BRIGHT . Facility:[facility] Start: 02-16-2022 End: 02-17-2022 Encounter for preprocedural laboratory examination DR JOELLEN BRIGHT . Facility:[facility] Start: 02-15-2022 Encounter for preprocedural cardiovascular examination DR JOELLEN BRIGHT . [facility] Start: 02-15-2022 Encounter for preprocedural laboratory examination DR JOELLEN BRIGHT . [facility] Start: 02-14-2022 End: 02-15-[address] JOELLEN BRIGHT . Facility:[facility] Start: 02-14-2022 End: 02-15-2022 Encounter for preprocedural cardiovascular examination DR JOELLEN BRIGHT . Facility:[facility] Start: 02-04-2022 End: 02-05-[address] JOELLEN BRIGHT . Facility:[facility] Start: 01-28-2022 End: 01-28-2022 Patient encounter procedure Joellen BRIGHT [facility] Start: 01-20-2022 End: 01-21-[address] JOELLEN BRIGHT . Facility:[facility] Start: 12-02-2021 End: 12-03-2021 ambulatory YESSICA BRIAN Facility:[facility] Procedures Date Procedure Procedure Detail Performing Clinician Start: 05-24-2023 Colonoscopy Glenn Danielsminvidya Start: 05-24-2023 Esophagogastroduodenoscopy Elizabeth Sarm invidya Start: 02-17-2022 Extracorporeal shockwave lithotripsy of calculus of kidney VICKI BROWN Start: 05-11-2020 Cystoscopy Joellen BRIGHT Start: 04-20-2020 Extracorporeal shockwave lithotripsy of ureter Joellen BRIGHT Comment on above: EXTRACORPOREAL SHOCK WAVE LITHOTRIPSY Cholecystectomy Joellen CAVAZOS Defibrillator, devic e (physical object) Joellen BRIGHT Hysterectomy Joellen BRIGHT Immunizations Immunization Date Immunization Notes [facility] Provider [facility]-01-2022 tetanus and diphtheria toxoids, adsorbed, preservative free, for adult use (2 Lf of tetanus toxoid and 2 Lf of diphtheria toxoid) Rosangela Marin [facility] Comment on above: Result Comment: Lot # [id number] Exp 04/03/22 NEGATED: Highlighted row has not occurred!05-03-2023 influenza virus vaccine, unspecified formulation Rosemarie Jansen [facility] Payers Date Payer Category Payer Medicare [id number] 1960 Self-pay [id number] 1955 Unknown [id number] 2.16.84 [id number] 1955 Unknown [id number] 2.16.84 [id number] 1954 Unknown [id number] 2.16.84 0.1.273447.3.579.2.593 1954 Unknown [id number] 2.16.84 0.1.295808.3.579.2.593 1954 Unknown [id number] 2.16.84 0.1.211787.3.579.2.593 1954 Unknown [id number] 2.16.84 0.1.328701.3.579.2.593 1954 Unknown [id number] 2.16.84 0.1.790961.3.579.2.593 1954 Unknown [id number] 2.16.84 0.1.298960.3.579.2.593 1954 Unknown [id number] 2.16.84 0.1.537208.3.579.2.593 1954 Unknown [id number] 2.16.8 40.1.756285.3.579.2.727 1954 Unknown [id number] 2.16.8 40.1.594912.3.579.2.727 1954 Unknown [id number] 2.16.8 40.1.303565.3.579.2.727 1954 Unknown [id number] 2.16.8 40.1.787597.3.579.2.727 1954 Unknown [id number] 2.16.8 40.1.842583.3.579.2.727 1954 Unknown [id number] 2.16.8 40.1.485141.3.579.2.727 1954 Unknown [id number] 2.16.8 40.1.887023.3.579.2.727 1954 Unknown [id number] 2.16.8 40.1.268103.3.579.2.727 1954 Unknown [id number] 2.16.8 40.1.711896.3.579.2.727 1954 Unknown [id number] 2.16.8 40.1.722041.3.579.2.727 1954 Unknown [id number] 2.16.8 40.1.407916.3.579.2.727 Social History Date Type Detail Facility Start: 01-27-2021 End: 06-15-2023 Tobacco smoking status Never smoked tobacco (finding) [facility] Sex Assigned At Female [facility] Tobacco smoking status Never [facility] Functional Status Date Assessment Result Facility 06-15-2023 Functional Status N/A [facility] 05-05-2023 Functional Status N/A [facility] 04-25-2023 Functional Status N/A [facility] 12-20-2022 Functional Status N/A [facility] 01-28-2022 Functional Status N/A [facility] Clinical Notes 01-28-2022 to 10-24-2024 [facility] Note Date & Type Note Facility 10-24-2024 Note Patient here for 6 m o follow up ARVD s/p ICD and hypertension. She did not want to have stress test that was ordered at last apt in Apr 2024. C/o LUE swelling and pain since generator change in Jul 2023. No recent labs. Device was interrogated last month in the office. Review of Systems All other systems reviewed and are negative. [facility] 10-24-2024 Note Cardiovascular Medic [facility] SUBJECTIVE Chief Complaint Patient presents with ARVD s/p ICD Hypertension Hyperlipidemia Khurram Parra is a 68 y.o. female here for follow-up. HPI PMHx: ARVD with AICD s/ gen change 07/2023, hypertension, COPD, hyperlipidemia 10/24/2024 Since her gen change she has had c/o left arm swelling. Sometimes the swelling hurts or it feels like she has a feeling like there is a rubber band around her arm. She noticed swelling about 1 month ago. Pain is achy. She also occasionally gets pain around her ICD site, she cannot lay on her left side due to discomfort. Denies c/o CP, dyspnea, orthopnea, PND, LE edema, dizziness/LH, palpitations, syncope. 04/02/24 Since she underwent her generator change, she has had issues with chest pain. She states she felt like the pacemaker device moved one night while she was sleeping. Device check a few weeks ago showed normal device function. She c/o intermittent left sided chest pain. Can start in her chest or in her left shoulder. Can occur with activity or resting. Nothing in particular seems to trigger it. Lasts for a few minutes and resolves on its own. Sometimes it is sharp, other times it is a dull pain. Denies c/o fevers/chills, CP, dyspnea, orthopnea, PND, LE edema, dizziness/LH, palpitations, syncope. Patient Active Problem List Diagnosis Alopecia Arrhythmogenic right ventricular cardiomyopathy (CMS/HCC) ICD (implantable cardioverter-defibrillator), dual, in situ COPD (chronic obstructive pulmonary disease) (CMS/HCC) Conduction disorder of the heart Kidney stone Obesity VT (ventricular tachycardia) (CMS/HCC) Pure hyperglyceridemia Vitamin D deficiency Essential hypertension Pneumonia Disorder of lung Implantable cardioverter-defibrillator (ICD) generator end of life Anemia Anticoagulated Arthritis Asthma Abdominal cramping Chronic diarrhea of unknown origin Dysuria Frequency of urination GERD (gastroesophageal reflux disease) Gross hematuria Andreina's thyroiditis Hemorrhoids Nocturia Osteoporosis Persistent atrial fibrillation (CMS/HCC) Polycythemia Radiculopathy of cervical spine Retained ureteral stent Right ureteral stone Stage 3 chronic kidney disease (CMS/HCC) Stress incontinence Urgency of urination Past Medical History: Diagnosis Date Alopecia 02/14/2022 Arrhythmogenic right ventricular cardiomyopathy (CMS/HCC) 02/14/2022 Automatic implantable cardioverter-defibrillator in situ 02/14/2022 Conduction disorder of the heart 02/14/2022 COPD (chronic obstructive pulmonary disease) (CMS/HCC) 02/14/2022 Paroxysmal ventricular tachycardia ([facility]/HCC) 02/14/2022 Vitamin D deficiency 02/14/2022 Family History Problem Relation Name Age of Onset Other (MALIGNANT NEOPLASM OF SKIN) Mother Other (MALIGNANT TUMOR OF LUNG) Father Thyroid disease Sister Heart disease Mother's Sister Social History Tobacco Use Smoking status: Never Smokeless tobacco: Never Substance Use Topics Alcohol use: Never Drug use: Never Allergies Allergen Reactions Lopressor [Metoprolol Tartrate] Hives Ceftriaxone Oxaprozin Cyclobenzaprine Palpitations Review of Systems Constitutional: Negative for chills, decreased appetite, fever, malaise/fatigue and weight gain. Cardiovascular: Negative for chest pain, dyspnea on exertion, irregular heartbeat, leg swelling, near-syncope, orthopnea, palpitations, paroxysmal nocturnal dyspnea and syncope. Left arm swelling Hematologic/Lymphatic: Negative for bleeding problem. Does not bruise/bleed easily. OBJECTIVE Visit Vitals BP 148/78 (BP Location: Right wrist, Patient Position: Sitting) Pulse 64 Ht 1.702 m (5' 7 ) Wt 119 kg (263 lb) SpO2 95% BMI 41.19 kg/m??? OB Status Postmenopausal Smoking Status Never BSA 2.37 m??? Medications: Current Outpatient Medications: albuterol 2.5 mg /3 mL (0.083 %) nebulizer solution, Take 2.5 mg by nebulization every 4 (four) hours if needed., Disp: , Rfl: amLODIPine (Norvasc) 5 mg tablet, Take 1 tablet (5 mg) by mouth once daily as directed., Disp: 90 tablet, Rfl: 3 aspirin 81 mg EC tablet, Take 81 mg by mouth in the morning., Disp: , Rfl: calcium gluconate 60 mg calcium (650 mg) tablet, Take 1,300 mg by mouth., Disp: , Rfl: levothyroxine (Synthroid, Levoxyl) 50 mcg tablet, Take 50 mcg by mouth before breakfast., Disp: , Rfl: lisinopril 10 mg tablet, Take 1 tablet (10 mg) by mouth two times daily., Disp: 180 tablet, Rfl: 3 potassium chloride CR (Klor-Con M10) 10 mEq ER tablet, Take 1 tablet (10 mEq) by mouth once daily as directed. Do not crush or chew., Disp: 90 tablet, Rfl: 3 sotalol (Betapace) 80 mg tablet, Take 1 tablet (80 mg) by mouth in the morning and at bedtime., Disp: 180 tablet, Rfl: 3 alendronate (Fosamax) 70 mg tablet, Take 70 mg by mouth every 7 (seven) days. Take in the morning with a full glass of water, on an empty stomach, and do (more content not included)... [facility] 04-29-2024 Note Patient Education Nutrition BMI for Adults Body mass index (BMI) is a number found using a person's weight and height. BMI can help tell how much of a person's weight is made up of fat. BMI does not measure body fat directly. It is used instead of tests that directly measure body fat, which can be difficult and expensive. What are BMI measurements used for? BMI is useful to: ??? Find out if your weight puts you at higher risk for medical problems. ??? Help recommend changes, such as in diet and exercise. This can help you reach a healthy weight. BMI screening can be done again to see if these changes are working. How is BMI calculated? Your height and weight are measured. The BMI is found from those numbers. This can be done with U.S. or metric measurements. Note that charts and online BMI calculators are available to help you find your BMI quickly and easily without doing these calculations. To calculate your BMI in U.S. measurements: 1. Measure your weight in pounds (lb). 2. Multiply the number of pounds by 703. ??? So, for an adult who weighs 150 lb, multiply that number by 703: 150 x 703, which equals 105,450. 3. Measure your height in inches. Then multiply that number by itself to get a measurement called inches squared. ??? So, for an adult who is 70 inches tall, the inches squared measurement is 70 inches x 70 inches, which equals 4,900 inches squared. 4. Divide the total from step 2 (number of lb x 703) by the total from step 3 (inches squared): 105,450 ? 4,900 = 21.5. This is your BMI. To calculate your BMI in metric measurements: 1. Measure your weight in kilograms (kg). ??? For this example, the weight is 70 kg. 2. Measure your height in meters (m). Then multiply that number by itself to get a measurement called meters squared. ??? So, for an adult who is 1.75 m tall, the meters squared measurement is 1.75 m x 1.75 m, which equals 3.1 meters squared. 3. Divide the number of kilograms (your weight) by the meters squared number. In this example: 70 ? 3.1 = 22.6. This is your BMI. What do the results mean? BMI charts are used to see if you are underweight, normal weight, overweight, or obese. The following guidelines will be used: ??? Underweight: BMI less than 18.5. ??? Normal weight: BMI between 18.5 and 24.9. ??? Overweight: BMI between 25 and 29.9. ??? Obese: BMI of 30 or above. BMI is a tool and cannot diagnose a condition. Talk with your health care provider about what your BMI means for you. Keep these notes in mind: ??? Weight includes fat and muscle. Someone with a muscular build, such as an athlete, may have a BMI that is higher than 24.9. In cases like these, BMI is not a correct measure of body fat. ??? If you have a BMI of 25 or higher, your provider may need to do more testing to find out if excess body fat is the cause. ??? BMI is measured the same way for males and females. Females usually have more body fat than males of the same height and weight. Where to find more information For more information about BMI, including tools to quickly find your BMI, go to: ??? Centers for Disease Control and Prevention: cdc.gov ??? [place] [employer]: heart.org ??? National Heart, Lung, and [employer] [place]: nhlbi.nih.gov This information is not intended to replace advice given to you by your health care provider. Make sure you discuss any questions you have with your health care provider. Document Revised: 03/09/2023 Document Reviewed: 03/02/2023 [employer] Patient Education ? 2023 [employer]. [facility] 04-02-2024 Note Pt is here for a six month follow up. Pt has HTN, HLD, and COPD. Pt denies chest pain, palpatation, sob. Review of Systems Constitutional: Negative for chills, decreased appetite, fever and malaise/fatigue. Cardiovascular: Negative for dyspnea on exertion. Hematologic/Lymphatic: Negative for bleeding problem. Skin: Positive for rash. Burning around ICD incision All other systems reviewed and are negative. [facility] 04-02-2024 Note Cardiovascular Medic [facility] SUBJECTIVE Chief Complaint Patient presents with Hypertension Hyperlipidemia ARVD Khurram Parra is a 68 y.o. female here for follow-up. HPI PMHx: ARVD with AICD s/ gen change 07/2023, hypertension, COPD, hyperlipidemia 04/02/24 Since she underwent her generator change, she has had issues with chest pain. She states she felt like the pacemaker device moved one night while she was sleeping. Device check a few weeks ago showed normal device function. She c/o intermittent left sided chest pain. Can start in her chest or in her left shoulder. Can occur with activity or resting. Nothing in particular seems to trigger it. Lasts for a few minutes and resolves on its own. Sometimes it is sharp, other times it is a dull pain. Denies c/o fevers/chills, CP, dyspnea, orthopnea, PND, LE edema, dizziness/LH, palpitations, syncope. Patient Active Problem List Diagnosis Alopecia Arrhythmogenic right ventricular cardiomyopathy (CMS/HCC) ICD (implantable cardioverter-defibrillator), dual, in situ COPD (chronic obstructive pulmonary disease) (CMS/HCC) Conduction disorder of the heart Kidney stone Obesity VT (ventricular tachycardia) (CMS/HCC) Pure hyperglyceridemia Vitamin D deficiency Essential hypertension Pneumonia Disorder of lung Implantable cardioverter-defibrillator (ICD) generator end of life Past Medical History: Diagnosis Date Alopecia 02/14/2022 Arrhythmogenic right ventricular cardiomyopathy (CMS/HCC) 02/14/2022 Automatic implantable cardioverter-defibrillator in situ 02/14/2022 Conduction disorder of the heart 02/14/2022 COPD (chronic obstructive pulmonary disease) (CMS/HCC) 02/14/2022 Paroxysmal ventricular tachycardia (CMS/HCC) 02/14/2022 Vitamin D deficiency 02/14/2022 Family History Problem Relation Name Age of Onset Other (MALIGNANT NEOPLASM OF SKIN) Mother Other (MALIGNANT TUMOR OF LUNG) Father Thyroid disease Sister Heart disease Mother's Sister Social History Tobacco Use Smoking status: Never Smokeless tobacco: Never Substance Use Topics Alcohol use: Never Drug use: Never Allergies Allergen Reactions Lopressor [Metoprolol Tartrate] Hives Ceftriaxone Oxaprozin Review of Systems Constitutional: Negative for chills, decreased appetite, fever and malaise/fatigue. Cardiovascular: Negative for chest pain and dyspnea on exertion. Hematologic/Lymphatic: Negative for bleeding problem. Skin: Positive for rash. Burning around ICD incision OBJECTIVE Visit Vitals BP 133/78 Pulse 59 Ht 1.702 m (5' 7 ) Wt 116 kg (256 lb) SpO2 92% BMI 40.10 kg/m??? OB Status Postmenopausal Smoking Status Never BSA 2.34 m??? Medications: Current Outpatient Medications: amLODIPine (Norvasc) 5 mg tablet, TAKE 1 TABLET BY MOUTH IN THE MORNING, Disp: 90 tablet, Rfl: 3 aspirin 81 mg EC tablet, Take 81 mg by mouth in the morning., Disp: , Rfl: levothyroxine (Synthroid, Levoxyl) 50 mcg tablet, Take 50 mcg by mouth before breakfast., Disp: , Rfl: lisinopril 10 mg tablet, Take 1 tablet (10 mg) by mouth in the morning and at bedtime., Disp: 180 tablet, Rfl: 3 potassium chloride CR (Klor-Con M10) 10 mEq ER tablet, Take 1 tablet (10 mEq) by mouth in the morning. Do not crush or chew., Disp: 90 tablet, Rfl: 3 sotalol (Betapace) 80 mg tablet, Take 1 tablet (80 mg) by mouth in the morning and at bedtime., Disp: 180 tablet, Rfl: 3 alendronate (Fosamax) 70 mg tablet, Take 70 mg by mouth every 7 (seven) days. Take in the morning with a full glass of water, on an empty stomach, and do not take anything else by mouth or lie down for the next 30 min., Disp: , Rfl: Physical Exam Vitals reviewed. Constitutional: Appearance: Normal appearance. She is normal weight. HENT: Head: Normocephalic and atraumatic. Right Ear: External ear normal. Left Ear: External ear normal. Eyes: Extraocular Movements: Extraocular movements intact. Conjunctiva/sclera: Conjunctivae normal. Pupils: Pupils are equal, round, and reactive to light. Neck: Vascular: No carotid bruit. Cardiovascular: Rate and Rhythm: Normal rate and regular rhythm. Pulses: Normal pulses. Heart sounds: Normal heart sounds. Comments: Left upper chest ICD incision healed, no s/s of infection Pulmonary: Effort: Pulmonary effort is normal. Breath sounds: Normal breath sounds. Abdominal: General: Bowel sounds are normal. Palpations: Abdomen is soft. Musculoskeletal: Cervical back: Neck supple. Right lower leg: No edema. Left lower leg: No edema. Skin: General: Skin is warm and dry. Neurological: General: No focal deficit present. Mental Status: She is alert and oriented to person, place, and time. Psychiatric: Mood and Affect: Mood normal. Behavior: Behavior normal. Thought Content: Thought content normal. Judgment: Judgment normal. Labs: Admission on 07/31/2023, Discharged on 07/31/2023 Component Date Value R (more content not included)... [facility] 06-21-2023 Note [id number]#[id number] [facility] 06-12-2023 Note [id number] [facility] 05-26-2023 Note [id number] [facility] 05-24-2023 Note Endoscopy Care After Procedure [...] Document Re-Released: 12/11/2006 ExitCare? Patient Information ?2009 [employer]. Diverticulosis Many people have small pouches in [...] unsweetened, w/added ascorbic acid 1 cup 0.5 [place] 1 cup 0.7 Vegetables Cooked Green beans 1 cup 4.0 Carrots 1/2 cup sliced 2.3 Peas 1 cup 8.8 Potato (baked, with skin) 1 medium potato 3.8 Raw [place] (with peel) 1 cucumber 1.5 Lettuce 1 [...] 8.7 Peanuts 1/2 cup 7.9 Chart from [facility] 2013. SEEK IMMEDIATE MEDICAL CARE IF: You deve (more content not included)... [facility] 05-05-2023 Hospital Discharge instructions Patient Education [...] oral rehydration solution (ORS). This is an kuvn-rnt-jjazxgb medicine that helps return your body to [...] drinks, sports drinks, and soda. Eat bland, cdoj-gr-ryobnh foods in small amounts as you are able. These foods include bananas, applesauce, rice, lean meats, toast, and crackers. Avoid alcohol. Avoid spicy or fatty foods. Medicines Take lvuw-rbq-kgqshxm and prescription medicines only as told by your health care provider. If you were prescribed an antibiotic medicine, take it as told by your health care provider. Do not stop using the antibiotic even if you start to feel better. General instructions Wash your hands often using soap and water. If soap and water are not available, use a hand apparatus engineering technologist. Others in the household should wash their [...] and water are not available, use hand apparatus engineering technologist. Contact a health care provider if your diarrhea gets worse or you have new symptoms. Get help right away if you have signs of dehydration. This information is not intended to replace advice given to you by your health care provider. Make sure you discuss any questions you have with your health care provider. Document Revised: 12/29/2021 Document Reviewed: 12/29/2021 [employer] Patient Education 2022 [employer]. Follow Up Care 04/19/2023 09:52:25 With:Rosemarie Jansen CNP Address: When:1 to 2 weeks Comments:Following colonoscopy. [facility] 04-25-2023 Hospital Discharge instructions Patient [...] include: ?8 oz (237 mL) of milk, jpdmlgq-gexntxglbkxt-dieup milk, and calcium-fortifiedfruit juice. Calcium-fortified means that [...] ?Spinach (cooked), rhubarb, beets, sweet potatoes, and Bulgarian chard. ?Peanuts. ?Potato chips, uzbek fries, and baked potatoes with skin on. ?Nuts and nut products. ?Chocolate. If you regularly take a diuretic medicine, make sure to eat at least 1 or 2 servings of fruits or vegetables that are high in potassium each day. These include: ?Avocado. ?Banana. ?[place], prune, carrot, or tomato juice. ?Baked potato. [...] magnesium, fish oil, or vitamin B6. Take cpnw-rvv-ypbkqyp and prescription medicines only as told by [...] Casseroles. Pizza. Lasagna. Frozen meals. Potato chips. Peruvian fries. The items listed above may not [...] provider. Document Revised: 02/28/2022 Document Reviewed: 02/28/2022 [employer] Patient Education 2022 [employer]. Follow Up Care 12/20/2022 09:51:10 With:KEVIN LOPES, VICKI Gann, URL Address: [address] [place] [address] When: Unknown [facility] 04-03-2023 Evaluation + Plan note Future Appointments Appointment Date:04/28/2023 10:00:00 AM Scheduled Provider: Location:.BD Appointment Type:BD Bone Density (FT) Appointment Date:04/28/2023 10:30:00 AM Scheduled Provider: Location:.XRAY Appointment Type:XR Pelvis/Hip () Appointment Date:05/05/2023 10:00:00 AM Scheduled Provider:Rosemarie Jansen CNP Location:[facility] Appointment Type:[facility] New Patient Future Scheduled TestsXR Hip 2-3 Views Right 04/28/23BD Bone Density DEXA 04/28/23 [facility] 12-20-2022 Hospital Discharge instructions Patient Education 12/20/2022 13:11:32 Kidney Stones, Pibb-sx-Rqog Kidney Stones Kidney stones are rock-like masses [...] Follow these instructions at home: Medicines Take zzjf-coy-tjetzjr and prescription medicines only as told by [...] provider. Document Revised: 02/21/2022 Document Reviewed: 02/21/2022 [employer] Patient Education 2022 [employer]. Follow Up Care 03/01/2022 09:37:28 With:VICKI BROWN PA-C, URL Address: [address] [place] [address] When:3 months [facility] 01-28-2022 Hospital Discharge instructions Patient Education 01/28/2022 09:46:54 Kidney Stones, Rhgv-ow-Qdem Kidney Stones Kidney stones are rock-like masses [...] Follow these instructions at home: Medicines Take vdkz-ing-aqnxjal and prescription medicines only as told by [...] 12/05/2008 Document Revised: 11/05/2019 Document Reviewed: 11/05/2019 [employer] Patient Education 2019 [employer]. Follow Up Care 02/25/2021 10:27:08 With:KAILA ALVARADO, Joellen Manrique, URL Address: [facility] [address], [place] [address]- [phone] When: Unknown Comments:schedule CT A/P w/o contrast [facility] Evaluation + Plan note No data available for this section [facility] Evaluation + Plan note Future Appointments Appointment Date:03/28/2023 08:30:00 AM Scheduled Provider:VICKI BROWN PA-C Location:[facility] Appointment Type:URO Office Visit [facility] Evaluation + Plan note Future Appointments Appointment Date:04/25/2023 11:40:00 AM Scheduled Provider:VICKI BROWN PA-C Location:[facility] Appointment Type:URO Office Visit Future Scheduled TestsXR Hip 2-3 Views Right 04/18/23BD Bone Density DEXA 04/18/23 [facility] Evaluation + Plan note Future Appointments Appointment Date:05/24/2023 03:15:00 PM Scheduled Provider: Location:[facility] Appointment Type:Surgery FT Future Scheduled TestsPancreatic Elastase, Fecal 05/05/23Fecal WBC Lactoferrin 05/05/23Giardia lamblia, Direct Detection EIA 05/05/23O & P Exam, Routine 05/05/23Clostridium Difficile PCR 05/05/23Enteric Panel by PCR 05/05/23 [facility] Evaluation + Plan note Future Appointments Appointment Date:05/24/2023 03:15:00 PM Scheduled Provider: Location:[facility] Appointment Type:Surgery FT Diagnostic Tests PendingCeliac Disease Comprehensive 05/05/23 Future Scheduled TestsPancreatic Elastase, Fecal 05/05/23Fecal WBC Lactoferrin 05/05/23Giardia lamblia, Direct Detection EIA 05/05/23O & P Exam, Routine 05/05/23Clostridium Difficile PCR 05/05/23Enteric Panel by PCR 05/05/23 [facility] Evaluation + Plan note Future Appointments Appointment Date:2024 09:30:00 AM Scheduled Provider: Location:[facility] Appointment Type: Medicare Wellness Subsequent Appointment Date:2024 10:15:00 AM Scheduled Provider:Rosangela Marin MD Location:[facility] Appointment Type: Open [facility] Evaluation + Plan note Future Appointments Appointment Date:06/19/2023 04:20:00 PM Scheduled Provider:Rosangela Marin MD Location:[facility] Appointment Type: Hospital Follow Up w/TCM Appointment Date:12/14/2023 12:00:00 PM Scheduled Provider:Glenn Dukes MD Location:[facility] Appointment Type:BADH Follow Up [facility] Hospital Discharge instructions No data available for this section [facility] Progress note No data available for this section [facility] Summary Purpose Family History No Family History Records Found No data available for this section No data available for this section No data available for this section No data available for this section No Family History Records Found No data available for this section No Family History Records FoundNo Family History Records FoundNo Family History Records FoundNo Family History Records FoundNo Family History Records Found No data available for this section No Family History Records Found Advance Directives No Advanced Directives Records FoundNo Advanced Directives Records FoundNo Advanced Directives Records FoundNo Advanced Directives Records FoundNo Advanced Directives Records FoundNo Advanced Directives Records FoundNo Advanced Directives Records FoundNo Advanced Directives Records Found Additional Source Comments Care Team (unrecognized sect ion and content) Personnel Name: ADAM SANDERS MD Address: [address] [place] [id number] Personnel Name: Rosangela Marin MD Address: [facility] Personnel Name: Rosangela Marin MD Address: Address[facility] Personnel Name: Rosangela Marin MD Address: Address[facility] Personnel Name: Rosangela Marin MD Address: Address: [facility] Personnel Name: Rosangela Marin MD Address: Address[facility] Personnel Name: Rosangela Marin MD Address: Address[facility] Personnel Name: Rosangela Marin MD Address: Address: [facility] [address] INFORMATION SOURCE (unrecogn ized section and content) DATE CREATED AUTHOR [facility]/30/2022 [facility] DATE CREATED AUTHOR AUTHOR'S ORGANIZ ATION 04/30/2024 [facility] DATE CREATED AUTHOR AUTHOR'S ORGANIZ ATION 05/16/2024 [facility] DATE CREATED AUTHOR AUTHOR'S ORGANIZ ATION 02/06/2025 [facility] FOR RECORDS PERTAINING TO PATIENTS WHO ARE [...] BE BASED ON THE PRIMARY CLINICAL RECORDS. [employer] provides no warranty or guarantee of the accuracy or completeness of information in this document.
--- NOTE | 2025-02-12 08:51 | CA_ITS ---
Patient Name: KHURRAM DE LA O MR#: [id number] : 1955 Exam Date: 02/12/2025 Ordering Doctor: YESSICA TORRES CNP ECHOCARDIOGRAM REPORT PROCEDURE: CA ECHO DOPPLER COMPLETE INDICATIONS: Ventricular tach, Arrhythmogenic RT ventricular cardiomyopathy, defibrillator, hypertension COMPARISON: None. DESCRIPTION: COMPLETE ECHOCARDIOGRAM Real-time transthoracic echocardiography with 2D, M-mode, spectral and color flow Doppler performed. QUALITY: Technical quality was good. LEFT VENTRICLE: Normal chamber size. Thickened septal wall. Systolic function is at the lower limits of normal. Calculated left ventricular ejection fraction is 54%. LV EF: Lower limits of normal left ventricular ejection fraction, (50-55%). DIASTOLIC: Normal diastolic function. ATRIAL SEPTUM: Visually appears intact. LEFT ATRIUM: Normal chamber size. RIGHT ATRIUM: Normal chamber size. RIGHT VENTRICLE: Normal chamber size. Normal right ventricular systolic function. Pacer wire present. TRICUSPID VALVE: Normal mobility and thickness. No stenosis with no regurgitation. Unable to assess right-sided pressures due to lack of measurable tricuspid regurgitation. MITRAL VALVE: Normal mobility and thickness. No evidence of mitral valve stenosis. There is no mitral annular calcification. Trivial mitral regurgitation. AORTIC VALVE: Normal trileaflet appearance. No visible sclerosis. Normal leaflet mobility. No evidence of aortic valve stenosis. Trivial aortic regurgitation. AORTIC ROOT: Normal diameter and appearance, measuring 3.3 cm. Ascending aorta is normal in size, measuring 3.1 cm. PULMONIC VALVE: Normal thickness and mobility. No stenosis. Trivial regurgitation. PERICARDIUM: No evidence of pericardial effusion. IVC: Collapses with inspiration. IVC is normal in size. PLEURA: CONCLUSION: 1. The left ventricle is normal in size and exhibits low normal systolic function. Estimated LVEF is 50 to 55%. 2. Normal right ventricular size and systolic function. 3. Normal diastolic function. 4. No significant valvular dysfunction. 5. Unable to assess right-sided pressures due to lack of measurable tricuspid regurgitation. Adult Echocardiography Procedure Report Left Ventricle LVEDD (3.7 - 5.6 cm): 5.44 cm LVESD (2.2 - 4.0 cm): 3.93 cm LVIVS thickness (0.6 - 1.2 cm): 1.10 cm LVPW thickness (0.5 - 1.0 cm): 0.95 cm e': 0.16 m/s E - e': 5.11 LVOT Max Gradient: 4.57 mm[Hg] LVOT Area (cm2): 1.07 m/s Peak Velocity (LVOT): 1.07 m/s LVOT Diameter 2.08 cm Left Ventricular Ejection Fraction: 53.67 % Left Atrium LA Volume Index (2D A2C): 31.61 ml/m2 Left Atrium Systolic Dimension: 3.77 cm Mitral Valve MV E to A Ratio: 1.22 Mitral Valve A-Wave Peak Velocity: 0.68 m/s Mitral Valve E-Wave Peak Velocity: 0.83 m/s Right Ventricle Aorta AO Root Diam: 3.31 cm Ascending Ao Diam: 3.08 cm Aortic Valve AoV Area (Peak Jones): 3.14 cm2, 3.14 cm2 Peak Velocity(Antegrade Flow): 1.15 m/s Peak Gradient(Antegrade Flow): 5.29 mm[Hg] Tricuspid Valve Pulmonic Valve Peak Gradient: 2.86 mm[Hg], 3.80 mm[Hg] Right Atrium Right Atrium Systolic Pressure: 33.44 ml, 33.44 ml Dictated by: Koby Beach M.D. on 02/14/2025 at 21:21 Approved by: Koby Beach M.D. on 02/14/2025 at 21:26
== END 2025-02-12 08:46 | disposition home or self-care (01) ==
LOC: CARD 08:46
PROVIDERS: PCP Family Medicine; Visit Provider Nurse Practitioner Family
DX: M81.0 Age-related osteoporosis without current pathological fracture (principal); I47.20 Ventricular tachycardia, unspecified; I42.8 Other cardiomyopathies
CPT/HCPCS: 77080; 93306

== ENCOUNTER 2025-02-12 09:29 | Outpatient (OUT) | payer MEDICARE, SELFPAY ==
--- OUTSIDE RECORDS SUMMARY | 2025-02-12 09:33 | XMS_ITS | Encounter Summary ---
Author Organization [facility] Address [address] [place] [address] Care Team Providers Care Alumni Secretary Name Role Phone Navarro Marin MD Primary Care Provider [phone] Encounter Details Date Type Department Care Team (Late st Contact Info) Description 12/25/2024 Orders Only [facility] [address] [place] [address] Devan Craig MD [address] [place] [address] Social History Tobacco Use Types [...] 02/17/2025 10:00 AM EDT Office Visit [facility] [address] [place] [address] Koby Beach MD [address] [facility] [address] [facility] [place] [phone] documented as of this encounter Procedures Procedure Name Priority Date/Time Associated Diagnosis Comments CARDIAC DEVICE CHECK - REMOTE - ICD Routine 12/25/2024 12:00 AM EDT documented in this encounter Results * Cardiac device check - Remote ICD (12/25/2024 12:00 AM EDT) Anatomical Region Laterality Modality Other 12/25/2024 us Devan Craig MD CV IMPLANTABLE CARDIAC DEVICE RI OCEDURES Final Result documented in this encounter Visit Diagnoses Not on filedocumented in this encounter Care Teams Alumni Secretary Relationship Specialty Start Date End Date Navarro Marin MD [address] [place] [address] PCP - General Family Medicine 02/24/23 documented as of this encounter
--- OUTSIDE RECORDS SUMMARY | 2025-02-12 09:33 | XMS_ITS | Encounter Summary ---
Author Organization [facility] Address [address] [place] [address] Care Team Providers Care Kitchen Chef Name Role Phone Navarro Marin MD Primary Care Provider [phone] Encounter Details Date Type Department Care Team (Late st Contact Info) Description 10/13/2024 Orders Only [facility] [address] [place] [address] Devan Craig MD [address] [place] [address] Social History Tobacco Use Types [...] Description 02/17/2025 10:00 AM EDT Office Visit [facility] [address] [place] [address] Koby Beach MD [address] [facility] [address] [facility] [place] [phone] documented as of this encounter Procedures Procedure Name Priority Date/Time Associated Diagnosis Comments CARDIAC DEVICE CHECK - REMOTE - ICD Routine 10/13/2024 12:00 AM EDT documented in this encounter Results * Cardiac device check - Remote ICD (10/13/2024 12:00 AM EDT) Anatomical Region Laterality Modality Other 10/13/2024 us Devan Craig MD CV IMPLANTABLE CARDIAC DEVICE [place] OCEDURES Final Result documented in this encounter Visit Diagnoses Not on filedocumented in this encounter Care Teams Kitchen Chef Relationship Specialty Start Date End Date Navarro Marin MD [address] [place] [address] PCP - General Family Medicine 02/24/23 documented as of this encounter
--- OUTSIDE RECORDS SUMMARY | 2025-02-12 09:33 | XMS_ITS | Clinical Summary ---
Author Organization [employer] [facility] Address [id number] [address] [place] [address] Care Team Providers Care Certified Real Estate Appraiser Name Role Phone Monie Miranda MD Primary Care Provider [phone] Social History Tobacco Use Types Packs/Day Years [...] on file Insurance [employer] MEDICARE Care Teams Certified Real Estate Appraiser Relationship Specialty Start Date End Date Monie Miranda MD PCP - General Family Medicine 02/11/20
--- OUTSIDE RECORDS SUMMARY | 2025-02-12 09:33 | XMS_ITS | Encounter Summary ---
Author Organization [facility] Address [address] [place] [address] Care Team Providers Care Shared Services And Outsourcing Manager Name Role Phone Navarro Marin MD Primary Care Provider [phone] Reason for Visit * Reason Onset Date Comments Med Refill 02/03/2025 Encounter Details Date Type Department Care Team (Late st Contact Info) Description 02/03/2025 Refill [place] [address] [place] [address] Romi Choi MA Arrhythmogenic right [...] Description 02/17/2025 10:00 AM EDT Office Visit [facility] [address] [place] [address] Koby Beach MD [address] [facility] [place] [address] documented as of this encounter Visit Diagnoses Diagnosis 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
--- OUTSIDE RECORDS SUMMARY | 2025-02-12 09:33 | XMS_ITS | Clinical Summary ---
Author Organization [facility] Address [address] [facility] [place] [address] Care Team Providers Care Chimney Repairer Name Role Phone Navarro Marin MD Primary Care Provider [phone] Allergies Active Allergy Reactions Criticality Noted Date [...] file Insurance [employer] MEDICARE ADVANTAGE Care Teams Chimney Repairer Relationship Specialty Start Date End Date Navarro Marin MD [address] [place] [address] PCP - General Family Medicine 05/02/23
--- OUTSIDE RECORDS SUMMARY | 2025-02-12 09:33 | XMS_ITS | Encounter Summary ---
Author Organization [facility] Address [address] [place] [address] Care Team Providers Care Tier And Detonator Name Role Phone Navarro Marin MD Primary Care Provider [phone] Encounter Details Date Type Department Care Team (Late st Contact Info) Description 11/20/2024 Orders Only [facility] [address] [place] [address] Devan Craig MD [address] [place] [address] Social History Tobacco Use Types [...] Description 02/17/2025 10:00 AM EDT Office Visit [facility] [address] [place] [address] Koby Beach MD [address] [facility] [address] [facility] [phone] documented as of this encounter Procedures Procedure [...] on filedocumented in this encounter Care Teams Tier And Detonator Relationship Specialty Start Date End Date Navarro Marin MD [address] [place] [address] PCP - General Family Medicine 02/24/23 documented as of this encounter
--- OUTSIDE RECORDS SUMMARY | 2025-02-12 09:33 | XMS_ITS | Clinical Summary ---
Author Organization [facility] Address [address] [place] [address] Care Team Providers Care Home Performance Consultant Name Role Phone Navarro Marin MD Primary Care Provider [phone] Allergies Active Allergy Reactions Criticality Noted Date [...] discussed with Dr. Craig ICD (implantable cardioverter-defibrillator), jereimah matthews, in situ 02/14/2022 Assessment & Plan [...] Type Department Care Team Description 02/03/2025 Refill [facility] [address] [place] [address] Romi Choi MA Arrhythmogenic right ventricular dysplasia (CMS/HCC) 01/24/2025 9:45 AM EDT Ancillary Procedure [facility] [address] [place] [address] Pre-operative cardiovascular examination, ICD in place 01/24/2025 Orders Only [facility] [address] [place] [address] Devan Craig MD 01/20/2025 9:05 AM EDT Ancillary Procedure [facility] [address] [place] [address] Pre-operative cardiovascular examination, ICD in place 01/19/2025 Orders Only [facility] [address] [place] [address] Devna Craig MD 12/25/2024 Orders Only [facility] [address] [facility] [place] [address] Devan Craig MD 12/24/2024 12:40 AM EDT Ancillary Procedure [facility] [address] [place] [address] Pre-operative cardiovascular examination, ICD in place 11/27/2024 11:30 AM EDT Ancillary Procedure [facility] [address] [place] [address] Pre-operative cardiovascular examination, ICD in place 11/20/2024 Orders Only [facility] [address] [place] [address] Devan Craig MD from Last 3 Months [...] Description 02/17/2025 10:00 AM EDT Office Visit [facility] [address] [place] [address] Koby Beach MD [address] [facility] [address] [place] [address] Health Maintenance Due Date Last [...] this topic Medical Devices Implanted Type Area Tester Operator Device Identifier Shelf Expiration Date Model / Serial / Lot Momentum El Icd Is-1/Df-1 - Dr Implanted:Qty: 1 on 07/31/2023 by Devan Craig MD at [facility] ICD [employer] [id number] 03/29/2025 [id number] / Ingevity+ Is-1 Bi Positive Fix Ra/Rv 52cm Implanted:Qty: 1 on 07/31/2023 by Devan Craig MD at [facility] Lead [employer] [id number] 07/09/2025 [id number] / Procedures Procedure Name Priority Date/Time Associated [...] Alberto Sanderson MD CV IMPLANTABLE CARDIAC DEVICE [place] OCEDURES Final Result CPACS * Cardiac device check - Remote ICD (01/24/2025 12:00 AM EDT) Only the most recent of4 resultswithin the time period is included. Anatomical Region Laterality Modality Other 01/24/2025 us Devan Craig MD CV IMPLANTABLE CARDIAC DEVICE [place] OCEDURES Final Result from Last 3 Months Insurance [employer] MEDICARE ADVANTAGE Care Teams Home Performance Consultant Relationship Specialty Start Date End Date Navarro Marin MD [address] [place] [address] PCP - General Family Medicine 02/24/23
--- OUTSIDE RECORDS SUMMARY | 2025-02-12 09:33 | XMS_ITS | Encounter Summary ---
Author Organization [facility] Address [address] [place] [address] Care Team Providers Care Weather Clerk Name Role Phone Navarro Marin MD Primary Care Provider [phone] Encounter Details Date Type Department Care Team (Late st Contact Info) Description 01/24/2025 Orders Only [facility] [address] [place] [address] Devan Craig MD [address] [place] [address] Social History Tobacco Use Types [...] Description 02/17/2025 10:00 AM EDT Office Visit [facility] [address] [place] [address] Koby Beach MD [address] [facility] [address] [place] [address] documented as of this encounter Procedures Procedure Name Priority Date/Time Associated Diagnosis Comments CARDIAC DEVICE CHECK - REMOTE - ICD Routine 01/24/2025 12:00 AM EDT documented in this encounter Results * Cardiac device check - Remote ICD (01/24/2025 12:00 AM EDT) Anatomical Region Laterality Modality Other 01/24/2025 us Devan Craig MD CV IMPLANTABLE CARDIAC DEVICE [place] OCEDURES Final Result documented in this encounter Visit Diagnoses Not on filedocumented in this encounter Care Teams Weather Clerk Relationship Specialty Start Date End Date Navarro Marin MD [address] [place] [address] PCP - General Family Medicine 02/24/23 documented as of this encounter
--- OUTSIDE RECORDS SUMMARY | 2025-02-12 09:33 | XMS_ITS | Encounter Summary ---
Author Organization [facility] Address [address] [place] [address] Care Team Providers Care Freelance Interpreter/Translator Name Role Phone Navarro Marin MD Primary Care Provider [phone] Encounter Details Date Type Department Care Team (Late st Contact Info) Description 10/23/2024 Orders Only [facility] [address] [facility] [place] [address] Jesse Parker MD [address] [place] [address] Social History Tobacco Use Types [...] Description 02/17/2025 10:00 AM EDT Office Visit [facility] [address] [place] [address] Koby Beach MD [address] [facility] [address] [place] [phone] documented as of this encounter Procedures Procedure [...] on filedocumented in this encounter Care Teams Freelance Interpreter/Translator Relationship Specialty Start Date End Date Navarro Marin MD [address] [place] [address] PCP - General Family Medicine 02/24/23 documented as of this encounter
--- OUTSIDE RECORDS SUMMARY | 2025-02-12 09:33 | XMS_ITS | Encounter Summary ---
Author Organization [facility] Address [address] [place] [address] Care Team Providers Care Principal Consulting Engineer Name Role Phone Monie Miranda MD Primary Care Provider [phone] Navarro Marin MD Primary Care Provider [phone] Reason for Visit * Reason Comments Med Refill Encounter Details Date Type Department Care Team (Late st Contact Info) Description 09/26/[address] [facility] Cardiology [address] [place] [address] Sophie Orozco, TRADING FLOOR OPERATOR [address] [place] [phone] Essential hypertension Social History Tobacco Use Types [...] Description 02/17/2025 10:00 AM EDT Office Visit [place] [address] [place] [address] Koby Beach MD [address] [facility] [address] documented as of this encounter Visit Diagnoses Diagnosis Essential hypertension Unspecified essential hypertension documented in this encounter Care Teams Principal Consulting Engineer Relationship Specialty Start Date End Date Monie Miranda MD [address] [facility] P[facility] - General 02/18/22 02/23/23 Navarro Marin MD [address] [place] [address] PCP - General Family Medicine 02/24/23 documented as of this encounter
--- OUTSIDE RECORDS SUMMARY | 2025-02-12 09:37 | XMS_ITS | CCD ---
Author Organization [facility] CliniSyco Care Team Providers Care Radioactivity Technician Name Role Phone ADAM SANDERS Primary Care Physician BRIGHT ., DR CUENCA Admitting Unavailable SANDERS ., DR ADAM Gann Primary Care Unavailable BRIGHT ., DR CUENCA Attending Unavailable GARY, DR BENNETT Acevedo Consulting Unavailable [place], DR ELVIS David Consulting Unavailable BRIGHT ., [...] Primary Care Physician Glenn Dukes Attending Unavaila Glenn Nixon Attending [...] 02-15-20 22 Hives, Rash [facility] (10 sources) cyclobenzaprine; Translations: [cyclobenzaprine] Drug Allergy 10-12-19 25 Rapid heart beat [facility] (10 sources) oxaprozin; Translations: [oxaprozin] Drug Allergy 02-15-20 22 Hives, Rash [facility] (1 source) Acetaminophen / oxyCODONE Drug Allergy [facility] Rep[facility] (2 sources) cefTRIAXone Drug Allergy 11-27-19 13 [facility] (1 source) cyclobenzaprine Drug Allergy [facility] (1 source) Metoprolol Drug Allergy [facility] (2 sources) oxaprozin Drug Allergy 11-27-19 13 [facility] (1 source) tiZANidine Drug Allergy 07-03-19 20 [facility] (1 source) Muscle Rub; Translations: [Muscle Rub] Propensity to adverse reactions (disorder) [facility] Repository (1 source) Metoprolol; Translations: [METOPROLOL TARTRATE] Drug Allergy 02-15-20 [facility] Repository Medications Current Medications Medication Drug Class(es) Dates Sig (Normalized) Sig (Original) albuterol 0.83 mg/ml inhalation solution (8 sources) beta2-Adrenergic Agonist Start: 04-18-2023 take 2.5 mg by inhalation every six hours albuterol 0.083% Inh Beti 3 mL 2.5 mg, 3 mL, NEB, q6hr Shortness of breath or wheezing, 300 mL, Refill(s) 0, [facility], 169, cm, 04/18/23 13:06:00 EDT, [...] Inhalation, q6hr, 18 gm, Refill(s) 0, NEEDED, [facility], 169, cm, 04/18/23 13:06:00 [...] day(s), # 28 cap(s), Refills(s) 0, Pharmacy: [facility], 169, cm, 05/05/23 9:58:00 [...] packet(s), Oral, TID, 90 EA, Refill(s) 0, [facility], 169, cm, 04/18/23 13:06:00 [...] water, # 60 tab(s), Refills(s) 3, Pharmacy: [facility], 169, cm, 06/15/23 15:21:00 EST, [...] daily, # 90 tab(s), Refills(s) 0, Pharmacy: [facility], 169, cm, 04/29/24 11:00:00 EDT, Height/Length Dosing, 117, kg, 04/29/24 11:00:00 EDT, Weight Dosing Start Date: 04/29/24 Status: Ordered Start: 04-18-2023 take 1 tablet by irasema th once daily levothyroxine 50 mcg (0.05 mg) Tab 50 mcg = 1 tab(s), Oral, Daily, # 90 tab(s), Refills(s) 1, Pharmacy: [facility], 169, cm, 04/18/23 13:06:00 [...] 04-06-2023 Chronic Other aftercare (5 sources) Other intermediate card tender (current) drug therapy; Translations: [OTH TACTICAL AIR CONTROL PARTY CURRENT DRUG THERAPY] Onset: 2 Episodic Other [...] Onset: 04-02-2024 Episodic Other aftercare (1 source) [facility]DC (current) use of aspirin; Translations: [TACTICAL AIR CONTROL PARTY CURRENT USE OF ASPIRIN] Onset: 02-21-2022 Episodic Other aftercare (1 source) termite control service representative (current) use of anticoagulants; Translations: [TACTICAL AIR CONTROL PARTY CURRNT USE ANTICOAGULANTS] Onset: 02-15-2022 Episodic Other [...] Range Facility Orders Onlyon 01-24-2025 Orders Only [id number] Gail Parra thy L 1955 F Date Provider Department Center 01/24/2025 JANNIE CARDENAS C CARD [facility] Family History Problem Relation Age of Onset Other Mother Other Father Thyroid disease Sister Heart disease Mother's Sister Family Status - Relation Status Age at Mother Father Sister Mother's Sister Normal [facility] Orders Onlyon 01-19-2025 Orders Only [id number] Gail Parra thy L 1955 F Date Provider Department Center 01/19/2025 241-JANNIE PERKINS C CARD [facility] Family History Problem Relation Age of Onset Other Mother Other Father Thyroid disease Sister Heart disease Mother's Sister Family Status - Relation Status Age at Mother Father Sister Mother's Sister Normal [facility] Office Visiton 10-24-2024 Follow-up visit [id number] Gail Parra thy L 1955 F Date Provider Department Center 10/24/2024 Pat-YESSICA TORRES CARD [facility] Family History Problem Relation Age of Onset Other Mother Other Father Thyroid disease Sister Heart disease Mother's Sister Family Status - Relation Status Age at Mother Father Sister Mother's Sister Level of Service:94202 [place] OFFICE/OUTPATIENT ESTABLISHED MOD MDM 30 MIN Reason for Visit and Comments: ARVD s/p ICD [Other] Hypertension [595092] Hyperlipidemia [182] Normal [facility] Ambulatory Visit Summaryon 1 Ambulatory Visit [...] Appointments Monday 9:30 AM EDT With: Where: [address] [address]- Monday 10:15 AM EDT With: Rosangela Marin MD Where: [address] [place] [address]- Medications What How Much When Instructions Changed levothyroxine (levothyroxine 50 mcg (0.05 mg) Tab) See instructions Take 1 tablet by mouth once daily Pickup at [facility] Unchanged albuterol (Albuterol (Eqv-ProAir HFA) [...] physician if questions or concerns Pharmacy Information [facility]: [address] [place], [place] [id number] [phone] Allergies Daypro (Hives, Rash) Flexeril (Rapid heart [...] 3a chroni (more content not included)... Normal [facility] CBC w/ Auto Diffon 4 Basophils/100 WBC (Bld) 0.9 % Normal 0.0-2.0 [facility] Comment on above: Performed By: #### 2 [id number] #### [facility] [address] [place] [address] Basophils/Leukocyte s Auto (Bld) [Pure # fraction] 0.1 E9/L Normal 0.0-0.2 [facility] Comment on above: Performed By: #### 2 859919 #### [facility] [address] [place] [address] Eosinophils (Bld) [#/Vol] 0.2 E9/L Normal 0.0-0.5 [facility] Comment on above: Performed By: #### 2 [id number] #### [facility] [address] [place] [address] Eosinophils/100 WBC (Bld) 2.9 % Normal 0.0-8.0 [facility] Comment on above: Performed By: #### 2 031006 #### [facility] [address] [place] [address] Erythrocyte distribution width (RBC) [Ratio] 13.6 % Normal 10.9-14.2 [facility] Comment on above: Performed By: #### 2 028357 #### [facility] [address] [place] [address] Hematocrit (Bld) [Volume fraction] 46.2 % High 34.0-46.0 [facility] Comment on above: Performed By: #### 2 092170 #### [facility] [address] [place] [address] Hemoglobin (Bld) [Mass/Vol] 15.8 g/dL Normal 12.0-16.0 [facility] Comment on above: Performed By: #### 2 724412 #### [facility] [address] [place] [address] Lymphocytes (Bld) [#/Vol] 1.2 E9/L Normal 1.0-4.0 [facility] Comment on above: Performed By: #### 2 622391 #### [facility] [address] [place] [address] Lymphocytes/100 WBC (Bld) 13.8 % Low 14.0-50.0 [facility] Comment on above: Performed By: #### 2 883818 #### [facility] [address] [place] [address] MCH (RBC) [Entitic mass] 33.3 pg Normal 27.0-34.0 [facility] Comment on above: Performed By: #### 2 852897 #### [facility] [address] [place] [address] MCHC (RBC) [Mass/Vol] 34.1 g/dL Normal 31.4-36.0 [facility] Comment on above: Performed By: #### 2 385034 #### [facility] [address] [place] [address] MCV (RBC) [Entitic vol] 97.8 fL Normal 80.0-100.0 [facility] Comment on above: Performed By: #### 2 083167 #### [facility] [address] [place] [address] Monocytes (Bld) [#/Vol] 1.1 E9/L High 0.2-1.0 [facility] Comment on above: Performed By: #### 2 720781 #### [facility] [address] [place] [address] Neutrophils (Bld) [#/Vol] 6.1 E9/L Normal 2.0-7.5 [facility] Comment on above: Performed By: #### 2 336905 #### [facility] [address] [place] [address] Neutrophils/100 WBC (Bld) 70.2 % Normal 36.0-75.0 [facility] Comment on above: Performed By: #### 2 738299 #### [facility] [address] [place] [address] Platelet 280.0 E9/L Normal 150.0-500.0 [facility] Comment on above: Performed By: #### 2 016852 #### [facility] [address] [place] [address] Platelet mean volume (Bld) [Entitic vol] 8.9 fL Normal 6.4-10.8 [facility] Comment on above: Performed By: #### 2 161626 #### [facility] [address] [place] [address] RBC (Bld) [#/Vol] 4.7 E12/L Normal 4.3-5.9 [facility] Comment on above: Performed By: #### 2 719425 #### [facility] [address] [place] [address] WBC corrected for nucl RBC Auto (Bld) [#/Vol] 8.7 E9/L Normal 4.0-11.0 [facility] Comment on above: Performed By: #### 2 943225 #### [facility] [address] [place] [address] CHEMISTRYOrdered By: SYSTEM SYSTEM on 04-29-2024 Albumin [...] 04-29-2024 Albumin [Mass/Vol] 4.1 g/dL Normal 3.3-5.0 [facility] Comment on above: Performed By: #### 2 023047 #### [facility] [address] [place] [address] Albumin/Globulin (S) [Mass conc ratio] 1.4 Normal 1.1-2.2 [facility] Comment on above: Performed By: #### 2 098813 #### [facility] [address] [place] [address] ALP [Catalytic activity/Vol] 92 Int._Unit/L Normal 21-98 [facility] Comment on above: Performed By: #### 2 307181 #### [facility] [address] [place] [address] ALT No additional P-5'-P [Catalytic activity/Vol] 16 Int._Unit/L Normal 6-46 [facility] Comment on above: Performed By: #### 2 684443 #### [facility] [address] [place] [address] Anion gap [Moles/Vol] 10 mmol/L Normal 6-16 [facility] Comment on above: Performed By: #### 2 429490 #### [facility] [address] [place] [address] AST [Catalytic activity/Vol] 17 Int._Unit/L Normal 5-43 [facility] Comment on above: Performed By: #### 2 241232 #### [facility] [address] [place] [address] Bilirubin [Mass/Vol] 0.8 mg/dL Normal 0.0-1.1 [facility] Comment on above: Performed By: #### 2 175496 #### [facility] [address] [place] [address] Calcium [Mass/Vol] 10.0 mg/dL Normal 8.9-11.1 [facility] Comment on above: Performed By: #### 2 110835 #### [facility] [address] [place] [address] Chloride [Moles/Vol] 105 mmol/L Normal 101-111 [facility] Comment on above: Performed By: #### 2 660545 #### [facility] [address] [place] [address] CO2 [Moles/Vol] 30 mmol/L Normal 21-31 [facility] Comment on above: Performed By: #### 2 455877 #### [facility] [address] [place] [address] Creatinine [Mass/Vol] 0.9 mg/dL Normal 0.5-1.3 [facility] Comment on above: Performed By: #### 2 810354 #### [facility] [address] [place] [address] Globulin (S) [Mass/Vol] 2.9 g/dL Normal 1.4-4.0 [facility] Comment on above: Performed By: #### 2 680025 #### [facility] [address] [place] [address] Glucose [Mass/Vol] 96 mg/dL Normal 55-199 [facility] Comment on above: Performed By: #### 2 701415 #### [facility] [address] [place] [address] Potassium [Moles/Vol] 4.5 mmol/L Normal 3.5-5.3 [facility] Comment on above: Performed By: #### 2 584297 #### [facility] [address] [place] [address] Protein [Mass/Vol] 7.0 g/dL Normal 6.0-7.8 [facility] Comment on above: Performed By: #### 2 865265 #### [facility] [address] [place] [address] Sodium [Moles/Vol] 140 mmol/L Normal 135-145 [facility] Comment on above: Performed By: #### 2 050397 #### [facility] [address] [place] [address] Urea nitrogen [Mass/Vol] 15 mg/dL Normal 5-21 [facility] Comment on above: Performed By: #### 2 756089 #### [facility] [address] [place] [address] Urea nitrogen/Creatinine [Mass ratio] 17 No Units Normal 10-20 [facility] Comment on above: Performed By: #### 2 611466 #### [facility] [address] [place] [address] Family Medicine Office/Clini c Noteon 04-29-2024 Family [...] of colitis, managed by a physician in [place]. Review of Systems PHQ Score Initial Depression [...] anticoagulation. Patient has a follow-up with her cigarette maker. Ordered: CBC w/ Auto Diff Comprehensive Metabolic [...] trauma rather than melanoma; follow-up with the geriatric physician, Dr. Suzie Jaquez, is scheduled. Chronic kidney disease, stage 3 unspecified (N18.30: Chronic kidney disease, stage 3 unspecified) Morbid (severe) obesity due to excess calories (E66.01: Morbid (severe) obesity due to excess calories) [place] Operator on continuing dietary modifications and lifestyle changes; reevaluate du (more content not included)... Normal [facility] Comment on above: Result Comment: Elec [...] 04-29-2024 Cholesterol [Mass/Vol] 143 mg/dL Normal 120-200 [facility] Comment on above: Performed By: #### 2 764056 #### [facility] [address] [place] [address] Cholesterol in HDL [Mass/Vol] 48 mg/dL Invalid Interpretation Code [facility] Comment on above: Result Comment: '>= 60 LOW RISK' '<= 40 HIGH RISK' Performed By: #### 2 497280 #### [facility] [address] [place] [address] Cholesterol in LDL [Mass/Vol] 79 mg/dL Normal <=129 [facility] Comment on above: Performed By: #### 2 639418 #### [facility] [address] [place] [address] Cholesterol in VLDL [Mass/Vol] 24 mg/dL Normal 7-40 [facility] Comment on above: Performed By: #### 2 516931 #### [facility] [address] [place] [address] Triglyceride [Mass/Vol] 118 mg/dL Normal <=149 [facility] Comment on above: Performed By: #### 2 823316 #### [facility] [address] [place] [address] TSH With T4fr Reflexon 04-29 TSH Qn 1.17 m[IU]/L Normal 0.34-5.60 [facility] Comment on above: Performed By: #### 1 [id number] #### [facility] [address] [place] [address] eGFRon 04-29-2024 eGFR 69 mL/min/1.73 m2 Normal >=59 [facility] Comment on above: Performed By: #### 1 [id number] #### [facility] [address] [place] [address] Pre-Visit Planningon 024 Pre-Visit Planning Pre-Visit Planning From: Sophie Quevedo To: Tomas ALVARADO, Rosangela Edgar; Sent: 04/26/2024 12:24:33 EDT Subject: Pre-Visit Planning Due Date/Time: 04/26/2024 12:24:00 EDT Caller Name: KHURRAM PARRA; Caller Number: , Mn Dr. Marin. During a pre-visit planning chart [...] you! Sophie Quevedo LPN Clinical Documentation Improvement SpecialistDaniel Ville [id number] TEAMS or [email or web address] From: Tomas ALVARADO, Rosangela Edgar To: Sophie Quevedo; Sent: 04/27/2024 15:16:05 EDT Subject: RE: Pre-Visit Planning Caller Name: JAIRON KHURRAM L; Caller Number: Karie , M Class 2. Thanks [facility] 36on 04-23-2024 36 Lanre from [facility] called and said patient would like to hold off on scheduling stress test right now. Normal [facility] Office Visiton 04-02-2024 Follow-up visit [id number] Gail Parra thy L 1955 F Date Provider Department Center 04/02/2024 YESSICA JONES Family History Problem Relation Age of Onset Other Mother Other Father Thyroid disease Sister Heart disease Mother's Sister Family Status - Relation Status Age at Mother Father Sister Mother's Sister Level of Service:77436 [place] OFFICE/OUTPATIENT ESTABLISHED MOD MDM 30 MIN Reason for Visit and Comments: Hypertension [379086] Hyperlipidemia [182] ARVD [Other] [facility] Operative Reporton Operative Report [id number]#1.00TIFF Normal [facility] RAD - MISCon 08-02-2023 RAD - MISC [id number]#1.00TIFF [facility] Correspo ndenceon 06-21-2023 Outside Hospital Correspondence [id number]#1.00TIFF [facility] Correspondence [id number]#1.00TIFF [facility] RAD - MISCon 06-21-2023 [facility] [id number]#1.00TIFF [facility] Provider Letteron 06-20-2023 Provider Letter June 20, 2023 KHURRAM PARRA [address] [place] [address] KHURRAM PARRA 1955 Dear Khurram, We have been trying to reach you with no success. It is important that you return our call regarding your discharge from [facility] 06/14 upon receiving this letter. Also, at the time of your call, please provide us with your current information. Thank you for your prompt attention to this matter. Sincerely, Nilesh Jean-B[facility]iste [facility] Consultant [phone] [facility] Reminderson 06-16-2023 Reminders - From: Ileana Whiting To: [facility] - Reminders/Recalls; Sent: 06/16/2023 09:58:03 EST Show up: 04/02/2028 09:57:00 EDT Subject: Ambulatory Reminder Due Date/Time: 05/03/2028 09:57:00 EDT Reminder/Recall Entered by Ileana Whiting on June 16, 2023 09:28:49 EST 05/24/2028 5 year colon recall From: Roseline ALVARADO, Glenn Ramos To: Ileana Whiting; Sent: 06/15/2023 15:42:18 EST Subject: General Message Caller Name: KHURRAM PARRA; Caller Number: H , M colonoscopy 5 years [facility] Ambulatory Visit Summaryon 1 08-16-2022 Ambulatory [...] PM EST With: Rosangela Marin MD Where: [facility] [place] Normal [facility] Gastroenterology Office/Clin ic Noteon 06-15-2023 Gastroenterology Office/Clinic Note Chief Complaint chronic diarrhea with associated abdominal cramps HPI Staff Patient is a 67 year old female who presents today for a follow up to EGD & Colonoscopy on 05/24/23 w/Dr. Dukes. She would like to discuss the Flagyl that was prescribed by the SUPPLY CHAIN TECH after her stool testing came back. Was in ER this past Monday - was admitted and given ATB's for infection. Diarrhea: has it every time she eats. 4-6x a day with associated abdominal cramping. Last visit 05/05/23 w/[place]: 1. Chronic diarrhea of unknown origin (K52.9: [...] n/v over the weekend, was admitted to [facility], had a CT abdomen that was concerning [...] capsule, 4 (more content not included)... Normal [facility] Comment on above: Result Comment: Elec tronically Signed By: Roseline ALVARADO, Glenn Ramos\.br\Date and Time Signed: 06/15/23 15:45 EST ED Note-Physicianon 06-12-20 ED Note-Physician [id number]#1.00TIFF Normal [facility] Correspo ndenceon 06-12-2023 Outside Hospital Correspondence [id number]#1.00TIFF Normal [facility] RAD - CT Reporton 06-12-2023 RAD - CT Report [id number]#1.00TIFF Normal [facility] RAD - MISCon 06-12-2023 RAD - MISC [id number]#1.00TIFF Normal [facility] Giardia, Direct, EIAon 05-31 G. lamblia Ag IA Ql (Stl) Negative Invalid Interpretation Code Negative [facility] Comment on above: Result Comment: Perf ormed at: [facility] [address] [id number] PhD Marietta Dee Performed By: #### 1 [id number], [id number], [id number], [id number], [id number], [id number], [id number], [id number] ####[facility] [address] [place] [address] IntraOperative Documentson 1 07-31-2022 IntraOperative Documents [id number]#1.00TIFF Normal [facility] O & P EXAM, ROUTINE, REFLEXo n 05-31-2023 Ova and parasites identified Concentration Nom (Stl) Comment Invalid Interpretation Code [facility] Comment on above: Result Comment: No o va, cysts, or parasites seen. One negative specimen does not rule out the possibility of a parasitic infection. Performed at: [address] [id number] PhD Marietta Dee Performed By: #### 1 [id number], [id number], [id number], [id number], [id number], [id number], [id number], [id number] ####[facility] [address] [place] [address] O & P Exam, Routineon 2022 Ova and parasites identified LM Nom (Unsp spec) Final report Invalid Interpretation Code [facility] Comment on above: Result Comment: Thes e results were obtained using wet preparation(s) and trichrome stained smear. This test does not include testing for Cryptosporidium parvum, Cyclospora, or Microsporidia. Performed at: [address] [id number] PhD Marietta Dee Performed By: #### 1 [id number], [id number], [id number], [id number], [id number], [id number], [id number], [id number] ####[facility] [address] [place] [address] Pancreatic Elastase, Fecalon 05-31-2023 Elastase.pancreatic (Stl) [Mass/Mass] 229 Invalid Interpretation Code >200 [facility] Comment on above: Result Comment: Clare re Pancreatic Insufficiency: <100 Moderate Pancreatic Insufficiency: 100 - 200 Normal: >200 Performed at: [address] [id number] MD Lebron Wheat Performed By: #### 1 [id number], [id number], [id number], [id number], [id number], [id number], [id number], [id number] ####[facility] [address] [place] [address] Progress Note-Physicianon Progress Note-Physician Patient: KHURRAM PARRA Age: 67 years Sex: Female : 1955 Associated Diagnoses: None Author: MD Rajan Ahmad F Postoperative Information Postoperative disposition: Postoperative disposition: To PACU. Optimetrix number: Optimetrix number [id number]. Anesthetic utilized: General. Health Status Allergies: Allergic [...] meets criteria ( To home ). Normal [facility] Comment on above: Result Comment: Elec [...] Inhalation, q6hr, 18 gm, Refill(s) 0, NEEDED, [facility], 169, cm, 04/18/23 13:06:00 EDT, Height/Length Dosing, 115.8, kg, 04/18/23 13:06:00 EDT, Weight Dosing Align 4 mg oral capsule: 4 mg = 1 cap(s), Oral, Daily, Take after completing the Antibiotics course, X 28 day(s), # 28 cap(s), Refills(s) 0, Pharmacy: [facility], 169, cm, 05/05/23 9:58:00 EDT, Height/Length Dosing, 116.8, kg, 05/05/23 9:58:00 EDT, Weight Dosing albuterol 0.083% Inh Beti 3 mL: 2.5 mg, 3 mL, NEB, q6hr Shortness of breath or wheezing, 300 mL, Refill(s) 0, [facility], 169, cm, 04/18/23 13:06:00 EDT, Height/Length Dosing, 115.8, kg, 04/18/23 13:06:00 EDT, Weight Dosing cholestyramine 4 g/5 g Oral Pwdr: 1 packet(s), Oral, TID, 90 EA, Refill(s) 0, [facility]29, 169, cm, 04/18/23 13:06:00 EDT, Height/Length Dosing, 115.8, kg, 04/18/23 13:06:00 EDT, Weight Dosing levothyroxine 50 mcg (0.05 mg) Tab: 50 mcg = 1 tab(s), Oral, Daily, # 90 tab(s), Refills(s) 1, Pharmacy: [facility] 1429, 169, cm, 04/18/23 13:06:00 [...] list: All Problems Anemia / SNOMED CT 461631100 / Confirmed Arthritis / SNOMED CT 6663977 / Confirmed Asthma / SNOMED CT 569597076 / Confirmed Persistent atrial fibrillation / SNOMED CT 8394744889 / Confirmed Kidney stone / SNOMED CT 364049992 / Confirmed Retained ureteral stent / SNOMED CT 1826198606 / Confirmed Stress incontinence / SNOMED CT 165180686 / Confirmed Gross hematuria / SNOMED CT 846570775 / Confirmed Dysuria / SNOMED CT 28453059 / Confirmed Frequency of urination / SNOMED CT 408278735 / Confirmed Nocturia / SNOMED CT 105964919 / Confirmed Urgency of urination / SNOMED CT 423632868 / Confirmed Anticoagulated / SNOMED CT 354726559 / Confirmed Abdominal pain / SNOMED CT 69439850 / Confirmed BMI 40.0-44.9, adult / SNOMED CT 3034144741 / Confirmed Right ureteral stone / SNOMED CT 13616659 / Confirmed Cardiomyopathy / ICD-10-CM I42.9 / Confirmed COPD (chronic obstructive pulmonary disease) / SNOMED CT 71018167 / Confirmed Radiculopathy of cervical spine / SNOMED CT 954778155 / Confirmed Andreina's thyroiditis / SNOMED CT 01618864 / Confirmed Hemorrhoids / SNOMED CT 001208536 / Confirmed Osteoporosis / SNOMED CT 151361443 / Confirmed COVID pneumonia / SNOMED CT 1129092097 / Confirmed GERD (gastroesophageal reflux disease) / SNOMED CT 926288012 / Confirmed Hip pain, right / SNOMED CT 83760054 / Confirmed Chronic diarrhea of unknown origin / SNOMED CT 11971009 / Confirmed Stage 3a chronic kidney disease (CKD) / SNOMED CT 0189079775 / Confirmed Polycythemia / SNOMED CT 731941 / Confirmed Bloating / SNOMED CT 272196803 / Confirmed Abdominal cramping / SNOMED CT 883112382 / Confirmed Rectal pain / SNOMED CT 508451290 / Confirmed Canceled: Morbid obesity with body mass index (BMI) of 40.0 to 49.9 / SNOMED CT 062982702 Histories Past Medical History: No active or resolved past medical history items have been selected or recorded. Family History: Hypertension Mother Procedure history: Colonoscopy ([id number]) on 05/24/2023 at 67 Years. Esophagogastroduodenoscopy (741933549) on 05/24/2023 at 67 Years. Rt ESWL (5531690 (more content not included)... Normal [facility] Comment on above: Result Comment: Elec tronically Signed By: MD Satinder, Charles Kincaid\.br\Date and Time Signed: 05/30/23 16:20 EST Consenton 05-26-2023 Consent [id number]#1.00TIFF [facility] Discharge Instructionson Discharge Instructions [id number]#1.00TIFF [facility] Main OR Intraoperative Recor don 05-26-2023 Main OR Intraoperative Record IntraOp Document Type FT Summary Primary Physician: Glenn Dukes MD Finalized Date/Time: 05/26/23 14:17:06 Pt. Name: KHURRAM PARRAO.B./Sex: 1955 Female Med Rec #: [id number] Physician: Roseline ALVARADO, Glenn Ramos Financial #: [id number] Pt. Type: O Room/Bed: / Admit/Disch: 05/24/23 [...] Luis EUBANKS, Francesco Galvan RN, Анна Contreras PORTER LUGGAGE, Anusha Vegas Role Performed Anesthesiologist Fabrication Supervisor - Primary Scrub - Primary Design Lead Time In 05/24/23 14:06:00 05/24/23 14:06:00 05/24/23 [...] Galvan RN, Roseline ALVARADO, Glenn Ramos, Ben PORTER LUGGAGE, Anusha Vegas Time Out Complete 05/24/23 14:08:00 [...] and tissue Entry 1 Skin Integrity Intact, [place], Warm, and Skin Abnormality No Dry Outcomes Met? Yes Last Modified By: Анна Galvan RN 05/24/23 14:10:22 Post-Care Text: The patient is free from signs and symptoms of injury caused by extraneous objects Patient Positioning FT Pre-Care Text: Identifies physical alterations that require additional precautions for proc (more content not included)... [facility] Postoperative Documentson Postoperative Documents [id number]#[id number] [facility] Consent for Treatmenton 05-04 Consent for Treatment [id number]#1.00TIFF [facility] Discharge Instructionson Discharge Instructions KHURRAM PARRA [...] Persistent or heavy bleeding Pharmacy Information Other: [facility] Discharge Instructions Discharge Instructions New Follow Up Appointments after Discharge Follow Up with Roseline ALVARADO, SISI De, [facility] When: Comments: Call for any problems. Office [...] (inflammation) of (more content not included)... Normal [facility] Comment on above: Result Comment: Elec [...] hours. Education and Follow-up: Counseled: Patient, Family. [facility] Comment on above: Result Comment: Elec tronically Signed By: Glenn Dukes MD\.br\Date and Time Signed: 05/24/23 14:55 EST Other Comment: Brittany love Attachment - attachment storage system not supported [id number] Can be viewed in source system Missing Attachment - attachment storage system not supported [id number] Can be viewed in source system Missing Attachment - attachment storage system not supported [id number] Can be viewed in source system Missing Attachment - attachment storage system not supported [id number] Can be viewed in source system Missing Attachment - attachment storage system not supported 8717288 Can be viewed in source system Missing Attachment - attachment storage system not supported [id number] Can be viewed in source system Missing Attachment - attachment storage system not supported 0703988 Can be viewed in source system Endoscopic [...] in 1-2 after discharge -Avoid NSAIDs Normal [facility] Comment on above: Result Comment: Elec tronically Signed By: Glenn Dukes MD\.br\Date and Time Signed: 05/24/23 14:19 EST Inpatient Patient Summaryon 05-24-2023 Inpatient Patient Summary [address] [address] [facility] Clinical Discharge Instructions PERSON INFORMATION Name: KHURRAM PARRA [facility]#:[id number] PHYSICIANS Admitting Physician: Glenn Dukes MD Attending [...] By Mouth every day. prophylaxis. Comment: Normal [facility] Main OR PACU I Recordon 05-04 Main OR PACU I Record PACU Phase I Document Type FT Summary Primary Physician: Glenn Dukes MD Finalized Date/Time: 05/24/23 15:55:52 Pt. Name: KHURRAM PARRA.O.B./Sex: 1955 Female Med Rec #: [id number] Physician: Roseline ALVARADO, Glenn Ramos Financial #: [id number] Pt. Type: O Room/Bed: / Admit/Disch: 05/24/23 [...] By: Yamile Bey I 05/24/23 15:55 Normal [facility] Main OR Preoperative Recordo n 05-24-2023 Main OR Preoperative Record Holding Area Document Type FT Summary Primary Physician: Glenn Dukes MD Finalized Date/Time: 05/24/23 13:44:12 Pt. Name: JAIRONKHURRAM /Sex: 1955 Female Med Rec #: [id number] Physician: Glenn Dukes MD Financial #: [id number] Pt. Type: O Room/Bed: / Admit/Disch: 05/24/23 [...] By: Juan Zurita RN 05/24/23 13:44 Normal [facility] Monitor Recordon 05-24-2023 Monitor Record [id number]#1.00TIFF Normal [facility] Monitor Record [id number]#1.00TIFF Normal [facility] Outpatient Surgery Discharge Instructionon 05-24-2023 Outpatient Surgery Discharge Instruction [place] [address] Patient Discharge Instructions PERSON INFORMATION Name: KHURRAM [...] [facility] You may receive a survey from [employer] asking you to rate your care experience. Your feedback is important and will help us understand what we do well and how we can improve the quality of care we provide to you, your loved ones and our community. It?s an honor to serve you. Thank you for choosing [facility] HERE ARE THE MEDICATION CHANGES THAT OCCURRED [...] prophylaxis. PATIENT EDUCATION INFORMATION Instructions: Medication Leaflets: [facility] Progress Note-Physicianon Progress Note-Physician Patient: KHURRAM [...] Inhalation, q6hr, 18 gm, Refill(s) 0, NEEDED, [facility], 169, cm, 04/18/23 13:06:00 EDT, Height/Length Dosing, 115.8, kg, 04/18/23 13:06:00 EDT, Weight Dosing Align 4 mg oral capsule: 4 mg = 1 cap(s), Oral, Daily, Take after completing the Antibiotics course, X 28 day(s), # 28 cap(s), Refills(s) 0, Pharmacy: [facility]29, 169, cm, 05/05/23 9:58:00 EDT, Height/Length Dosing, 116.8, kg, 05/05/23 9:58:00 EDT, Weight Dosing Flagyl 250 mg Tab: 250 mg = 1 tab(s), Oral, TID, do not drink alcohol may take with food to minimize abdominal discomfort, X 7 day(s), # 21 tab(s), Refills(s) 0, Pharmacy: [facility] 1429, 169, cm, 05/05/23 9:58:00 EDT, Height/Length Dosing, 116.8, kg, 05/05/23... albuterol 0.083% Inh Beti 3 mL: 2.5 mg, 3 mL, NEB, q6hr Shortness of breath or wheezing, 300 mL, Refill(s) 0, [facility], 169, cm, 04/18/23 13:06:00 EDT, Height/Length Dosing, 115.8, kg, 04/18/23 13:06:00 EDT, Weight Dosing cholestyramine 4 g/5 g Oral Pwdr: 1 packet(s), Oral, TID, 90 EA, Refill(s) 0, [facility]29, 169, cm, 04/18/23 13:06:00 EDT, Height/Length Dosing, 115.8, kg, 04/18/23 13:06:00 EDT, Weight Dosing levothyroxine 50 mcg (0.05 mg) Tab: 50 mcg = 1 tab(s), Oral, Daily, # 90 tab(s), Refills(s) 1, Pharmacy: [facility]29, 169, cm, 04/18/23 13:06:00 [...] All Problems Abdominal cramping / SNOMED CT 555043238 / Confirmed Abdominal pain / SNOMED CT 67555893 / Confirmed Anemia / SNOMED CT 299894158 / Confirmed Anticoagulated / SNOMED CT 027065538 / Confirmed Arthritis / SNOMED CT 7862126 / Confirmed Asthma / SNOMED CT 766564618 / Confirmed Bloating / SNOMED CT 629417523 / Confirmed BMI 40.0-44.9, adult / SNOMED CT 7679839582 / Confirmed Cardiomyopathy / ICD-10-CM I42.9 / Confirmed Chronic diarrhea of unknown origin / SNOMED CT 40886758 / Confirmed COPD (chronic obstructive pulmonary disease) / SNOMED CT (more content not included)... Normal [facility] Comment on above: Result Comment: Elec [...] samples in close time sequence. Normal Negative [facility] Comment on above: Result Comment: This test result should be correlated with clinical presentations and medical history by a healthcare provider to determine its clinical significance.\.br\.br\ Other Comment: Order added by Discern Expert. Clostridium difficile by PCR Negative Normal Negative [facility] Comment on above: Order Comment: Order added by Discern Expert. Result Comment: This test result should be correlated with clinical presentations and medical history by a healthcare provider to determine its clinical significance. Performed By: #### 1 [id number], [id number], 93303021, 286508540, 83979141, 7282461825, 17341001, 20543889 ####[facility] [address] [place] [address] CDiff PCRon 05-20-2023 CDiff PCR Specimen has been fo und to be acceptable for C. difficile testing. Normal [facility] Cdiff Specimen Acceptable Acceptable Normal [facility] Comment on above: Performed By: #### 1 [id number], [id number], 35070949, 629623251, 58672018, 0894881410, 36090949, 36134835 ####[facility] [address] [place] [address] Order Cancelled No, PCR to follow Normal Fi [facility] Comment on above: Performed By: #### 1 [id number], 9856944111, 68216636, 693531191, 39709137, 6140186891, 90079143, 59231033 ####[facility] [address] [place] [address] Enteric Panel by PCRon 05-20 C. coli+jejuni+upsalie nsis DNA TOM+non-probe Ql (Stl) Not detected Normal [facility] Comment on above: Result Comment: Test ing was performed utilizing reverse loan officer (RT), polymerase chain reaction (PCR), and array [...] nulcleic acid test. Performed By: #### 1 [id number], [id number], 62169045, 384570876, 67170622, 7307350531, 87894656, 94302709 ####[facility] [address] [place] [address] E. coli stx1+stx2 genes TOM+non-probe Ql (Stl) Negative Normal [facility] Comment on above: Performed By: #### 1 [id number], 9402848239, 33294906, 063315872, 11123964, 0474916884, 23705943, 28068500 ####[facility] [address] [place] [address] Enteric Panel by PCR Negative Normal [facility] Enteric Panel Intrl QC Pass Normal [facility] Comment on above: Result Comment: Test ing was performed utilizing reverse loan officer (RT), polymerase chain reaction (PCR), and array [...] 1 and 2. Performed By: #### 1 [id number], 5654664625, 89456918, 353040389, 44408472, 2950584410, 95053323, 59871598 ####[facility] [address] [place] [address] Norovirus genogroup I+II RNA TOM+non-probe Ql (Stl) Not detected Normal [facility] Comment on above: Performed By: #### 1 [id number], 4745823942, 77477969, 605077574, 02666010, 5409694123, 65930724, 93421968 ####[facility] [address] [place] [address] Rotavirus A RNA TOM+non-probe Ql (Stl) Not detected Normal [facility] Comment on above: Performed By: #### 1 599609166, 3215496939, 62835292, 859384784, 08057160, 6348048236, 02055825, 67038170 ####[facility] [address] [place] [address] S. enterica+bongori DNA TOM+non-probe Ql (Stl) Not detected Normal [facility] Comment on above: Result Comment: This test result should be correlated with clinical presentations and medical history by a healthcare provider to determine its clinical significance. Performed By: #### 1 [id number], 8002858730, 74580976, 062490612, 74978532, 2813051309, 16172396, 01518988 ####[facility] [address] [place] [address] Shigella species+EIEC invasion plasmid antigen H ipaH gene TOM+non-probe Ql (Stl) Not detected Normal [facility] Comment on above: Performed By: #### 1 [id number], 6422854810, 28151992, 206512219, 47536486, 7569063532, 39551575, 77789723 ####[facility] [address] [place] [address] V. cholerae+parahaemol yticus+vulnificus DNA TOM+non-probe Ql (Stl) Not detected Normal [facility] Comment on above: Performed By: #### 1 [id number], 5240053458, 65276141, 250308246, 84848029, 9775829300, 54327771, 87832936 ####[facility] [address] [place] [address] Y. enterocolitica DNA TOM+non-probe Ql (Stl) Not detected Normal [facility] Comment on above: Performed By: #### 1 [id number], 9242942014, 88598141, 346314112, 41656910, 0718388398, 39058996, 43281304 ####[facility] [address] [place] [address] Fecal WBC Lactoferrinon 05-03 Lactoferrin Ql (Stl) Positive Abnormal Negative [facility] Comment on above: Result Comment: The semi-quantitative detection of elevated levels of fecal lactoferrin is a marker for fecal leukocytes and an indication of intestinal inflammation. Performed By: #### 1 [id number], 4205293773, 50336870, 888354167, 73207446, 2622407969, 13601457, 09234199 #### [facility] [address] [place] [address] Consultation Noteon 05-09-20 Consultation Note [id number]#1.00TIFF Normal [facility] Insurance Correspondenceon 1 07-09-2022 Insurance Correspondence [id number]#1.00TIFF Normal [facility] Celiac Disease Comprehensive on 05-08-2023 Endomysium IgA Ql (S) Negative Invalid Interpretation Code Negative [facility] Comment on above: Performed By: #### 1 [id number] ####[facility] [address] [place] [address] Gliadin peptide IgA Qn (S) 4 unit(s) Invalid Interpretation Code 0-19 [facility] Comment on above: Result Comment: Nega tive 0 - 19 Weak Positive 20 - 30 Moderate to Strong Positive >30 Performed By: #### 1 [id number] ####[facility] [address] [place] [address] Gliadin peptide IgG Qn (S) 3 unit(s) Invalid Interpretation Code 0-19 [facility] Comment on above: Result Comment: Nega tive 0 - 19 Weak Positive 20 - 30 Moderate to Strong Positive >30 Performed By: #### 1 [id number] ####[facility] [address] [place] [address] IgA [Mass/Vol] 213 mg/dL Invalid Interpretation Code 87-352 [facility] Comment on above: Result Comment: Perf ormed at: [facility] [address] [place], [place] [id number] PhD Marietta Dee Performed By: #### 1 [id number] ####[facility] [address] [place] [address] tTG IgA Qn (S) <2 Invalid Interpretation Code 0-3 [facility] Comment on above: Result Comment: Nega tive 0 - 3 Weak Positive 4 - 10 Positive >10 Tissue Transglutaminase (tTG) has been identified as the endomysial antigen. Studies have demonstr- ated that endomysial IgA antibodies have over 99% specificity for gluten sensitive enteropathy. Performed By: #### 1 [id number] ####[facility] [address] [place] [address] tTG IgG Qn (S) <2 Invalid Interpretation Code 0-5 [facility] Comment on above: Result Comment: Nega tive 0 - 5 Weak Positive 6 - 9 Positive >9 Performed By: #### 1 [id number] ####[facility] [address] [place] [address] Consent for Procedure/Surger yon 05-08-2023 Consent for Procedure/Surgery [id number]#[id number] Normal [facility] Ambulatory Visit Summaryon 1 07-05-2022 Ambulatory [...] Nurse collect, Chronic diarrhea of unknown origin [facility] Consent for Treatmenton Consent for Treatment [id number]#1.00TIFF [facility] Gastroenterology Office/Clin ic Noteon 05-05-2023 Gastroenterology [...] Abdominal pain (more content not included)... Normal [facility] Comment on above: Result Comment: Elec [...] oral rehydration solution (ORS). This is an gpls-apq-fprohuz medicine that helps return your body to [...] sports drinks, and soda. ? Eat bland, zivo-ga-vanwhs foods in small amounts as you are able. These foods include bananas, applesauce, rice, lean meats, toast, and crackers. ? Avoid alcohol. ? Avoid spicy or fatty foods. Medicines ? Take rihn-odp-hthopwv and prescription medicines only as told by your health care provider. ? If you were prescribed an antibiotic medicine, take it as told by your health care provider. Do not stop using the antibiotic even if you start to feel better. General instructions ? Wash your hands often using soap and water. If soap and water are not available, use a hand system planning engineer. Others in the household should wash their [...] and water are not available, use hand system planning engineer. ? Contact a health care provider if your diarrhea gets worse or you have new symptoms. ? Get help right away if you have signs of dehydration. This information is not intended to replace advice given to you by your health care provider. Make sure you discuss any questions you have with your health care provider. Document Revised: 12/29/2021 Document Reviewed: 12/29/2021 [facility] Patient Education ? 2022 TSO3. Normal [facility] CHEMISTRYOrdered By: SYSTEM SYSTEM on 04-18-2023 [...] 275.0 E9/L Normal 150.0 - 500.0 E9/L [facility] HemeAutoSS RBC (Bld) [#/Vol] 4.9 E12/L Normal 4.3 - 5.9 E12/L [facility] HemeAutoSS WBC corrected for nucl RBC Auto (Bld) [#/Vol] 10.5 E9/L Normal 4.0 - 11.0 E9/L [facility] Comment on above: Result Comment: Slid e reviewed by FREE T4on 08-25-2022 Free T4 [Mass/Vol] 1.36 ng/dL Normal 0.76-1.46 [facility] Comment on above: Performed By: #### F T4 #### [facility] [address] [place] [address] Dr. Win Travis LIVER PROFILEon 08-25-2022 Albumin [Mass/Vol] 3.6 g/dL Normal 3.4-5.0 [facility] Comment on above: Performed By: #### L IVER #### [facility] [address] [place] [address] Dr. Win Travis Albumin/Globulin [Mass ratio] 0.9 {ratio} Normal [facility] Comment on above: Performed By: #### L IVER #### [facility] [address] [place] [address] Dr. Win Travis ALP [Catalytic activity/Vol] 109 U/L Normal 46-116 [facility] Comment on above: Performed By: #### L IVER #### [facility] [address] [place] [address] Dr. Win Travis ALT [Catalytic activity/Vol] 27 U/L Normal 14-59 [facility] Comment on above: Performed By: #### L IVER #### [facility] [address] [place] [address] Dr. Win Travis AST [Catalytic activity/Vol] 22 U/L Normal 15-37 [facility] Comment on above: Performed By: #### L IVER #### [facility] [address] [place] [address] Dr. Win Travis BILI, CONJUGATED 0.1 mg/dL Normal 0.0-0.2 [facility] Comment on above: Performed By: #### L IVER #### [facility] [address] [place] [address] [address] Win Travis Bilirubin [Mass/Vol] 0.5 mg/dL Normal 0.2-1.0 [facility] Comment on above: Performed By: #### L IVER #### [facility] [address] [place] [address] [address] Win Travis Globulin (S) [Mass/Vol] 4.2 g/dL Normal [facility] Comment on above: Performed By: #### L IVER #### [facility] [address] [place] [address] [address] Win Travis Protein [Mass/Vol] 7.8 g/dL Normal 6.4-8.2 [facility] Comment on above: Performed By: #### L IVER #### [facility] [address] [place] [address] [address] Win Travis XR CHEST 2 Von [...] LUIS BURLESON Date: 2022-08-25 14:45 Normal [facility] XR KUB 1 VIEWon 02-18-2022 XR KUB [...] NASIMA CORREA Date: 2022-02-18 06:59 Normal [facility] Covid-19 PCR (CVDTB)on 01-31 SARS-CoV-2 (COVID-19) RNA TOM+probe Ql (Unsp spec) Not detected Normal NOT DETECTED [facility] Comment on above: Result Comment: When diagnostic [...] for this test is supported by the [employer] of Health and Human Service's declaration that [...] used). Performed By: #### C VDTB #### [facility] [address] [address] [address] Win Travis CBC AUTO DIFFon 02-14-2022 BASO # 0.1 103/ul Normal 0.0-0.1 [facility] Comment on above: Performed By: #### C BC #### [facility] [address] [place] [address] [address] Win Travis Basophils/100 WBC (Bld) 0.8 % Normal 0.2-2.0 [facility] Comment on above: Performed By: #### C BC #### [facility] [address] [place] [address] [address] Win Travis EO # 0.2 103/ul Normal 0.0-0.7 [facility] Comment on above: Performed By: #### C BC #### [facility] [address] [place] [address] Dr. Win Travis Eosinophils/100 WBC (Bld) 1.8 % Normal 0.9-7.0 [facility] Comment on above: Performed By: #### C BC #### [facility] [address] [place] [address] Dr. Win Travis Erythrocyte distribution width (RBC) [Ratio] 14.5 % Normal 11.0-15.0 [facility] Comment on above: Performed By: #### C BC #### [facility] [address] [place] [address] Dr. Win Travis Hematocrit (Bld) [Volume fraction] 45.5 % Normal 36.0-48.0 [facility] Comment on above: Performed By: #### C BC #### [facility] [address] [place] [address] Dr. Win Travis Hemoglobin (Bld) [Mass/Vol] 15.1 g/dL Normal 12.0-16.0 [facility] Comment on above: Performed By: #### C BC #### [facility] [address] [place] [address] Dr. Win Travis IG # 0.04 10e3/ul Critically high 0.00-0.03 [facility] Comment on above: Performed By: #### C BC #### [facility] [address] [place] [address] Dr. Win Travis IG % 0.5 % Normal 0.0-0.5 [facility] Comment on above: Performed By: #### C BC #### [facility] [address] [place] [address] Dr. Win Travis LYMPH # 1.1 103/ul Critically low 1.2-3.8 [facility] Comment on above: Performed By: #### C BC #### [facility] [address] [place] [address] Dr. Win Travis Lymphocytes/100 WBC (Bld) 13.1 % Critically low 20.5-60.0 [facility] Comment on above: Performed By: #### C BC #### [facility] [address] [place] [address] Dr. Win Travis MANUAL DIFF REQ NO Normal [facility] Comment on above: Performed By: #### C BC #### [facility] [address] [place] [address] Dr. Win Travis MCH (RBC) [Entitic mass] 32.9 pg Normal 26.7-34.0 [facility] Comment on above: Performed By: #### C BC #### [facility] [address] [place] [address] Dr. Win Travis MCHC (RBC) [Mass/Vol] 33.2 g/dL Normal 29.9-35.2 [facility] Comment on above: Performed By: #### C BC #### [facility] [address] [place] [address] Dr. Win Travis MCV (RBC) [Entitic vol] 99.1 fL Critically high 81.0-99.0 [facility] Comment on above: Performed By: #### C BC #### [facility] [address] [place] [address] Dr. Win Travis MONO # 1.2 103/ul Critically high 0.3-0.8 [facility] Comment on above: Performed By: #### C BC #### [facility] [address] [place] [address] Dr. Win Travis Monocytes/100 WBC (Bld) 13.9 % Critically high 1.7-12.0 [facility] Comment on above: Performed By: #### C BC #### [facility] [address] [place] [address] Dr. Win Travis NEUT # 6.1 103/ul Normal 1.4-6.5 [facility] Comment on above: Performed By: #### C BC #### [facility] [address] [place] [address] Dr. Win Travis Neutrophils/100 WBC (Bld) 69.9 % Normal 43.0-75.0 [facility] Comment on above: Performed By: #### C BC #### [facility] [address] [place] [address] Dr. Win Travis Platelet mean volume (Bld) [Entitic vol] 9.8 fL Normal 9.5-13.5 [facility] Comment on above: Performed By: #### C BC #### [facility] [address] [place] [address] Dr. Win Travis PLT 297 103/ul Normal 150-450 [facility] Comment on above: Performed By: #### C BC #### [facility] [address] [place] [address] Dr. Win Travis RBC 4.59 106/ul Normal 4.20-5.40 [facility] Comment on above: Performed By: #### C BC #### [facility] [address] [place] [address] Dr. Win Travis WBC 8.7 103/ul Normal 4.0-11.0 [facility] Comment on above: Performed By: #### C BC #### [facility] [address] [place] [address] Dr. Win Travis PROF CHEM 8 (BAS METB)on Anion gap [Moles/Vol] 10.6 mmol/L Normal [facility] Comment on above: Performed By: #### P TT, PT #### [facility] [address] [place] [address] Dr. Win Travis Calcium [Mass/Vol] 8.5 mg/dL Normal 8.5-10.1 [facility] Comment on above: Performed By: #### P TT, PT #### [facility] [address] [place] [address] Dr. Win Travis Chloride [Moles/Vol] 106 mmol/L Normal 98-107 [facility] Comment on above: Performed By: #### P TT, PT #### [facility] [address] [place] [address] Dr. Win Travis CO2 [Moles/Vol] 30.9 mmol/L Normal 21.0-32.0 [facility] Comment on above: Performed By: #### P TT, PT #### [facility] [address] [address] [address] Win Travis Creatinine [Mass/Vol] 1.02 mg/dL Normal 0.55-1.02 [facility] Comment on above: Performed By: #### P TT, PT #### [facility] [address] [address] [address] Win Travis EGFR-AF DANISH >60 Normal >=60 [facility] Comment on above: Performed By: #### P TT, PT #### [facility] [address] [address] [address] Win Travis EGFR-NON AF DANISH 54 mL/min/1.73m2 Critically low >=60 [facility] Comment on above: Performed By: #### P TT, PT #### [facility] [address] [address] [address] Win Travis Glucose [Mass/Vol] 99 mg/dL Normal 74-106 [facility] Comment on above: Performed By: #### P TT, PT #### [facility] [address] [address] [address] Win Travis Potassium [Moles/Vol] 4.5 mmol/L Normal 3.5-5.1 [facility] Comment on above: Performed By: #### P TT, PT #### [facility] [address] [address] [address] Win Travis Sodium [Moles/Vol] 143 mmol/L Normal 136-145 [facility] Comment on above: Performed By: #### P TT, PT #### [facility] [address] [address] [address] Win Travis Urea nitrogen [Mass/Vol] 15.0 mg/dL Normal 7.0-18.0 [facility] Comment on above: Performed By: #### P TT, PT #### [facility] [address] [address] [address] Win Travis Urea nitrogen/Creatinine [Mass ratio] 14.7 mg/mg Normal [facility] Comment on above: Performed By: #### P TT, PT #### [facility] [address] [place] [address] Dr. Win Travis PROTIMEon 02-14-2022 INR Coag (PPP) [Relative time] 0.97 {INR} Normal [facility] Comment on above: Performed By: #### P TT, PT #### [facility] [address] [place] [address] Dr. Win Travis INR GUIDELINES SEE BELOW Normal [facility] Comment on above: Result Comment: DARLING RED INR: 2.0 - 3.0 CONDITIONS NOT LISTED BELOW 2.5 - 3.5 FOR PROSTHETIC HEART VALVE REPLACEMENT 2.5 - 3.5 RECURRENT THROMBOSIS Performed By: #### P TT, PT #### [facility] [address] [place] [address] Dr. Win Travis PT Coag (PPP) [Time] 10.5 s Normal 9.0-11.6 [facility] Comment on above: Performed By: #### P TT, PT #### [facility] [address] [place] [address] Dr. Win Travis PTTon 02-14-2022 aPTT Coag (Bld) [Time] 28.3 s Normal 22.3-36.2 [facility] Comment on above: Performed By: #### P TT, PT #### [facility] [address] [place] [address] ABD/PELVIS WO CONon [...] by: CHANDU DEVI Date: 2022-02-05 13:03 Normal [facility] XR KUB 1 VIEWon 01-20-2022 XR [...] ELVIS CARPENTER Date: 2022-01-20 16:24 Normal [facility] LIVER PROFILEon 12-02-2021 Albumin [Mass/Vol] 3.5 g/dL Normal 3.4-5.0 [facility] Comment on above: Performed By: #### P TT, PT #### [facility] [address] [place] [address] Dr. Win Travis Albumin/Globulin [Mass ratio] 0.8 {ratio} Normal [facility] Comment on above: Performed By: #### P TT, PT #### [facility] [address] [place] [address] Dr. Win Travis ALP [Catalytic activity/Vol] 93 U/L Normal 46-116 [facility] Comment on above: Performed By: #### P TT, PT #### [facility] [address] [place] [address] Dr. Win Travis ALT [Catalytic activity/Vol] 27 U/L Normal 14-59 [facility] Comment on above: Performed By: #### P TT, PT #### [facility] [address] [place] [address] Dr. Win Travis AST [Catalytic activity/Vol] 18 U/L Normal 15-37 [facility] Comment on above: Performed By: #### P TT, PT #### [facility] [address] [place] [address] Dr. Win Travis BILI, CONJUGATED 0.1 mg/dL Normal 0.0-0.2 [facility] Comment on above: Performed By: #### P TT, PT #### [facility] [address] [place] [address] Dr. Win Travis Bilirubin [Mass/Vol] 0.5 mg/dL Normal 0.2-1.0 [facility] Comment on above: Performed By: #### P TT, PT #### [facility] [address] [place] [address] Dr. Win Travis Globulin (S) [Mass/Vol] 4.0 g/dL Normal [facility] Comment on above: Performed By: #### P TT, PT #### [facility] [address] [place] [address] Dr. Win Travis Protein [Mass/Vol] 7.5 g/dL Normal 6.4-8.2 [facility] Comment on above: Performed By: #### P TT, PT #### [facility] [address] [address] [address] Win Travis TSHon 12-02-2021 TSH 1.314 uIU/mL Normal 0.358-3.740 [facility] Comment on above: Performed By: #### P TT, PT #### [facility] [address] [address] [address] Win Trvais TSH RANGE SEE BELOW Normal [facility] Comment on above: Result Comment: <0.3 4 UIU/ml HYPERTHYROID 0.34-5.60 UIU/ml EUTHYROID >5.60 UIU/ml HYPOTHYROID Performed By: #### P TT, PT #### [facility] [address] [address] [address] Win Travis Vital Signs Date Time Vital Sign Value Performing Clinician Facility 06-15-2023 15:18-0500 Blood Pressure Location Glenn Danielsmini [facility] 06-15-2023 15:18-0500 Diastolic blood pressure 80 mm[Hg] Elizabeth Sarmini [facility] 06-15-2023 15:18-0500 Heart rate 70 /min Elizabeth Sarmini [facility] 06-15-2023 15:18-0500 Respiratory rate 16 /min Elizabeth Sarmini [facility] 06-15-2023 15:18-0500 Systolic blood pressure 130 mm[Hg] Elizabeth Sarmini [facility] 05-05-2023 09:54-0400 Blood Pressure Location Rosemarie Jansen [facility] 05-05-2023 09:54-0400 Body temperature 97.52 [degF] Rosemarie Jansen [facility] 05-05-2023 09:54-0400 Diastolic blood pressure 84 mm[Hg] Rosemarei Jansen [facility] 05-05-2023 09:54-0400 Heart rate 52 /min Rosemarie Jansen [facility] 05-05-2023 09:54-0400 Systolic blood pressure 123 mm[Hg] Rosemarie Jansen [facility] 12-20-2022 09:05-0400 Blood Pressure Location VICKI BROWN [facility] 12-20-2022 09:05-0400 Diastolic blood pressure 78 mm[Hg] VICKI KEVIN [facility] 12-20-2022 09:05-0400 Heart rate 68 /min VICKI KEVIN [facility] 12-20-2022 09:05-0400 Respiratory rate 16 /min VICKI KEVIN [facility] 12-20-2022 09:05-0400 Systolic blood pressure 130 mm[Hg] VICKI KEVIN [facility] 01-28-2022 08:51-0400 Blood Pressure Location Joellen BRIGHT [facility] 01-28-2022 08:51-0400 Diastolic blood pressure 71 mm[Hg] Joellen BRIGHT [facility] 01-28-2022 08:51-0400 Heart rate 65 /min Joellen BRIGHT [facility] 01-28-2022 08:51-0400 Respiratory rate 16 /min Joellen BRIGHT [facility] 01-28-2022 08:51-0400 Systolic blood pressure 111 mm[Hg] Joellen BRIGHT [facility] Encounters Encounter Date Encounter Type Care Provider Facility Start: 02-03-2025 ambulatory [facility] Start: 01-31-2025 ambulatory [facility] Start: 01-22-2025 ambulatory [facility] Start: 12-02-2024 ambulatory [facility] Start: 11-08-2024 ambulatory [facility] Start: 11-08-2024 Encounter for preprocedural cardiovascular examination [facility] Start: 2024 ambulatory Rosangela Marin Facility :[facility] Start: 10-24-2024 End: 10-24-[facility]: 09-30-[facility]24 amb[facility] Start: 09-16-2024 End: 09-16-2024 ambulatory [facility] Start: 08-23-2024 ambulatory [facility] Start: 07-24-2024 ambulatory [facility] Start: 05-27-2024 ambulatory [facility] Start: 05-15-2024 ambulatory [facility] Start: 04-29-2024 End: 04-29-2024 Lab Drop off Rosangela Marin [facility] Start: 04-29-2024 End: 04-29-2024 ambulatory Rosangela Marin Facility:[facility] Start: 04-25-2024 ambulatory [facility] Start: 04-11-2024 ambulatory [facility] Start: 04-02-2024 End: 04-02-2024 ambulatory [facility] Start: 03-22-2024 ambulatory [facility] Start: 03-12-2024 End: 03-12-2024 ambulatory [facility] Start: 03-07-2024 ambulatory [facility] Start: 12-14-2023 ambulatory Elizabeth Talal Sarmini Facility:[facility] Start: 06-19-2023 End: 06-19-2023 ambulatory Rosangela Marin Facility:[facility] Start: 06-15-2023 End: 06-15-2023 ambulatory Elizabeth Talal Sarmini Facility:[facility] Start: 06-15-2023 End: 06-15-2023 Patient encounter procedure Elizabeth Talal Sarmini [facility] Start: 06-15-2023 End: 06-27-2023 ambulatory Rosangela Marin Facility:CD:[id number] Start: 05-24-2023 End: 05-24-2023 ambulatory Elizabeth Talal Sarmini Facility:[facility] Start: 05-18-2023 End: 05-18-2023 ambulatory Rosemarie Jansen Facility:[facility] Start: 05-15-2023 ambulatory [facility] Sar[facility] Start: 05-05-2023 End: 05-05-2023 ambulatory Rosemarie Jansen Facility:[facility] Start: 05-05-2023 End: 05-05-2023 Patient encounter procedure Rosemarie Jansen [facility] Start: 05-05-2023 End: 05-05-2023 ambulatory Rosemarie Jansen Facility:[facility] Start: 05-05-2023 End: 05-05-2023 Patient encounter procedure Rosemarie Jansen [facility] Start: 04-25-2023 End: 04-25-2023 Patient encounter procedure VICKI BROWN [facility] Start: 04-18-2023 End: 04-18-2023 Lab Drop off Rosangela Tala [facility] Start: 12-20-2022 End: 12-20-2022 Patient encounter procedure VICKI BROWN [facility] Start: 10-24-[address] JOELLEN BRIGHT . Fac ility:[facility] Start: 08-25-2022 End: 08-26-2022 ambulatory YESSICA TORRES Facility:[facility] Start: 03-03-[address] JOELLEN BRIGHT . Fac ility:[facility] Start: 02-17-2022 Encounter for preprocedural laboratory examination DR JOELLEN BRIGHT . [facility] Start: 02-17-2022 End: 02-17-[address] JOELLEN BRIGHT . Facility:[facility] Start: 02-16-2022 End: 02-17-[address] JOELLEN BRIGHT . Facility:[facility] Start: 02-16-2022 End: 02-17-2022 Encounter for preprocedural laboratory examination DR JOELLEN BRIGHT . Facility:[facility] Start: 02-15-2022 Encounter for preprocedural cardiovascular examination DR JOELLEN BRIGHT . [facility] Start: 02-15-2022 Encounter for preprocedural laboratory examination DR JOELLEN BRIGHT . [facility] Start: 02-14-2022 End: 02-15-[address] JOELLEN BRIGHT . Facility:[facility] Start: 02-14-2022 End: 02-15-2022 Encounter for preprocedural cardiovascular examination DR JOELLEN BRIGHT . Facility:[facility] Start: 02-04-2022 End: 02-05-[address] JOELLEN BRIGHT . Facility:[facility] Start: 01-28-2022 End: 01-28-2022 Patient encounter procedure Joellen BRIGHT [facility] Start: 01-20-2022 End: 01-21-2022 ambulatory [...] Immunization Date Immunization Notes [facility] tetanus and diphtheria toxoids, adsorbed, preservative free, for adult use (2 Lf of tetanus toxoid and 2 Lf of diphtheria toxoid) Rosangela Marin [facility] Comment on above: Result Comment: Lot # [id number] Exp 04/03/22 NEGATED: Highlighted row has not occurred!05-03-2023 influenza virus vaccine, unspecified formulation Rosemarie Jansen [facility] Payers Date Payer Category Payer Medicare [id number] 1960 Self-pay [id number] 1955 Unknown [id number] 2.16.84 [id number] 1955 Unknown [id number] 2.16.84 0.1.395349.3.579.2.593 1954 Unknown [id number] 2.16.84 0.1.267577.3.579.2.593 1954 Unknown [id number] 2.16.84 0.1.883160.3.579.2.593 1954 Unknown [id number] 2.16.84 0.1.493249.3.579.2.593 1954 Unknown [id number] 2.16.84 0.1.856371.3.579.2.593 1954 Unknown [id number] 2.16.84 0.1.940534.3.579.2.593 1954 Unknown [id number] 2.16.84 0.1.463241.3.579.2.593 1954 Unknown [id number] 2.16.84 0.1.475996.3.579.2.593 1954 Unknown [id number] 2.16.8 40.1.977293.3.579.2.727 1954 Unknown [id number] 2.16.8 40.1.825484.3.579.2.727 1954 Unknown [id number] 2.16.8 40.1.651252.3.579.2.727 1954 Unknown [id number] 2.16.8 40.1.633704.3.579.2.727 1954 Unknown [id number] 2.16.8 40.1.377850.3.579.2.727 1954 Unknown [id number] 2.16.8 40.1.340053.3.579.2.727 1954 Unknown [id number] 2.16.8 40.1.260646.3.579.2.727 1954 Unknown [id number] 2.16.8 40.1.453089.3.579.2.727 1954 Unknown [id number] 2.16.8 40.1.983696.3.579.2.727 1954 Unknown [id number] 2.16.8 40.1.669492.3.579.2.727 1954 Unknown [id number] 2.16.8 40.1.552073.3.579.2.727 Social History Date Type Detail Facility Start: 01-27-2021 End: 06-15-2023 Tobacco smoking status Never smoked tobacco (finding) [facility] Sex Assigned At Female [facility] Tobacco smoking status Never [facility] Functional Status Date Assessment Result Facility 06-15-2023 Functional Status N/A [facility] 05-05-2023 Functional Status N/A [facility] 04-25-2023 Functional Status N/A [facility] 12-20-2022 Functional Status N/A [facility] 01-28-2022 Functional Status N/A [facility] Clinical Notes 01-28-2022 to 10-24-2024 [...] All other systems reviewed and are negative. [facility] 10-24-[address] [facility] SUBJECTIVE Chief Complaint Patient presents with ARVD [...] pulmonary disease) (CMS/HCC) 02/14/2022 Paroxysmal ventricular tachycardia ([facility]/HCC) 02/14/2022 Vitamin D deficiency 02/14/2022 Family History [...] stomach, and do (more content not included)... [facility] 04-29-2024 Note Patient Education Nutrition BMI for [...] for Disease Control and Prevention: cdc.gov ??? [place] Heart Association: heart.org ??? National Heart, Lung, and Blood [place]: nhlbi.nih.gov This information is not intended to replace advice given to you by your health care provider. Make sure you discuss any questions you have with your health care provider. Document Revised: 03/09/2023 Document Reviewed: 03/02/2023 MOLI Patient Education ? 2023 TSO3. [facility] 04-02-2024 Note Pt is here for a six month follow up. Pt has HTN, HLD, and COPD. Pt denies chest pain, palpatation, sob. Review of Systems Constitutional: Negative for chills, decreased appetite, fever and malaise/fatigue. Cardiovascular: Negative for dyspnea on exertion. Hematologic/Lymphatic: Negative for bleeding problem. Skin: Positive for rash. Burning around ICD incision All other systems reviewed and are negative. [facility] 04-02-2024 Note Cardiovascular Medic [facility] SUBJECTIVE Chief Complaint Patient presents with [...] Date Value R (more content not included)... [facility] 06-21-2023 Note [id number] [facility] 06-12-2023 Note [id number] [facility] 05-26-2023 Note [id number] [facility] 05-24-2023 Note Endoscopy Care After Procedure [...] Document Re-Released: 12/11/2006 ExitCare? Patient Information ?2009 CAL - [employer] Diverticulosis Many people have small pouches in [...] unsweetened, w/added ascorbic acid 1 cup 0.5 [place] 1 cup 0.7 Vegetables Cooked Green beans 1 cup 4.0 Carrots 1/2 cup sliced 2.3 Peas 1 cup 8.8 Potato (baked, with skin) 1 medium potato 3.8 [place] (with peel) 1 cucumber 1.5 Lettuce 1 [...] Peanuts 1/2 cup 7.9 Chart from [facility] 2013. SEEK IMMEDIATE MEDICAL CARE IF: You deve (more content not included)... [facility] 05-05-2023 Hospital Discharge instructions Patient Education [...] oral rehydration solution (ORS). This is an tgky-diq-qgfygas medicine that helps return your body to [...] drinks, sports drinks, and soda. Eat bland, tuvc-ce-zjqsib foods in small amounts as you are able. These foods include bananas, applesauce, rice, lean meats, toast, and crackers. Avoid alcohol. Avoid spicy or fatty foods. Medicines Take ysfu-wxi-cuumwsq and prescription medicines only as told by your health care provider. If you were prescribed an antibiotic medicine, take it as told by your health care provider. Do not stop using the antibiotic even if you start to feel better. General instructions Wash your hands often using soap and water. If soap and water are not available, use a hand system planning engineer. Others in the household should wash their [...] and water are not available, use hand system planning engineer. Contact a health care provider if your diarrhea gets worse or you have new symptoms. Get help right away if you have signs of dehydration. This information is not intended to replace advice given to you by your health care provider. Make sure you discuss any questions you have with your health care provider. Document Revised: 12/29/2021 Document Reviewed: 12/29/2021 [facility] Patient Education 2022 TSO3. Follow Up Care 04/19/2023 09:52:25 With:Rosemarie Jansen CNP Address: When:1 to 2 weeks Comments:Following colonoscopy. [facility] 04-25-2023 Hospital Discharge instructions Patient [...] include: ?8 oz (237 mL) of milk, shbxpxl-nfebyebcmyln-dkmsq milk, and calcium-fortifiedfruit juice. Calcium-fortified means that [...] ?Spinach (cooked), rhubarb, beets, sweet potatoes, and Togolese chard. ?Peanuts. ?Potato chips, liberian fries, and baked potatoes with skin on. ?Nuts and nut products. ?Chocolate. If you regularly take a diuretic medicine, make sure to eat at least 1 or 2 servings of fruits or vegetables that are high in potassium each day. These include: ?Avocado. ?Banana. ?[place], prune, carrot, or tomato juice. ?Baked potato. [...] magnesium, fish oil, or vitamin B6. Take prfs-luv-ukatykx and prescription medicines only as told by [...] Casseroles. Pizza. Lasagna. Frozen meals. Potato chips. Lithuanian fries. The items listed above may not [...] provider. Document Revised: 02/28/2022 Document Reviewed: 02/28/2022 [employer] [place] Patient Education 2022 TSO3. Follow Up Care 12/20/2022 09:51:10 With:KEVIN LOPES, VICKI Gann, URL Address: [address] [place] [address] When: Unknown [facility] 04-03-2023 Evaluation + Plan note Future Appointments Appointment Date:04/28/2023 10:00:00 AM Scheduled Provider: Location:.BD Appointment Type:BD Bone Density (FT) Appointment Date:04/28/2023 10:30:00 AM Scheduled Provider: Location:.XRAY Appointment Type:XR Pelvis/Hip () Appointment Date:05/05/2023 10:00:00 AM Scheduled Provider:Rosemarie Jansen CNP Location[facility] Appointment Type:[facility] New Patient Future Scheduled TestsXR Hip 2-3 Views Right 04/28/23BD Bone Density DEXA 04/28/23 [facility] 12-20-2022 Hospital Discharge instructions Patient Education 12/20/2022 13:11:32 Kidney Stones, Eloy-uj-Wuoc Kidney Stones Kidney stones are rock-like masses [...] Follow these instructions at home: Medicines Take ttzd-rnc-iczrexq and prescription medicines only as told by [...] provider. Document Revised: 02/21/2022 Document Reviewed: 02/21/2022 [employer] [place] Patient Education 2022 TSO3. Follow Up Care 03/01/2022 09:37:28 With:VICKI BROWN PA-C, URL Address: [address] [place] [address] When:3 months [facility] 01-28-2022 Hospital Discharge instructions Patient Education 01/28/2022 09:46:54 Kidney Stones, Bcew-zg-Zcpo Kidney Stones Kidney stones are rock-like masses [...] Follow these instructions at home: Medicines Take kiwc-gnr-hzvyafr and prescription medicines only as told by [...] 12/05/2008 Document Revised: 11/05/2019 Document Reviewed: 11/05/2019 [facility] Patient Education 2019 TSO3. Follow Up Care 02/25/2021 10:27:08 With:KAILA ALVARADO, Joellen Manrique, URL Address: [facility] [address], [place] [phone] When: Unknown Comments:schedule CT A/P w/o contrast [facility] Evaluation + Plan note No data available for this section [facility] Evaluation + Plan note Future Appointments Appointment Date:03/28/2023 08:30:00 AM Scheduled Provider:VICKI BROWN PA-C Location:[facility] Appointment Type:URO Office Visit [facility] Evaluation + Plan note Future Appointments Appointment Date:04/25/2023 11:40:00 AM Scheduled Provider:VICKI BROWN PA-C Location:[facility] Appointment Type:URO Office Visit Future Scheduled TestsXR Hip 2-3 Views Right 04/18/23BD Bone Density DEXA 04/18/23 [facility] Evaluation + Plan note Future Appointments Appointment Date:05/24/2023 03:15:00 PM Scheduled Provider: Location:[facility] Appointment Type:Surgery FT Future Scheduled TestsPancreatic Elastase, Fecal 05/05/23Fecal WBC Lactoferrin 05/05/23Giardia lamblia, Direct Detection EIA 05/05/23O & P Exam, Routine 05/05/23Clostridium Difficile PCR 05/05/23Enteric Panel by PCR 05/05/23 [facility] Evaluation + Plan note Future Appointments Appointment Date:05/24/2023 03:15:00 PM Scheduled Provider: Location:[facility] Appointment Type:Surgery FT Diagnostic Tests PendingCeliac Disease Comprehensive 05/05/23 Future Scheduled TestsPancreatic Elastase, Fecal 05/05/23Fecal WBC Lactoferrin 05/05/23Giardia lamblia, Direct Detection EIA 05/05/23O & P Exam, Routine 05/05/23Clostridium Difficile PCR 05/05/23Enteric Panel by PCR 05/05/23 [facility] Evaluation + Plan note Future Appointments Appointment Date:2024 09:30:00 AM Scheduled Provider: Location:[facility] Appointment Type: Medicare Wellness Subsequent Appointment Date:2024 10:15:00 AM Scheduled Provider:Rosangela Marin MD Location:[facility] Appointment Type: [facility] Evaluation + Plan note Future Appointments Appointment Date:06/19/2023 04:20:00 PM Scheduled Provider:Rosangela Marin MD Location:[facility] Appointment Type: Hospital Follow Up w/TCM Appointment Date:12/14/2023 12:00:00 PM Scheduled Provider:Glenn Dukes MD Location:[facility] Appointment Type:BADH Follow Up [facility] Hospital Discharge instructions No data available for this section [facility] Progress note No data available for this section [facility] Summary Purpose Family History No [...] content) Personnel Name: ADAM SANDERS MD Address: [address] [place] [id number] Personnel Name: Rosangela Marin MD Address: Address[facility] Personnel Name: Rosangela Marin MD Address: Address: [facility] Personnel Name: Rosangela Marin MD Address: Address: [facility] Personnel Name: Rosangela Marin MD Address: Address: [facility] [address] Personnel Name: Rosangela Marin MD Address: Address: [facility] Personnel Name: Rosangela Marin MD Address: Address: [facility] Personnel Name: Rosangela Marin MD Address: Address: [facility] [address] INFORMATION SOURCE (unrecogn ized section and content) DATE CREATED AUTHOR [facility]30/2022 [facility] DATE CREATED AUTHOR AUTHOR'S ORGANIZ ATION 04/30/2024 [facility] DATE CREATED AUTHOR AUTHOR'S ORGANIZ ATION 05/16/2024 [facility] DATE CREATED AUTHOR AUTHOR'S ORGANIZ ATION 02/06/2025 [facility] FOR RECORDS PERTAINING TO PATIENTS WHO [...] BE BASED ON THE PRIMARY CLINICAL RECORDS. [employer] provides no warranty or guarantee of the accuracy or completeness of information in this document.
== END 2025-02-12 09:30 | disposition home or self-care (01) ==
LOC: RAD 09:29
PROVIDERS: PCP Family Medicine; Visit Provider Family Medicine
DX: M81.0 Age-related osteoporosis without current pathological fracture (principal)
CPT/HCPCS: 77080